=== PATIENT | female | born 1940 | race Caucasian/White ===

== ENCOUNTER 2018-12-02 07:30 | Emergency (ER) | payer MEDICARE, OTHER, SELFPAY ==
[2018-12-02 07:31] VITALS: BP 136/75; PULSE 90; RESP 18; TEMP 36.6; O2SAT 97; BMI 23.8
--- NOTE | 2018-12-02 07:55 | CT_ITS ---
STUDY: CT ABDOMEN AND PELVIS WITH CONTRAST REASON FOR EXAM: Female, 77 years old. Generalized abdominal pain with nausea and diarrhea. RADIATION DOSAGE (If Supplied By Facility): CTDIvol = ( 13.13 ) mGy, DLP = ( 602.34 ) mGycm TECHNIQUE: Transaxial images were obtained from the dome of the diaphragm to the symphysis pubis without oral contrast. 75mL IV Isovue 300 was administered. Sagittal and coronal images were reconstructed. Individualized dose optimization techniques were used for this CT. COMPARISON: None. FINDINGS: Minimal degree of increased markings at the lung bases suggestive of atelectasis. The visualized portions of the heart are within normal limits. There is decreased attenuation of the liver consistent with steatosis. Mild degree of central intrahepatic biliary ductal dilatation. The patient is status post cholecystectomy. The gallbladder is dilated measuring 8.7 mm. Normal spleen. Normal pancreas. Normal bilateral adrenal glands. Normal right kidney. Normal left kidney. There is a small hiatal hernia. Normal small intestine. There is diverticulosis, with thickening of the colon wall, and pericolonic inflammation changes consistent with acute diverticulitis. The patient is status post appendectomy There is diffuse atherosclerotic calcification of the abdominal aorta, without a demonstrated aneurysm. Normal inferior vena cava. Normal retroperitoneum. Normal urinary bladder. Normal abdominal wall. There are diffuse degenerative changes of the visualized lumbar spine. Grade 1 anterolisthesis of L3 on L4. CT/Abdomen/Pelvis W IV Cont ONLY IMPRESSION: Mild degree of sigmoid diverticulitis. Circumferential wall thickening and inflammatory changes seen in the distal portion of the descending colon. Follow-up is recommended. Electronically Signed: Crow Hale, at 9:53 EDT , Service support ,
--- NOTE | 2018-12-02 07:57 | ED.VISSUMM ---
- ER Visit Summary Date of Service: 12/02/18 Chief Complaint: Nausea, diarrhea, abdominal cramping History of Present Illness: The patient is a 77 F presents to the emergency department 24 hours of symptoms. The patient states that she began have some abdominal cramping last night. She states she felt very nauseated. Since then, she is had multiple bouts of loose watery diarrhea. She denies any fevers or chills. She denies any recent travel, antibiotic use, or history of C. difficile. States she is uncomfortable. She has had prior abdominal surgery including appendectomy and cholecystectomy. She states she did have a colonoscopy, but has never been diagnosed with diverticulosis or colitis. She has not had any vomiting. Physical Examination: Vital signs reviewed General: Well-nourished, well-developed Head: Normocephalic, atraumatic Eyes: Pupils equal and reactive, extraocular muscles intact Neck, supple, no lymphadenopathy Heart: Regular rate and rhythm Respiratory: No distress, clear bilaterally Abdomen: Soft, nontender, nondistended, no peritoneal signs Back: Nontender Extremities: Nontender, no edema, no cords Skin: Normal color no rash Neuro: Alert and oriented, no focal or lateralizing deficits Test Results: [] Emergency Department Course and Treatment: Patient's abdominal exam is unimpressive. She really has no focal rebound or guarding. However, given her advanced age and metabolic work-up was pursued. IV was established. Patient was given fluids and antiemetics. She was feeling improved. Labs are unremarkable. CT shows uncomplicated mild diverticulitis. I discussed options with the patient. I do feel that she is safe for outpatient therapy. She is agreeable with this plan. She will be started on Cipro and Flagyl and given her first dose here. I did certified alcohol counselor her on the appropriate reevaluation within the next 24 to 48 hours. I also counseled her that if her symptoms are worsening to return to the emergency department. She was also counseled that she has worsening fever or pain to return. She will be discharged home. Treatment Plan: [] Disposition: Discharge Impression: 1. Acute uncomplicated diverticulitis This note was generated with [facility] [employer] software. It may contain incorrect words, spelling, and punctuation that were not noted in review of the chart prior to signing ED Disposition - Plan for ED Patient: Disposition: Home or Assisted Living Instructions: Diverticulitis Prescriptions: Ciprofloxacin [Cipro] 500 mg PO BID #14 tab Prescription Printed metroNIDAZOLE [Flagyl] 500 mg PO Q8H #21 tab Prescription Printed Referrals: Deven Mendoza MD [Primary Care Provider] - 1-2 Days if not improving
[2018-12-02] MEDS: 0.9% Normal Saline 1,000 ML 1000 ML IV (08:04)
[2018-12-02] MEDS: Ondansetron 4 MG/2 ML Vial IV (08:04)
[2018-12-02 08:34] LABS: Absolute Lymphocyte Count 0.65 X10^3/ul (0.83-4.51); Basophil# 0.02 X10^3/uL; Basophil% 0.3 % (0-1); Eosinophil# 0.13 X10^3/uL; Eosinophils% 1.8 % (0-5); Hematocrit 48.9 % (37-47); Lymphocyte # 0.65 X10^3/ul (4.0); Lymphocyte % 8.9 % (19-41); Mean Corp Hgb Conc 32.7 g/gl (32-36); Mean Corpuscular Hgb 28.1 pg (27.0-32.0); Mean Corpuscular Volume 85.8 fL (81-99); Mean Platelet Vol. 10.5 fl (6.2-12.0); Monocyte% 6.9 % (0-10); Neutrophil # 5.98 X10^3/uL (2.7-7.7); Platelet Count 266 K/mm3 (150-450); RBC Distribution Width CV 14.3 % (11.6-14.6); RBC Distribution Width SD 44.6 fl (35.1-43.9); White Blood Count 7.3 K/mm3 (4.4-11.0)
[2018-12-02 08:38] LABS: POSITIVE COUNT NO; POSITIVE DIFFERENTIAL NO; POSITIVE MORPHOLOGY NO
[2018-12-02 08:57] LABS: ALB/GLOB Ratio 1.1 RATIO (0.9-2.4); AST(SGOT) 31 U/L (15-37); Alanine Aminotransfer ALT/SGPT 27 U/L (13-56); Albumin, Serum 3.9 g/dL (3.2-5.0); Alkaline Phosphatase 88 U/L (45-117); Anion Gap 6 (5-15); BUN 26 mg/dL (7-18); BUN/Creat Ratio 24.8 RATIO (10-20); Calcium,Total 9.6 mg/dL (8.5-10.1); Chloride 110 mmol/L (98-107); Creatinine, Serum 1.05 mg/dL (0.55-1.02); EST Glomerular Filtration Rate 54 mL/min (>60); Est Glom Filt Rate - Afr Amer 65 mL/min (>60); Estimated Creatinine Clearance 36.63 ml/min; Globulin 3.7 g/dL (2.2-4.2); Glucose 112 mg/dL (74-106); Potassium 3.8 mmol/L (3.5-5.1); Protein, Total 7.6 g/dL (6.4-8.2); Sodium Level 140 mmol/L (136-145)
[2018-12-02 09:18] LABS: Color, Urine Yellow (Yellow); Glucose, Dipstick Normal (Normal); Ketone-Dipstick Negative (Negative); Leukocyte Esterase-Dipstick Negative /ul (Negative); Nitrite-Dipstick Negative (Negative); Occult Blood-Urine 10 /ul (Negative); Protein-Dipstick Negative (Negative); Specific Gravity, Urine 1.015 (1.002-1.030); Urine Bilirubin Dipstick Negative (Negative); Urine Clarity Clear (Clear); Urine Urobilinogen Normal (Normal)
[2018-12-02 09:19] LABS: White Blood Cells 0 SEEN /hpf (0-5)
[2018-12-02 09:25] LABS: Bacteria RARE /hpf (None Seen); Mucous, Urine RARE /hpf (<or=2+); Red Blood Cells-Urine 0-5 SEEN /hpf (0-5); Squamous Epithelial Cells - UA 0-5 SEEN /hpf (5-10)
[2018-12-02] MEDS: Ciprofloxacin 500 MG Tablet PO (10:43)
[2018-12-02] MEDS: metroNIDAZOLE 500 MG Tablet PO (10:43)
[2018-12-02 10:48] VITALS: BP 129/77; PULSE 63; RESP 15; O2SAT 98
== END 2018-12-02 10:49 | disposition home or self-care (01) ==
PROVIDERS: Emergency Medicine; Emergency Provider Emergency Medicine; Family Provider Family Medicine; PCP Family Medicine
DX: K57.32 Diverticulitis of large intestine without perforation or abscess without bleeding (principal); Z90.49 Acquired absence of other specified parts of digestive tract
CPT/HCPCS: 74177; 80053; 81001; 85025; 87086; 87088; 96361; 96374; 99284; J7030; Q9967; A4216; J2405

== ENCOUNTER → 2019-04-24 07:29 | Outpatient (CLI) | payer MEDICARE, OTHER, SELFPAY ==
--- NOTE | 2019-04-24 16:49 | NEURO ---
NCS and/or EMG Patient Report HPI: Patient s a 78-year-old female who presented with numbness of right middle finger and thumb for a couple of months. Patient is a borderline diabetic. Patient denies any H/O neck injury. Patient having difficulty holding things from the right hand. Physical Exam: Thenar and hypothenar muscles atrophy noted. Decreased sensation to light touch noted in right middle hand fingers. Findings: 1. There is evidence of prolongation of distal latency of right median sensory nerve response. 2. There is prolongation of the distal latency of the right ulnar sensory nerve response. 3. There is prolongation of the distal latency of the right median motor nerve response. 4. There is evidence of increased insertional activity and decreased recruitment with fibrillation potential and P waves present in right APB muscle. Impression: 1. Findings are consistent with a severe median mononeuropathy of the right hand due to carpal tunnel syndrome. 2. 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 Recommendation: 1. Patient recommended to wear a right hand and elbow splint as much as possible. 2. Recommend to avoid repetitive hand movements and heavy lifting pushing pulling from the right hand. 3. Patient is recommended to have surgical release of carpal tunnel syndrome in the right hand QUAN.
== END ==
PROVIDERS: Family Provider Family Medicine; PCP Family Medicine; Referring Provider Family Medicine; Visit Provider Family Medicine
DX: R20.2 Paresthesia of skin (principal)
CPT/HCPCS: 95860; 95886; 95908

== ENCOUNTER 2019-12-13 10:31 | Inpatient (IN) | payer MEDICARE, OTHER, SELFPAY ==
[2019-12-13] VITALS (21 sets, daily range): BP systolic 122–156; BP diastolic 68–114; PULSE 71–93; RESP 12–28; TEMP 36.4–36.9; O2SAT 95–100; BMI 20.5; BMI 22.8; BMI 22.9
--- NOTE | 2019-12-13 10:35 | CT_ITS ---
STUDY: CT BRAIN WITHOUT CONTRAST REASON FOR EXAM: Female, 79 years old. CONFUSION FOUND IN DRIVEWAY, STROKE RADIATION DOSAGE (If Supplied By Facility): CTDIvol = ( 44.99 ) mGy, DLP = ( 745.49 ) mGycm TECHNIQUE: Transaxial CT imaging of the brain was performed without administration of intravenous contrast material. Individualized dose optimization techniques were used for this CT. COMPARISON: July 21, 2015 CT head FINDINGS: Normal soft tissue structures. Normal calvarium. There is mild cerebral atrophy with widening of the extra-axial spaces and ventricular dilatation. Normal white matter tracts of the cerebral hemispheres. There is subtle low attenuation within the left side external capsule slightly asymmetric to the right similar to the prior study. Normal brainstem. There is mild cerebellar atrophy. There is no intracranial hemorrhage. There are no findings of an acute ischemic infarction. Normal visualized paranasal sinuses. CT/Brain/Head without Contrast IMPRESSION: Atrophy. Chronic evolutional Change, findings suggest subtle prior ischemic change in the basal ganglia. No visualized evidence of acute hemorrhage infarct or edema. N.B. : The above information has been verbally conveyed by Gosia Chacon MD to Dieter Samuels MD, on 12/13/2019 10:59:53 (ET). Electronically Signed: Gosia Chacon MD at 10:52 EDT Tel , Service support ,
--- NOTE | 2019-12-13 10:35 | RAD_ITS ---
STUDY: X-RAY CHEST REASON FOR EXAM: Female, 79 years old. Pt found outside on ground by neighbor, pt confused TECHNIQUE: Single AP portable view of the chest. COMPARISON: July 21, 2015 chest x-ray FINDINGS: There is a small focus of stable left lower lobe opacity. There is no demonstrated pleural abnormality. There is borderline cardiomegaly. Normal mediastinum and dany. Normal visualized pulmonary arteries. There is atherosclerotic calcification of the aortic arch with tortuosity. There are diffuse degenerative changes of the visualized thoracic spine. Normal visualized ribs, clavicles, and shoulders. There is no demonstrated abnormality of the visualized soft tissue structures of the upper abdomen. RAD/Chest 1 View IMPRESSION: Stable appearing left lower lobe atelectasis and/or scarring. Electronically Signed: Gosia Chacon MD at 11:26 EDT Tel , Service support ,
--- NOTE | 2019-12-13 10:35 | EKG12_ITS ---
Test Reason : STROKE Blood Pressure : / mmHG Vent. Rate : 092 BPM Atrial Rate : 092 BPM P-R Int : 130 ms QRS Dur : 078 ms QT Int : 368 ms P-R-T Axes : 067 -40 055 degrees QTc Int : 455 ms Normal sinus rhythm Left axis deviation Nonspecific ST abnormality Abnormal ECG Confirmed by MANNY MARIE, ZAID ([id number]), editorial writer FELIPA PRUITT ([id number]) on 12/15/2019 1:07:58 PM Referred By: BROOK Confirmed By:ZAID BRYANT MD
--- NOTE | 2019-12-13 10:36 | CT_ITS ---
We are attempting to reach an attending provider to discuss findings. An addendum with communication details will be sent when the communication is complete. STUDY: CTA HEAD AND NECK WITH CONTRAST REASON FOR EXAM: Female, 79 years old. STROKE ADRIEL RADIATION DOSAGE (If Supplied By Facility): CTDIvol = ( 15.92 ) mGy, DLP = ( 533.09 ) mGycm TECHNIQUE: CT angiography was performed with a multi-detector CT scanner. Data acquisition was obtained from the skull base through the vertex following intravenous administration of 75ML ISOVUE 370. MIP images were reconstructed from the axial data set. Post-processing of the angiographic images was performed, with multiplanar reformation and 3D reconstruction. Individualized dose optimization techniques were used for this CT. COMPARISON: No relevant priors. FINDINGS: Normal bilateral petrous carotid arteries. Normal right cavernous carotid artery with a normal supraclinoid bifurcation. There is calcified plaque formation of the left cavernous carotid artery, without a cross-sectional luminal stenosis. Normal right A1 segments of the anterior cerebral artery. Normal left A1 segments of the anterior cerebral artery. Normal intact anterior communicating artery (ACOM). Normal bilateral A2 segments of the anterior cerebral arteries. Normal right M1 and M2 segments of the middle cerebral arteries, with a normal M1 bifurcation. Normal left M1 and M2 segments of the middle cerebral arteries, with a normal M1 bifurcation. There is a persistent origin of the right posterior cerebral artery with absence of the posterior communicating artery (PCOM). Normal left posterior communicating artery (PCOM). Normal bilateral vertebral arteries. Normal basilar artery with a normal basilar bifurcation. The visualized bilateral superior cerebellar (SCA) arteries are normal. Normal bilateral P1, P2 and visualized P3 segments of the posterior cerebral arteries. There is no demonstrated aneurysm of the [place]. There is no demonstrated abnormality of the visualized brain. AORTIC ARCH: There is partial calcification of the visualized aortic arch. Normal origins of the brachiocephalic, left common carotid, and left subclavian arteries. RIGHT CAROTID ARTERIES: There is atherosclerotic tortuous elongation of the right common carotid artery. There is moderate atherosclerotic plaque formation with moderate narrowing of the right carotid bulb. There is moderate atherosclerotic plaque formation of the origin of the right internal carotid artery with an estimated stenosis of 50-69% stenosis. There is atherosclerotic tortuous elongation of the cervical portion of the right internal carotid artery. Normal origin of the right external carotid artery (ECA). LEFT CAROTID ARTERIES: There is atherosclerotic tortuous elongation of the left common carotid artery. Normal left common carotid bulb. Normal origin of the left internal carotid (ICA) artery without a hemodynamically significant stenosis. There is atherosclerotic tortuous elongation of the cervical portion of the left internal carotid artery. Normal origin of the left external carotid artery (ECA). VERTEBRAL ARTERIES: Normal bilateral vertebral arteries. There is degenerative change within the cervical spine with multilevel facet arthropathy. No significant C5-C6 where there is a broad disc osteophyte moderate neural foraminal narrowing [id number] central stenosis. CT/CTA Head AND Neck W/ Contrast IMPRESSION: 50-69% stenosis of the right proximal internal carotid artery. No significant narrowing or stenosis of the left internal carotid artery. No visualized stenosis or aneurysmal dilatation of the [place] of [place]. Normal-appearing deering of [place]. Electronically Signed: Gosia Chacon MD at 11:14 EDT Tel , Service support ,
--- NOTE | 2019-12-13 10:37 | ED.VIS.GEN ---
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 She was found in her driveway unresponsive by her neighbor. When EMS arrived they state that she was very confused and kept repeating the same questions. She has been improving significantly. She is now answering questions appropriately. She is moving all 4 extremities equally. Blood glucose when EMS picked her up was 91. Patient denies having any history of strokes in the past. She is not on any anticoagulation. Just aspirin. Her only complaint at this time is nausea. She was given Zofran by EMS. Has any headache or vision changes. No issues with word finding. No loss of sensation in any extremity. No known history of seizure disorder. She denies any substance or alcohol use. Past Medical History - Allergies and Home Meds Allergies/Adverse Reactions: Allergies gabapentin [From Neurontin] Allergy (Verified 12/13/19 10:44) Other Penicillins Allergy (Verified 12/13/19 10:44) Swelling Hgbomxc-[id number]-Fzb Reductase Inhibitor Allergy (Verified 12/13/19 10:44) Other sulfamethoxazole [From Bactrim] Allergy (Verified 12/13/19 10:44) Pain in joints sulindac [From Clinoril] Allergy (Verified 12/13/19 10:44) Other tizanidine HCl [From Zanaflex] Allergy (Verified 12/13/19 10:44) Other trimethoprim [From Bactrim] Allergy (Verified 12/13/19 10:44) Pain in joints vancomycin Allergy (Verified 12/13/19 10:44) Itching duloxetine HCl [From Cymbalta] Adverse Reaction (Verified 12/13/19 10:44) Nausea erythromycin base Adverse Reaction (Verified 12/13/19 10:44) Other Primary Care Physician: Deven Mendoza MD [Primary Care Provider] - Prior records reviewed: Yes Past Medical History: - - History of DVT, not anticoagulated Surgical History: appendectomy, cholecystectomy Smoking Status: Never smoker - Family History Maternal Family History: Reports: Heart Disease - age 80 Paternal Family History: Reports: Heart Disease - age 42 Review of Systems All systems negative except as indicated General: Denies: Chills, Fever, Sweats Eyes: Denies: Visual changes - bilaterally, Diplopia ENT: Denies: Rhinorrhea, Sore throat Cardiovascular: Denies: Chest pain, Palpitations Respiratory: Denies: Dyspnea, Cough, Dyspnea on exertion Gastrointestinal: Reports: Nausea. Denies: Abdominal pain, Vomiting, Diarrhea Genitourinary: Denies: Dysuria, Hematuria, Frequency Musculoskeletal: Denies: Back pain, Extremity Pain Skin: Denies: Rash, Wounds Neurological: Denies: Headache, Weakness, Numbness Physical Exam Inital Vital Signs reviewed: Yes General: Well nourished, Well developed, No Acute Distress Head: Normocephalic, Atraumatic Eyes: Perrl, EOMI ENT: Moist mucous membranes, No rhinorrhea Neck: Supple, Nontender Cardiovascular: Regular rate, Regular rhythm, No murmurs Respiratory: No distress, CTA bilaterally, Chest nontender Abdomen: Soft, Nontender, Nondistended, Normal bowel sounds Back: Nontender, Normal Inspection Extremities: Nontender, No edema Skin: Normal color, No rash Neurological: Alert, Oriented x3, Cranial nerves II-XII grossly intact, Normal Strength, Normal Sensation, - - NIH score upon arrival is 0. 5 out of 5 muscle strength throughout. Sensation intact. Answers all questions appropriately. Follows commands well.. Negative for: Confused, Left side facial droop, Right side facial droop Psychological: Normal affect, Normal Mood Diagnostic/Tx/Re-eval - EKG Initial EKG Interpretation: - - Rate of 92 bpm and normal sinus rhythm. Left axis deviation. Normal intervals. No ST elevations or depressions appreciated. No T wave abnormalities. No prior EKG for comparison. - Medical Decision Making Patient presents to the hospital as a prehospital stroke alert. She was unresponsive initially per the neighbor but then became very confused. Upon arrival to the ED she is much better at this time. Her initial NIH score is 0. Will do CT scan of the head as well as CTA of the head/neck. Basic lab work being obtained. Patient's last known well is not completely known. She would still be candidate for endovascular intervention but no large vessel occlusion was appreciated on scan. She is not a TPA candidate given the outside of the window. Patient potentially had a TIA. She did not have any witnessed seizure-like activity. No history of seizure disorder. She not bite her tongue or become incontinent. Potentially could have had a postictal state causing this. Will bring to the hospital for further evaluation and management. Will give dose of aspirin here in the ED. She otherwise has been stable throughout ED stay. She is agreeable to this plan. ED Disposition - Plan for ED Patient: Disposition: Home or Assisted Living Diagnosis: Episode of confusion, Altered level of consciousness Referrals: Deven Mendoza MD [Primary Care Provider] -
--- NOTE | 2019-12-13 10:45 | CM.ED ---
SOCIAL WORK Reason for Consult: Stroke Alert Responded to Stroke Alert. Patient in CT. Patient's son arrived to department. Introduced role and reason for referral. Son reports patient patient was found by neighbor in her yard. Son states she was out weeding and she does not do well in the heat. Patient lives in the home and per son, is normally independent. Education and support provided to son. This worker to remain available for needs. Fran Davis, LANGUAGES AND LITERATURE INSTRUCTOR, [employer]
[2019-12-13 10:51] LABS: Absolute Neutrophil Count 4.5 X10^3/uL (2.0-7.7); Basophil# 0.06 X10^3/uL; Basophil% 0.7 % (0-1); Eosinophil# 0.21 X10^3/uL; Eosinophils% 2.5 % (0-5); Hematocrit 48.3 % (37-47); Hemoglobin 15.5 g/dL (12.0-15.0); Mean Corp Hgb Conc 32.1 g/dL (32-36); Mean Corpuscular Hgb 28.9 pg (27.0-32.0); Mean Corpuscular Volume 90.1 fL (81-99); Mean Platelet Vol. 10.6 fl (6.2-12.0); Monocyte# 0.85 X10^3/uL; NRBC Flagged by Analyzer 0 % (0-5); Neutrophil # 4.48 X10^3/uL (2.7-7.7); Neutrophil % 52.6 % (47-70); Platelet Count 235 K/mm3 (150-450); RBC Distribution Width CV 13.9 % (11.6-14.6); RBC Distribution Width SD 45.8 fl (35.1-43.9); Red Blood Count 5.36 M/mm3 (4.2-5.4); White Blood Count 8.5 K/mm3 (4.4-11.0)
[2019-12-13] MEDS: Ondansetron 4 MG/2 ML Vial IV (11:24)
[2019-12-13 11:39] LABS: Prothrombin Time (Protime)PT. 13.1 SECONDS (11.7-14.9)
[2019-12-13 11:45] LABS: Anion Gap 12 (5-15); BUN 19 mg/dL (7-18); BUN/Creat Ratio 20.1 RATIO (10-20); Calcium,Total 8.2 mg/dL (8.5-10.1); Chloride 110 mmol/L (98-107); Creatinine, Serum 0.94 mg/dL (0.55-1.02); EST Glomerular Filtration Rate 61 mL/min (>60); Est Glom Filt Rate - Afr Amer 74 mL/min (>60); Estimated Creatinine Clearance 38.38 ml/min; Glucose 134 mg/dL (74-106); Potassium 3.9 mmol/L (3.5-5.1); Sodium Level 142 mmol/L (136-145)
[2019-12-13] MEDS: Aspirin 325 MG Tablet PO (12:42)
[2019-12-13 12:59] LABS: Bacteria 0 SEEN /hpf (None Seen); Mucous, Urine 0 SEEN /hpf (<or=2+); Red Blood Cells-Urine 0 SEEN /hpf (0-5); Squamous Epithelial Cells - UA 0 SEEN /hpf (5-10); White Blood Cells 0 SEEN /hpf (0-5)
[2019-12-13 13:05] LABS: Color, Urine Yellow (Yellow); Glucose, Dipstick Normal (Normal); Ketone-Dipstick Negative (Negative); Leukocyte Esterase-Dipstick Negative /ul (Negative); Nitrite-Dipstick Negative (Negative); Occult Blood-Urine Negative /ul (Negative); Protein-Dipstick Negative (Negative); Urine Bilirubin Dipstick Negative (Negative); Urine Clarity Clear (Clear); Urine Urobilinogen Normal (Normal); Urine pH 6.5 (5.0 - 8.0)
--- NOTE | 2019-12-13 13:29 | PCM.HP.STD ---
History of Present Illness Date of Admission: 12/13/19 Chief Complaint: Syncope The patient is a 79 year old F who got up this am feeling well and went outside to do some weeding. She was found in her driveway unresponsive by her neighbor and the EMS was called. Upon arrival of the EMS and her son verifies this, she was confused some but was moving all extremities symmetrically. Her son states that they arrived shortly after the EMS and that she knew their names but appeared dazed. Her BGT was 91 at that time and all vs were stable. she states that she had an episode about 10 yrs ago that was similar to this and her w/u was negative then. She had no loss of bowel or bladder during this event. She is now back to baseline per her son and she reports that she is feeling well. She does admit that she doesn't do well in the heat. Her father had sig vascular disease. Her VS are stable and she is afebrile. Her CBC is WNL other then a mildly elevated hgb which appears to be her baseline. She has a NAGMA 2/2 elevated Cl level. Her BUN is 19 and sCr 0.95 which is about baseline for her. Her EKG shows NSR with no acute ischemic changes and her initial troponin is WNL. Her UA is unremarkable. Past Medical History Past Medical History (Chronic Problems): Chronic Problems Hyperlipidemia (Chronic) Allergies gabapentin [From Neurontin] Allergy (Verified 12/13/19 10:44) Other Penicillins Allergy (Verified 12/13/19 10:44) Swelling Yetowyq-Xoa-Pct Reductase Inhibitor Allergy (Verified 12/13/19 10:44) Other sulfamethoxazole [From Bactrim] Allergy (Verified 12/13/19 10:44) Pain in joints sulindac [From Clinoril] Allergy (Verified 12/13/19 10:44) Other tizanidine HCl [From Zanaflex] Allergy (Verified 12/13/19 10:44) Other trimethoprim [From Bactrim] Allergy (Verified 12/13/19 10:44) Pain in joints vancomycin Allergy (Verified 12/13/19 10:44) Itching duloxetine HCl [From Cymbalta] Adverse Reaction (Verified 12/13/19 10:44) Nausea erythromycin base Adverse Reaction (Verified 12/13/19 10:44) Other Home Medications: Ambulatory Orders Medication Instructions Recorded Aspirin [Aspirin, Baby] 162 mg PO DAILY@0800 07/20/16 Icosapent Ethyl [Vascepa] 1 cap PO DAILY 12/02/18 Surgical History: appendectomy, cholecystectomy Psychiatric History: No pertinent psych hx [employer]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 Smoking Status: Former smoker - *Family History Maternal History Items: Heart Disease - age 80 Paternal History Items: Heart Disease - age 42 Review of Systems Constitutional: Denies: Anorexia, Chills, Fever, Night Sweats, Malaise, Weakness, Weight Change, Fatigue Eyes: Denies: Blurred vision, Cataracts, Conjunctivae Inflammation, Double vision, Drainage, Eyelid Inflammation, Pain, Redness, Vision Change HEENT: Denies: Difficulty Hearing, Dysphasia, Ear Pain, Eye Pain, Head Aches, Nasal bleeding, Nasal Congestion, Post Nasal Drip, Sinus Congestion, Sinus Drainage, Sore Throat Cardiovascular: Reports: Syncope. Denies: Chest Pain, Claudication, Chest Pressure, Chest Tightness, Edema, Heaviness, Light Headedness, Orthopnea, Palpitations, Paroxysmal Noc. Dyspnea Respiratory: Denies: Cough, Hemoptysis, Pleuritic Pain, Shortness of Breath, Shortness of breath at rest, Shortness of breath upon exertion, Sputum production, Wheezing Gastrointestinal: Denies: Abdominal Pain, Constipation, Diarrhea, Dyspepsia, Hematemesis, Hematochezia, Nausea, Melena, Vomiting Genitourinary: Denies: Dysuria, Frequency, Hematuria, Hesitancy, Incontinence, Nocturia, Retention, Urgency Musculoskeletal: Denies: Back Pain, Joint Pain, Joint stiffness, Joint swelling, Joint Tenderness, Leg Pain, Muscle pain, Neck Pain Skin: Denies: Dryness, Jaundice, Lesions, Pruritis, Rash, Skin Changes, Wounds Neurological: Reports: Confusion - now resolved, Numbness - L hand 2/2 carpel tunnel syndrome. Denies: Balance problems, Blurred vision, Double vision, Change in Speech, Slurred speech, Difficulty swallowing, Focal weakness, Headaches, Incoordination, Tingling, Tremor, Seizures Psychiatric: Denies: Anxiety, Depression, Homicidal Ideations, Suicidal Ideations Endocrine: Denies: Change in Body Habitus, Heat/ Cold Intolerance, Polydipsia, Polyuria, Hx of Irradiation, Hx of Thyroiditis Hematologic/ Lymphatic: Denies: Adenopathy, Anemia, Easy Bruising, Easy Bleeding, Petechiae, Purpura VTE Information - Inpt Only VTE Present on Admission: No VTE Mechan Device Prophylaxis: None VTE Pharm Prophylaxis ordered?: No Patient Problems: Active and Suspected Problems Episode of confusion (Acute) Altered level of consciousness (Acute) - Physical Exam Vitals/I&O's: Vital Signs Temp Pulse Resp BP Pulse Ox 98.0 F 79 18 129/87 H 98 12/13/19 13:02 12/13/19 13:02 12/13/19 13:02 12/13/19 13:02 12/13/19 13:02 Oxygen Flow Rate (L/min) 2 Oxygen Delivery Method Room Air Weight: 50.8 kg Body Mass Index (BMI) 20.5 Finger Stick Blood Glucose 91 General: Alert, Oriented x3, Cooperative, No apparent distress, Well developed, Well nourished, - - WF who appears younger than stated age, appears well, son at bedside HEENT: Atraumatic, PERRLA, EOMI, Normocephalic, EAC Clear Oral: Moist Mucosa, No Gingival or Mucosal Lesions/ Ulcerations, - - fair dentition, mallampati 2 Neck: Supple, No JVD, Negative Carotid Bruits, Negative Hepatojugular Reflux, No Nodes, No Nuchal Rigidity, Trachea Midline, Thyroid Normal Size and Texture Lungs: Clear to auscultation, Normal air movement, No rhonchi, No wheeze, No rales Cardiovascular: Regular rate, Regular Rhythm, Normal S1, Normal S2, No murmurs, No Ectopic Activity, No rub noted, No Gallop Abdomen: Bowel Sounds Present, Soft, Non Tender, Non-Distended, No Hepato-splenomegaly, No hernias noted Extremities: No clubbing, No cyanosis, No edema, Capillary Refill Less than 3 Seconds, No Calf Tenderness, Peripheral Pulses Normal Skin: No rashes, No breakdown Musculoskeletal: No Tenderness to Palpation of Joints or Extremities, No Muscle Wasting, Arthritic Changes Lymphatic: No Cervical, Supraclavicular, or Inguinal Adenopathy Neurological: Cranial nerves II-XII grossly intact, Deep Tendon Reflexes 2+/4 and Symmetrical, Neuro grossly intact, Motor Exam 5/5 strength throughout, Muscle tone normal, Sensory exam intact to light touch and pain, Coordination normal Psych/Mental Status: Normal Affect, Appropriate, Alert and oriented to time, place, person, mood and affect Laboratory Results 12/13/19 10:37: WBC 8.5, RBC 5.36, Hgb 15.5 H, Hct 48.3 H, MCV 90.1, MCH 28.9, MCHC 32.1, RDW Std Deviation 45.8 H, RDW Coeff of Hortencia 13.9, Plt Count 235, MPV 10.6, Immature Gran % (Auto) 0.200, Neut % (Auto) 52.6, Lymph % (Auto) 34.0, [place] % (Auto) 10.0, Eos % (Auto) 2.5, Baso % (Auto) 0.7, Absolute Neuts (auto) 4.5, Absolute Lymphs (auto) 2.90, Nucleated RBC % 0 12/13/19 10:37: PT Cancelled, INR Cancelled, APTT Cancelled 12/13/19 10:37: Sodium Cancelled, Potassium Cancelled, Chloride Cancelled, Carbon Dioxide Cancelled, Anion Gap Cancelled, BUN Cancelled, Creatinine Cancelled, Estim Creat Clear Calc Cancelled, Est GFR (MDRD) Af Amer Cancelled, Est GFR (MDRD) Non-Af Cancelled, BUN/Creatinine Ratio Cancelled, Glucose Cancelled, Calcium Cancelled, Troponin I Cancelled 12/13/19 11:14: Sodium 142, Potassium 3.9, Chloride 110 H, Carbon Dioxide 20.0 L, Anion Gap 12, BUN 19 H, Creatinine 0.94, Estim Creat Clear Calc 38.38, Est GFR (MDRD) Af Amer 74, Est GFR (MDRD) Non-Af 61, BUN/Creatinine Ratio 20.1 H, Glucose 134 H, Calcium 8.2 L, Troponin I < 0.015 12/13/19 11:14: PT 13.1, INR 1.0, APTT 24.0 L 12/13/19 12:54: Urine Color Yellow, Urine Clarity Clear, Urine pH 6.5, Ur Specific [place] 1.010, Urine Protein Negative, Urine Glucose (UA) Normal, Urine Ketones Negative, Urine Occult Blood Negative, Urine Nitrite Negative, Urine Bilirubin Negative, Urine Urobilinogen Normal, Ur Leukocyte Esterase Negative, Urine RBC 0 SEEN, Urine WBC 0 SEEN, Ur Squamous Epith Cells 0 SEEN, Urine Bacteria 0 SEEN, Urine Mucus 0 SEEN Current Medications Iopamidol (Contrast Allergy Check) 0 ml IV X1 TEMO Last Admin: 12/13/19 12:59 Dose: Not Given Documented by: Labetalol HCl (Trandate) 20 mg IV X1 PRN PRN Reason: BLOOD PRESSURE Assessment/Plan All Active Problems Episode of confusion (Acute) Altered level of consciousness (Acute) Syncope (Acute) Syncope -highly doubt acute stroke -will assess MRI and Carotid US (contrast allergy)with marked h/o vascular disease in her family -check echo -cycle troponin -asa daily -no statin -check orthostics -IVF Erythrocytosis -trend -appears chronic Hyperchloremia with NAGMA -IVF and recheck in am 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
--- NOTE | 2019-12-13 14:05 | ECHOD_ITS ---
Reason For Study: TIA/CVA Procedure This was a 2D Doppler, Color Flow transthoracic echocardiogram. Exam performed portable in patient room. Left Ventricle Normal LV size. Left ventricular systolic function is normal. The estimated ejection fraction is 60 %. Stage 1 diastolic dysfunction. No regional wall motion abnormalities noted. Right Ventricle Normal RV size. Normal systolic function. Atria Normal left atrium. Normal right atrium. Mitral Valve Normal mitral valve. Mild (1+) eccentric mitral valve insufficiency. Tricuspid Valve Normal tricuspid valve. Mild tricuspid valve insufficiency. Pulmonary artery systolic pressure is 28 mmHg. Aortic Valve Normal aortic valve. Trisinus/trileaflet aortic valve. Pulmonic Valve Normal pulmonic valve. Great Vessels Normal aortic root. The pulmonary artery is normal size. Normal inferior vena cava. Pericardium/Pleural No pericardial effusion. MMode/2D Measurements & Calculations LVIDd: 3.7 cm IVSd: 0.78 cm Ao root diam: 2.9 cm LVIDs: 2.2 cm LVPWd: 0.72 cm FS: 41.0 % LAV(MOD-sp4): 23.6 ml LA A4 area: 11.2 cm2 LA dimension(2D): 3.0 cm RA A4 area: 12.0 cm2 Doppler Measurements & Calculations MV E max aly: 73.6 cm/sec Lat Peak E' Aly: 8.0 cm/sec Med Peak E' Aly: 5.6 cm/sec MV A max aly: 92.3 cm/sec E/E' lat: 9.2 E/E' med: 13.1 MV E/A: 0.80 Ao V2 max: 122.7 cm/sec LV V1 max: 96.8 cm/sec PA V2 max: 77.7 cm/sec Ao max P.0 mmHg LV V1 max P.8 mmHg TR max aly: 246.2 cm/sec TR max P.4 mmHg Interpretation Summary Normal LV size. Left ventricular systolic function is normal. The estimated ejection fraction is 60 %. Stage 1 diastolic dysfunction. Pulmonary artery systolic pressure is 28 mmHg. Ordering Physician: Ioana Babcock Referring Physician: Deven Mendoza Performed By: Sandi Garcia RDCS
[2019-12-13] MEDS: Lactated Ringers 1,000 ML 50 ML IV (14:37)
[2019-12-13 15:20] LABS: Amphetamine Urine VISTA NEGATIVE (<1000 ng/mL); Barbiturate Urine VISTA NEGATIVE (< 200 ng/mL); Benzodiazepine Urine VISTA NEGATIVE (< 200 ng/mL); Cocaine Urine VISTA NEGATIVE (< 300 ng/mL); Ecstacy Urine VISTA NEGATIVE (< 500 ng/mL); Methadone Urine VISTA NEGATIVE (< 300 ng/mL); PCP Urine VISTA NEGATIVE (< 25 ng/mL); THC Urine VISTA NEGATIVE (< 50 ng/mL); Vista UDS pH Range 6
[2019-12-14] VITALS (12 sets, daily range): BP systolic 116–155; BP diastolic 71–91; PULSE 65–88; RESP 17–18; TEMP 36.6–36.7; O2SAT 93–97; BMI 22.8
[2019-12-14 06:40] LABS: Absolute Lymphocyte Count 1.72 X10^3/uL (0.83-4.51); Absolute Neutrophil Count 3.5 X10^3/uL (2.0-7.7); Basophil# 0.04 X10^3/uL; Basophil% 0.7 % (0-1); Eosinophil# 0.16 X10^3/uL; Eosinophils% 2.7 % (0-5); Hematocrit 44.2 % (37-47); Hemoglobin 14.3 g/dL (12.0-15.0); Lymphocyte # 1.72 X10^3/ul (4.0); Lymphocyte % 28.9 % (19-41); Mean Corp Hgb Conc 32.4 g/dL (32-36); Mean Corpuscular Hgb 29.2 pg (27.0-32.0); Mean Corpuscular Volume 90.4 fL (81-99); Mean Platelet Vol. 10.4 fl (6.2-12.0); Monocyte# 0.55 X10^3/uL; Monocyte% 9.2 % (0-10); NRBC Flagged by Analyzer 0 % (0-5); Neutrophil # 3.47 X10^3/uL (2.7-7.7); Neutrophil % 58.2 % (47-70); Platelet Count 182 K/mm3 (150-450); RBC Distribution Width CV 14.4 % (11.6-14.6); RBC Distribution Width SD 46.5 fl (35.1-43.9); Red Blood Count 4.89 M/mm3 (4.2-5.4)
[2019-12-14 07:21] LABS: ALB/GLOB Ratio 0.9 RATIO (0.9-2.4); AST(SGOT) 30 U/L (15-37); Alanine Aminotransfer ALT/SGPT 25 U/L (13-56); Alkaline Phosphatase 63 U/L (45-117); Anion Gap 6 (5-15); BUN 14 mg/dL (7-18); BUN/Creat Ratio 18.4 RATIO (10-20); Calcium,Total 8.1 mg/dL (8.5-10.1); Chloride 110 mmol/L (98-107); Cholesterol 248 mg/dL (200); Creatinine, Serum 0.76 mg/dL (0.55-1.02); EST Glomerular Filtration Rate 78 mL/min (>60); Est Glom Filt Rate - Afr Amer 95 mL/min (>60); Estimated Creatinine Clearance 35.77 ml/min; Globulin 3.2 g/dL (2.2-4.2); Glucose 77 mg/dL (74-106); High Density Lipoprotein 37 mg/dL; Magnesium 2.5 mg/dL (1.6-2.6); Phosphorus 2.3 mg/dL (2.5-4.9); Protein, Total 6.2 g/dL (6.4-8.2); Sodium Level 139 mmol/L (136-145); Triglycerides 281 mg/dL; Very Low Density Lipoprotein 56 mg/dL (5-40)
[2019-12-14] MEDS: Aspirin 81 MG TAB.CHEW PO (07:31)
[2019-12-14] MEDS: Enoxaparin 40 MG/0.4 ML Syringe SC (07:32)
[2019-12-14] MEDS: Lactated Ringers 1,000 ML 50 ML IV (08:48)
[2019-12-14] MEDS: Na Biphos/Potassium Phosphate PACKET 1 PACKET PO ×2 (08:48→10:26)
--- NOTE | 2019-12-14 13:04 | PCM.PN.HOSP ---
<Dominick Rosario - Last Filed: 12/14/19 13:04> Patient Problems: Active and Suspected Problems Episode of confusion (Acute) Altered level of consciousness (Acute) Reason for Visit: syncope Subjective: The patient does not remember the events of her syncopal episode well. She remembers that she was outside gardening in the morning when the temp was in the 70s, and then was in the squad. Her neighbor had called EMS after finding her down. She denies tongue biting or loss of bowel/bladder. No hx seizure. No reported shaking/spasms. Pt had a syncopal episode in the grocery store 10 years ago, was told by cardiology that it was because she locked her knees straight while standing. Today she feels well with no complaints. No LH/dizziness. No cough/sob/fever/chills. Pt resting comfortably in bed NAD. Vitals/I&O's: Vital Signs Temp Pulse Resp BP Pulse Ox 97.8 F 80 18 116/78 94 12/14/19 10:26 12/14/19 10:26 12/14/19 10:26 12/14/19 10:26 12/14/19 10:26 Oxygen Flow Rate (L/min) 2 Oxygen Delivery Method Room Air Weight: 109 lb 8.014 oz Body Mass Index (BMI) 22.8 Finger Stick Blood Glucose 91 Orthostatic Vital Signs Start: 12/13/19 17:27 Freq: q24h Status: Active Protocol: Activity Type Activity Date Activity User E-Sign Co-Sign Detail Recorded Client Recorded Date Recorded By Document 12/13/19 18:09 [facility] [id number] 12/13/19 18:12 [facility] 12/13/19 18:09 Orthostatic Vitals Standing -Blood Pressure (90/60-120/80) 136/68 H -Extremity Use Right Arm -Pulse Rate (60-100) 73 Sitting -Blood Pressure (90/60-120/80) 141/90 H -Extremity Use Right Arm -Pulse Rate (60-100) 76 Lying -Blood Pressure (90/60-120/80) 138/71 H -Extremity Use Right Arm -Pulse Rate (60-100) 71 Intake and Output for Last 24 Hours 12/12/19 12/13/19 12/14/19 23:59 23:59 23:59 Intake Total 608.33 / 608.33 1240.83 / 1240.83 Balance 608.33 / 608.33 1240.83 / 1240.83 General: Alert, Oriented x3, Cooperative HEENT: Atraumatic, PERRLA, EOMI, Normocephalic Neck: Supple, No JVD, Negative Carotid Bruits Lungs: Clear to auscultation, Normal air movement Cardiovascular: Regular rate, No murmurs Abdomen: Bowel Sounds Present, Soft, Non Tender Extremities: No edema, Capillary Refill Less than 3 Seconds Skin: No rashes, No breakdown Musculoskeletal: No Tenderness to Palpation of Joints or Extremities Neurological: Cranial nerves II-XII grossly intact Psych/Mental Status: Normal Affect, Appropriate, Alert and oriented to time, place, person, mood and affect Laboratory Results 12/13/19 12:54: Urine Color Yellow, Urine Clarity Clear, Urine pH 6.5, Ur Specific [place] 1.010, Urine Protein Negative, Urine Glucose (UA) Normal, Urine Ketones Negative, Urine Occult Blood Negative, Urine Nitrite Negative, Urine Bilirubin Negative, Urine Urobilinogen Normal, Ur Leukocyte Esterase Negative, Urine RBC 0 SEEN, Urine WBC 0 SEEN, Ur Squamous Epith Cells 0 SEEN, Urine Bacteria 0 SEEN, Urine Mucus 0 SEEN 12/13/19 12:54: Urine Opiates Screen NEGATIVE, Urine Methadone Screen NEGATIVE, Ur Barbiturates Screen NEGATIVE, Ur Phencyclidine Scrn NEGATIVE, Ur Amphetamines Screen NEGATIVE, U Methamphetamin-MDMA NEGATIVE, U Benzodiazepines Scrn NEGATIVE, Urine Cocaine Screen NEGATIVE, U Cannabinoids Screen NEGATIVE, Ur Drug Screen Comment 12/14/19 05:55: WBC 6.0, RBC 4.89, Hgb 14.3, Hct 44.2, MCV 90.4, MCH 29.2, MCHC 32.4, RDW Std Deviation 46.5 H, RDW Coeff of Hortencia 14.4, Plt Count 182, MPV 10.4, Immature Gran % (Auto) 0.300, Neut % (Auto) 58.2, Lymph % (Auto) 28.9, [place] % (Auto) 9.2, Eos % (Auto) 2.7, Baso % (Auto) 0.7, Absolute Neuts (auto) 3.5, Absolute Lymphs (auto) 1.72, Nucleated RBC % 0 12/14/19 05:55: Sodium 139, Potassium 4.0, Chloride 110 H, Carbon Dioxide 23.0, Anion Gap 6, BUN 14, Creatinine 0.76, Estim Creat Clear Calc 35.77, Est GFR (MDRD) Af Amer 95, Est GFR (MDRD) Non-Af 78, BUN/Creatinine Ratio 18.4, Glucose 77, Calcium 8.1 L, Phosphorus 2.3 L, Magnesium 2.5, Total Bilirubin 0.40, AST 30, ALT 25, Alkaline Phosphatase 63, Total Protein 6.2 L, Albumin 3.0 L, Globulin 3.2, Albumin/Globulin Ratio 0.9, Triglycerides 281 H, Cholesterol 248 H, LDL Cholesterol 155 H, VLDL Cholesterol 56 H, HDL Cholesterol 37 L, TSH 0.90 Current Medications Acetaminophen (Tylenol) 650 mg PO Q6H PRN PRN PRN Reason: Pain Score 1-10/Temp > 100.7 F Al Hydroxide/Mg Hydroxide (Mylanta Ii) 30 ml PO Q6H PRN PRN PRN Reason: Gastric Burning Aspirin (Aspirin, Baby) 81 mg PO DAILY@0800 [facility] Last Admin: 12/14/19 07:31 Dose: 81 mg Documented by: Dextrose (D50w Syringe) 0 gm IV X1 PRN; Protocol PRN Reason: Hypoglycemia Enoxaparin Sodium (Lovenox) 40 mg SC DAILY [facility] Last Admin: 12/14/19 07:32 Dose: 40 mg Documented by: Glucagon () 1 mg IM .X1 PRN PRN Reason: Hypoglycemia Hydralazine HCl (Apresoline Iv) 5 mg IV Q30M PRN PRN Reason: to maintain BP goals Lactated Ringer's () 1,000 mls @ 50 mls/hr IV .Q20H [facility] Last Admin: 12/14/19 08:48 Dose: 50 mls/hr Documented by: Sodium Chloride () 250 mls @ 15 mls/hr IV .[id number] PRN PRN Reason: Saline Flush Labetalol HCl (Trandate) 20 mg IV X1 PRN PRN Reason: BLOOD PRESSURE Labetalol HCl (Trandate) 10 - 20 mg IV Q10M PRN PRN PRN Reason: to maintain BP goals Melatonin (Melatonin) 3 mg PO QHS PRN PRN PRN Reason: INSOMNIA Sodium Chloride () 10 - 40 ml IV UD PRN PRN Reason: SALINE FLUSH STROKE Vital Signs/Narrative: Vital Signs Temp Pulse Resp BP Pulse Ox 12/14/19 10:26 97.8 F 80 18 116/78 94 Medical Necessity - Tobacco Use Smoking Status: Former smoker Assessment/Plan All Active Problems Episode of confusion (Acute) Altered level of consciousness (Acute) Syncope (Acute) 1. Syncope - possibly vasovagal. orthos positive by diastolic sitting to standing. mild elevation in BUN. Tox neg. UA neg. TSH normal. Tele NSR. Trop neg. Some stenosis 50-69% stenosis R prox internal carotid artery on CTA. MRI pending. Echo in AM. No hx stroke. No symptoms concerning for seizure. 2. HLD - only on vescipa and she is not taking this because she is worried about side effects. Failed 6x statins. Lipid panel with poor control 3. CKDI 2-3 - stable DVT ppx: lovenox DC planning: mri pending, echo in AM This patient was seen by Dominick Rosario PA-C under the supervision of Dr. Babcock. <Ioana Babcock - Last Filed: 12/14/19 13:45> Subjective: I agree with the above and the following represents my independent history and physical Pt is frustrated that the ECHO has not been done and can't be done until tomorrow. States that she feels fine. No issues overnight. MRI pending for today. Vitals/I&O's: Vital Signs Temp Pulse Resp BP Pulse Ox 97.8 F 80 18 116/78 94 12/14/19 10:26 12/14/19 10:26 12/14/19 10:26 12/14/19 10:26 12/14/19 10:26 Oxygen Flow Rate (L/min) 2 Oxygen Delivery Method Room Air Weight: 49.669 kg Body Mass Index (BMI) 22.8 Finger Stick Blood Glucose 91 Orthostatic Vital Signs Start: 12/13/19 17:27 Freq: q24h Status: Active Protocol: Activity Type Activity Date Activity User E-Sign Co-Sign Detail Recorded Client Recorded Date Recorded By Document 12/13/19 18:09 [facility] [id number] 12/13/19 18:12 [facility] 12/13/19 18:09 Orthostatic Vitals Standing -Blood Pressure (90/60-120/80) 136/68 H -Extremity Use Right Arm -Pulse Rate (60-100) 73 Sitting -Blood Pressure (90/60-120/80) 141/90 H -Extremity Use Right Arm -Pulse Rate (60-100) 76 Lying -Blood Pressure (90/60-120/80) 138/71 H -Extremity Use Right Arm -Pulse Rate (60-100) 71 Intake and Output for Last 24 Hours 12/12/19 12/13/19 12/14/19 23:59 23:59 23:59 Intake Total 608.33 / 608.33 1240.83 / 1240.83 Balance 608.33 / 608.33 1240.83 / 1240.83 General: Alert, Oriented x3, Cooperative, No apparent distress, Well developed, Well nourished HEENT: Atraumatic, PERRLA, EOMI, Normocephalic Lungs: Clear to auscultation, Normal air movement, No rhonchi, No wheeze, No rales Cardiovascular: Regular rate, Regular Rhythm, Normal S1, Normal S2, No murmurs, No Ectopic Activity, No rub noted, No Gallop Abdomen: Bowel Sounds Present, Soft, Non Tender, Non-Distended, No hernias noted Extremities: No clubbing, No cyanosis, No edema, Capillary Refill Less than 3 Seconds, Edema Neurological: Cranial nerves II-XII grossly intact, Neuro grossly intact, Muscle tone normal, Coordination normal Psych/Mental Status: Normal Affect, Appropriate, - - frustrated as she had hoped to have the workup done and be able to go home, Alert and oriented to time, place, person, mood and affect Laboratory Results 12/13/19 12:54: Urine Opiates Screen NEGATIVE, Urine Methadone Screen NEGATIVE, Ur Barbiturates Screen NEGATIVE, Ur Phencyclidine Scrn NEGATIVE, Ur Amphetamines Screen NEGATIVE, U Methamphetamin-MDMA NEGATIVE, U Benzodiazepines Scrn NEGATIVE, Urine Cocaine Screen NEGATIVE, U Cannabinoids Screen NEGATIVE, Ur Drug Screen Comment 12/14/19 05:55: WBC 6.0, RBC 4.89, Hgb 14.3, Hct 44.2, MCV 90.4, MCH 29.2, MCHC 32.4, RDW Std Deviation 46.5 H, RDW Coeff of Hortencia 14.4, Plt Count 182, MPV 10.4, Immature Gran % (Auto) 0.300, Neut % (Auto) 58.2, Lymph % (Auto) 28.9, [place] % (Auto) 9.2, Eos % (Auto) 2.7, Baso % (Auto) 0.7, Absolute Neuts (auto) 3.5, Absolute Lymphs (auto) 1.72, Nucleated RBC % 0 12/14/19 05:55: Sodium 139, Potassium 4.0, Chloride 110 H, Carbon Dioxide 23.0, Anion Gap 6, BUN 14, Creatinine 0.76, Estim Creat Clear Calc 35.77, Est GFR (MDRD) Af Amer 95, Est GFR (MDRD) Non-Af 78, BUN/Creatinine Ratio 18.4, Glucose 77, Calcium 8.1 L, Phosphorus 2.3 L, Magnesium 2.5, Total Bilirubin 0.40, AST 30, ALT 25, Alkaline Phosphatase 63, Total Protein 6.2 L, Albumin 3.0 L, Globulin 3.2, Albumin/Globulin Ratio 0.9, Triglycerides 281 H, Cholesterol 248 H, LDL Cholesterol 155 H, VLDL Cholesterol 56 H, HDL Cholesterol 37 L, TSH 0.90 Current Medications Acetaminophen (Tylenol) 650 mg PO Q6H PRN PRN PRN Reason: Pain Score 1-10/Temp > 100.7 F Al Hydroxide/Mg Hydroxide (Mylanta Ii) 30 ml PO Q6H PRN PRN PRN Reason: Gastric Burning Aspirin (Aspirin, Baby) 81 mg PO DAILY@0800 [facility] Last Admin: 12/14/19 07:31 Dose: 81 mg Documented by: Dextrose (D50w Syringe) 0 gm IV X1 PRN; Protocol PRN Reason: Hypoglycemia Enoxaparin Sodium (Lovenox) 40 mg SC DAILY [facility] Last Admin: 12/14/19 07:32 Dose: 40 mg Documented by: Glucagon () 1 mg IM .X1 PRN PRN Reason: Hypoglycemia Hydralazine HCl (Apresoline Iv) 5 mg IV Q30M PRN PRN Reason: to maintain BP goals Lactated Ringer's () 1,000 mls @ 50 mls/hr IV .Q20H [facility] Last Admin: 12/14/19 08:48 Dose: 50 mls/hr Documented by: Sodium Chloride () 250 mls @ 15 mls/hr IV .[id number] PRN PRN Reason: Saline Flush Labetalol HCl (Trandate) 20 mg IV X1 PRN PRN Reason: BLOOD PRESSURE Labetalol HCl (Trandate) 10 - 20 mg IV Q10M PRN PRN PRN Reason: to maintain BP goals Melatonin (Melatonin) 3 mg PO QHS PRN PRN PRN Reason: INSOMNIA Sodium Chloride () 10 - 40 ml IV UD PRN PRN Reason: SALINE FLUSH STROKE Vital Signs/Narrative: Vital Signs Temp Pulse Resp BP Pulse Ox 12/14/19 10:26 97.8 F 80 18 116/78 94 Assessment/Plan Syncope -highly doubt acute stroke -will assess MRI -echo pending -troponin neg -asa daily -no statin -orthostatics are negative -IVF R ICA Stenosis 55-69% -will need followed as outpt -See CTA head and neck Hypophosphatemia -replace po today Erythrocytosis -trend -appears chronic Hyperchloremia with NAGMA -IVF and recheck in am 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
--- NOTE | 2019-12-14 14:05 | MRI_ITS ---
STUDY: MRI BRAIN WITHOUT CONTRAST REASON FOR EXAM: Female, 79 years old. tia/stroke; episode of confusion, syncope 12/13/19 TECHNIQUE: Standardized multiplanar fat and water weighted pulse sequences were obtained. COMPARISON: CT of the brain December 13, 2019 FINDINGS: Mild atrophy and periventricular white matter ischemic change without mass effect or restricted diffusion.. Normal bilateral basal ganglia. Normal thalami. There is no extra-axial fluid accumulation. Normal flow voids within the major intracranial circulation suggesting patency by spin echo criteria. Normal sella turcica, pituitary gland, infundibular stalk, optic chiasm and hypothalamus. Normal tectal plate and pineal gland. Normal midbrain, sanna and medulla. Normal cerebellum. Normal basal cisterns. Normal bilateral temporal bones. Normal bilateral internal auditory canals. Postsurgical changes of the orbits.. Mild mucosal thickening of the ethmoid air cells bilaterally.. Normal calvarium and skull base. Normal visualized soft tissue structures. Normal visualized upper cervical spine. MRI/Brain without Contrast IMPRESSION: Mild atrophy and periventricular white matter ischemic changes. No evidence for acute infarct. Electronically Signed: Prince Boswell MD at 16:10 EDT , Service support ,
[2019-12-15] MEDS: Acetaminophen 325 MG Tablet 650 MG PO (01:38)
[2019-12-15 03:01] VITALS: PULSE 61
[2019-12-15 04:14] VITALS: BP 107/70; BP 109/72; BP 126/71; PULSE 62; PULSE 68; PULSE 78; RESP 17; TEMP 36.9; O2SAT 92
[2019-12-15] MEDS: Lactated Ringers 1,000 ML 50 ML IV (05:55)
[2019-12-15 07:00] VITALS: PULSE 62
[2019-12-15 07:05] VITALS: O2SAT 92
[2019-12-15 09:45] VITALS: BP 124/64; PULSE 70; RESP 16; TEMP 36.6; O2SAT 98
[2019-12-15] MEDS: Aspirin 81 MG TAB.CHEW PO (09:48)
[2019-12-15] MEDS: Na Biphos/Potassium Phosphate PACKET 1 PACKET PO (09:51)
--- NOTE | 2019-12-15 10:01 | DCINST_ITS ---
- Discharge Diagnoses Current Active Problems: Current Active and Chronic Problems Episode of confusion (Acute) Altered level of consciousness (Acute) You will use the following diet at home:: Cardiac Your food should be the consistency of: Regular Your liquids should be the consistency of: Regular/Thin Discharge Activity: Return to Normal Activity Allergies/Adverse Reactions: Allergies gabapentin [From Neurontin] Allergy (Verified 12/13/19 10:44) Other Penicillins Allergy (Verified 12/13/19 10:44) Swelling Cwprlil-Kqk-Lco Reductase Inhibitor Allergy (Verified 12/13/19 10:44) Other sulfamethoxazole [From Bactrim] Allergy (Verified 12/13/19 10:44) Pain in joints sulindac [From Clinoril] Allergy (Verified 12/13/19 10:44) Other tizanidine HCl [From Zanaflex] Allergy (Verified 12/13/19 10:44) Other trimethoprim [From Bactrim] Allergy (Verified 12/13/19 10:44) Pain in joints vancomycin Allergy (Verified 12/13/19 10:44) Itching duloxetine HCl [From Cymbalta] Adverse Reaction (Verified 12/13/19 10:44) Nausea erythromycin base Adverse Reaction (Verified 12/13/19 10:44) Other Medications to take at Discharge Aspirin [Aspirin, Baby] 162 mg PO DAILY@0800 07/20/16 Icosapent Ethyl [Vascepa] 1 cap PO DAILY 12/02/18 Primary Care Physician: Deven Mendoza MD [Primary Care Provider] - Please follow up with your Primary Care Physician in: 1-2 weeks Test Results: Test results from this visit will be discussed in further detail at your follow- up appointment, if applicable. Please Follow Up With: Rafael Gustafson MD When: 3-4 weeks Proposed Discharge Date: 12/15/19
--- NOTE | 2019-12-15 10:22 | CASEMGMT ---
TUSHAR GREGORIO assessment: Face to Face with patient for initial transition planning/care coordination assessment. TUSHAR GREGORIO introduced self and role at [facility], pt voices understanding and consents to assessment at this time. Pt is sitting up in bed in no distress at this time. Pt is A/Ox4 at this time and answers all questions appropriately at this time. Care providers, pharmacy, and demographics verified at this time. Presentation: Pt found on ground outside by neighbor, confused, unknown last known well, c/o nausea Admitting dx: Mental status changes PCP: Kelly Specialists: Pt states no current specialists at this time. Preferred Pharmacy: [facility] Insurance: [facility] A/B, [employer] Prescription Benefit: [facility] Living Will/HPOA: Pt has LW/HPOA and is aware that they are on file at [facility] at this time. Pt's son, Andrés Duckworth, is HPOA. LNOK: Andrés Duckworth, son/HPOA Living Arrangements: Pt states she lives alone in 1 story home and states no concerns at home at this time. Pt states is independent with ADL's and walks on treadmill daily. Transportation: Pt states drives self and states no transportation concerns at this time. DME/HHC: Pt states has the following DME but does not use: cane, walker, grab bars, and shower chair. Pt states no need for any further DME at this time. Pt states no hx of HHC or SNF in the past. Pt states no concerns with going home at time of discharge. Pt states is retired. Pt states does not smoke cigarettes or drink ETOH. Pt states no further concerns/needs at this time. CM to follow for any further discharge planning/needs. Advised pt to ask fo rCM if any further questions/concerns/needs arise, voices understanding. Pt Goal: Home Plan: [place] TUSHAR GREGORIO
--- NOTE | 2019-12-15 11:44 | PHA.DC.MR ---
Pharmacy Service has performed discharge medication reconciliation for this patient. No new medications at time of discharge. Medications reviewed are previously reported home medications. The patient's discharge medication list was reviewed for discrepancies and discrepancies were resolved. Home Medications Aspirin [Aspirin, Baby] 162 mg PO DAILY@0800 07/20/16 Icosapent Ethyl [Vascepa] 1 cap PO DAILY 12/02/18
--- NOTE | 2019-12-15 14:00 | PCM.DC.SUM ---
<Dominick Rosario - Last Filed: 12/15/19 14:00> Discharge Date and Diagnosis - Problem List Patient Problems: Active and Suspected Problems Episode of confusion (Acute) Altered level of consciousness (Acute) Date of Admission: 12/13/19 Date of Discharge: 12/15/19 - Primary Discharge Diagnosis Acute Problems: Active Problems Syncope 2/2 dehydration and orthostatic hypotension 50-69% stenosis R prox ICA HLD CKD II-III - Secondary Discharge Diagnosis Chronic Problems: Chronic Problems Hyperlipidemia (Chronic) Hospital Course and Treatment Imaging Results: CT/Brain/Head without Contrast IMPRESSION: Atrophy. Chronic evolutional Change, findings suggest subtle prior ischemic change in the basal ganglia. No visualized evidence of acute hemorrhage infarct or edema. ADDENDUM by Dr. Gosia Chacon MD on 12/13/[address]/CTA Head AND Neck W/ Contrast IMPRESSION: 50-69% stenosis of the right proximal internal carotid artery. No significant narrowing or stenosis of the left internal carotid artery. No visualized stenosis or aneurysmal dilatation of the [place]. Normal-appearing [place]. N.B. : The above information has been verbally conveyed by Gosia Chacon MD to Dieter Samuels MD, on 12/13/2019 11:14:39 (ET). MRI/Brain without Contrast IMPRESSION: Mild atrophy and periventricular white matter ischemic changes. No evidence for acute infarct. Operations: None Procedures: 2-D Echocardiogram Summary of Care Provided: Hospital Course: The patient is a 79 year old F with pmhx of syncope approx ten years ago with no specific etiology, and hyperlipidemia, who presented to the ER with syncope. The patient was outside in the AM gardening and then blacked out without her memory recovering until she was in the squad. She collapsed and was found by a neighbor who called the squad. She was brought to the ER and CT jorge was negative, CTA showed 50-69% stenosis Right ICA. BUN was mildly elevated. Orthostatic vitals were positive. Trop and EKG were neg. She had no symptoms concerning for seizure. She had no hx of stroke or seizure. She was given IV fluids and admitted to the PCU on tele. No events on tele. She had an MRI that did not show stroke. Echo was obtained - pending at this time. She had no further symptoms after admission and was adament about going home. She was discharged home in stable condition. She should follow up with her PCP in 1-2 weeks, and follow up with cardiology in 3-4 weeks. She was seen after her first syncopal episode in the past by a early childhood education coordinator that has moved out of the area and had a 30 day monitor with no findings. She may require further outpatient testing to better identify the underlying cause. This patient was seen by Dominick Rosario PA-C under the supervision of Dr. Tovar. [] Patient Problems: Active and Suspected Problems Episode of confusion (Acute) Altered level of consciousness (Acute) - Physical Exam Vitals/I&O's: Vital Signs Temp Pulse Resp BP Pulse Ox 97.8 F 70 16 124/64 H 98 12/15/19 09:45 12/15/19 09:45 12/15/19 09:45 12/15/19 09:45 12/15/19 09:45 Oxygen Flow Rate (L/min) 2 Oxygen Delivery Method Room Air Weight: 109 lb 8.014 oz Body Mass Index (BMI) 22.8 Finger Stick Blood Glucose 91 Orthostatic Vital Signs Start: 12/13/19 17:27 Freq: q24h Status: Active Protocol: Activity Type Activity Date Activity User E-Sign Co-Sign Detail Recorded Client Recorded Date Recorded By Document 12/15/19 04:14 [facility] [id number] 12/15/19 04:16 [facility] 12/15/19 04:14 Orthostatic Vitals Standing -Blood Pressure (90/60-120/80) 107/70 -Extremity Use Right Arm -Pulse Rate (60-100) 78 Sitting -Blood Pressure (90/60-120/80) 109/72 -Extremity Use Right Arm -Pulse Rate (60-100) 68 Lying -Blood Pressure (90/60-120/80) 126/71 H -Extremity Use Right Arm -Pulse Rate (60-100) 62 Intake and Output for Last 24 Hours 12/13/19 12/14/19 12/15/19 23:59 23:59 23:59 Intake Total 608.33 / 608.33 1640.83 / 1640.83 1321.67 / 1321.67 Balance 608.33 / 608.33 1640.83 / 1640.83 1321.67 / 1321.67 General: Alert, Oriented x3, Cooperative HEENT: Atraumatic, PERRLA, EOMI, Normocephalic Neck: Supple, No JVD, Negative Carotid Bruits Lungs: Clear to auscultation, Normal air movement Cardiovascular: Regular rate, No murmurs Abdomen: Bowel Sounds Present, Soft, Non Tender Extremities: No edema, Capillary Refill Less than 3 Seconds Skin: No rashes, No breakdown Musculoskeletal: No Tenderness to Palpation of Joints or Extremities Neurological: Cranial nerves II-XII grossly intact Psych/Mental Status: Normal Affect, Appropriate, Alert and oriented to time, place, person, mood and affect Current Medications Acetaminophen (Tylenol) 650 mg PO Q6H PRN PRN PRN Reason: Pain Score 1-10/Temp > 100.7 F Last Admin: 12/15/19 01:38 Dose: 650 mg Documented by: Al Hydroxide/Mg Hydroxide (Mylanta Ii) 30 ml PO Q6H PRN PRN PRN Reason: Gastric Burning Aspirin (Aspirin, Baby) 81 mg PO DAILY@0800 [facility] Last Admin: 12/15/19 09:48 Dose: 81 mg Documented by: Dextrose (D50w Syringe) 0 gm IV X1 PRN; Protocol PRN Reason: Hypoglycemia Enoxaparin Sodium (Lovenox) 40 mg SC DAILY [facility] Last Admin: 12/15/19 09:49 Dose: Not Given Documented by: Glucagon () 1 mg IM .X1 PRN PRN Reason: Hypoglycemia Hydralazine HCl (Apresoline Iv) 5 mg IV Q30M PRN PRN Reason: to maintain BP goals Sodium Chloride () 250 mls @ 15 mls/hr IV .[id number] PRN PRN Reason: Saline Flush Labetalol HCl (Trandate) 20 mg IV X1 PRN PRN Reason: BLOOD PRESSURE Labetalol HCl (Trandate) 10 - 20 mg IV Q10M PRN PRN PRN Reason: to maintain BP goals Melatonin (Melatonin) 3 mg PO QHS PRN PRN PRN Reason: INSOMNIA Potassium Phos/Sodium Phos (Neutra-Phos Packet) 1 packet PO DAILY [facility] Stop: 12/16/19 14:01 Last Admin: 12/15/19 09:51 Dose: 1 packet Documented by: Sodium Chloride () 10 - 40 ml IV UD PRN PRN Reason: SALINE FLUSH Discharge Diet: Low fat/ Low Cholesterol, 2000 mg Sodium Diet Discharge Activity: Return to Normal Activity Home Medications: Medications to take at Discharge Aspirin [Aspirin, Baby] 162 mg PO DAILY@0800 07/20/16 Icosapent Ethyl [Vascepa] 1 cap PO DAILY 12/02/18 Primary Care Physician: Deven Mendoza MD [Primary Care Provider] - Please follow up with your Primary Care Physician in: 1-2 weeks Please Follow Up With: Rafael Gustafson MD When: 3-4 weeks Disposition: Home Minutes spent on discharge:: 35 Patient Condition:: Stable Medical Necessity - Tobacco Use Smoking Status: Former smoker Meaningful Use Info Meaningful Use Diagnoses (Choose all that apply): None applicable <Everardo Tovar - Last Filed: 12/15/19 14:21> Discharge Date and Diagnosis - Primary Discharge Diagnosis Acute Problems: Active Problems Episode of confusion (Acute) Altered level of consciousness (Acute) - Secondary Discharge Diagnosis Chronic Problems: Chronic Problems Hyperlipidemia (Chronic) Hospital Course and Treatment Summary of Care Provided: This patient was seen in conjunction with Dominick Rosario PA-C . I have independently interviewed and examined the patient and reviewed pertinent historical, laboratory, and other data. Please refer to Dominick Rosario PA-C note for details of this patient's presentation, findings, and recommendations. I have reviewed Dominick Rosario PA-C note and concur with documented findings. In brief, patient is a 79-year-old lady who presented with syncopal episode admitted to monitored bed for subsequent management Hospital course as documented above - Physical Exam Vitals/I&O's: Vital Signs Temp Pulse Resp BP Pulse Ox 97.8 F 70 16 124/64 H 98 12/15/19 09:45 12/15/19 09:45 12/15/19 09:45 12/15/19 09:45 12/15/19 09:45 Oxygen Flow Rate (L/min) 2 Oxygen Delivery Method Room Air Weight: 49.669 kg Body Mass Index (BMI) 22.8 Finger Stick Blood Glucose 91 Orthostatic Vital Signs Start: 12/13/19 17:27 Freq: q24h Status: Active Protocol: Activity Type Activity Date Activity User E-Sign Co-Sign Detail Recorded Client Recorded Date Recorded By Document 12/15/19 04:14 [facility] [id number] 12/15/19 04:16 [facility] 12/15/19 04:14 Orthostatic Vitals Standing -Blood Pressure (90/60-120/80) 107/70 -Extremity Use Right Arm -Pulse Rate (60-100) 78 Sitting -Blood Pressure (90/60-120/80) 109/72 -Extremity Use Right Arm -Pulse Rate (60-100) 68 Lying -Blood Pressure (90/60-120/80) 126/71 H -Extremity Use Right Arm -Pulse Rate (60-100) 62 Intake and Output for Last 24 Hours 12/13/19 12/14/19 12/15/19 23:59 23:59 23:59 Intake Total 608.33 / 608.33 1640.83 / 1640.83 1321.67 / 1321.67 Balance 608.33 / 608.33 1640.83 / 1640.83 1321.67 / 1321.67 Current Medications Acetaminophen (Tylenol) 650 mg PO Q6H PRN PRN PRN Reason: Pain Score 1-10/Temp > 100.7 F Last Admin: 12/15/19 01:38 Dose: 650 mg Documented by: Al Hydroxide/Mg Hydroxide (Mylanta Ii) 30 ml PO Q6H PRN PRN PRN Reason: Gastric Burning Aspirin (Aspirin, Baby) 81 mg PO DAILY@0800 [facility] Last Admin: 12/15/19 09:48 Dose: 81 mg Documented by: Dextrose (D50w Syringe) 0 gm IV X1 PRN; Protocol PRN Reason: Hypoglycemia Enoxaparin Sodium (Lovenox) 40 mg SC DAILY [facility] Last Admin: 12/15/19 09:49 Dose: Not Given Documented by: Glucagon () 1 mg IM .X1 PRN PRN Reason: Hypoglycemia Hydralazine HCl (Apresoline Iv) 5 mg IV Q30M PRN PRN Reason: to maintain BP goals Sodium Chloride () 250 mls @ 15 mls/hr IV .[id number] PRN PRN Reason: Saline Flush Labetalol HCl (Trandate) 20 mg IV X1 PRN PRN Reason: BLOOD PRESSURE Labetalol HCl (Trandate) 10 - 20 mg IV Q10M PRN PRN PRN Reason: to maintain BP goals Melatonin (Melatonin) 3 mg PO QHS PRN PRN PRN Reason: INSOMNIA Potassium Phos/Sodium Phos (Neutra-Phos Packet) 1 packet PO DAILY [facility] Stop: 12/16/19 14:01 Last Admin: 12/15/19 09:51 Dose: 1 packet Documented by: Sodium Chloride () 10 - 40 ml IV UD PRN PRN Reason: SALINE FLUSH Inpatient E&M: 71740 Disch Hosp
== END 2019-12-15 15:24 | disposition home or self-care (01) | DRG 641 ==
LOC: ED 12:56 → PCU 13:22
PROVIDERS: Admitting Provider Internal Medicine; Emergency Provider Emergency Medicine; PCP Family Medicine; Visit Provider Internal Medicine
DX: E86.0 Dehydration (principal); I95.1 Orthostatic hypotension; E78.5 Hyperlipidemia, unspecified; N18.3 Chronic kidney disease, stage 3 (moderate); I65.21 Occlusion and stenosis of right carotid artery; D75.1 Secondary polycythemia; E87.8 Other disorders of electrolyte and fluid balance, not elsewhere classified; E83.39 Other disorders of phosphorus metabolism; Z79.82 Long term (current) use of aspirin; Z87.891 Personal history of nicotine dependence; Z82.49 Family history of ischemic heart disease and other diseases of the circulatory system
CPT/HCPCS: 36415; 70450; 70496; 70498; 70551; 71045; 80048; 80053; 80061; 80307; 81001; 83735; 84100; 84443; 84484; 85025; 85610; 85730; 93005; 93306; 94762; 97162; 97165; 99251; 99285; J7120; Q9967; A4216; G0463; J2405

== ENCOUNTER → 2020-02-27 06:40 | Outpatient (CLI) | payer MEDICARE, OTHER, SELFPAY ==
[2019-12-31 11:43] VITALS: BMI 22.8
--- NOTE | 2020-02-27 08:14 | TELEMED_ITS ---
[facility] Tele[facility] has confirmed receipt of a request for visit. This document confirms receipt of the order initiating the consult. To find the results of the consultation, please view the patient's reports for the scanned Telemed Consult.
== END ==
PROVIDERS: PCP Family Medicine; Referring Provider Family Medicine; Visit Provider Family Medicine
DX: R55 Syncope and collapse (principal)
CPT/HCPCS: 95819

== ENCOUNTER 2020-08-13 08:47 | Outpatient (RCR) | payer MEDICARE, OTHER, SELFPAY ==
[2020-05-13 09:52] VITALS: BMI 23.1
[2020-08-13] MEDS: COVID-19 VACC, MRNA(PFIZER)/PF 30 MCG/0.3 ML SYRINGE IM (13:52)
[2020-09-03] MEDS: COVID-19 VACC, MRNA(PFIZER)/PF 30 MCG/0.3 ML SYRINGE IM (13:15)
== END 2020-11-09 23:59 ==
LOC: IMMUN 08:47
PROVIDERS: PCP Family Medicine; Visit Provider Family Medicine
DX: Z23 Encounter for immunization (principal)
CPT/HCPCS: 0001A; 0002A; 91300

== ENCOUNTER 2021-06-30 06:29 | Emergency (ER) | payer MEDICARE, OTHER, SELFPAY ==
[2021-06-30 06:29] VITALS: BP 163/100; PULSE 113; RESP 16; TEMP 36.4; O2SAT 96; BMI 24.1
--- NOTE | 2021-06-30 06:31 | CT_ITS ---
History: trauma. TECHNIQUE: Helically acquired images were obtained of the cervical spine. 2-D reformatted images were reviewed. A radiation dose optimization technique was used for the scan. # of images incl. paperwork: 406. IV contrast dosage and agent: None. COMPARISON: None. FINDINGS: VERTEBRAE: No evidence of fracture or other acute injury. Vertebral body heights maintained. Posterior elements intact. ALIGNMENT: No significant anterior or posterior subluxation. Preservation of the cervical lordosis. INTERVERTEBRAL DISCS: Diffuse degenerative changes of the intervertebral discs. SOFT TISSUES: No prevertebral soft tissue thickening. Carotid artery calcifications. The left occipital skull fracture is again noted. CT/Spine Cervical without Contras IMPRESSION: No evidence for acute fracture or dislocation in the cervical spine. Degenerative changes. Individualized dose optimization techniques were used for this CT. at 0734 Reported and signed by: Abner Mitchell MD Electronically Signed: Abner Mitchell MD at 7:33 EST ,
--- NOTE | 2021-06-30 06:31 | CT_ITS ---
We are attempting to reach an attending provider to discuss findings. An addendum with communication details will be sent when the communication is complete. EXAM: CT HEAD WITHOUT INTRAVENOUS CONTRAST : 1940 CLINICAL INDICATION: fall TECHNIQUE: Multiple axial images were obtained of the head without intravenous contrast. This CT exam was performed using one or more of the following dose reduction techniques: automated exposure control, adjustment of the mA and/or kV according to patient size, and/or use of iterative reconstruction technique. This report was created using [employer] report [employer] technology. COMPARISON: 12/14/19 FINDINGS: BRAIN AND EXTRA-AXIAL SPACES: Small foci of subdural and subarachnoid hemorrhage along the anterior margins of the frontal lobes and right temporal lobe, with a subdural bleeds measuring only 3 mm in thickness. Slight decreased density in the anterior/inferior right frontal lobe which may indicate an area of cerebral contusion measuring up to 1.6 cm. No mass effect or midline shift. Diffuse cerebral volume loss. No evidence of acute infarct. There is preservation of the méndez/white matter interface. Posterior fossa structures are unremarkable. Ventricles are appropriate for age. No hydrocephalus. Basal cisterns are patent. BONES/JOINTS: Nondepressed left parietal/occipital skull fracture extending to the foramen magnum. No discrete lytic or blastic abnormalities. Left parietal scalp swelling. SINUSES: Unremarkable as visualized. Clear. MASTOID AIR CELLS: Unremarkable. Clear. ORBITS: Visualized globes, extraocular muscles, optic nerves and retrobulbar fat appear unremarkable. CT/Brain/Head without Contrast IMPRESSION: 1. Small foci of subdural and subarachnoid hemorrhage along the anterior margins of the frontal lobes and right temporal lobe, with a subdural bleeds measuring only 3 mm in thickness. 2. Slight decreased density in the anterior/inferior right frontal lobe which may indicate an area of cerebral contusion measuring up to 1.6 cm. 3. Nondepressed left parietal/occipital skull fracture extending to the foramen magnum. Individualized dose optimization techniques were used for this CT. at 0733 Reported and signed by: Abner Mitchell MD Electronically Signed: Abner Mitchell MD at 7:32 EST ,
--- NOTE | 2021-06-30 06:32 | EKG12_ITS ---
Test Reason : FALL Blood Pressure : / mmHG Vent. Rate : 102 BPM Atrial Rate : 102 BPM P-R Int : 132 ms QRS Dur : 068 ms QT Int : 358 ms P-R-T Axes : 064 -36 030 degrees QTc Int : 466 ms Sinus tachycardia Left axis deviation Nonspecific ST abnormality Abnormal ECG Confirmed by MANNY MARIE, ZAID ([id number]), scientific publications editor FELIPA PRUITT ([id number]) on 07/04/2021 10:57:54 AM Referred By: YOVANY Confirmed By:ZAID BRYANT MD
--- NOTE | 2021-06-30 06:37 | EDS_ITS ---
HPI History of Present Illness Chief Complaint: Fall Informant: patient Onset/Context/Timing Onset: Yesterday Current Severity: Mild Maximum Severity: Moderate Narrative Narrative: Patient presents after a fall yesterday. Patient reported was out clearing her driveway when she fell striking the back of her head. She denies being knocked out at the time. She was able to get back in her home. She states because she is so dizzy she has not been able to get up and walk around. She crawled from the sofa to the bathroom to vomit as the dizziness is making her very nauseated. Other than hitting her head she denies any injury from the fall. She is not on anticoagulants. [facility] Medical History Altered level of consciousness Episode of confusion Hyperlipidemia Renal calculi Stenosis of right carotid artery Syncope Home Medications aspirin 81 mg chewable tablet 81 mg PO DAILY@0800 tab 12/31/19 [History Last Taken Unknown] icosapent ethyl 1 gram capsule 2 g PO BID cap 12/31/19 [History Last Taken Unknown] metoprolol succinate 50 mg tablet,extended release 24 hr 50 mg PO DAILY #90 tab 03/30/20 [Rx Last Taken Unknown] Allergy/AdvReac Type Severity Reaction Status Date / Time gabapentin [From Neurontin] Allergy Other Verified 06/30/21 06:32 niacin Allergy NEEDS Verified 06/30/21 07:03 FOLLOW-UP Penicillins Allergy Swelling Verified 06/30/21 06:32 Whbqlgg-PTG-ZsX Reductase Allergy Other Verified 06/30/21 06:32 Inhibitor [Rqjifak-Wgo-Hty Reductase Inhibitor] sulfamethoxazole Allergy Pain in Verified 06/30/21 06:32 [From Bactrim] joints sulindac [From Clinoril] Allergy Other Verified 06/30/21 06:32 tizanidine HCl Allergy Other Verified 06/30/21 06:32 [From Zanaflex] trimethoprim [From Bactrim] Allergy Pain in Verified 06/30/21 06:32 joints vancomycin Allergy Itching Verified 06/30/21 06:32 duloxetine HCl AdvReac Nausea Verified 06/30/21 06:32 [From Cymbalta] erythromycin base AdvReac Other Verified 06/30/21 06:32 Family History Father Heart disease, Onset Age: 42 Mother Heart disease Surgical History History of appendectomy History of cholecystectomy History of lithotripsy (2017) Social History Smoking Status: Former smoker ROS ROS ED Constitutional Constitutional ED: Denies chills or fever(s) Eyes Eyes: Denies blurry vision or change in vision ENT ENT ED: Denies ear pain or rhinorrhea Cardiovascular Cardiovascular: Denies chest pain or palpitations Respiratory/Chest Respiratory/Chest: Denies cough or dyspnea Gastrointestinal Gastrointestinal: Reports nausea and vomiting; Denies abdominal pain Musculoskeletal Musculoskeletal: Denies back pain, myalgias or neck pain Integumentary Denies Abrasions or rash Neurologic Neurologic: Reports headache(s) and weakness Allergic/Immunologic Allergic/Immunologic ED: Denies urticaria EXAM Physical Exam Const Vital Signs: 06/30/21 06:29 06/30/21 06:42 Temperature 97.5 F L Temperature Source Temporal Pulse Rate 113 H Respiratory Rate 16 Respiratory Effort Normal Blood Pressure 163/100 H Blood Pressure Mean 121 Pulse Ox 96 Oxygen Delivery Method Room Air Room Air Positive well nourished and well developed General Appearance ED: well developed HEENT Reports moist mucous membranes Eyes PERRL and EOMs intact bilaterally Neck supple Neck Narrative: No midline cervical tenderness. Chest Wall inspection of chest normal and palpation of chest normal Resp normal respiratory effort and clear to auscultation bilaterally Cardio regular rate and regular rhythm GI non-tender Palpation: soft Extremity Extremity Narrative: Mild erythema over the anterior knees. No abrasions or ec chymoses. Neuro oriented x3 Neuro Narrative: No focal neurologic deficits. Sensorium / Orientation: alert Psych mental status grossly normal Skin no rashes or lesions noted MDM MDM MDM Narrative Medical decision making narrative: Patient received Zofran with EMS. Lab work along with CT scan of the head and C-spine obtained. EKG ordered. Lab Data Labs: Laboratory Results - last 24 hr 06/30/21 06:50 WBC 12.5 H RBC 4.94 Hgb 14.1 Hct 42.4 MCV 85.8 MCH 28.5 MCHC 33.3 RDW Std Deviation 45.1 H RDW Coeff of Hortencia 14.4 Plt Count 232 MPV 9.7 Immature Gran % (Auto) 0.200 Neut % (Auto) 86.6 H Lymph % (Auto) 5.9 L Bent % (Auto) 7.2 Eos % (Auto) 0.0 Baso % (Auto) 0.1 Absolute Neuts (auto) 10.8 H Absolute Lymphs (auto) 0.74 L Nucleated RBC % 0 EKG Initial EKG: Attestation: I personally reviewed and interpreted this EKG as follows: Interpretation: Sinus Rhythm and Sinus Tachycardia (Sinus tach at 102 with no acute ischemia.) Treatment and Re-Evaluation Comments:: Lab work and imaging studies pending at this time. Patient be sent up to oncoming physician for final disposition. Family updated at bedside. Discharge Plan Triage Chief Complaint: Fall ED Provider: Ana Maria Martinez Dx/Rx/DC Orders Prescriptions: No Action aspirin 81 mg tablet,chewable 81 mg PO DAILY@0800 RF: 0 icosapent ethyl 1 gram capsule 2 g PO BID RF: 0 metoprolol succinate 50 mg tablet extended release 24 hr 50 mg PO DAILY Qty: 90 RF: 3 Primary Care Provider: Deven Mendoza
[2021-06-30 07:03] LABS: Absolute Lymphocyte Count 0.74 X10^3/uL (0.83-4.51); Absolute Neutrophil Count 10.8 X10^3/uL (2.0-7.7); Basophil# 0.01 X10^3/uL; Basophil% 0.1 % (0-1); Hematocrit 42.4 % (37-47); Hemoglobin 14.1 g/dL (12.0-15.0); Lymphocyte # 0.74 X10^3/ul (0.83-4.51); Lymphocyte % 5.9 % (19-41); Mean Corp Hgb Conc 33.3 g/dL (32-36); Mean Corpuscular Hgb 28.5 pg (27.0-32.0); Mean Corpuscular Volume 85.8 fL (81-99); Mean Platelet Vol. 9.7 fl (6.2-12.0); Monocyte% 7.2 % (0-10); NRBC Flagged by Analyzer 0 % (0-5); Neutrophil # 10.77 X10^3/uL (2.7-7.7); Neutrophil % 86.6 % (47-70); Platelet Count 232 K/mm3 (150-450); RBC Distribution Width CV 14.4 % (11.6-14.6); RBC Distribution Width SD 45.1 fl (35.1-43.9); Red Blood Count 4.94 M/mm3 (4.2-5.4); White Blood Count 12.5 K/mm3 (4.4-11.0)
[2021-06-30 07:09] LABS: International Normalized Ratio 1.1; Prothrombin Time (Protime)PT. 13.2 SECONDS (11.7-14.9)
[2021-06-30 07:10] LABS: Partial Thromboplast Time 25.6 Seconds (24.1-36.2)
[2021-06-30 07:15] LABS: Anion Gap 9 (5-15); BUN 24 mg/dL (7-18); BUN/Creat Ratio 23.8 RATIO (10-20); Chloride 108 mmol/L (98-107); Creatinine, Serum 1.01 mg/dL (0.55-1.02); EST Glomerular Filtration Rate 56 mL/min (>60); Est Glom Filt Rate - Afr Amer 68 mL/min (>60); Estimated Creatinine Clearance 36.75 ml/min; Glucose 172 mg/dL (74-106); Potassium 3.8 mmol/L (3.5-5.1); Sodium Level 140 mmol/L (136-145)
--- NOTE | 2021-06-30 07:58 | NURSING ---
CALLED [facility], ETA IS 45 MIN
[2021-06-30 08:17] VITALS: BP 113/66; PULSE 102; RESP 16; O2SAT 100
--- NOTE | 2021-06-30 08:23 | ED.RN ---
rn report given to cristal at [facility] ED. no questions or concerns.
== END 2021-06-30 08:39 | disposition short-term general hospital (02) ==
LOC: ED 06:52
PROVIDERS: Emergency Provider Emergency Medicine; PCP Family Medicine; Visit Provider Emergency Medicine
DX: S06.6X0A Traumatic subarachnoid hemorrhage without loss of consciousness, initial encounter (principal); S06.2X0A Diffuse traumatic brain injury without loss of consciousness, initial encounter; S02.0XXA Fracture of vault of skull, initial encounter for closed fracture; W19.XXXA Unspecified fall, initial encounter; Y92.9 Unspecified place or not applicable; Y93.9 Activity, unspecified; Z87.891 Personal history of nicotine dependence; E78.5 Hyperlipidemia, unspecified; Z87.442 Personal history of urinary calculi; Z79.82 Long term (current) use of aspirin; Z79.899 Other long term (current) drug therapy
CPT/HCPCS: 36415; 70450; 72125; 80048; 85025; 85610; 85730; 93005; 99285; A4216

== ENCOUNTER 2021-07-06 15:40 | Inpatient (IN) | payer MEDICARE, OTHER, SELFPAY ==
[2021-07-06 15:58] VITALS: BP 113/64; PULSE 85; RESP 18; TEMP 36.4; O2SAT 95; BMI 25.0
[2021-07-06 17:50] VITALS: O2SAT 95
[2021-07-06] MEDS: MELATONIN 3 MG TABLET PO (21:38)
[2021-07-06 22:47] VITALS: BP 121/71; PULSE 82; RESP 18; TEMP 36.6; O2SAT 93
--- NOTE | 2021-07-07 03:43 | NURSING ---
Reviewed and agree wioth DOUBLE [employer]ON OPERATOR documentation and assessment charting.
[2021-07-07 06:00] VITALS: BP 114/74; BP 130/62; BP 143/66; PULSE 102; PULSE 108; PULSE 98
[2021-07-07 08:46] VITALS: BP 117/65; PULSE 89; RESP 16; TEMP 36.6; O2SAT 94
[2021-07-07 09:18] LABS: Absolute Lymphocyte Count 1.16 X10^3/uL (0.83-4.51); Absolute Neutrophil Count 4.5 X10^3/uL (2.0-7.7); Basophil# 0.03 X10^3/uL; Basophil% 0.5 % (0-1); Eosinophil# 0.15 X10^3/uL; Eosinophils% 2.3 % (0-5); Hemoglobin 13.1 g/dL (12.0-15.0); Lymphocyte # 1.16 X10^3/ul (0.83-4.51); Mean Corp Hgb Conc 32.8 g/dL (32-36); Mean Corpuscular Volume 88.7 fL (81-99); Mean Platelet Vol. 10.5 fl (6.2-12.0); Monocyte# 0.54 X10^3/uL; Monocyte% 8.4 % (0-10); NRBC Flagged by Analyzer 0 % (0-5); Neutrophil # 4.54 X10^3/uL (2.7-7.7); Neutrophil % 70.2 % (47-70); Platelet Count 233 K/mm3 (150-450); RBC Distribution Width CV 14.1 % (11.6-14.6); RBC Distribution Width SD 45.6 fl (35.1-43.9); Red Blood Count 4.51 M/mm3 (4.2-5.4); White Blood Count 6.5 K/mm3 (4.4-11.0)
[2021-07-07 09:45] LABS: ALB/GLOB Ratio 0.6 RATIO (0.9-2.4); AST(SGOT) 40 U/L (15-37); Alanine Aminotransfer ALT/SGPT 69 U/L (13-56); Albumin, Serum 2.4 g/dL (3.2-5.0); Alkaline Phosphatase 112 U/L (45-117); Anion Gap 9 (5-15); BUN 17 mg/dL (7-18); BUN/Creat Ratio 18.8 RATIO (10-20); Calcium,Total 8.6 mg/dL (8.5-10.1); Chloride 108 mmol/L (98-107); EST Glomerular Filtration Rate 64 mL/min (>60); Est Glom Filt Rate - Afr Amer 77 mL/min (>60); Estimated Creatinine Clearance 42.66 ml/min; Globulin 3.8 g/dL (2.2-4.2); Glucose 140 mg/dL (74-106); Magnesium 2.6 mg/dL (1.6-2.6); Phosphorus 2.7 mg/dL (2.5-4.9); Potassium 3.4 mmol/L (3.5-5.1); Protein, Total 6.2 g/dL (6.4-8.2); Sodium Level 137 mmol/L (136-145)
[2021-07-07] MEDS: amLODIPine 5 MG Tablet PO (10:06)
--- NOTE | 2021-07-07 11:31 | HP.PCM_ITS ---
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 She presented to the [facility] emergency department on 06/30/2021 complaining of dizziness, headache and inability to ambulate. She reported that she fell the previous day and struck the back of her head. She denied loss of consciousness. She was able to ambulate from the garage back into her home but then became very dizzy and was unable to ambulate. She became dizzy and was unable to stand up and so she crawled to the bathroom and vomited. She was not on any anticoagulants at the time. She was taking one baby aspirin a day at the time of her fall. A noncontrasted CT brain showed small foci of subdural and subarachnoid hemorrhage along the anterior margins of the frontal lobes and the right temporal lobe. There was a subdural bleed measuring 3 mm in thickness. There was a slight decrease in density in the anterior/inferior right frontal lobe possibly consistent with a contusion. There was also a nondepressed left parietal/occipital skull fracture extending to the foramen magnum. The ER physician discussed the case with Dr. Schumacher at [facility] and t he patient was accepted for transfer. When she arrived at [facility] she was given DDAVP due to home aspirin use. She was started on Keppra twice daily for seizure prophylaxis. Neurosurgery was consulted. She was started on enoxaparin on 07/02/21 at 30 mg every 12H. Serial CT scans of the brain were stable and neurosurgery recommended nonoperative management of her injuries. She persistently c/o dizziness and GARCIA. She was diagnosed with a TBI. An incidental finding on imaging at was an indeterminate 8 mm nodular density in profile with the right first costochondral junction likely representing a calcification. Two-view chest was recommended in 4 to 6 weeks to follow this up. Significant lab in the emergency department included an elevated BUN at 24 with a creatinine of 1.01. The BUN/creatinine ratio was elevated at 23.8. Random blood sugar was 172. Vitamin D was low at 9.6 and she was started on a PO supplement. All lab from today was personally reviewed. Fasting blood sugar today is 140. Triglycerides today are increased at 318 and the HDL is low at 32. the LDL is 88. The HGBA1C is 5.7%. Potassium is low at 3.4 and the serum bicarb is mildly reduced at 20. The med list was personally reviewed. All documentation from the previous hospital was reviewed. She lives by herself and is independent with all ADL's and she drives. Jacqueline is complaining primarily of dizziness and constant headache. It does not improve with Tylenol and it did not improve with Fioricet that she was given at the previous hospital. [facility] Medical History (Updated 07/07/21 @ 16:[address] Erika Espinosa, DO) Altered level of consciousness Congenital abnormality of limb Episode of confusion History of DVT (deep vein thrombosis) History of polycythemia Hyperlipidemia Hypertriglyceridemia Low HDL (under 40) Renal calculi Stenosis of right carotid artery Urge incontinence Home Medications aspirin 81 mg chewable tablet 81 mg PO DAILY@0800 tab 12/31/19 [History Last Taken Unknown] icosapent ethyl 1 gram capsule 2 g PO BID cap 12/31/19 [History Last Taken Unknown] acetaminophen [Tylenol] 650 mg PO PRN PRN 07/06/21 [History Last Taken Unknown] amlodipine 5 mg PO DAILY 07/06/21 [History Last Taken Unknown] ergocalciferol (vitamin D2) 50,000 unit PO QWEEK 07/06/21 [History Last Taken 07/05/21] icosapent ethyl [Vascepa] 2 g PO DAILY 07/06/21 [History Last Taken Unknown] meclizine 25 mg PO TID 07/06/21 [History Last Taken Unknown] melatonin 3 mg PO QHS 07/06/21 [History Last Taken Unknown] metoprolol succinate 50 mg PO DAILY 07/06/21 [History Last Taken Unknown] oxycodone [OxyIR] 2.5 - 5 mg PO Q6H PRN PRN 07/06/21 [History Last Taken U nknown] senna-docusate sodium 2 tab PO BID 07/06/21 [History Last Taken Unknown] Allergy/AdvReac Type Severity Reaction Status Date / Time gabapentin [From Neurontin] Allergy Other Verified 06/30/21 06:32 niacin Allergy NEEDS Verified 06/30/21 07:03 FOLLOW-UP Penicillins Allergy Swelling Verified 06/30/21 06:32 Pbfrsor-AEG-LuB Reductase Allergy Other Verified 06/30/21 06:32 Inhibitor [Zzeixme-Kln-Ehc Reductase Inhibitor] sulfamethoxazole Allergy Pain in Verified 06/30/21 06:32 [From Bactrim] joints sulindac [From Clinoril] Allergy Other Verified 06/30/21 06:32 tizanidine HCl Allergy Other Verified 06/30/21 06:32 [From Zanaflex] trimethoprim [From Bactrim] Allergy Pain in Verified 06/30/21 06:32 joints vancomycin Allergy Itching Verified 06/30/21 06:32 duloxetine HCl AdvReac Nausea Verified 06/30/21 06:32 [From Cymbalta] erythromycin base AdvReac Other Verified 06/30/21 06:32 Family History (Updated 07/07/21 @ 11:[address] Erika Espinosa DO) Father Heart disease, Onset Age: 42 Mother Heart disease Diabetes Son Diabetes Hyperlipidemia Surgical History History of appendectomy History of cholecystectomy History of lithotripsy (2017) Social History (Updated 07/07/21 @ 15:[address] Erika Espinosa DO) household members: other details: She lives by herself. 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 She smoked Less than 1 PPD alcohol intake: never substance use type: does not use ROS Constitutional Constitutional: Reports weakness; Denies anorexia, change in weight, chills, fatigue, fever(s) or night sweats Eyes Eyes: Reports itchy eyes; Denies blurry vision, change in vision, eye pain or loss of vision ENT HEENT: Reports headache(s); Denies abnormal hearing, dysphagia, hearing loss, nasal congestion or sore throat Cardiovascular Cardiovascular: Reports dizziness; Denies chest pain, dyspnea on exertion, edema, lightheadedness, orthopnea, palpitations, paroxysmal nocturnal dyspnea or syncope Respiratory/Chest Respiratory/Chest: Denies cough, dyspnea, shortness of breath at rest, shortness of breath with exertion or wheezing Gastrointestinal Gastrointestinal: Denies abdominal pain, constipation, diarrhea, dyspepsia, hematemesis, hematochezia, nausea or vomiting Genitourinary Genitourinary: Reports urinary frequency, urinary urgency and other Details: occasional urge incontinence ; Denies dysuria, hematuria, nocturia, urinary hesitancy or urinary incontinence Musculoskeletal Musculoskeletal: Denies back pain, joint pain, joint swelling or neck pain Neurologic Neurologic: Reports dizziness and other Details: she has disequilibrium ; Denies abnormal hearing, abnormal speech, confusion, focal weakness, headache(s), paresthesias, seizure-like activity, seizures, sensory deficit, tremor(s) or vertigo Psychiatric Psychiatric: Denies anxiety, depression, homicidal ideation or suicidal ideation Endocrine Endocrinology: Denies change in body appearance, polydipsia or polyuria Hematologic/Lymphatic Hematologic/Lymphatic: Denies easy bleeding, easy bruising or lymphadenopathy Allergic/Immunologic Allergic/Immunologic: Denies rhinitis, eczemia or asthma Vital Signs Vital Signs Vital Signs: 07/06/21 15:58 07/06/21 17:50 07/06/21 21:42 Temperature 97.5 F L Temperature Source Oral Pulse Rate 85 Pulse Rate [Lying] Pulse Rate [Sitting] Pulse Rate [Standing] Pulse Strength Respiratory Rate 18 Respiratory Effort Normal Non-Labored Respiratory Depth Normal Respiratory Pattern Normal Blood Pressure 113/64 Blood Pressure [Lying] Blood Pressure [Sitting] Blood Pressure [Standing] Blood Pressure Mean 80 Blood Pressure Mean [Lying] Blood Pressure Mean [Sitting] Blood Pressure Mean [Standing] Blood Pressure Source Monitor Blood Pressure Position Semi-Fowlers Blood Pressure Location Left Arm Pulse Ox 95 95 Oxygen Delivery Method Room Air Room Air Room Air 07/06/21 22:47 07/07/21 06:00 07/07/21 08:46 Temperature 97.9 F 97.8 F Temperature Source Temporal Oral Pulse Rate 82 89 Pulse Rate [Lying] 102 H Pulse Rate [Sitting] 98 Pulse Rate [Standing] 108 H Pulse Strength Respiratory Rate 18 16 Respiratory Effort Respiratory Depth Respiratory Pattern Blood Pressure 121/71 H 117/65 Blood Pressure [Lying] 143/66 H Blood Pressure [Sitting] 130/62 H Blood Pressure [Standing] 114/74 Blood Pressure Mean 87 82 Blood Pressure Mean [Lying] 91 Blood Pressure Mean [Sitting] 84 Blood Pressure Mean [Standing] 87 Blood Pressure Source Monitor Monitor Blood Pressure Position Semi-Fowlers Semi-Fowlers Blood Pressure Location Right Forearm Right Arm Pulse Ox 93 94 Oxygen Delivery Method Room Air Room Air 07/07/21 10:00 Temperature Temperature Source Pulse Rate Pulse Rate [Lying] Pulse Rate [Sitting] Pulse Rate [Standing] Pulse Strength Normal (2+) Respiratory Rate Respiratory Effort Respiratory Depth Respiratory Pattern Blood Pressure Blood Pressure [Lying] Blood Pressure [Sitting] Blood Pressure [Standing] Blood Pressure Mean Blood Pressure Mean [Lying] Blood Pressure Mean [Sitting] Blood Pressure Mean [Standing] Blood Pressure Source Blood Pressure Position Blood Pressure Location Pulse Ox Oxygen Delivery Method Weight Weight: 119 lb 7.849 oz Body Mass Index (BMI) 25.0 Indicators for Scoring Admitted with or Primary Diagnosis of CVA/Stroke: No Hx of CVA/Stroke: No NIHSS NIHSS 1a. Level of Consciousness: Alert; keenly responsive 1b. LOC Questions: Answers BOTH questions correctly. 1c. LOC Commands: Performs both tasks correctly. 2. Best Gaze: Normal 3. Visual: No visual loss 4. Facial Palsy: Normal symmetrical movements 5a. Left Arm: UN=Amputation or joint fusion, explain: (has congenital absence of the left forearm) 5b. Right Arm: No drift; arm holds 90 (or 45) degrees for full 10 seconds 6a. Left Leg: No drift; leg holds 30-degree position for full 5 seconds 6b. Right Leg: No drift; leg holds 30-degree position for full 5 seconds 7. Limb Ataxia: Absent 8. Sensory: Normal; no sensory loss 9. Best Language: No aphasia; normal 10. Dysarthria: Normal 11. Extinction and Inattention: No abnormality Total: 0 Stroke Questions Stroke Team Activated: No Physical Exam Const alert and oriented x3 Constitutional Narrative: She appears to be having significant cephalgia. The GARCIA and the dizziness get better when she closes her eyes. General Appearance: cooperative, well kempt, well developed and ill appearing HEENT HEENT Narrative: Dry mucous membranes. The occiput is tender to palpation. Head and Scalp: normocephalic and contusion Contusion Size: occiput; Negative for Allen's sign or raccoon eyes Eyes PERRL, EOMs intact bilaterally, conjunctivae normal and no scleral icterus Eyes Narrative: The R upper lid is droopy General Eye: Negative for exophthalmos or proptosis Neck No nuchal rigidity, no lymphadenopathy, supple and no carotid bruits General: trachea midline Chest Chest Narrative: Large pendulous breasts Chest: symmetrical chest wall rise Resp normal respiratory effort, no use of accessory muscles and clear to auscultation bilaterally Effort and Inspection: able to speak in complete sentences Cardio regular rate, regular rhythm, S1 normal heart sound, S2 normal heart sound, no murmurs, no rub and no gallops Cardio Narrative: no ectopy Jugular Venous Distention: Negative for JVD GI normal to inspection, nondistended, normoactive bowel sounds, soft to palpation and non-tender Back/Spine normal to inspection General Back: Negative for CVA tenderness Extremity normal capillary refill, no calf tenderness and no pedal edema Skin no wounds and no jaundice General Skin Exam: no breakdown and dry skin Rashes: no rashes Neuro Neuro Narrative: no focal motor or sensory deficits, alert and oriented X 3, no visual loss, CN's II-XII GI, no tremors Coordination: [id number] test normal and [id number] test normal Psych mental status grossly normal, thought process normal, cooperative, affect normal, activity/motor behavior normal, denies hallucinations, denies homicidal ideation and denies suicidal ideation Results Lab / Micro Data Result Diagrams: 07/07/21 09:08 07/07/21 09:08 Labs: Laboratory Results - last 24 hr 07/07/21 09:08: WBC 6.5, RBC 4.51, Hgb 13.1, Hct 40.0, MCV 88.7, MCH 29.0, MCHC 32.8, RDW Std Deviation 45.6 H, RDW Coeff of Hortencia 14.1, Plt Count 233, MPV 10.5, Immature Gran % (Auto) 0.600, Neut % (Auto) 70.2 H, Lymph % (Auto) 18.0 L, Hunt % (Auto) 8.4, Eos % (Auto) 2.3, Baso % (Auto) 0.5, Absolute Neuts (auto) 4.5, Absolute Lymphs (auto) 1.16, Nucleated RBC % 0 07/07/21 09:08: Sodium 137, Potassium 3.4 L, Chloride 108 H, Carbon Dioxide 20.0 L, Anion Gap 9, BUN 17, Creatinine 0.90, Estim Creat Clear Calc 42.66, Est GFR (MDRD) Af Amer 77, Est GFR (MDRD) Non-Af 64, BUN/Creatinine Ratio 18.8, Glucose 140 H, Calcium 8.6, Phosphorus 2.7, Magnesium 2.6, Total Bilirubin 0.20, AST 40 H, ALT 69 H, Alkaline Phosphatase 112, Total Protein 6.2 L, Albumin 2.4 L, Globulin 3.8, Albumin/Globulin Ratio 0.6 L Assessment & Plan Assessment/Plan (1) Physical debility: (2) History of recent fall: (3) Cerebral contusion: QUALIFIERS: Encounter type: subsequent encounter Laterality: right Loss of consciousness presence/duration: without LOC Qualified Code(s): S06.310D - Contusion and laceration of right cerebrum without loss of consc iousness, subsequent encounter (4) Subdural hemorrhage: (5) Subarachnoid hemorrhage: (6) Skull fracture: QUALIFIERS: Encounter type: subsequent encounter Skull bone/location: occipital bone Fracture type: closed Laterality: left (7) TBI (traumatic brain injury): QUALIFIERS: Encounter type: subsequent encounter Loss of consciousness presence/duration: without LOC Qualified Code(s): S06.9X0D - Unspecified intracranial injury without loss of consciousness, subsequent encounter (8) Dizziness: (9) Cephalgia: QUALIFIERS: Headache type: post-traumatic Headache chronicity pattern: acute headache Intractability: intractable Qualified Code(s): G44.311 - Acute post-traumatic headache, intractable (10) Disequilibrium: (11) Orthostatic hypotension: (12) Metabolic acidosis: (13) Hypokalemia: (14) Hyperglycemia, unspecified: (15) Hypertriglyceridemia: (16) Low HDL (under 40): (17) Hyperlipidemia: (18) Stenosis of right carotid artery: (19) HTN (hypertension): (20) Urge incontinence: (21) Glucose intolerance (impaired glucose tolerance): PLAN: PLAN PT for gait stability OT for ADL's ST for evaluation Analgesics as needed Bowel protocol Fall precautions Assess for Anxiety/Depression GI prophylaxis no necessary - she has no hx of PUD and denies N/V/abd pain DVT prophylaxis with enoxaparin 30 mg subcu every 12 hours Follow up with Dr. Mendoza, Dr. Zheng and Dr. Thomas following DC from Rehab AM lab including CMP, CBC, Mag and Phos was personally reviewed. She has not been sleeping well due to headache pain. She had a PureWick catheter at the previous hospital and she would like one in rehab. I told her we could do this for 48 H to allow her to get sleep at night and then we would DC. She is here for rehabilitation and that means being able to get up to use the BSC or the BR. Check a UA Premarin Vaginal cream to help decrease urgency if the UA is negative for infection She has no seizures and the head injury was 06/29/21. Narcotics do not agree with her and she has not been taking them. She was given Fioricet at the previous hospital with no relief of the GARCIA. Will try lose dose Tramadol every 6 hours and Tylenol scheduled every 8 hours for pain relief. she has no vertigo and no nystagmus. No change in dizziness with rotation of the head. The dizziness is likely due to TBI but, she is orthostatic so will hydrate with IV NS with potassium tonight and recheck the orthostatics in the AM. Hold the Amlodipine......this was started at the previous hospital. Follow up appts: 1. Dr. Thomas [phone] - pt to call and schedule an appt for [address] Zheng in [address] Mendoza following DC from rehab 75 minutes was spent reviewing all records sent to us from the previous hospital, talking with the patient and examining her and completing the documentation. Charges/Coding Visit Charges Inpatient E&M: 24092 Init Hosp L3
[2021-07-07 11:53] VITALS: PULSE 88
[2021-07-07] MEDS: Metoprolol(XL)Succ 50 MG Tablet PO (11:53)
[2021-07-07 12:35] LABS: Hemoglobin A1c 5.7 % (3.8-5.6)
[2021-07-07 12:50] LABS: Cholesterol 184 mg/dL (200); High Density Lipoprotein 32 mg/dL; Triglycerides 318 mg/dL; Very Low Density Lipoprotein 64 mg/dL (5-40)
--- NOTE | 2021-07-07 14:14 | PCM.RU.PYE ---
Admission Information Primary Diagnosis:: Debility post fall with SAH's, skull fracture, TBI and SDH. Status Changes from Prescreening?: No changes Identified Actual Problem List:: Falls, Skin Intergrity, Pain, ALteration in Cmfrt, Mobility Impaired, Self Care Deficit, BP, Hypertension and Alteration-Leisure Activ. Potential Problem List:: DVT, Bleeding, Infection, UTI, Aspiration, Falls, Skin Integrity and Depression Risk of Complications DVT: LMWH, JUSTIN Hose and Sequential Compression Device Bleeding: Monitor Lab Values, Nursing to Teach Precautions for anti-coagulation therapy., Wound, if applicable, to be assessed every shift. and Stroke patients assessed for lethargy or change in status. Infection: Clinical Staff to Monitor for S/S of infection: and S/S of infection include fever, redness, warmth, etc. Urinary Tract Infection: Monitor for frequency, burning, discomfort, or incontinence. and Nursing will obtain urine sample for urinalysis and C&S when ordered. Aspiration: Clinical staff will monitor for coughing, drooling, congestion., Speech will evaluate swallowing and dsyphasia. and Nursing will monitor patient swallowing during meals. Falls: Patient will be evaluated for Fall Precautions and Patient will be placed on Fall Precautions as indicated per protocol. Skin Breakdown: Nursing will assess skin daily using assessment tool. and Nursing will place on Skin Breakdown Precautions as indicated. Pain: Clinical staff will assess patient's pain level per protocol., Medications will be given, if needed, and the pain level reassessed. and Other methods: Massage, distraction, decrease stimulus, etc. used PRN. Plan of Care Patient requires physician specializing in physical medicine and rehab oversight to provide close medical supervision of rehab issues including: Pain Management, Sleep Problems, Bowel and Bladder, Medical and co-morbidity Management, DVT prophylaxis, Rehabilitation Leadership and Coordination of treatment team Patient needs Physical Therapy: For a minimum of 1 hour and At least 5 out of 7 days Patient needs Physical Therapy to improve:: Mobility, Strengthening, Transfers, Stretching, ROM, Endurance, Stairs, Gait and Balance Patient needs Occupational Therapy: For a minimum of 1 hour and At least 5 out of 7 days Patient needs Occupational Therapy to improve ADL's incl.: Eating, Grooming, Bathing, Dressing, Toileting, Toilet transfers, Community Reintegration, Higher functioning activities, Household tasks, Adaptive Equipment, Splinting and Other activities as determined Patient requires speech therapy: For a minimum of 1 hour and At least 5 out of 7 days Patient requires speech therapy for: Swallowing, Cognition, Language Skills and Compensatory Strategies Patient requires 24/ Rehabilitation Nursing for: Pain Issues, Identifying and preventing risk factors, Monitoring and reporting current medical conditions, Assisting with ambulation, transfer, and all ADL's, Teaching patients about disease process and medications, Family teaching, Providing safe environment, Bowel and Bladder Issues, Skin integrity and Medication Management Patient needs Systems Programmer Analyst/ Case Management for: Discharge Planning, Arranging Home Equipment or Services and Family Interventions Patient needs Dietary and Nutrition Services for: Adequate Nutrition, Nutritional Supplements and Nutritional Education Goals Patient will remain: free from falls and or injury at time of discharge. Patient will perform bed mobility at: MOD I level of assist. Patient will complete transfers from bed to chair at: MOD I level of assist. Patient will ambulate: 100 feet, with LRD and - (150 feet with the least restrictive device at standby assist on various surfaces to allow patient to return home.) Patient will complete upper body dressing at: MOD I level of assist. Patient will complete lower body dressing at: MOD I level of assist. Patient will complete toileting at: MOD I level of assist. Patient will perform bathing at: MOD I level of assist. Patient will complete grooming at: MOD I level of assist. Patient will complete home management skills at: MOD I level of assist. Patient will achieve: 12 stairs (With 1 handrail at standby assist) and - (1 curb step) Patient will have pain level of: of 3 or less Patient's skin will: remain intact Patient will receive: adequate nutrition. Discharge Planning Pt Prognosis for Sig. Practical Improv. w/in Reasonable Time: Good Estimated Length of stay (days): 28 Anticipated D/C Destination: Home with Home Health Was Preadmission Assessment Accurate?: Yes
[2021-07-07 17:05] VITALS: O2SAT 96
[2021-07-07] MEDS: Potassium Chloride Oral Tablet 20 MEQ PO (17:27)
[2021-07-07] MEDS: traMADol 50 MG Tablet 25 MG PO ×2 (18:18→21:26)
[2021-07-07 19:50] VITALS: PULSE 74; RESP 18; O2SAT 93
[2021-07-07 21:19] VITALS: BP 117/65; PULSE 89; RESP 16; TEMP 36.6; O2SAT 94
[2021-07-07] MEDS: Acetaminophen 500 MG Tablet 1000 MG PO (21:25)
[2021-07-07] MEDS: Enoxaparin 30 MG/0.3 ML Syringe SC (21:26)
[2021-07-07] MEDS: MELATONIN 3 MG TABLET PO (21:26)
[2021-07-07] MEDS: prednisoLONE eye drops (1 mL) 1 DROP OPTH.BTL 1 DRP EACH EYE (21:27)
[2021-07-07] MEDS: 0.9% Saline Lock 10 ML Syringe IV (21:51)
--- NOTE | 2021-07-08 03:04 | NURSING ---
Reviewed and agreed with documentation and assessment charting.
[2021-07-08] MEDS: traMADol 50 MG Tablet 25 MG PO ×4 (04:16→20:51)
[2021-07-08] MEDS: prednisoLONE eye drops (1 mL) 1 DROP OPTH.BTL 1 DRP EACH EYE ×3 (05:46→20:52)
[2021-07-08] MEDS: Acetaminophen 500 MG Tablet 1000 MG PO ×3 (05:47→20:50)
[2021-07-08 06:00] VITALS: BP 143/86; BP 147/78; BP 161/86; PULSE 67; PULSE 68; PULSE 76
[2021-07-08 07:06] LABS: Anion Gap 6 (5-15); BUN 12 mg/dL (7-18); BUN/Creat Ratio 21.2 RATIO (10-20); Calcium,Total 8.6 mg/dL (8.5-10.1); Chloride 107 mmol/L (98-107); Creatinine, Serum 0.57 mg/dL (0.55-1.02); EST Glomerular Filtration Rate 109 mL/min (>60); Est Glom Filt Rate - Afr Amer 132 mL/min (>60); Estimated Creatinine Clearance 38.39 ml/min; Glucose 99 mg/dL (74-106); Sodium Level 138 mmol/L (136-145)
[2021-07-08 07:29] LABS: Bacteria 0 SEEN /hpf (None Seen); Mucous, Urine 0 SEEN /hpf (<or=2+); Red Blood Cells-Urine 0 SEEN /hpf (0-5); White Blood Cells 0 SEEN /hpf (0-5)
[2021-07-08 07:33] LABS: Color, Urine Yellow (Yellow); Glucose, Dipstick Normal (Normal); Ketone-Dipstick Negative (Negative); Specific Gravity, Urine 1.015 (1.002-1.030); Urine Bilirubin Dipstick Negative (Negative); Urine Clarity Sl Cldy (Clear)
[2021-07-08 07:34] LABS: Leukocyte Esterase-Dipstick Negative /ul (Negative); Nitrite-Dipstick Negative (Negative); Occult Blood-Urine 150 /ul (Negative); Protein-Dipstick Negative (Negative); Urine Urobilinogen Normal (Normal)
[2021-07-08 07:39] LABS: Squamous Epithelial Cells - UA 0-5 SEEN /hpf (5-10)
[2021-07-08 07:46] VITALS: BP 158/89; PULSE 69; RESP 16; TEMP 36.2; O2SAT 97
[2021-07-08 07:53] VITALS: O2SAT 97
--- NOTE | 2021-07-08 10:05 | CASEMGMT ---
Social Work Completed initial assessment with pt. Pt confirms full code status. Explained Medicare and Team meetings. The goal is for pt to return home alone. Son lives nearby but works maritime guard. Discussed [employer] - pt agreeable for resources but states $20 is still a lot when living paycheck to paycheck. Offered financial assistance - pt denied, states she can pay her bills. SW to continue to follow. Donna Garcia, HIRAL FARM EQUIPMENT MECHANIC
[2021-07-08] MEDS: Senna/Docusate Sodium 1 Tablet 2 TABLET PO (10:10)
[2021-07-08] MEDS: Enoxaparin 30 MG/0.3 ML Syringe SC ×2 (10:10→20:51)
[2021-07-08 12:03] VITALS: PULSE 86
[2021-07-08] MEDS: Metoprolol(XL)Succ 50 MG Tablet PO (12:03)
--- NOTE | 2021-07-08 12:23 | PN_ITS ---
Progress Note Afebrile VSS-blood pressure is mildly elevated today. She is tilt negative today following IV fluids. Maintaining appropriate oxygen saturation on RA Oral intake is good Discussed with nursing - no problems that need addressed Reviewed the PT/OT/ST notes Medication list reviewed. The GARCIA is a 4-5 today as opposed to the 03/13 yesterday. She is now on scheduled Tylenol and Tramadol. No adverse reactions with the Tramadol. She is still dizzy. No vertigo. She was sitting up in a chair in the therapy room today and was not c/o dizziness when I talked with her and she is able to keep her eyes open now. She slept well last night and this she thinks is because she had the purewick catheter. She denies drinking caffeinated beverages at home and states she only drinks water and lemonade. She tells me that she drinks constantly because she has chronic renal failure. She has urinary frequency and urgency. She sometimes only voids 75 cc. She tells me she gets up 4-5 times a night at home to urinate. I suspect she may have OAB. She feels as though she empties her bladder when she urinates. She is open to a trial of Mirabegron and will start this in the AM. No more Pure Wick after tonight. No nausea and no vomiting. Denies CP, SOB, palpitations. alert and oriented X 3, cooperative, eyes open and making good eye contact. Not tachypneic, no conversational dyspnea, L-CTA HRRR, no gallop abd - soft and NT no peripheral edema no rashes, no skin breakdown Impressions 1. S/P fall result in a skull fracture, SAH, SDH and TBI - I explained to her what a TBI and that there are different levels.....the mildest being a concussion. She is moderate. No confusion but dizziness and cephalgia. 2. Orthostatic hypotension - resolved with IV fluids and the dizziness is somewhat better today. 3. Cephalgia - better with scheduled Tylenol and Tramadol. will continue this through the weekend and then change the Tramadol to PRN. 4. suspected OAB. She really does not drink as much as she thinks.....1200- 1300 a day and when she voids sometimes it is only 75 cc's. Will try starting Mirabegron 25 mg daily to see if this + the Estrogen cream cuts down on the frequency and the urgency. 5. Continue therapy. Visit Charges Inpatient E&M: 65979 Subs Hosp L2
--- NOTE | 2021-07-08 15:45 | NURSING ---
Voided on bedpan but had PVR of 645cc. Patient agreed to get up on bsc and void and PVR after 300cc void was 290cc. Will monitor. Denies needs.
[2021-07-08 19:13] VITALS: BP 140/68; PULSE 80; RESP 17; TEMP 36.2; O2SAT 97
[2021-07-08 20:00] VITALS: PULSE 80; O2SAT 97
[2021-07-08] MEDS: MELATONIN 3 MG TABLET PO (20:52)
[2021-07-08] MEDS: Estrogens,Conj. 1 Tube 1 DOSE VAGINAL (20:52)
--- NOTE | 2021-07-09 00:34 | NURSING ---
1999 pt requesting to use the bed mccray to void and staff complied with pt request , pt voided 100. bladder scan completed and pt value was 756cc left in her bladder. pt encouraged to get up and void on the bsc 2019 pt up to the bsc and did void more jorge-care given and pt returned to bed. another bladder scan was completed and pt value was 565cc. pt informed that she would needed to be straight cathed. 2029 pt was straight cathed for 700cc of clear pale yellow urine. pt tolerated the procedure fair . purewick placed after jorge-care given. rn made aware of the above charting
--- NOTE | 2021-07-09 03:30 | NURSING ---
Reviewed and agree with CASE MAKER documentation and assessment charting.
[2021-07-09] MEDS: traMADol 50 MG Tablet 25 MG PO ×4 (04:13→21:34)
[2021-07-09 06:00] VITALS: BP 128/80; BP 133/73; BP 156/80; PULSE 63; PULSE 71; PULSE 80
[2021-07-09] MEDS: prednisoLONE eye drops (1 mL) 1 DROP OPTH.BTL 1 DRP EACH EYE ×3 (06:21→21:38)
[2021-07-09] MEDS: Acetaminophen 500 MG Tablet 1000 MG PO ×2 (06:21→14:53)
--- NOTE | 2021-07-09 06:51 | NURSING ---
0630 orthostatic vs completed and it was noted that pt purewick was not working and attend was light wet from urine. bladder scan completed at this time and value was found to be 944cc. pt asked to be placed on the bedpan to try and empty her bladder
--- NOTE | 2021-07-09 07:16 | NURSING ---
Voided into purewick and pvr done and PVR showing 944cc. Patient then voided into bedpan for 100cc and PVR showing 740cc. Per patient request gaytan cath placed and this nurse will update physician. Patient did not want another straight catheter placed and then a gaytan catheter placed in later. Patient stated at home, she gets up several times to void during the night small amounts. After gaytan placed, initial return 700cc clear yellow urine.
[2021-07-09 07:45] VITALS: O2SAT 99
[2021-07-09 08:00] VITALS: BP 136/76; PULSE 75; RESP 16; TEMP 36.5; O2SAT 97
[2021-07-09] MEDS: Enoxaparin 30 MG/0.3 ML Syringe SC ×2 (09:17→21:39)
[2021-07-09] MEDS: Senna/Docusate Sodium 1 Tablet 2 TABLET PO ×2 (09:18→21:36)
[2021-07-09] MEDS: Ondansetron ODT 4 MG Tablet PO (10:36)
--- NOTE | 2021-07-09 11:06 | NURSING ---
Joaquina garcia d\t urinary retention
[2021-07-09] MEDS: 0.9% Normal Saline 1,000 ML 75 ML IV (12:16)
[2021-07-09 12:23] VITALS: PULSE 88
[2021-07-09] MEDS: Metoprolol(XL)Succ 50 MG Tablet PO (12:23)
[2021-07-09 20:02] VITALS: BP 152/73; PULSE 86; RESP 18; TEMP 36.6; O2SAT 97
[2021-07-09] MEDS: Estrogens,Conj. 1 Tube 1 DOSE VAGINAL (21:38)
[2021-07-09] MEDS: MELATONIN 3 MG TABLET PO (21:39)
[2021-07-09 22:38] VITALS: RESP 16; O2SAT 94
--- NOTE | 2021-07-09 22:47 | PN_ITS ---
Progress Note Patient was on normal saline for dizziness. Nurse reports resolution of dizziness but now with some crackles but oxygenation okay. Patient blood pr essure is somewhat elevated. Will stop IV fluids for now.
--- NOTE | 2021-07-09 22:47 | NURSING ---
DR BARAJAS NOTIFIED THAT PT HAS LUNG CRACKLES THAT SHE DID NOT HAVE ON PRIOR SHIFTS. INFORMED THAT PT DENIES SHORTNESS OF BREATH AND THAT PULSE OX IS 94% ON RESP ARE 16/MIN AND UNLABORED. ORDER GIVEN TO DC NS INFUSION FOR NOW.
[2021-07-10] MEDS: traMADol 50 MG Tablet 25 MG PO ×4 (03:59→22:02)
--- NOTE | 2021-07-10 04:00 | NURSING ---
LUNG SOUNDS RECHECKED AND HAVE IMPROVED FROM EARLIER THIS SHIFT WITH LESSENING OF THE COARSE CRACKLES WHICH ARE NOW MOSTLY IN BASES POSTERIORLY. PT STATES SHE HAS BEEN SLEEPING WELL.
[2021-07-10] MEDS: prednisoLONE eye drops (1 mL) 1 DROP OPTH.BTL 1 DRP EACH EYE ×3 (06:22→22:04)
[2021-07-10 07:39] VITALS: O2SAT 93
[2021-07-10] MEDS: Senna/Docusate Sodium 1 Tablet 2 TABLET PO (08:28)
[2021-07-10] MEDS: Enoxaparin 30 MG/0.3 ML Syringe SC ×2 (08:28→22:05)
[2021-07-10 09:53] VITALS: BP 113/52; PULSE 67; RESP 16; TEMP 36.4; O2SAT 96
[2021-07-10 10:00] VITALS: BP 141/75; BP 148/80; BP 161/95; PULSE 68
--- NOTE | 2021-07-10 11:42 | PCM.PN.BLA ---
Progress Note Afebrile VSS-orthostatics yesterday were still positive and IV fluids were continued. Maintaining appropriate oxygen saturation on RA Oral intake is ranging from 6389-6537 daily. The intake and output for yesterday was 3000 and 10/2599 for a balance of +405. Overnight she was -640. Discussed with nursing -nursing reported to the night hospitalist that she had coarse crackles in her lungs and IV fluids were discontinued. A gaytan was inserted since Sunday for urine retention.......post void residuals were in the 's Mirabegron was discontinued. Reviewed the PT/OT/ST notes Medication list reviewed. [place] was nauseated yesterday and had an emesis. She does not like the Gaytan. she does not like that she is a difficult stick for lab and has to be poked more than once. Today she tells me that she feels better but, she still feels dizzy. We discussed once again that the dizziness is multifactorial and that dizziness/nausea and cephalgia are all sx of a concussion and they may not improve for weeks to months. The urine in the Gaytan bag is clear and dark yellow. [place] denies SOB, cough, chest pain. The GARCIA is better. Alert, oriented X3, appears in NAD. MM are dry Lungs - good air exchange. There are coarse crackles in the R base but, no fine crackles. HRRR, no gallop. no peripheral edema Impressions 1. orthostatic hypotension - will recheck orthostatics in the AM. The IV was stopped by the night hospitalist because of coarse crackles in the R base. Will leave the IV out although PE is more consistent with atelectasis and recheck orthostatics and BMP in the AM 2. Moderate TBI with dizziness, cephalgia 3. SAH/SDH/skull fracture/TBI due to a fall caused by slipping on a rug at home. Adequate pain control now. 4. urinary frequency and urgency which has been long standing. Trial of Mirabegron failed due to urine retention. Bladder appeared normal on a CT of the abd and pelvis in 2019. Will refer to Dr. Moraes as an OP. Visit Charges Inpatient E&M: 07719 Subs Hosp L2
[2021-07-10 12:46] VITALS: PULSE 67
[2021-07-10] MEDS: Metoprolol(XL)Succ 50 MG Tablet PO (12:46)
[2021-07-10] MEDS: Acetaminophen 500 MG Tablet 1000 MG PO (12:53)
[2021-07-10] MEDS: 0.9% Saline Lock 10 ML Syringe IV ×2 (16:50→22:30)
[2021-07-10 19:36] VITALS: BP 131/98; PULSE 65; RESP 18; TEMP 36.1; O2SAT 96
[2021-07-10 19:49] VITALS: BP 108/86; PULSE 69
[2021-07-10] MEDS: Estrogens,Conj. 1 Tube 1 DOSE VAGINAL (22:04)
[2021-07-10] MEDS: MELATONIN 3 MG TABLET PO (22:05)
[2021-07-11] MEDS: traMADol 50 MG Tablet 25 MG PO ×3 (03:49→16:08)
[2021-07-11] MEDS: Ondansetron ODT 4 MG Tablet PO (05:24)
[2021-07-11 06:11] LABS: Anion Gap 3 (5-15); BUN 13 mg/dL (7-18); BUN/Creat Ratio 18.4 RATIO (10-20); Calcium,Total 8.5 mg/dL (8.5-10.1); Chloride 107 mmol/L (98-107); Creatinine, Serum 0.71 mg/dL (0.55-1.02); EST Glomerular Filtration Rate 85 mL/min (>60); Est Glom Filt Rate - Afr Amer 102 mL/min (>60); Glucose 106 mg/dL (74-106); Potassium 3.4 mmol/L (3.5-5.1); Sodium Level 138 mmol/L (136-145)
[2021-07-11 06:45] VITALS: BP 106/70; BP 114/70; BP 119/60; PULSE 65; PULSE 73; PULSE 78
[2021-07-11] MEDS: Enoxaparin 30 MG/0.3 ML Syringe SC ×2 (08:01→22:02)
[2021-07-11] MEDS: Senna/Docusate Sodium 1 Tablet 2 TABLET PO ×2 (08:02→22:10)
[2021-07-11 10:00] VITALS: BP 116/63; PULSE 63; RESP 15; TEMP 35.8
[2021-07-11] MEDS: Potassium Chloride Oral Tablet 20 MEQ PO (11:25)
[2021-07-11 12:03] VITALS: PULSE 73
[2021-07-11] MEDS: Metoprolol(XL)Succ 50 MG Tablet PO (12:03)
[2021-07-11] MEDS: Acetaminophen 500 MG Tablet 1000 MG PO ×2 (13:53→22:03)
--- NOTE | 2021-07-11 14:07 | CASEMGMT ---
Social Work IDT met with patient and son for Team meeting. Discussed patient's progress in PT/OT/ST and nursing. Explained Medicare benefit. Will provide days once received. Provided [employer] resources to pt. The goal is for pt to return home. Will ReTeam next week. SW to continue to follow. HIRAL ArauzW
--- NOTE | 2021-07-11 16:03 | PN_ITS ---
Progress Note [place] was seen on TEAM rounds today. Her son was present in the room for rounds today. Afebrile VSS - She is tilt negative today Maintaining appropriate oxygen saturation on RA Oral intake is good Discussed with nursing - no problems that need addressed Reviewed the PT/OT/ST notes Medication list reviewed. All labs personally reviewed. The potassium is low at 3.5 today and the serum bicarb is now normal at 28. The BUN is down to 13 and her creatinine is 0.71 with an estimated creatinine clearance of 36 and a GFR of 85. She continues to c/o dizziness but, she did not complain until she was asked after she had been doing therapy. she is asking when the Garcia can be removed. GARCIA is much better than when she first arrived. She is using a hemiwalker now and feels more stable. Physical Exam Const alert, oriented x3 and no apparent distress Constitutional Narrative: She is cooperative but, sometimes has to be strongly encouraged to move HEENT HEENT Narrative: no nystagmus Eyes EOMs intact bilaterally, conjunctivae normal and no scleral icterus Neck supple Resp clear to auscultation bilaterally Resp Narrative: good air exchange BL. Has persistent crackles in the R base but no wheezing and no cough or SOB. Effort and Inspection: able to speak in complete sentences Cardio regular rate, regular rhythm and no gallops GI normal to inspection, nondistended, normoactive bowel sounds and soft to palpation Narrative: urine in the Garcia tubing is light yellow and clear Extremity no calf tenderness and no pedal edema Skin General Skin Exam: no breakdown Rashes: no rashes Assessment & Plan Assessment/Plan (1) Disequilibrium: (2) Physical debility: (3) Skull fracture: QUALIFIERS: Encounter type: subsequent encounter Skull bone/location: occipital bone Fracture type: closed Laterality: left (4) Cerebral contusion: QUALIFIERS: Encounter type: subsequent encounter Laterality: right Loss of consciousness presence/duration: without LOC Qualified Code(s): S06.310D - Contusion and laceration of right cerebrum without loss of consciou sness, subsequent encounter (5) Subarachnoid hemorrhage: (6) Subdural hemorrhage: (7) Urge incontinence: (8) Urine retention: (9) History of recent fall: (10) Hypokalemia: (11) Cognitive dysfunction: PLAN: 1. Supplement the potassium and recheck the K+ near the end of the week 2. DC the Garcia today and check PVR's to see if she is retaining. I suspect it was the Mirabegron that caused the urine retention and it has been discontinued. 3. continue therapy ST/PT/OT 4. DC the amlodipine. We have been holding the BP is adequately controlled. I suspect the BP was elevated at the previous hospital due to pain and stress. Visit Charges Inpatient E&M: 80563 Subs Hosp L2
[2021-07-11] MEDS: ICOSAPENT ETHYL 1 GM CAPSULE 2 GM PO (18:18)
[2021-07-11 22:00] VITALS: BP 130/64; PULSE 62; RESP 16; TEMP 36.9; O2SAT 92
[2021-07-11] MEDS: MELATONIN 3 MG TABLET PO (22:02)
[2021-07-11] MEDS: Estrogens,Conj. 1 Tube 1 DOSE VAGINAL (22:10)
--- NOTE | 2021-07-12 04:57 | NURSING ---
voided amt d/t str cath
[2021-07-12] MEDS: Ondansetron ODT 4 MG Tablet PO (06:51)
[2021-07-12] MEDS: Acetaminophen 500 MG Tablet 1000 MG PO ×2 (06:51→13:03)
[2021-07-12] MEDS: ICOSAPENT ETHYL 1 GM CAPSULE 2 GM PO ×2 (07:59→17:05)
[2021-07-12] MEDS: Enoxaparin 30 MG/0.3 ML Syringe SC ×2 (07:59→20:50)
[2021-07-12] MEDS: Senna/Docusate Sodium 1 Tablet 2 TABLET PO (08:00)
[2021-07-12] MEDS: Ergocalciferol 1.25 MG (50, 000 UNIT) Capsule PO (08:00)
[2021-07-12] MEDS: Potassium Chloride Oral Tablet 10 MEQ PO (08:00)
[2021-07-12 08:26] VITALS: BP 132/61; PULSE 61; RESP 16; TEMP 36.4; O2SAT 94
[2021-07-12 09:45] VITALS: BP 110/65; BP 116/65; BP 116/66; PULSE 63; PULSE 65; PULSE 68
[2021-07-12 12:59] VITALS: BP 112/65; PULSE 64
[2021-07-12] MEDS: Metoprolol(XL)Succ 50 MG Tablet PO (12:59)
--- NOTE | 2021-07-12 13:47 | NURSING ---
Patient pre-void amount 357mL via bladder scan Patient post-voided amount 320mL via bladder scan
--- NOTE | 2021-07-12 13:48 | NURSING ---
Spoke with doctor changed Acetaminophen tablets to PO oral suspension due to patient request and patient chewing tablets.
--- NOTE | 2021-07-12 16:41 | CON.PCM_ITS ---
Assessment & Plan Assessment/Plan (1) Urine retention: (2) TBI (traumatic brain injury): QUALIFIERS: Encounter type: subsequent encounter Loss of consciousness presence/duration: without LOC Qualified Code(s): S06.9X0D - Unspecified intracranial injury without loss of consciousness, subsequent encounter PLAN: clean intermittent catheterization 3 times daily until bladder function resumes, can have her attempt to void first, and then cath as post void residual and can record output volumes. aggressively manage constipation urine culture despite UA being negative continue vaginal estrogen cream thank you for consultation! HPI Consult Data Date of Consult: 07/12/21 HPI Narrative HPI Narrative: JACQUELINE CONSTANTINO, is a 80 F who had a fall at home with a traumatic brain injury and is admitted here for rehabilitation after being discharged from [facility]. At [facility] she was using a Purewic catheter. She had been complaining of urgency and frequency. She had one dose of Myrbetriq for this issue. The next day bladder scan revealed she was retaining 700cc of urine. The medication was discontinued and she is still having difficulty with PVR today 320cc. She is finally having bowel movements, and is working to increase mobility which is difficult with her dizziness. She reports no history of hematuria, urinary tract infections, incontinence, prolapse or any other issues urologically. [facility] Medical History Altered level of consciousness Congenital abnormality of limb Episode of confusion History of DVT (deep vein thrombosis) History of polycythemia Hyperlipidemia Hypertriglyceridemia Low HDL (under 40) Renal calculi Stenosis of right carotid artery Urge incontinence Home Medications aspirin 81 mg chewable tablet 81 mg PO DAILY@0800 tab 12/31/19 [History Last Taken Unknown] icosapent ethyl 1 gram capsule 2 g PO BID cap 12/31/19 [History Last Taken Unkn own] acetaminophen [Tylenol] 650 mg PO PRN PRN 07/06/21 [History Last Taken Unknown] amlodipine 5 mg PO DAILY 07/06/21 [History Last Taken Unknown] ergocalciferol (vitamin D2) 50,000 unit PO QWEEK 07/06/21 [History Last Taken 07/05/21] icosapent ethyl [Vascepa] 2 g PO DAILY 07/06/21 [History Last Taken Unknown] meclizine 25 mg PO TID 07/06/21 [History Last Taken Unknown] melatonin 3 mg PO QHS 07/06/21 [History Last Taken Unknown] metoprolol succinate 50 mg PO DAILY 07/06/21 [History Last Taken Unknown] oxycodone [OxyIR] 2.5 - 5 mg PO Q6H PRN PRN 07/06/21 [History Last Taken Unknown] senna-docusate sodium 2 tab PO BID 07/06/21 [History Last Taken Unknown] Allergy/AdvReac Type Severity Reaction Status Date / Time gabapentin [From Neurontin] Allergy Other Verified 06/30/21 06:32 niacin Allergy NEEDS Verified 06/30/21 07:03 FOLLOW-UP Penicillins Allergy Swelling Verified 06/30/21 06:32 Tugjiju-THC-XbH Reductase Allergy Other Verified 06/30/21 06:32 Inhibitor [Yczlfii-Udf-Ktm Reductase Inhibitor] sulfamethoxazole Allergy Pain in Verified 06/30/21 06:32 [From Bactrim] joints sulindac [From Clinoril] Allergy Other Verified 06/30/21 06:32 tizanidine HCl Allergy Other Verified 06/30/21 06:32 [From Zanaflex] trimethoprim [From Bactrim] Allergy Pain in Verified 06/30/21 06:32 joints vancomycin Allergy Itching Verified 06/30/21 06:32 duloxetine HCl AdvReac Nausea Verified 06/30/21 06:32 [From Cymbalta] erythromycin base AdvReac Other Verified 06/30/21 06:32 Family History Father Heart disease, Onset Age: 42 Mother Heart disease Diabetes Son Diabetes Hyperlipidemia Surgical History History of appendectomy History of cholecystectomy History of lithotripsy (2017) Social History household members: other details: She lives by herself. 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 She smoked Less than 1 PPD alcohol intake: never substance use type: does not use ROS Constitutional Constitutional: Reports headache(s); Denies chills or fever(s) Eyes Eyes: Reports systems reviewed and no addt'l complaints, except as documented ENT HEENT: Reports systems reviewed and no addt'l complaints, except as documented Cardiovascular Cardiovascular: Reports systems reviewed and no addt'l complaints, except as documented Respiratory/Chest Respiratory/Chest: Reports systems reviewed and no addt'l complaints, except as documented Gastrointestinal Gastrointestinal: Reports constipation and other Details: several bowel movements today, prior to this no stool for few days. she reports she is so tired of having bowel movements that she doesn't want to eat. Genitourinary Genitourinary: Reports difficulty urinating and urinary urgency; Denies dribbling, hematuria or urinary frequency Musculoskeletal Musculoskeletal: Reports difficulty walking Integumentary Integumentary: Reports systems reviewed and no addt'l complaints, except as documented Neurologic Neurologic: Reports dizziness and headache(s) Psychiatric Psychiatric: Reports systems reviewed and no addt'l complaints, except as documented Endocrine Endocrinology: Reports systems reviewed and no addt'l complaints, except as documented Hematologic/Lymphatic Hematologic/Lymphatic: Reports systems reviewed and no addt'l complaints, except as documented Allergic/Immunologic Allergic/Immunologic: Reports systems reviewed and no addt'l complaints, except as documented Physical Exam Const alert, oriented x3 and no apparent distress General Appearance: comfortable and well kempt Orientation / Consciousness: awake, oriented to person, oriented to place and oriented to time HEENT normocephalic, hearing grossly normal bilaterally, external ears normal and external nose normal Head and Scalp: normal to inspection Eyes General Eye: normal appearance of both eyes Neck supple General: trachea midline Lymph Lymphatic: no lymphedema noted Chest inspection of chest normal Chest: symmetrical chest wall rise Resp normal respiratory effort, normal air movement and no retractions Cardio regular rate and regular rhythm GI soft to palpation, non-tender and non-distended Narrative: no gaytan. last PVR 320cc Extremity Extremity Narrative: left arm congenital deformity Skin no rashes or lesions noted, no wounds, no jaundice, no petechiae and no mottling Neuro oriented x3, CN's II-XII intact bilaterally and moves all extremities Psych mental status grossly normal and thought process normal Lab / Micro Data Result Diagrams: 07/07/21 09:08 07/11/21 05:35
--- NOTE | 2021-07-12 18:05 | PCM.PN.BLA ---
Progress Note Afebrile VSS Maintaining appropriate oxygen saturation on RA Oral intake is good Discussed with nursing - no problems that need addressed Reviewed the PT/OT notes Medication list reviewed. [place] is complaining that she had 4 BM's today......I told her that is a good thing because constipation is a frequent cause of urine retention in women.She was constipated when she arrived on rehab and has been receiving stool softeners. She continues to retain urine following DC of the Garcia. the numbers over the past 2 days have ranged from 40 to 689. She was seen in consult by Dr. Moraes from urology today and we appreciate her recommendations. Will straight cath 3 times a day for the next few days and check a UA. 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 she will follow up with Dr. Moraes in the office post DC. Dr. Moraes does not feel that 1 dose of Mirabegron did not cause urine retention. It may be related to the brain trauma. she does not c/o dizziness any longer unless you ask her. She also is not initiating a c/o GARCIA any longer. She is progressing in therapy. No nystagmus and she has not had a Tramadol since last evening. alert, grumpy HRRR abd is soft and ND, no guarding with palpation no peripheral edema Impressions 1. Urine retention-we will follow Dr. Moraes suggestions as she outlined in her consult 2. Status post fall resulting in skull fractures, cerebral contusions, subarachnoid hemorrhage and subdural hematoma with moderate TBI 3. Hypokalemia-supplements were ordered and we will recheck a BMP Sunday or Sunday. Visit Charges Inpatient E&M: 41247 Subs Hosp L2
[2021-07-12] MEDS: MELATONIN 3 MG TABLET PO (20:50)
[2021-07-12] MEDS: Estrogens,Conj. 1 Tube 1 DOSE VAGINAL (20:50)
[2021-07-12] MEDS: Acetaminophen 650 MG/20 ML UDC 975 MG PO (20:51)
[2021-07-12] MEDS: Lidocaine Jelly 2% 20 ML Syringe (URO-JET) 1 APPLIC TOPICAL (20:51)
--- NOTE | 2021-07-12 21:12 | NURSING ---
pt voided 50cc. pt straight cath for 500cc.
[2021-07-12 21:20] VITALS: BP 115/60; PULSE 67; RESP 16; TEMP 36.6; O2SAT 98
[2021-07-13] MEDS: Acetaminophen 650 MG/20 ML UDC 975 MG PO ×3 (05:00→21:09)
--- NOTE | 2021-07-13 05:00 | NURSING ---
Addendum entered by Gosia Vasquez 07/13/21 07:26: pt voided 30cc and straight cath 600 Original Note: pt voided 50cc. Pt straight cath for 600cc
[2021-07-13] MEDS: Lidocaine Jelly 2% 20 ML Syringe (URO-JET) 1 APPLIC TOPICAL ×3 (05:04→21:51)
[2021-07-13] MEDS: ICOSAPENT ETHYL 1 GM CAPSULE 2 GM PO ×2 (07:50→16:31)
[2021-07-13 07:51] VITALS: BP 127/71; PULSE 71; RESP 17; TEMP 36.3; O2SAT 95
[2021-07-13] MEDS: Enoxaparin 30 MG/0.3 ML Syringe SC ×2 (07:51→21:11)
[2021-07-13] MEDS: Potassium Chloride Oral Tablet 10 MEQ PO (07:51)
[2021-07-13] MEDS: traMADol 50 MG Tablet 25 MG PO (09:00)
[2021-07-13] MEDS: Ondansetron ODT 4 MG Tablet PO (09:01)
[2021-07-13 12:54] VITALS: PULSE 65
[2021-07-13] MEDS: Metoprolol(XL)Succ 50 MG Tablet PO (12:54)
[2021-07-13 18:59] VITALS: BP 101/46; PULSE 68; RESP 16; TEMP 36.5; O2SAT 95
[2021-07-13] MEDS: Estrogens,Conj. 1 Tube 1 DOSE VAGINAL (21:11)
[2021-07-13] MEDS: MELATONIN 3 MG TABLET PO (21:11)
[2021-07-13] MEDS: Senna/Docusate Sodium 1 Tablet 2 TABLET PO (21:11)
[2021-07-14] MEDS: Acetaminophen 650 MG/20 ML UDC 975 MG PO ×3 (06:04→22:39)
[2021-07-14] MEDS: Ondansetron ODT 4 MG Tablet PO (06:06)
[2021-07-14] MEDS: Lidocaine Jelly 2% 20 ML Syringe (URO-JET) 1 APPLIC TOPICAL ×3 (06:06→22:54)
[2021-07-14 07:55] VITALS: BP 148/78; PULSE 64; RESP 12; TEMP 36.3; O2SAT 95
[2021-07-14] MEDS: Enoxaparin 30 MG/0.3 ML Syringe SC ×2 (09:09→22:41)
[2021-07-14] MEDS: Senna/Docusate Sodium 1 Tablet 2 TABLET PO ×2 (09:09→22:45)
[2021-07-14] MEDS: Potassium Chloride Oral Tablet 10 MEQ PO (09:09)
--- NOTE | 2021-07-14 09:57 | PCM.PN.BLA ---
Progress Note Afebrile VSS Maintaining appropriate oxygen saturation on RA Oral intake is good The straight cath amounts yesterday were 600, 375 and 309. This a.m. it was 429. She was able to void 150 cc and 250 cc prior to being straight cathed on 2 occasions. Discussed with nursing - no problems that need addressed Reviewed the PT/OT/ST notes Medication list reviewed. Preliminary results on a straight cath urine culture are greater than 100,000 gram-negative rods, possible Pseudomonas species and 50,000-80,000 gram-negative benton lactose hot stone setter's. Final is pending. [place] continues to complain of dizziness but the room does not spin. She only complains of headache if you ask her direct question. She denies chest pain, shortness of breath, nausea. She has not had any emesis in the past 24 hours. She denies dysuria. Physical Exam Const alert, oriented x3 and no apparent distress Eyes PERRL and EOMs intact bilaterally Eyes Narrative: No nystagmus. Resp normal respiratory effort and clear to auscultation bilaterally Effort and Inspection: able to speak in complete sentences Cardio regular rate, regular rhythm and no gallops GI GI Narrative: Soft, nontender, normal bowel sounds. Extremity no calf tenderness and no pedal edema Assessment & Plan Assessment/Plan (1) UTI (urinary tract infection): (2) Urine retention: PLAN: 1. Start Levaquin 250 mg daily and await the final on the urine culture. 2. Still having large residuals after voiding so will continue to straight cath every 8 hours. She will follow up with Dr. Moraes in the office post DC. 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 3. Continue estrogen cream 4. Ask her son if her emotions are at baseline or does he feel she is anxious or depressed. Visit Charges Inpatient E&M: 21179 Subs Hosp L2
[2021-07-14] MEDS: levoFLOXacin 250 MG Tablet PO (11:19)
[2021-07-14 12:24] VITALS: PULSE 78
[2021-07-14] MEDS: Metoprolol(XL)Succ 50 MG Tablet PO (12:24)
[2021-07-14] MEDS: ICOSAPENT ETHYL 1 GM CAPSULE 2 GM PO (17:17)
[2021-07-14 19:30] VITALS: BP 164/74; PULSE 65; RESP 16; TEMP 36.8; O2SAT 96
[2021-07-14] MEDS: MELATONIN 3 MG TABLET PO (22:41)
[2021-07-14] MEDS: Nystatin Powder 15gm Bottle 1 APPLIC TOPICAL (22:42)
[2021-07-14] MEDS: Estrogens,Conj. 1 Tube 1 DOSE VAGINAL (22:44)
[2021-07-14] MEDS: Menthol/Lanolin/Calamine/Znox 113 GM Tube 1 APPLIC TOPICAL (22:54)
[2021-07-15] MEDS: levoFLOXacin 250 MG Tablet PO (06:07)
[2021-07-15] MEDS: Acetaminophen 650 MG/20 ML UDC 975 MG PO ×3 (06:07→22:20)
[2021-07-15] MEDS: Ondansetron ODT 4 MG Tablet PO (06:17)
[2021-07-15] MEDS: Lidocaine Jelly 2% 20 ML Syringe (URO-JET) 1 APPLIC TOPICAL ×2 (06:20→22:56)
[2021-07-15] MEDS: ICOSAPENT ETHYL 1 GM CAPSULE 2 GM PO ×2 (08:24→18:22)
[2021-07-15] MEDS: Menthol/Lanolin/Calamine/Znox 113 GM Tube 1 APPLIC TOPICAL ×2 (08:25→22:22)
[2021-07-15] MEDS: Nystatin Powder 15gm Bottle 1 APPLIC TOPICAL ×2 (08:25→22:21)
[2021-07-15] MEDS: Potassium Chloride Oral Tablet 10 MEQ PO (08:26)
[2021-07-15] MEDS: Enoxaparin 30 MG/0.3 ML Syringe SC ×2 (08:27→22:19)
[2021-07-15 08:40] VITALS: BP 125/68; PULSE 64; RESP 18; TEMP 36.6; O2SAT 97
[2021-07-15 12:48] VITALS: PULSE 64
[2021-07-15] MEDS: Metoprolol(XL)Succ 50 MG Tablet PO (12:48)
--- NOTE | 2021-07-15 14:21 | PCM.PN.BLA ---
Progress Note Day #3 Levaquin Remains afebrile Vital signs are stable Post void residuals are still high and the most recent one was 397. I reviewed the final results of the urine culture and she is growing Pseudomonas aeruginosa which is sensitive to Levaquin and E. coli which is also sensitive to Levaquin. [place] continues to c/o dizziness and still has no nystagmus. She did not c/o a GARCIA today. Physical Exam Const alert, oriented x3 and no apparent distress HEENT normocephalic HEENT Narrative: no nystagmus. MARETLL, EOMI. No scleral icterus or conjunctival injection Resp clear to auscultation bilaterally Resp Narrative: CTA after several deep breaths - she has coarse crackles in both bases initially. She is using the IS but, she uses it laying in bed and should be sitting upright when doing it. Effort and Inspection: able to speak in complete sentences Cardio regular rate, regular rhythm and no gallops GI normal to inspection, nondistended, normoactive bowel sounds, soft to palpation and non-tender GI Narrative: c/o loose stool and she is now only taking 1 senna once daily Extremity no calf tenderness and no pedal edema Skin General Skin Exam: no breakdown Rashes: no rashes Neuro oriented x3, CN's II-XII intact bilaterally, moves all extremities, no focal motor deficits and no sensory deficits noted Psych Psych Narrative: grumpy as a general rule - baseline? Sleeping well most nights and she has a good appetite. Seems angry. Assessment & Plan Assessment/Plan (1) UTI (urinary tract infection): (2) Cognitive dysfunction: (3) Urine retention: (4) Cerebral contusion: QUALIFIERS: Encounter type: subsequent encounter Laterality: right Loss of consciousness presence/duration: without LOC Qualified Code(s): S06.310D - Contusion and laceration of right cerebrum without loss of consciousness, subsequent encounter (5) Subarachnoid hemorrhage: (6) Subdural hemorrhage: (7) TBI (traumatic brain injury): QUALIFIERS: Encounter type: subsequent encounter Loss of consciousness presence/duration: without LOC Qualified Code(s): S06.9X0D - Unspecified intracranial injury without loss of consciousness, subsequent encounter (8) History of recent fall: PLAN: Continue Levaquin for a total of 7 days. Continue therapy Ask her son when I see him next what her baseline temperament is? Does she need evaluated for anxiety/depression more extensively or has she always been like this. Does she have a change due to the TBI? Will involve the SW also. Visit Charges Inpatient E&M: 13470 Subs Hosp L2
[2021-07-15 22:00] VITALS: BP 142/68; PULSE 67; RESP 16; TEMP 36.6; O2SAT 95
[2021-07-15] MEDS: MELATONIN 3 MG TABLET PO (22:19)
[2021-07-15] MEDS: Estrogens,Conj. 1 Tube 1 DOSE VAGINAL (22:23)
[2021-07-15] MEDS: traMADol 50 MG Tablet 25 MG PO (22:24)
[2021-07-16] MEDS: levoFLOXacin 250 MG Tablet PO (05:58)
[2021-07-16] MEDS: Acetaminophen 650 MG/20 ML UDC 975 MG PO ×3 (05:59→22:44)
[2021-07-16] MEDS: Ondansetron ODT 4 MG Tablet PO (07:20)
[2021-07-16] MEDS: ICOSAPENT ETHYL 1 GM CAPSULE 2 GM PO ×2 (07:40→17:33)
[2021-07-16] MEDS: Potassium Chloride Oral Tablet 10 MEQ PO (07:40)
[2021-07-16] MEDS: Enoxaparin 30 MG/0.3 ML Syringe SC ×2 (07:41→22:43)
[2021-07-16] MEDS: Menthol/Lanolin/Calamine/Znox 113 GM Tube 1 APPLIC TOPICAL ×2 (07:41→22:49)
[2021-07-16] MEDS: Nystatin Powder 15gm Bottle 1 APPLIC TOPICAL ×2 (07:42→22:49)
[2021-07-16 08:00] VITALS: BP 153/77; PULSE 68; RESP 18; TEMP 36.6; O2SAT 95
[2021-07-16 12:09] VITALS: PULSE 84
[2021-07-16] MEDS: Metoprolol(XL)Succ 50 MG Tablet PO (12:09)
--- NOTE | 2021-07-16 15:01 | NURSING ---
Per Dr Espinosa Bladder scan after each urination. if scan greater than 250 ml straight cath. No lidocaine urojet if no straight cath
[2021-07-16 19:23] VITALS: BP 91/48; PULSE 70; RESP 18; TEMP 36.8; O2SAT 95
[2021-07-16] MEDS: Senna/Docusate Sodium 1 Tablet 2 TABLET PO (22:43)
[2021-07-16] MEDS: MELATONIN 3 MG TABLET PO (22:44)
[2021-07-17] MEDS: levoFLOXacin 250 MG Tablet PO (05:57)
[2021-07-17] MEDS: Acetaminophen 650 MG/20 ML UDC 975 MG PO ×3 (05:57→20:52)
[2021-07-17 08:00] VITALS: BP 135/67; PULSE 68; RESP 16; TEMP 35.9; O2SAT 96
[2021-07-17] MEDS: Potassium Chloride Oral Tablet 10 MEQ PO (08:26)
[2021-07-17] MEDS: ICOSAPENT ETHYL 1 GM CAPSULE 2 GM PO ×2 (08:26→17:16)
[2021-07-17] MEDS: Menthol/Lanolin/Calamine/Znox 113 GM Tube 1 APPLIC TOPICAL ×2 (08:30→20:51)
[2021-07-17] MEDS: Nystatin Powder 15gm Bottle 1 APPLIC TOPICAL ×2 (08:30→20:51)
[2021-07-17] MEDS: Enoxaparin 30 MG/0.3 ML Syringe SC ×2 (10:06→20:51)
--- NOTE | 2021-07-17 12:28 | PCM.PN.BLA ---
Progress Note Day #4 Levaquin Afebrile VSS Maintaining appropriate oxygen saturation on RA Oral intake is good She has not had to be straight cathed this weekend. The post void residuals have been less than 200. Discussed with nursing - no problems that need addressed Reviewed the PT/OT/ST notes Medication list reviewed. She denies dysuria. No shaking chills. No N/V/D/abd pain. She did not mention being dizzy or having a GARCIA and I did not ask. she is complaining that someone turned the temp up in her room and she was sweating all night.....yet did not call the nurse and ask that the temp be turned down. she also complained that the stool softeners gave her loose stool but prior to the stool softeners she had been constipated and had not had a BM in several days. she is being cooperative with therapy. Physical Exam Const alert, oriented x3 and no apparent distress HEENT HEENT Narrative: Mucous membranes are dry and she is not drinking as much as she thinks she has. Resp normal respiratory effort Resp Narrative: coarse crackles in the bases that clear after a few deep breaths She is always in bed when I enter the room. Effort and Inspection: able to speak in complete sentences Cardio regular rate, regular rhythm and no gallops GI normal to inspection, nondistended, normoactive bowel sounds, soft to palpation and non-tender Extremity no calf tenderness and no pedal edema Skin General Skin Exam: no breakdown Rashes: no rashes Psych Psych Narrative: She is grumpy and seldom has a nice thing to say but, has many complaints. Assessment & Plan Assessment/Plan (1) UTI (urinary tract infection): (2) Cognitive dysfunction: (3) Urine retention: (4) Skull fracture: QUALIFIERS: Encounter type: subsequent encounter Skull bone/location: occipital bone Fracture type: closed Laterality: left (5) Cerebral contusion: QUALIFIERS: Encounter type: subsequent encounter Laterality: right Loss of consciousness presence/duration: without LOC Qualified Code(s): S06.310D - Contusion and laceration of right cerebrum without loss of consciousness, subsequent encounter (6) Subarachnoid hemorrhage: (7) Subdural hemorrhage: (8) Dizziness: (9) TBI (traumatic brain injury): QUALIFIERS: Encounter type: subsequent encounter Loss of consciousness presence/duration: without LOC Qualified Code(s): S06.9X0D - Unspecified intracranial injury without loss of consciousness, subsequent encounter (10) Hypokalemia: PLAN: 1. Continue Levaquin for a total of 7 days and then discontinue 2. Continue therapy 3. Check a BMP in the a.m.-she has been on a potassium supplement. 4. Recheck orthostatics in the a.m. 5. She seems to be very difficult to please and seldom has a nice word to say.....I do not know if this is her baseline or if she is depressed or if this is due to the TBI......I hope that her son is present for TEAM rounds in the AM so that we can talk about this. Visit Charges Inpatient E&M: 94050 Subs Hosp L2
[2021-07-17 13:49] VITALS: PULSE 70
[2021-07-17] MEDS: Metoprolol(XL)Succ 50 MG Tablet PO (13:49)
[2021-07-17 19:48] VITALS: BP 109/70; PULSE 86; RESP 18; TEMP 36.9; O2SAT 96
[2021-07-17] MEDS: MELATONIN 3 MG TABLET PO (20:50)
--- NOTE | 2021-07-18 04:37 | NURSING ---
Reviewed and agree with QUARTER SUPERVISOR documentation and assessment charting.
[2021-07-18] MEDS: Acetaminophen 650 MG/20 ML UDC 975 MG PO ×3 (05:33→21:38)
[2021-07-18] MEDS: levoFLOXacin 250 MG Tablet PO (05:33)
[2021-07-18] MEDS: ICOSAPENT ETHYL 1 GM CAPSULE 2 GM PO ×2 (08:09→17:20)
[2021-07-18] MEDS: Ondansetron ODT 4 MG Tablet PO (08:10)
[2021-07-18] MEDS: Enoxaparin 30 MG/0.3 ML Syringe SC ×2 (08:10→21:38)
[2021-07-18] MEDS: Potassium Chloride Oral Tablet 10 MEQ PO (08:10)
[2021-07-18] MEDS: Nystatin Powder 15gm Bottle 1 APPLIC TOPICAL ×2 (08:11→21:40)
[2021-07-18] MEDS: Menthol/Lanolin/Calamine/Znox 113 GM Tube 1 APPLIC TOPICAL ×2 (08:11→21:40)
[2021-07-18 08:57] VITALS: BP 149/73; PULSE 67; RESP 17; TEMP 36.6; O2SAT 97
[2021-07-18 09:50] VITALS: BP 127/53; BP 134/75; BP 139/65; PULSE 69; PULSE 77
[2021-07-18 12:18] VITALS: PULSE 77
[2021-07-18] MEDS: Metoprolol(XL)Succ 50 MG Tablet PO (12:18)
--- NOTE | 2021-07-18 14:10 | CASEMGMT ---
Social Work IDT met with patient and son for Team meeting. Discussed patient's progress in PT/OT/ST and nursing. Explained Medicare DC date 07/22. Son inquired about appeal. Explained appeal rights and possible financial liability. Son denied appeal. Explained IDT recommending SNF for continued therapy as pt is not safe at home alone physically or cognitively. Provided SNF list with Medicare and data resources. Pt's first choice is TCU. Encouraged to select another option if TCU does not have bed availability. Referral made to TCU. SW to continue to follow. HIRAL Arauz RECRUITING ADMINISTRATOR
--- NOTE | 2021-07-18 18:42 | PN_ITS ---
Progress Note Virginia was seen on team rounds today. Her son was present in the room. All questions were asked and answered to their satisfaction. Afebrile VSS Maintaining appropriate oxygen saturation on RA Oral intake is good Discussed with nursing - no problems that need addressed Reviewed the PT/OT/ST notes Medication list reviewed. Virginia denies dysuria, abd pain, N/V/D/C, lightheadedness, CP SOB. she is still c/o dizziness. She is also complaining about the food......she does not like having the same choices of entrees every day and she is complaining she is sent too much food. I asked her if she was angry because sometimes she comes off as very abrupt and she has many complaints every day. she denies being angry and she also denied being anxious or depressed. Her son told the charge nurse that she has always been a little gruff ans she is always complaining and this is her baseline. The social insurance specialist tried to explain to her that she needed 2 options for an SNF at [place]. She insists she wants to go to TCU and she will not go to a detention. The SW explained that they may not have a bed and we needed another place in the event there is no bed in TCU. She is not happy about this. Physical Exam Const alert, oriented x3 and no apparent distress General Appearance: well kempt and well developed Eyes PERRL, EOMs intact bilaterally, conjunctivae normal and no scleral icterus Resp Resp Narrative: coarse crackles in the bases that mostly resolved after a dew deep breaths. No wheezing and no tachypnea. She is able to speak in complete sentences. Cardio regular rate, regular rhythm and no gallops GI normal to inspection, nondistended, normoactive bowel sounds and soft to palpation Extremity no calf tenderness and no pedal edema Skin General Skin Exam: no breakdown Rashes: no rashes Assessment & Plan Assessment/Plan (1) UTI (urinary tract infection): (2) Cognitive dysfunction: (3) Urine retention: (4) Physical debility: (5) Cerebral contusion: QUALIFIERS: Encounter type: subsequent encounter Laterality: right Loss of consciousness presence/duration: without LOC Qualified Code(s): S06.310D - Contusion and laceration of right cerebrum without loss of consciousness, subsequent encounter (6) Subarachnoid hemorrhage: (7) Subdural hemorrhage: (8) Dizziness: (9) TBI (traumatic brain injury): QUALIFIERS: Encounter type: subsequent encounter Loss of consciousness presence/duration: without LOC Qualified Code(s): S06.9X0D - Unspecified intracranial injury without loss of consciousness, subsequent encounter (10) History of recent fall: (11) Stenosis of right carotid artery: PLAN: 1. I explained to her that she needs to start getting out of bed to eat and do her IS because she can not completely expand the chest cavity while lying slouched down in the bed. She agreed to get up for meals. 2. continue the antibiotic for 7 days total. 3. she has not had to be straight cath'd at all over the weekend hopefully this will continue. The urine retention may have been due to constipation (resolved) and to the brain injury......neurogenic. 4. I explained once again that the dizziness is due to TBI and post concussive S. The most common sx with PCS are headache, dizziness, fatigue and sleep problems. She has no vertigo and no nystagmus and a literature search did not mention any specific tx for dizziness. Just try to avoid the things that cause dizziness. Meclizine will likely just impair the cognition and fatigue more and it won't resolve the dizziness. I thought that maybe she has had anxiety or depression as a result of the TBI but, she is at her baseline per her son. continue to monitor. She can not go home by herself at this point. She needs 24/7 supervision due to cognitive deficits. Hopefully will be able to get her to TCU upon DC from rehab for continued therapy. Apparently she had a bad experience when her was in a detention prior to his demise and she thinks all :nursing homes are the same. The SW explained that she will be going to a SNF and not a ECF and she will get therapy for as many hours a day as she needs. Visit Charges Inpatient E&M: 88278 Subs Hosp L2
[2021-07-18 21:30] VITALS: BP 155/74; PULSE 74; RESP 16; TEMP 36.5; O2SAT 94
[2021-07-18] MEDS: Senna/Docusate Sodium 1 Tablet 2 TABLET PO (21:39)
[2021-07-18] MEDS: MELATONIN 3 MG TABLET PO (21:40)
--- NOTE | 2021-07-19 03:23 | NURSING ---
Reviewed and agree with CHEMICAL TESTER assessment and note.
[2021-07-19 06:07] LABS: Anion Gap 6 (5-15); BUN 13 mg/dL (7-18); BUN/Creat Ratio 18.4 RATIO (10-20); Chloride 108 mmol/L (98-107); Creatinine, Serum 0.71 mg/dL (0.55-1.02); EST Glomerular Filtration Rate 85 mL/min (>60); Est Glom Filt Rate - Afr Amer 102 mL/min (>60); Estimated Creatinine Clearance 36.13 ml/min; Glucose 95 mg/dL (74-106); Potassium 3.9 mmol/L (3.5-5.1); Sodium Level 141 mmol/L (136-145)
[2021-07-19] MEDS: levoFLOXacin 250 MG Tablet PO (06:35)
[2021-07-19] MEDS: Acetaminophen 650 MG/20 ML UDC 975 MG PO ×3 (06:35→20:50)
[2021-07-19] MEDS: Potassium Chloride Oral Tablet 10 MEQ PO (09:17)
[2021-07-19] MEDS: Enoxaparin 30 MG/0.3 ML Syringe SC ×2 (09:17→20:51)
[2021-07-19] MEDS: ICOSAPENT ETHYL 1 GM CAPSULE 2 GM PO ×2 (09:17→17:01)
[2021-07-19] MEDS: Nystatin Powder 15gm Bottle 1 APPLIC TOPICAL ×2 (09:18→20:49)
[2021-07-19] MEDS: Ergocalciferol 1.25 MG (50, 000 UNIT) Capsule PO (09:18)
[2021-07-19] MEDS: Menthol/Lanolin/Calamine/Znox 113 GM Tube 1 APPLIC TOPICAL ×2 (09:18→20:50)
[2021-07-19] MEDS: Senna/Docusate Sodium 1 Tablet 2 TABLET PO ×2 (09:20→20:51)
[2021-07-19 10:00] VITALS: BP 116/63; PULSE 67; RESP 16; TEMP 36.4; O2SAT 94
--- NOTE | 2021-07-19 12:03 | CASEMGMT ---
Social Work TCU is able to accept pt. Updated son and pt. Plan: DC to TCU 07/22, skilled Donna Garcia, SEAM RUBBER BRAIN WAVE TECHNICIAN
[2021-07-19 12:48] VITALS: PULSE 81
[2021-07-19] MEDS: Metoprolol(XL)Succ 50 MG Tablet PO (12:48)
[2021-07-19 19:00] VITALS: BP 120/68; PULSE 69; RESP 16; TEMP 36.3; O2SAT 98
[2021-07-19 20:20] VITALS: PULSE 69; RESP 16; O2SAT 98
[2021-07-19] MEDS: MELATONIN 3 MG TABLET PO (20:51)
[2021-07-19] MEDS: Estrogens,Conj. 1 Tube 1 DOSE VAGINAL (20:52)
--- NOTE | 2021-07-20 03:15 | NURSING ---
REVIEWED AND AGREE WITH STRINGER UP SOLDERING MACHINE'S FUNCTIONAL ASSESSMENT AND HANDOFF CHARTING.
[2021-07-20] MEDS: Acetaminophen 650 MG/20 ML UDC 975 MG PO ×3 (05:15→22:11)
[2021-07-20] MEDS: levoFLOXacin 250 MG Tablet PO (05:15)
[2021-07-20] MEDS: ICOSAPENT ETHYL 1 GM CAPSULE 2 GM PO ×2 (07:39→17:21)
[2021-07-20] MEDS: Potassium Chloride Oral Tablet 10 MEQ PO (07:39)
[2021-07-20 07:49] VITALS: BP 143/66; PULSE 66; RESP 18; TEMP 36.2; O2SAT 97
[2021-07-20] MEDS: Enoxaparin 30 MG/0.3 ML Syringe SC ×2 (10:09→22:11)
[2021-07-20] MEDS: Nystatin Powder 15gm Bottle 1 APPLIC TOPICAL ×2 (10:15→22:12)
[2021-07-20] MEDS: Menthol/Lanolin/Calamine/Znox 113 GM Tube 1 APPLIC TOPICAL ×2 (10:15→22:12)
--- NOTE | 2021-07-20 11:47 | PCM.PROGNOTE ---
Subjective Subjective Day #6/7 Levaquin Afebrile VSS Maintaining appropriate oxygen saturation on RA Oral intake is poor, if the documentation is correct. I tend not to believe the documentation because lab yesterday showed a BUN of 13 and a CREAT of 0.71. Discussed with nursing - no problems that need addressed Reviewed the PT/OT/ST notes Medication list reviewed. Virginia was sitting up in a chair eating her lunch when I entered the room. She appeared in no distress. She was sitting in a chair maintaining her balance. She continues to complain of dizziness however, it is slowly getting better. She states her headache is much better. She denies dysuria, abdominal pain, nausea/vomiting/mouth pain/painful swallowing, vaginal discharge, vaginal itching, CCP, SOB, palpitations. She got up only 1 time last night after going to bed and that was at 5 AM to urinate. She denies cough, sore throat. Objective Data Objective Data Vital Signs: Vital Signs Temp Pulse Resp BP Pulse Ox 97.2 F L 66 18 143/66 H 97 07/20/21 07:49 07/20/21 07:49 07/20/21 07:49 07/20/21 07:49 07/20/21 07:49 Oxygen Flow Rate (L/min) 96 Oxygen Delivery Method Room Air Weight: 112 lb 6.972 oz Body Mass Index (BMI) 25.0 Intake & Output: Intake and Output for Last 24 Hours 07/18/21 07/19/21 07/20/21 23:59 23:59 23:59 Intake Total 835 / 835 735 / 735 100 / 100 Output Total 1250 / 1250 1175 / 1175 500 / 500 Balance -415 / -415 -440 / -440 -400 / -400 Lab / Micro Data Result Diagrams: 07/07/21 09:08 07/19/21 05:36 Micro: Microbiology 07/12/21 21:12 Urine Catheter - Catheter Urine Culture - Final Pseudomonas aeroginosa Escherichia coli Physical Exam Const alert, oriented x3 and no apparent distress General Appearance: cooperative, well kempt and well developed HEENT moist oral mucous membranes and oropharynx normal Resp clear to auscultation bilaterally Resp Narrative: she has good air exchange and today she had no crackles. Has been using the IS every hour that she is awake. Effort and Inspection: able to speak in complete sentences Cardio regular rate and regular rhythm GI normal to inspection, nondistended, normoactive bowel sounds, soft to palpation and non-tender Extremity no calf tenderness and no pedal edema Skin General Skin Exam: no breakdown Rashes: no rashes Assessment & Plan Assessment/Plan (1) UTI (urinary tract infection): (2) Cognitive dysfunction: (3) Disequilibrium: (4) Physical debility: (5) Skull fracture: QUALIFIERS: Encounter type: subsequent encounter Skull bone/location: occipital bone Fracture type: closed Laterality: left (6) Cerebral contusion: QUALIFIERS: Encounter type: subsequent encounter Laterality: right Loss of consciousness presence/duration: without LOC Qualified Code(s): S06.310D - Contusion and laceration of right cerebrum without loss of consciousness, subsequent encounter (7) Subarachnoid hemorrhage: (8) Subdural hemorrhage: (9) Dizziness: (10) TBI (traumatic brain injury): QUALIFIERS: Encounter type: subsequent encounter Loss of consciousness presence/duration: without LOC Qualified Code(s): S06.9X0D - Unspecified intracranial injury without loss of consciousness, subsequent encounter (11) Atelectasis: PLAN: 1. DC Levaquin after tomorrow's dose 2. No changes to the drug regimen 3. Continue IS and getting up in the chair for all meals. 4. Plan transfer to TCU on Sunday for additional therapy prior to returning home. I am hopeful that she will be able to return home and be by herself without supervision after additional therapy in TCU. Charges/Coding Visit Charges Inpatient E&M: 70662 Subs Hosp L2
[2021-07-20 12:10] VITALS: PULSE 66
[2021-07-20] MEDS: Metoprolol(XL)Succ 50 MG Tablet PO (12:10)
[2021-07-20 19:24] VITALS: BP 154/73; PULSE 71; RESP 16; TEMP 36.6; O2SAT 95
[2021-07-20] MEDS: MELATONIN 3 MG TABLET PO (22:11)
--- NOTE | 2021-07-21 02:58 | NURSING ---
REVIEWED AND AGREE WITH BRAKE LINING DRILLER'S FUNCTIONAL ASSESSMENT AND HANDOFF CHARTING.
[2021-07-21] MEDS: Acetaminophen 650 MG/20 ML UDC 975 MG PO (05:20)
[2021-07-21] MEDS: levoFLOXacin 250 MG Tablet PO (05:20)
[2021-07-21] MEDS: ICOSAPENT ETHYL 1 GM CAPSULE 2 GM PO ×2 (07:36→17:09)
[2021-07-21] MEDS: Potassium Chloride Oral Tablet 10 MEQ PO (07:36)
[2021-07-21 08:04] VITALS: BP 144/79; PULSE 68; RESP 18; TEMP 35.9; O2SAT 97
[2021-07-21] MEDS: Ondansetron ODT 4 MG Tablet PO (08:45)
[2021-07-21] MEDS: Senna/Docusate Sodium 1 Tablet 2 TABLET PO ×2 (10:29→21:03)
[2021-07-21] MEDS: Menthol/Lanolin/Calamine/Znox 113 GM Tube 1 APPLIC TOPICAL ×2 (10:41→21:14)
[2021-07-21] MEDS: Nystatin Powder 15gm Bottle 1 APPLIC TOPICAL ×2 (10:41→21:13)
[2021-07-21] MEDS: Enoxaparin 30 MG/0.3 ML Syringe SC ×2 (10:43→21:02)
[2021-07-21 12:30] VITALS: PULSE 64
[2021-07-21] MEDS: Metoprolol(XL)Succ 50 MG Tablet PO (12:30)
--- NOTE | 2021-07-21 16:35 | PCM.TXEXTCAR ---
Diet 07/06/21 16:29 Diet: Cardiac - Heart Healthy Is pt able to select menu?: Yes Diet Comments: smaller portions please Wound(s) Under right breast: Wound Type: Open sore (Suspect this is due to intertrigo and she is being treated with Nystatin powder. ) Problem/Diagnosis (1) UTI (urinary tract infection): Status: Resolved Comment: had a Pure Wick external catheter for several days prior to coming to [facility] rehab. She also retains urine. She has received 7 days of Levaquin and is asymptomatic now. (2) Cognitive dysfunction: Status: Acute (3) Disequilibrium: Status: Acute Comment: Due to TBI/concussion. No nystagmus and no vertigo. Gradually getting better. GARCIA has mostly resolved. (4) Physical debility: Status: Acute Comment: Due to a fall with ICH and TBI/moderate - severe. (5) Skull fracture: Status: Acute (6) Cerebral contusion: Status: Acute (7) Subarachnoid hemorrhage: Status: Acute (8) Subdural hemorrhage: Status: Acute (9) Dizziness: Status: Acute Comment: gradually resolving (10) TBI (traumatic brain injury): Status: Acute Comment: moderate to severe with Dizziness, cephalgia and cognitive deficits. Prior to the fall she was living alone and independent. Poor safety awareness now. (11) Atelectasis: Status: Resolved (12) Urine retention: Status: Resolved (13) HTN (hypertension): Status: Chronic Comment: controlled (14) Cephalgia: Status: Acute Comment: very mild now (15) Stenosis of right carotid artery: Status: Chronic Comment: 50-69% stenosis of the right proximal internal carotid artery. Would recommend follow up with vascular post DC. (16) History of recent fall: Status: Acute Allergies/Procedures Done in Hospital Allergies gabapentin [From Neurontin] Allergy (Verified 06/30/21 06:32) Other niacin Allergy (Verified 06/30/21 07:03) NEEDS FOLLOW-UP Penicillins Allergy (Verified 06/30/21 06:32) Swelling Ezinnld-KRJ-VfE Reductase Inhibitor [Ghdjlcf-Mdf-Kmi Reductase Inhibitor] Allergy (Verified 06/30/21 06:32) Other sulfamethoxazole [From Bactrim] Allergy (Verified 06/30/21 06:32) Pain in joints sulindac [From Clinoril] Allergy (Verified 06/30/21 06:32) Other tizanidine HCl [From Zanaflex] Allergy (Verified 06/30/21 06:32) Other trimethoprim [From Bactrim] Allergy (Verified 06/30/21 06:32) Pain in joints vancomycin Allergy (Verified 06/30/21 06:32) Itching duloxetine HCl [From Cymbalta] Adverse Reaction (Verified 06/30/21 06:32) Nausea erythromycin base Adverse Reaction (Verified 06/30/21 06:32) Other Type of Care/Length of Stay Estimated LOS: Convalescent Care Less Than 30 days Type of Care Needed: Skilled Rehab Potential: Good Prognosis: Good Additional Orders/Day of Discharge Day of Discharge: 07/22/21 Dietary and Speech Recommendations Dietitian Recommendations/Changes: Continue cardiac diet, small portions per pt request. Provided daily special menu for additional menu options as desired. Discharge Plan Admission Admit Date/Time: 07/06/21 15:40 Primary Reason for Your Visit: Debility due to fall resulting in ICH/TBI/skull fracture Attending Provider: Erika Espinosa Primary Care Provider: Deven Mendoza Consulting Providers: Colleen Moraes Discharge Orders/Prescriptions Prescriptions: New metoprolol succinate 50 mg Tablet Extended Release 24 Hr 50 mg PO DAILY@1200 Qty: 0 RF: 0 ergocalciferol (vitamin D2) [Vitamin D2] 1,250 mcg (50,000 unit) Capsule 1.25 mg PO QWEEK Qty: 0 RF: 0 icosapent ethyl [Vascepa] 1 gram Capsule 2 g PO 0800,1700 Qty: 0 RF: 0 bisacodyl 10 mg Suppository 10 mg GA .PRN X 1 PRN (Reason: Constipation) Qty: 0 RF: 0 Premarin 0.625 mg/gram Cream 1 dose vaginal TuTh@2200 Qty: 0 RF: 0 acetaminophen 650 mg/20.3 mL Solution 975 mg PO Q6H PRN PRNQty: 0 RF: 0 enoxaparin 40 mg/0.4 mL syringe 40 mg subcut DAILY Qty: 1 RF: 0 sennosides-docusate sodium [Stool Softener-Stimulant Laxat] 8.6-50 mg Tablet 1 tab PO BID Qty: 0 RF: 0 tramadol 50 mg Tablet 25 mg PO Q6H PRN PRN (Reason: Pain Score 4-10) Qty: 0 RF: 0 magnesium hydroxide 400 mg/5 mL Suspension 30 ml PO .PRN X 1 PRN (Reason: Constipation) Qty: 0 RF: 0 nystatin [Nyamyc] 100,000 unit/gram Powder 1 applic topical BID Qty: 0 RF: 0 ondansetron 4 mg Tablet,Disintegrating 4 mg PO Q8H PRN PRN (Reason: NAUSEA/VOMITING) Qty: 0 RF: 0 potassium chloride 10 mEq Tablet,Er Particles/Crystals 10 meq PO DAILYCM Qty: 0 RF: 0 acidophilus-pectin, citrus 25 million cell -100 mg Tablet 1 tab PO BID Qty: 0 RF: 0 menthol-zinc oxide [Calmoseptine] 0.44-20.6 % Ointment 1 applic topical BID Qty: 0 RF: 0 Continued aspirin 81 mg tablet,chewable 81 mg PO DAILY@0800 RF: 0 melatonin 3 mg Tablet 3 mg PO QHS RF: 0 amlodipine 5 mg Tablet 5 mg PO DAILY RF: 0 acetaminophen [Tylenol] 325 mg Capsule 650 mg PO PRN PRN (Reason: Pain) RF: 0 Discontinued icosapent ethyl 1 gram capsule 2 g PO BID RF: 0 ergocalciferol (vitamin D2) 50,000 unit Tablet 50,000 unit PO QWEEK RF: 0 meclizine 25 mg Tablet 25 mg PO TID RF: 0 oxycodone [OxyIR] 5 mg Capsule 2.5 - 5 mg PO Q6H PRN PRN (Reason: Pain) RF: 0 icosapent ethyl [Vascepa] 1 gram capsule 2 g PO DAILY RF: 0 metoprolol succinate 50 mg tablet extended release 24 hr 50 mg PO DAILY RF: 0 No Action senna-docusate sodium Tablet 2 tab PO BID RF: 0 Referrals / Follow Up: Colleen Moraes MD [STAFF PHYSICIAN] - Deven Mendoza MD [Primary Care Provider] - 08/11/21 1:40 pm Disposition Disposition (needs filled in before D/C Order can be placed): Long-Term Facility
--- NOTE | 2021-07-21 16:59 | PCM.DC.SUM ---
Providers Date of Admission: 07/06/21 Date of Discharge: 07/22/21 Primary Care Physician: Dr. Deven Mendoza MD Consultations 07/12/21 13:43 Consult: Urology Routine Consulting Provider: Colleen Moraes Reason for Consult: Retention EMERGENT Consult: No MD Notified: Yes Date Notified: 07/12/21 Time Notified: 13:44 Method of Notification: Verbal Reason For Visit: ICH due to fall Diagnosis Discharge Diagnosis (1) Physical debility: Status: Acute Code(s): R53.81 - Other malaise (2) History of recent fall: Status: Acute Code(s): Z91.81 - History of falling (3) TBI (traumatic brain injury): Status: Acute Code(s): S06.9X9A - Unspecified intracranial injury with loss of consciousness of unspecified duration, initial encounter Qualifiers: Encounter type: subsequent encounter Loss of consciousness presence/duration: without LOC Qualified Code(s): S06.9X0D - Unspecified intracranial injury without loss of consciousness, subsequent encounter (4) Skull fracture: Status: Acute Code(s): S02.91XA - Unspecified fracture of skull, initial encounter for closed fracture Qualifiers: Encounter type: subsequent encounter Fracture type: closed Laterality: left Skull bone/location: occipital bone (5) Cerebral contusion: Status: Acute Code(s): S06.339A - Contusion and laceration of cerebrum, unspecified, with loss of consciousness of unspecified duration, initial encounter Qualifiers: Encounter type: subsequent encounter Laterality: right Loss of consciousness presence/duration: without LOC Qualified Code(s): S06.310D - Contusion and laceration of right cerebrum without loss of consciousness, subsequent encounter (6) Subarachnoid hemorrhage: Status: Acute Code(s): I60.9 - Nontraumatic subarachnoid hemorrhage, unspecified (7) Subdural hemorrhage: Status: Acute Code(s): I62.00 - Nontraumatic subdural hemorrhage, unspecified (8) Cognitive dysfunction: Status: Acute Code(s): F09 - Unspecified mental disorder due to known physiological condition (9) Cephalgia: Status: Acute Code(s): R51.9 - Headache, unspecified Qualifiers: Headache chronicity pattern: acute headache Headache type: post-traumatic Intractability: intractable Qualified Code(s): G44.311 - Acute post-traumatic headache, intractable (10) Dizziness: Status: Acute Code(s): R42 - Dizziness and giddiness (11) UTI (urinary tract infection): Status: Resolved Code(s): N39.0 - Urinary tract infection, site not specified (12) Disequilibrium: Status: Acute Code(s): R42 - Dizziness and giddiness (13) Atelectasis: Status: Resolved Code(s): J98.11 - Atelectasis (14) Urine retention: Status: Resolved Code(s): R33.9 - Retention of urine, unspecified (15) HTN (hypertension): Status: Chronic Code(s): I10 - Essential (primary) hypertension (16) Stenosis of right carotid artery: Status: Chronic Code(s): I65.21 - Occlusion and stenosis of right carotid artery Plan: DC to TCU for additional therapy prior to hopefully returning home to live independently. Medications at Discharge Home Medications aspirin 81 mg chewable tablet 81 mg PO DAILY@0800 tab 12/31/19 acetaminophen [Tylenol] 650 mg PO PRN PRN 07/06/21 amlodipine 5 mg PO DAILY 07/06/21 melatonin 3 mg PO QHS 07/06/21 bisacodyl 10 mg MD .PRN X 1 PRN #0 ea 07/21/21 magnesium hydroxide 30 ml PO .PRN X 1 PRN #0 ml 07/21/21 ondansetron 4 mg PO Q8H PRN PRN #0 tab 07/21/21 tramadol 25 mg PO Q6H PRN PRN #0 tab 07/21/21 acetaminophen 975 mg PO Q6H PRN PRN 07/22/21 acidophilus-pectin, citrus 1 tab PO BID 07/22/21 amantadine HCl 100 mg PO BID 07/22/21 conjugated estrogens [Premarin] 1 dose VAGINAL TuTh@2200 07/22/21 enoxaparin 40 mg SUBCUT DAILY 07/22/21 ergocalciferol (vitamin D2) [Vitamin D2] 1.25 mg PO QWEEK 07/22/21 icosapent ethyl [Vascepa] 2 g PO 0800,1700 07/22/21 menthol-zinc oxide [Calmoseptine] 1 applic TOPICAL BID 07/22/21 metoprolol succinate 50 mg PO DAILY@1200 07/22/21 nystatin [Nyamyc] 1 applic TOPICAL BID 07/22/21 potassium chloride 10 meq PO DAILYCM 07/22/21 sennosides-docusate sodium [Stool Softener-Stimulant Laxat] 1 tab PO BID 07/22/21 Hospital Course Operations None Procedures None Summary of Care Provided Minutes Spent on Discharge: 40 Hospital Course: Virginia Duckworth is a 80 YO female with a PMH of HTN, hyperlipidemia, congenital absence of the left forearm, history of DVT, history of polycythemia (work up by hematology was negative), Hypertriglyceridemia, 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 She did not present to the ED at [facility] until the following day and she had Dizziness, cephalgia, N/V and inability to ambulate. A NC CTB in the ED showed SDH, SAH, skull fracture and cerebral contusions. She was transferred to [facility] to be evaluated by Neurosurgery. No surgical intervention was necessary. she was evaluated by therapy and recommendation was for acute rehab since she was previously living alone, driving and doing all her ADL's. An incidental finding on imaging at [facility] was an 8 mm nodule in the the lung and a follow up CXR ot CT was recommended by the radiologist in 4-8 weeks. Virginia was transferred to the inpatient acute rehab unit at [facility] on 07/06/21 for 3 hours of therapy daily to restore function/independence at or near her prior level of function/independence prior to the fall. When she arrived on rehab Virginia was dehydrated and c/o dizziness and cephalgia. She was weak and was hesitant to work with therapy. She had no vertigo and no nystagmus. She had nausea with standing for a prolonged period of time and had an occasional emesis. She had urinary frequency and post void residuals were high. A UA was obtained and she had only No pyuria and no hematuria and no bacteria were seen so antibiotics were not indicated. she was started on Estrogen vaginal cream. she was severely constipated and we felt it was likely this contributed to urine retention. Stool softeners and laxatives were given with an excellent response and still she retained urine. Consult with Dr. Moraes was ordered and she felt the urine retention was likely due to the stroke but, she wanted a urine culture done. She also ordered the patient to be straight cathed every 8 hours. Urine was obtained by straight cath and Pseudomonas aeruginosa and E. coli. She was treated with a 7-day course of Levaquin. Following treatment of UTI the post void residuals after she urinated were < 250 and she no longer required catheterization. Urinary frequency which she stated she had for months and nocturia were much improved and she was able to sleep at night and only have to get up once to urinate. Dizziness persisted but, she no longer c/o GARCIA after several days. Meclizine was not effective and it made her sleepy so it was discontinued. We had a discussion about TBI's and I related to her TBI is essentially a really bad concussion and dizziness, memory loss, nausea and cognitive dysfunction are all related to the fall and the ICH and cerebral contusion. Virginia lives by herself and she did not feel she could go home when she was still dizzy. She had significant cognitive/memory deficits and we felt it was not safe to DC her without 24/7 supervision at home. She was started on Amantadine for the TBI and persistent cognitive dysfunction. She was transferred to the Transitional Care Unit at [facility] on 07/22/21 for additional therapy prior to considering DC home. Physical Exam Const alert, oriented x3 and no apparent distress Constitutional Narrative: She is cooperative but, sometimes had to be strongly encouraged to move and do therapy. This improved prior to DC ans she was much more cooperative. General Appearance: cooperative, well kempt, well developed and ill appearing HEENT normocephalic, moist oral mucous membranes and oropharynx normal Eyes PERRL, EOMs intact bilaterally, conjunctivae normal and no scleral icterus Eyes Narrative: The R upper lid is droopy General Eye: Negative for exophthalmos or proptosis Neck No nuchal rigidity, no lymphadenopathy, supple and no carotid bruits Neck Narrative: No c/o pain with palpation over the occiput. General: trachea midline Chest Chest Narrative: Large pendulous breasts Chest: symmetrical chest wall rise Resp normal respiratory effort, no use of accessory muscles and clear to auscultation bilaterally Resp Narrative: she has good air exchange and today she had no crackles. Has been using the IS every hour that she is awake. Effort and Inspection: able to speak in complete sentences Cardio regular rate, regular rhythm, S1 normal heart sound, S2 normal heart sound, no murmurs, no rub and no gallops Cardio Narrative: no ectopy Jugular Venous Distention: Negative for JVD GI normal to inspection, nondistended, normoactive bowel sounds, soft to palpation and non-tender GI Narrative: c/o loose stool and she is now only taking 1 senna once daily Narrative: urine in the Garcia tubing is light yellow and clear Back/Spine normal to inspection General Back: Negative for CVA tenderness Extremity normal capillary refill, no calf tenderness and no pedal edema General Extremity: Negative for clubbing or cyanosis Skin no wounds and no jaundice General Skin Exam: no breakdown and dry skin Rashes: no rashes Neuro oriented x3, CN's II-XII intact bilaterally, moves all extremities, no focal motor deficits and no sensory deficits noted Neuro Narrative: no focal motor or sensory deficits, alert and oriented X 3, no visual loss, CN's II-XII GI, no tremors Coordination: [id number]-sj-sxuw test normal and joox-bz-dtud test normal Psych mental status grossly normal, thought process normal, cooperative, affect normal, activity/motor behavior normal, denies hallucinations, denies homicidal ideation and denies suicidal ideation Psych Narrative: She is gruff at baseline and does not hesitate to complain about things. She denies being angry. Her son supported that this is her baseline. Weight / BMI Weight Weight: 112 lb 6.972 oz Body Mass Index (BMI) 25.0 ABG / Lab / Microbiology Data Result Diagrams: 07/07/21 09:08 07/19/21 05:36 Microbiology: Microbiology 07/21/21 14:10 Nasal Secretion SARS-CoV-2 Antigen (Rapid) - Final 07/12/21 21:12 Urine Catheter - Catheter Urine Culture - Final Pseudomonas aeroginosa Escherichia coli Meaningful Use Info Meaningful Use Diagnoses (Choose all that apply): None applicable Discharge Plan Admission Admit Date/Time: 07/06/21 15:40 Primary Reason for Your Visit: Debility due to fall resulting in ICH/TBI/skull fracture Attending Provider: Eirka Espinosa Primary Care Provider: Deven Mendoza Consulting Providers: Colleen Moraes Discharge Orders/Prescriptions Prescriptions: New bisacodyl 10 mg Suppository 10 mg MD .PRN X 1 PRN (Reason: Constipation) Qty: 0 RF: 0 tramadol 50 mg Tablet 25 mg PO Q6H PRN PRN (Reason: Pain Score 4-10) Qty: 0 RF: 0 magnesium hydroxide 400 mg/5 mL Suspension 30 ml PO .PRN X 1 PRN (Reason: Constipation) Qty: 0 RF: 0 ondansetron 4 mg Tablet,Disintegrating 4 mg PO Q8H PRN PRN (Reason: NAUSEA/VOMITING) Qty: 0 RF: 0 Continued aspirin 81 mg tablet,chewable 81 mg PO DAILY@0800 RF: 0 melatonin 3 mg Tablet 3 mg PO QHS RF: 0 amlodipine 5 mg Tablet 5 mg PO DAILY RF: 0 acetaminophen [Tylenol] 325 mg Capsule 650 mg PO PRN PRN (Reason: Pain) RF: 0 Discontinued icosapent ethyl 1 gram capsule 2 g PO BID RF: 0 ergocalciferol (vitamin D2) 50,000 unit Tablet 50,000 unit PO QWEEK RF: 0 meclizine 25 mg Tablet 25 mg PO TID RF: 0 oxycodone [OxyIR] 5 mg Capsule 2.5 - 5 mg PO Q6H PRN PRN (Reason: Pain) RF: 0 icosapent ethyl [Vascepa] 1 gram capsule 2 g PO DAILY RF: 0 metoprolol succinate 50 mg tablet extended release 24 hr 50 mg PO DAILY RF: 0 No Action amantadine HCl 100 mg Tablet 100 mg PO BID RF: 0 metoprolol succinate 50 mg tablet extended release 24 hr 50 mg PO DAILY@1200 RF: 0 sennosides-docusate sodium [Stool Softener-Stimulant Laxat] 8.6-50 mg tablet 1 tab PO BID RF: 0 Premarin 0.625 mg/gram cream 1 dose vaginal TuTh@2200 RF: 0 ergocalciferol (vitamin D2) [Vitamin D2] 1,250 mcg (50,000 unit) capsule 1.25 mg PO QWEEK RF: 0 nystatin [Nyamyc] 100,000 unit/gram powder 1 applic topical BID RF: 0 enoxaparin 40 mg/0.4 mL syringe 40 mg subcut DAILY RF: 0 potassium chloride 10 mEq tablet,ER particles/crystals 10 meq PO DAILYCM RF: 0 acidophilus-pectin, citrus 25 million cell -100 mg tablet 1 tab PO BID RF: 0 acetaminophen 650 mg/20.3 mL solution 975 mg PO Q6H PRN PRN (Reason: Pain) RF: 0 menthol-zinc oxide [Calmoseptine] 0.44-20.6 % ointment 1 applic topical BID RF: 0 icosapent ethyl [Vascepa] 1 gram capsule 2 g PO 0800,1700 RF: 0 Referrals / Follow Up: Colleen Moraes MD [STAFF PHYSICIAN] - Deven Mendoza MD [Primary Care Provider] - 08/11/21 1:40 pm Disposition Disposition (needs filled in before D/C Order can be placed): [facility]way Facility Charges/Coding Visit Charges Inpatient E&M: 74626 Init Hosp L3
[2021-07-21 19:25] VITALS: BP 130/63; PULSE 89; RESP 18; TEMP 36.6; O2SAT 95
[2021-07-21] MEDS: MELATONIN 3 MG TABLET PO (21:03)
[2021-07-21] MEDS: Estrogens,Conj. 1 Tube 1 DOSE VAGINAL (21:03)
[2021-07-21 22:00] VITALS: PULSE 84; RESP 15; O2SAT 95
[2021-07-22] MEDS: Acetaminophen 650 MG/20 ML UDC 975 MG PO ×2 (06:21→14:23)
[2021-07-22 07:47] VITALS: BP 134/60; PULSE 55; RESP 16; TEMP 36.4; O2SAT 92
[2021-07-22] MEDS: Potassium Chloride Oral Tablet 10 MEQ PO (08:13)
[2021-07-22] MEDS: ICOSAPENT ETHYL 1 GM CAPSULE 2 GM PO (08:13)
[2021-07-22] MEDS: Enoxaparin 30 MG/0.3 ML Syringe SC (08:14)
[2021-07-22] MEDS: Senna/Docusate Sodium 1 Tablet 2 TABLET PO (08:14)
[2021-07-22] MEDS: Menthol/Lanolin/Calamine/Znox 113 GM Tube 1 APPLIC TOPICAL (08:15)
[2021-07-22] MEDS: Nystatin Powder 15gm Bottle 1 APPLIC TOPICAL (08:16)
[2021-07-22 11:14] VITALS: PULSE 60
[2021-07-22] MEDS: Amantadine 100 MG Capsule PO (11:14)
[2021-07-22] MEDS: Metoprolol(XL)Succ 50 MG Tablet PO (11:14)
--- NOTE | 2021-07-22 14:47 | NURSING ---
Discharge to TCU at this time. Patient alert.
== END 2021-07-22 14:51 | disposition skilled nursing facility (03) | DRG 949 ==
PROVIDERS: Admitting Provider Internal Medicine; PCP Family Medicine; Visit Provider Internal Medicine
DX: S06.6X0D Traumatic subarachnoid hemorrhage without loss of consciousness, subsequent encounter (principal); N39.0 Urinary tract infection, site not specified; J98.11 Atelectasis; B96.5 Pseudomonas (aeruginosa) (mallei) (pseudomallei) as the cause of diseases classified elsewhere; E78.5 Hyperlipidemia, unspecified; I10 Essential (primary) hypertension; W18.09XD Striking against other object with subsequent fall, subsequent encounter; E87.6 Hypokalemia; Q71.22 Congenital absence of both forearm and hand, left upper limb; B96.20 Unspecified Escherichia coli [E. coli] as the cause of diseases classified elsewhere; S02.119D Unspecified fracture of occiput, subsequent encounter for fracture with routine healing; S06.5X0D Traumatic subdural hemorrhage without loss of consciousness, subsequent encounter; F32.A Depression, unspecified; N39.41 Urge incontinence; R91.1 Solitary pulmonary nodule; S06.310D Contusion and laceration of right cerebrum without loss of consciousness, subsequent encounter; Z79.82 Long term (current) use of aspirin; Z87.891 Personal history of nicotine dependence; Z79.899 Other long term (current) drug therapy; Z86.718 Personal history of other venous thrombosis and embolism
CPT/HCPCS: 36415; 80048; 80053; 80061; 81001; 83036; 83735; 84100; 85025; 87077; 87086; 87088; 87184; 87186; 87426; 92507; 92523; 96125; 97110; 97116; 97129; 97130; 97162; 97166; 97530; 97535; 97802; 97803; 99251; J7030; A4216; G0463

== ENCOUNTER 2021-07-22 14:51 | Inpatient (IN) | payer MEDICARE, OTHER, SELFPAY ==
[2021-07-22 14:57] VITALS: BP 133/63; PULSE 71; RESP 18; TEMP 35.9; O2SAT 99; BMI 22.6
[2021-07-22 16:00] VITALS: BP 120/61; PULSE 77; RESP 10; TEMP 36.6
--- NOTE | 2021-07-22 16:16 | HP.PCM_ITS ---
HPI - General General Date of Admission: 07/22/21 HPI Narrative 06/30/2021 JACQUELINE CONSTANTINO, is a 80 Female who presents to [facility] Emergency Department with dizziness, headache, unable to walk. Fell prior day, hit back of head. CT brain showed small subdural, subarachnoid hemorrhage, frontal lobe, right temporal lobe subdural 3mm thick. Transfer to [facility]. Keppra twice daily for seizure prophylaxis. DDAVP given. Lovenox 30mg sc q12h. Neurosurgery recommended no surgery. 07/06/2021 Admit to . PT/OT/. Kbck x 48 hours. Premarin vaginal cream for urinary urgency. Tramadol for headache. 07/08/2021 Dizziness improved with IV fluids. Myrbetriq 25mg daily for overactive bladder. 07/10/2021 Failed Myrbetriq due to urinary retention. 07/11/2021 Replace potassium. Discontinue gaytan catheter. Stop amlodipine, not necessary. 07/12/2021 Dr. Moraes consulted for urinary retention. 07/14/2021 Levaquin x 7 days for urinary tract infection. 07/17/2021 Post Void residual improved. 07/18/2021 Dizziness is secondary to traumatic brain injury. 07/20/2021 TCU on discharge. 07/22/2021 Admit to TCU with debility, here for rehabilitation, strengthening, prior to discharge home alone. [facility] Medical History Altered level of consciousness Congenital abnormality of limb Episode of confusion History of DVT (deep vein thrombosis) History of polycythemia Hyperlipidemia Hypertriglyceridemia Low HDL (under 40) Renal calculi Stenosis of right carotid artery Urge incontinence Home Medications aspirin 81 mg chewable tablet 81 mg PO DAILY@0800 tab 12/31/19 [History Last Taken Unknown] acetaminophen [Tylenol] 650 mg PO PRN PRN 07/06/21 [History Last Taken Unknown] amlodipine 5 mg PO DAILY 07/06/21 [History Last Taken Unknown] melatonin 3 mg PO QHS 07/06/21 [History Last Taken Unknown] bisacodyl 10 mg AK .PRN X 1 PRN #0 ea 07/21/21 [Rx Last Taken Unknown] magnesium hydroxide 30 ml PO .PRN X 1 PRN #0 ml 07/21/21 [Rx Last Taken Unknown] ondansetron 4 mg PO Q8H PRN PRN #0 tab 07/21/21 [Rx Last Taken Unknown] tramadol 25 mg PO Q6H PRN PRN #0 tab 07/21/21 [Rx Last Taken Unknown] acetaminophen 975 mg PO Q6H PRN PRN 07/22/21 [History Last Taken 07/22/21] acidophilus-pectin, citrus 1 tab PO BID 07/22/21 [History Last Taken 07/22/21] amantadine HCl 100 mg PO BID 07/22/21 [History Last Taken Unknown] conjugated estrogens [Premarin] 1 dose VAGINAL TuTh@2200 07/22/21 [History Last Taken 07/21/21] enoxaparin 40 mg SUBCUT DAILY 07/22/21 [History Last Taken Unknown] ergocalciferol (vitamin D2) [Vitamin D2] 1.25 mg PO QWEEK 07/22/21 [History Last Taken 07/19/21] icosapent ethyl [Vascepa] 2 g PO 0800,1700 07/22/21 [History Last Taken Unknown] menthol-zinc oxide [Calmoseptine] 1 applic TOPICAL BID 07/22/21 [History Last Taken Unknown] metoprolol succinate 50 mg PO DAILY@1200 07/22/21 [History Last Taken 07/22/21] nystatin [Nyamyc] 1 applic TOPICAL BID 07/22/21 [History Last Taken Unknown] potassium chloride 10 meq PO DAILYCM 07/22/21 [History Last Taken 07/22/21] sennosides-docusate sodium [Stool Softener-Stimulant Laxat] 1 tab PO BID 07/22/21 [History Last Taken Unknown] Allergy/AdvReac Type Severity Reaction Status Date / Time gabapentin [From Neurontin] Allergy Other Verified 06/30/21 06:32 niacin Allergy NEEDS Verified 06/30/21 07:03 FOLLOW-UP Penicillins Allergy Swelling Verified 06/30/21 06:32 Jlbsnjx-LUY-WfU Reductase Allergy Other Verified 06/30/21 06:32 Inhibitor [Opqgzpq-Haw-Szc Reductase Inhibitor] sulfamethoxazole Allergy Pain in Verified 06/30/21 06:32 [From Bactrim] joints sulindac [From Clinoril] Allergy Other Verified 06/30/21 06:32 tizanidine HCl Allergy Other Verified 06/30/21 06:32 [From Zanaflex] trimethoprim [From Bactrim] Allergy Pain in Verified 06/30/21 06:32 joints vancomycin Allergy Itching Verified 06/30/21 06:32 duloxetine HCl AdvReac Nausea Verified 06/30/21 06:32 [From Cymbalta] erythromycin base AdvReac Other Verified 06/30/21 06:32 Family History Father Heart disease, Onset Age: 42 Mother Heart disease Diabetes Son Diabetes Hyperlipidemia Surgical History History of appendectomy History of cholecystectomy History of lithotripsy (2017) Social History household members: other details: She lives by herself. 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 She smoked Less than 1 PPD alcohol intake: never substance use type: does not use ROS Constitutional Constitutional: Denies chills, fever(s) or weight gain ENT HEENT: Denies headache(s), nasal congestion or nasal discharge Cardiovascular Cardiovascular: Denies chest pain or palpitations Respiratory/Chest Respiratory/Chest: Denies cough, excessive phlegm production or shortness of breath with exertion Gastrointestinal Gastrointestinal: Denies abdominal pain, nausea or vomiting Genitourinary Genitourinary: Denies dysuria Musculoskeletal Musculoskeletal: Denies joint pain or joint swelling Integumentary Integumentary: Denies rash or wounds Neurologic Neurologic: Denies focal weakness, numbness or tingling Psychiatric Psychiatric: Denies anxiety, auditory hallucinations, depression, homicidal ideation or suicidal ideation Vital Signs Vital Signs Vital Signs: 07/22/21 14:57 Temperature 96.7 F L Temperature Source Temporal Pulse Rate 71 Pulse Rhythm Irregular Pulse Strength Normal (2+) Respiratory Rate 18 Respiratory Effort Normal Respiratory Depth Normal Respiratory Pattern Normal Blood Pressure 133/63 H Blood Pressure Mean 86 Blood Pressure Source Monitor Blood Pressure Position Sitting Blood Pressure Location Right Arm Pulse Ox 99 Oxygen Delivery Method Room Air Weight Weight: 49.186 kg Body Mass Index (BMI) 22.6 Physical Exam Const alert and oriented x3 General Appearance: cooperative HEENT normocephalic Eyes PERRL and EOMs intact bilaterally Neck supple, no JVD and no carotid bruits Resp normal respiratory effort, normal air movement and clear to auscultation bilaterally Cardio regular rate and regular rhythm GI normal to inspection, nondistended, normoactive bowel sounds, non-tender and non-distended Extremity normal capillary refill Extremity Narrative: Left upper extremity malformed, atrophic. General Extremity: Negative for edema Skin no rashes or lesions noted General Skin Exam: no breakdown Psych affect normal Appearance: appropriate Assessment & Plan Assessment/Plan (1) Debility: (2) Traumatic brain injury: (3) Subdural hematoma: (4) Subarachnoid hemorrhage: (5) Skull fracture: QUALIFIERS: Encounter type: subsequent encounter Fracture type: closed Laterality: left Skull bone/location: occipital bone (6) HTN (hypertension): (7) Hyperlipidemia: (8) Stenosis of right carotid artery: (9) Congenital abnormality of limb: (10) History of DVT (deep vein thrombosis): (11) Polycythemia: PLAN: 80 year old female with below past medical hospitalized for traumatic brain injury, subarachnoid hemorrhage, subdural hematoma, skull fracture, admitted to [facility], complicated by dizziness, urinary retention, urinary tract infection, admitted to TCU with debility, here for rehabilitation, strengthening, prior to discharge home alone. * Debility - PT/OT. * Pain - Tylenol 1000mg q6h prn pain (1-3), Tramadol 25mg q6h prn pain (4-10). * Bowel - Senna/colace 1 tablet bid, MOM 30ml po x 1 prn, Dulcolax 10mg pr x 1 prn. * Adult immunization - Administer prevnar 20, fluzone, covid19 vaccine as appropriate. * DVT prophylaxis - Lovenox 40mg sc daiy. * Traumatic brain injury - Amantadine 100mg bid. * Hypertension - Metoprolol succinate 50mg daily, Amlodipine 5mg daily. * CV prophylaxis - Aspirin 81mg daily. * Nutrition - Ensure Compact 118ml po tidcm. * Vitamin D deficiency - D2 50,000 units 2x/week. * Atrophic vaginitis - Estrogen 1 dose 2x/week. * Hyperlipidemia - Vascepa 2gm bid. * GI prophylaxis - Lactobacillus 1 tablet bid thru 07/29/2021 ( Recent Levaquin course for uti). * Insomnia - Melaton 3mg qhs. * Skin irritation - Calmoseptine topical bid. * Tinea Corporis - Nystatin powder topical bid. * Nausea - Zofran 4mg q8h prn. * Hypokalemia - kcl 10meq daily.
[2021-07-22] MEDS: Senna/Docusate Sodium 1 Tablet PO (17:16)
[2021-07-22] MEDS: Amantadine 100 MG Capsule PO (17:16)
[2021-07-22] MEDS: ICOSAPENT ETHYL 1 GM CAPSULE 2 GM PO (17:17)
[2021-07-22] MEDS: MELATONIN 3 MG TABLET PO (20:52)
[2021-07-22] MEDS: Menthol/Lanolin/Calamine/Znox 113 GM Tube 1 APPLIC TOPICAL (20:54)
[2021-07-22] MEDS: Nystatin Powder 15gm Bottle 1 APPLIC TOPICAL (20:55)
[2021-07-23] MEDS: amLODIPine 5 MG Tablet PO (06:05)
[2021-07-23] MEDS: Enoxaparin 40 MG/0.4 ML Syringe SC (06:05)
[2021-07-23] MEDS: Amantadine 100 MG Capsule PO ×2 (06:05→17:32)
[2021-07-23] MEDS: Senna/Docusate Sodium 1 Tablet PO ×2 (06:06→17:32)
[2021-07-23] MEDS: Menthol/Lanolin/Calamine/Znox 113 GM Tube 1 APPLIC TOPICAL ×2 (06:07→20:51)
[2021-07-23] MEDS: Nystatin Powder 15gm Bottle 1 APPLIC TOPICAL ×2 (06:08→20:52)
[2021-07-23 07:19] LABS: Absolute Lymphocyte Count 1.44 X10^3/uL (0.83-4.51); Absolute Neutrophil Count 2.2 X10^3/uL (2.0-7.7); Basophil# 0.05 X10^3/uL; Basophil% 1.1 % (0-1); Eosinophil# 0.23 X10^3/uL; Hematocrit 38.9 % (37-47); Hemoglobin 13.2 g/dL (12.0-15.0); Lymphocyte # 1.44 X10^3/ul (0.83-4.51); Lymphocyte % 31.2 % (19-41); Mean Corp Hgb Conc 33.9 g/dL (32-36); Mean Corpuscular Hgb 28.9 pg (27.0-32.0); Mean Corpuscular Volume 85.3 fL (81-99); Mean Platelet Vol. 9.7 fl (6.2-12.0); Monocyte# 0.69 X10^3/uL; NRBC Flagged by Analyzer 0 % (0-5); Neutrophil # 2.18 X10^3/uL (2.7-7.7); Neutrophil % 47.3 % (47-70); Platelet Count 319 K/mm3 (150-450); RBC Distribution Width SD 46.9 fl (35.1-43.9); Red Blood Count 4.56 M/mm3 (4.2-5.4); White Blood Count 4.6 K/mm3 (4.4-11.0)
[2021-07-23 07:51] LABS: Anion Gap 3 (5-15); BUN 13 mg/dL (7-18); BUN/Creat Ratio 19.1 RATIO (10-20); Calcium,Total 9.1 mg/dL (8.5-10.1); Chloride 109 mmol/L (98-107); Creatinine, Serum 0.68 mg/dL (0.55-1.02); EST Glomerular Filtration Rate 89 mL/min (>60); Est Glom Filt Rate - Afr Amer 107 mL/min (>60); Estimated Creatinine Clearance 34.84 ml/min; Glucose 86 mg/dL (74-106); Potassium 3.9 mmol/L (3.5-5.1); Sodium Level 139 mmol/L (136-145)
[2021-07-23] MEDS: Ondansetron ODT 4 MG Tablet PO (09:20)
[2021-07-23] MEDS: Potassium Chloride Oral Tablet 10 MEQ PO (09:20)
[2021-07-23] MEDS: ICOSAPENT ETHYL 1 GM CAPSULE 2 GM PO ×2 (09:21→17:32)
[2021-07-23] MEDS: Aspirin 81 MG TAB.CHEW PO (09:21)
[2021-07-23 12:01] VITALS: BP 108/65; PULSE 96
[2021-07-23] MEDS: Metoprolol(XL)Succ 50 MG Tablet PO (12:01)
--- NOTE | 2021-07-23 12:06 | NURSING ---
Patient educated on importance on sitting up when consuming meals. Patient was offered to be transferred and refused for meal time. Insisted on eating in bed. When nurse left room patient made comment Next time I will be nasty about whether I get up or not.
[2021-07-23] MEDS: Tuberculin,Purif.prot.deriv. 50 TU/ML Vial 0.1 ML ID (13:01)
[2021-07-23 16:16] VITALS: BP 116/62; PULSE 79; RESP 16; TEMP 36.8; O2SAT 92
[2021-07-23] MEDS: MELATONIN 3 MG TABLET PO (20:52)
[2021-07-23 22:59] VITALS: PULSE 70; RESP 16; O2SAT 98
[2021-07-24] MEDS: Enoxaparin 40 MG/0.4 ML Syringe SC (05:39)
[2021-07-24] MEDS: Senna/Docusate Sodium 1 Tablet PO ×2 (05:39→17:17)
[2021-07-24] MEDS: Amantadine 100 MG Capsule PO ×2 (05:40→17:17)
[2021-07-24] MEDS: Nystatin Powder 15gm Bottle 1 APPLIC TOPICAL ×2 (05:40→21:55)
[2021-07-24] MEDS: Menthol/Lanolin/Calamine/Znox 113 GM Tube 1 APPLIC TOPICAL ×2 (05:40→21:55)
[2021-07-24] MEDS: amLODIPine 5 MG Tablet PO (05:40)
[2021-07-24] MEDS: Potassium Chloride Oral Tablet 10 MEQ PO (07:29)
[2021-07-24] MEDS: ICOSAPENT ETHYL 1 GM CAPSULE 2 GM PO ×2 (07:29→17:17)
[2021-07-24] MEDS: Aspirin 81 MG TAB.CHEW PO (07:30)
[2021-07-24 10:00] VITALS: PULSE 87; RESP 18; O2SAT 97
[2021-07-24 11:39] VITALS: PULSE 59
[2021-07-24] MEDS: Metoprolol(XL)Succ 50 MG Tablet PO (11:39)
[2021-07-24 13:05] VITALS: BP 104/66; PULSE 84; RESP 18; TEMP 36.1; O2SAT 97
--- NOTE | 2021-07-24 17:21 | NURSING ---
pt approved for son Andrés Duckworth to take home pt's personal Vascepa medication.
[2021-07-24] MEDS: MELATONIN 3 MG TABLET PO (21:55)
[2021-07-25 05:27] VITALS: BP 115/60; PULSE 67
[2021-07-25] MEDS: Enoxaparin 40 MG/0.4 ML Syringe SC (05:28)
[2021-07-25] MEDS: Nystatin Powder 15gm Bottle 1 APPLIC TOPICAL ×2 (05:31→20:49)
[2021-07-25] MEDS: Menthol/Lanolin/Calamine/Znox 113 GM Tube 1 APPLIC TOPICAL ×2 (05:31→20:49)
[2021-07-25] MEDS: amLODIPine 5 MG Tablet PO (05:32)
[2021-07-25] MEDS: Amantadine 100 MG Capsule PO ×2 (05:32→18:05)
[2021-07-25] MEDS: Senna/Docusate Sodium 1 Tablet PO ×2 (05:32→18:05)
[2021-07-25] MEDS: Potassium Chloride Oral Tablet 10 MEQ PO (08:37)
[2021-07-25] MEDS: ICOSAPENT ETHYL 1 GM CAPSULE 2 GM PO ×2 (08:38→18:05)
[2021-07-25] MEDS: Aspirin 81 MG TAB.CHEW PO (08:43)
[2021-07-25] MEDS: Ondansetron ODT 4 MG Tablet PO (09:15)
[2021-07-25 13:24] VITALS: BP 104/50; PULSE 82
[2021-07-25 13:34] VITALS: BP 98/72; PULSE 86; RESP 16; TEMP 36.2; O2SAT 97
[2021-07-25] MEDS: MELATONIN 3 MG TABLET PO (20:48)
[2021-07-25 21:28] VITALS: PULSE 97; RESP 18; O2SAT 97
[2021-07-26] MEDS: Enoxaparin 40 MG/0.4 ML Syringe SC (05:14)
[2021-07-26] MEDS: amLODIPine 5 MG Tablet PO (05:14)
[2021-07-26] MEDS: Amantadine 100 MG Capsule PO ×2 (05:14→17:36)
[2021-07-26] MEDS: Senna/Docusate Sodium 1 Tablet PO (05:14)
[2021-07-26] MEDS: Ondansetron ODT 4 MG Tablet PO (05:14)
[2021-07-26] MEDS: Aspirin 81 MG TAB.CHEW PO (08:51)
[2021-07-26] MEDS: ICOSAPENT ETHYL 1 GM CAPSULE 2 GM PO ×2 (08:51→17:36)
[2021-07-26] MEDS: Potassium Chloride Oral Tablet 10 MEQ PO (08:51)
[2021-07-26] MEDS: Ergocalciferol 1.25 MG (50, 000 UNIT) Capsule PO (08:51)
[2021-07-26 11:03] VITALS: BP 106/68; PULSE 91
[2021-07-26 12:16] VITALS: PULSE 91
[2021-07-26] MEDS: Metoprolol(XL)Succ 50 MG Tablet PO (12:16)
[2021-07-26 15:09] VITALS: BP 107/61; PULSE 94; RESP 14; TEMP 36.6; O2SAT 92
[2021-07-26] MEDS: MELATONIN 3 MG TABLET PO (21:01)
[2021-07-26] MEDS: Estrogens,Conj. 1 Tube 1 DOSE VAGINAL (21:02)
[2021-07-26] MEDS: Menthol/Lanolin/Calamine/Znox 113 GM Tube 1 APPLIC TOPICAL (21:08)
[2021-07-26] MEDS: Nystatin Powder 15gm Bottle 1 APPLIC TOPICAL (21:09)
[2021-07-27] MEDS: Amantadine 100 MG Capsule PO ×2 (05:52→17:22)
[2021-07-27] MEDS: amLODIPine 5 MG Tablet PO (05:52)
[2021-07-27] MEDS: Senna/Docusate Sodium 1 Tablet PO (05:52)
[2021-07-27] MEDS: Enoxaparin 40 MG/0.4 ML Syringe SC (05:52)
[2021-07-27] MEDS: Menthol/Lanolin/Calamine/Znox 113 GM Tube 1 APPLIC TOPICAL ×2 (05:58→21:31)
[2021-07-27] MEDS: Nystatin Powder 15gm Bottle 1 APPLIC TOPICAL ×2 (05:59→21:32)
[2021-07-27 06:00] VITALS: BP 125/72; PULSE 72; RESP 16
[2021-07-27] MEDS: Aspirin 81 MG TAB.CHEW PO (08:49)
[2021-07-27] MEDS: ICOSAPENT ETHYL 1 GM CAPSULE 2 GM PO ×2 (08:49→17:22)
[2021-07-27] MEDS: Potassium Chloride Oral Tablet 10 MEQ PO (08:49)
--- NOTE | 2021-07-27 11:05 | NURSING ---
Dr Mendoza's office called and spoke with his nurse. Dr Mendoza had recommended that resident see [employer] for lipids. Nurse recommends keeping Cardiology appointment at this time. Explained to resident and she is ok with keeping current cardiology appointment at this time.
[2021-07-27 12:21] VITALS: BP 113/67; PULSE 79; RESP 16; TEMP 36.2; O2SAT 99
[2021-07-27 12:25] VITALS: PULSE 79
[2021-07-27] MEDS: Metoprolol(XL)Succ 50 MG Tablet PO (12:25)
--- NOTE | 2021-07-27 13:31 | CASEMGMT ---
Social Work IDT met with patient and son for care plan meeting. Discussed patient's progress in PT/OT/ST and nursing. Pt making progress, but still deficits with memory. Expressed concerns about safety in the home with her memory. IDT recommending continued therapy but advised son to coordinate some supervision for pt when she returns home. SW provided nonskilled [facility] list to begin contacting. Son expressed understanding. SW to continue to follow. Donna Garcia ,SCRUBBER MACHINE TENDER REED FIXER
[2021-07-27] MEDS: MELATONIN 3 MG TABLET PO (21:32)
[2021-07-28] MEDS: Enoxaparin 40 MG/0.4 ML Syringe SC (05:45)
[2021-07-28] MEDS: Amantadine 100 MG Capsule PO ×2 (05:46→17:23)
[2021-07-28] MEDS: Nystatin Powder 15gm Bottle 1 APPLIC TOPICAL ×2 (05:46→22:53)
[2021-07-28] MEDS: amLODIPine 5 MG Tablet PO (05:46)
[2021-07-28] MEDS: Senna/Docusate Sodium 1 Tablet PO ×2 (05:46→14:27)
[2021-07-28] MEDS: Menthol/Lanolin/Calamine/Znox 113 GM Tube 1 APPLIC TOPICAL ×2 (05:52→22:52)
[2021-07-28] MEDS: Aspirin 81 MG TAB.CHEW PO (08:23)
[2021-07-28] MEDS: ICOSAPENT ETHYL 1 GM CAPSULE 2 GM PO ×2 (08:23→17:23)
[2021-07-28] MEDS: Potassium Chloride Oral Tablet 10 MEQ PO (08:23)
--- NOTE | 2021-07-28 11:04 | NURSING ---
Out of hospital at this time with appointment to christina.
--- NOTE | 2021-07-28 11:46 | PHA.CONS1_ITS ---
Progress Note - Pharmacy Subjective: [] Objective: Allergies gabapentin [From Neurontin] Allergy (Verified 06/30/21 06:32) Other niacin Allergy (Verified 06/30/21 07:03) NEEDS FOLLOW-UP Penicillins Allergy (Verified 06/30/21 06:32) Swelling Gqgwfqf-[id number]-WmB Reductase Inhibitor [Qzpwgse-Ihf-Jgx Reductase Inhibitor] Allergy (Verified 06/30/21 06:32) Other sulfamethoxazole [From Bactrim] Allergy (Verified 06/30/21 06:32) Pain in joints sulindac [From Clinoril] Allergy (Verified 06/30/21 06:32) Other tizanidine HCl [From Zanaflex] Allergy (Verified 06/30/21 06:32) Other trimethoprim [From Bactrim] Allergy (Verified 06/30/21 06:32) Pain in joints vancomycin Allergy (Verified 06/30/21 06:32) Itching duloxetine HCl [From Cymbalta] Adverse Reaction (Verified 06/30/21 06:32) Nausea erythromycin base Adverse Reaction (Verified 06/30/21 06:32) Other Current Medications Generic Name Dose Route Start Last Admin Trade Name Freq PRN Reason Stop Dose Admin Acetaminophen 1,000 mg 07/22/21 16:27 Acetaminophen 500 Mg Tablet PO Q6H PRN PRN Pain Score 1-3 Amantadine HCl 100 mg 07/22/21 18:00 07/28/21 05:46 Amantadine 100 Mg Capsule PO 100 mg BID TEMO Administration Amlodipine Besylate 5 mg 07/23/21 06:00 07/28/21 05:46 Amlodipine 5 Mg Tablet PO 5 mg DAILY TEMO Administration Aspirin 81 mg 07/23/21 08:00 07/28/21 08:23 Aspirin 81 Mg Tab.Chew PO 81 mg DAILY@0800 TEMO Administration Bisacodyl 10 mg 07/22/21 15:15 Bisacodyl 10 Mg Suppository RC .PRN X 1 PRN Constipation Calamine/Phenol 1 applic 07/22/21 22:00 07/28/21 05:52 Menthol/Lanolin/Calamine/Znox 113 Gm Tube TOPICAL 1 applic 0600,2200 TEMO Administration Protocol Enoxaparin Sodium 40 mg 07/23/21 06:00 07/28/21 05:45 Enoxaparin 40 Mg/0.4 Ml Syringe SC 40 mg DAILY TEMO Administration Ergocalciferol 1.25 mg 07/26/21 08:00 07/26/21 08:51 Ergocalciferol 1.25 Mg (50, 000 Unit) Capsule PO 1.25 mg QWEEK [facility] Administration Estrogens Conjugated 1 dose 07/26/21 22:00 07/26/21 21:02 Estrogens,Conj. 1 Tube VAGINAL 1 dose TuTh@2200 [facility] Administration Lactobacillus Acidophilus 1 tablet 07/22/21 18:00 07/28/21 05:46 Lactobacillus Acidophilus PO 07/29/21 06:01 1 tablet BID [facility] Administration Magnesium Hydroxide 30 ml 07/22/21 15:15 Magnesium Hydroxide 30 Ml Udc PO .PRN X 1 PRN Constipation Melatonin 3 mg 07/22/21 22:00 07/27/21 21:32 Melatonin 3 Mg Tablet PO 3 mg QHS [facility] Administration Metoprolol Succinate 50 mg 07/23/21 12:00 07/27/21 12:25 Metoprolol(Xl)Succ 50 Mg Tablet PO 50 mg DAILY@1200 [facility] Administration Nutritional Formula (Lactose Free) 118 ml 07/22/21 17:45 07/28/21 08:24 Ensure Compact 118 Ml Liquid PO Not Given TIDCM [facility] Nystatin 1 applic 07/22/21 22:00 07/28/21 05:46 Nystatin Powder 15gm Bottle TOPICAL 1 applic 599,0 [facility] Administration Protocol Ondansetron HCl 4 mg 07/22/21 15:15 07/26/21 05:14 Ondansetron Odt 4 Mg Tablet PO 4 mg Q8H PRN PRN Administration NAUSEA/VOMITING Potassium Chloride 10 meq 07/23/21 08:00 07/28/21 08:23 Potassium Chloride Oral Tablet 10 Meq PO 10 meq DAILYCM [facility] Administration Senna/Docusate Sodium 1 tablet 07/22/21 18:00 07/28/21 05:46 Senna/Docusate Sodium 1 Tablet PO 1 tablet BID [facility] Administration Tramadol HCl 25 mg 07/22/21 15:15 Tramadol 50 Mg Tablet PO Q6H PRN PRN Pain Score 4-10 Tuberculin PPD 0.1 ml 07/30/21 10:00 Tuberculin,Purif.Prot.Deriv. 50 Tu/Ml Vial ID 07/30/21 10:01 X1 ONE Problem List (Last Reviewed 07/22/21 @ 16:[address] David Steiner MD) Polycythemia (Acute) History of DVT (deep vein thrombosis) (Acute) Congenital abnormality of limb (Acute) Subarachnoid hemorrhage (Acute) Subdural hematoma (Acute) Traumatic brain injury (Acute) Debility (Acute) Skull fracture (Acute) HTN (hypertension) (Chronic) Hyperlipidemia (Chronic) Stenosis of right carotid artery (Chronic) Vital Signs Temp Pulse Resp BP Pulse Ox 97.1 F L 79 16 113/67 99 07/27/21 12:21 07/27/21 12:25 07/27/21 12:21 07/27/21 12:21 07/27/21 12:21 Oxygen Delivery Method Room Air Weight: 49.186 kg Body Mass Index (BMI) 22.6 Sodium 139 mmol/L (136-145) 07/23/21 06:55 Potassium 3.9 mmol/L (3.5-5.1) 07/23/21 06:55 Chloride 109 mmol/L (98-107) H 07/23/21 06:55 Carbon Dioxide 27.0 mmol/L (21.0-32.0) 07/23/21 06:55 Anion Gap 3 (5-15) L 07/23/21 06:55 BUN 13 mg/dL (7-18) 07/23/21 06:55 Creatinine 0.68 mg/dL (0.55-1.02) 07/23/21 06:55 Est GFR (MDRD) Af Amer 107 mL/min (>60) 07/23/21 06:55 Est GFR (MDRD) Non-Af 89 mL/min (>60) 07/23/21 06:55 BUN/Creatinine Ratio 19.1 RATIO (10-20) 07/23/21 06:55 Glucose 86 mg/dL (74-106) 07/23/21 06:55 Assessment/Plan: 1. Pain: Tylenol 1000mg PO Q6h PRN Pain 1-3, Tramadol 25mg PO Q6h PRN pain 4-10. Please continue to monitor renal function, S/S increased/decreased Pain, S/S oversedation, PRN medication usage. 2. HTN/ CV Prophylaxis: Norvasc 5mg PO Daily, Aspirin 81mg PO daily, Toprol XL 50mg PO Daily. Please continue to monitor BP (last 113/67), pulse (last 79), S/S bleeding/bruising. 3. TBI: Amantadine 100mg PO BID. Due to est CrCl = 35mL/min, please consider renally dosing medication to 100mg PO Daily (recommended dose for CrCl <50mL/min), thank you. 4. Atrophic Vaginitis; Estrogen Cream 1 application twice weekly (/). Please continue to monitor for improvement in condition. 5. HLD: Vascepa 2g PO BID. Please continue to monitor lipid panel as clinically indicated, S/S bleeding. 6. Hypokalemia: KCl 10mEq PO Daily. Please continue to monitor potassium levels (last = 3.9 on 07/23). 7. GI Prophylaxis: Acidophilus 1 tab PO BID thru 07/29/21. Please continue to monitor for improvement/worsening in GI symptoms. 8. Nausea: Zofran 4mg PO Q8h PRN. Please continue to monitor for headache, medication effectiveness, PRN medication usage. 9. Vitamin D deficiency: Ergocalciferol 1.25mg PO once weekly. Please consider checking a vitamin D level, as one is not on file in [facility], thank you. 10. DVT Prophylaxis: Lovenox 40mg SC Daily. Please continue to monitor renal function, S/S bleeding/bruising. 11. Insomnia: Melatonin 3mg PO QHS. Please continue to monitor for medication effectiveness, oversedation. If medication ineffective, may try to administer at least 2 hours prior to desired bedtime for maximal effect. Psychotropic Medications: None Unnecessary Medications: None Bowel Regimen: Senna/Docusate 1 tab PO BID, MOM 30mL PO x1 PRN, Dulcolax 10mg OH x1 PRN. Please continue to monitor for increased/decreased constipation and/or diarrhea. Date of Note:: 07/28/21
[2021-07-28 14:08] VITALS: BP 117/63; PULSE 98; RESP 16; TEMP 35.9; O2SAT 97
[2021-07-28 14:26] VITALS: PULSE 98
[2021-07-28] MEDS: Metoprolol(XL)Succ 50 MG Tablet PO (14:26)
--- NOTE | 2021-07-28 15:08 | NURSING ---
pt returned from Dr. hdz. Per Neurosurgery, CT scan is clear, follow up as needed. Will notify Dr. Steiner.
--- NOTE | 2021-07-28 16:13 | NURSING ---
Notified daughter Marine, that pt has moved to room 7.
--- NOTE | 2021-07-28 16:57 | NURSING ---
Resident and son, Andrés, notified of 2 residents testing positive for COVID.
[2021-07-28] MEDS: MELATONIN 3 MG TABLET PO (20:44)
[2021-07-28] MEDS: Estrogens,Conj. 1 Tube 1 DOSE VAGINAL (20:45)
[2021-07-28 22:35] VITALS: PULSE 80; RESP 16
[2021-07-29] MEDS: amLODIPine 5 MG Tablet PO (05:48)
[2021-07-29] MEDS: Enoxaparin 40 MG/0.4 ML Syringe SC (05:48)
[2021-07-29] MEDS: Senna/Docusate Sodium 1 Tablet PO (05:48)
[2021-07-29] MEDS: Amantadine 100 MG Capsule PO (05:48)
[2021-07-29] MEDS: ICOSAPENT ETHYL 1 GM CAPSULE 2 GM PO (07:53)
[2021-07-29] MEDS: Potassium Chloride Oral Tablet 10 MEQ PO (07:53)
[2021-07-29] MEDS: Aspirin 81 MG TAB.CHEW PO (07:53)
[2021-07-29] MEDS: Polyethylene Glycol 3350 17 GM PACKET PO (09:16)
[2021-07-29 11:52] VITALS: BP 117/61; PULSE 92
[2021-07-29] MEDS: Metoprolol(XL)Succ 50 MG Tablet PO (11:52)
[2021-07-29] MEDS: Bisacodyl 10 MG Suppository RC (11:54)
[2021-07-29 14:31] VITALS: BP 113/66; PULSE 78; RESP 16; TEMP 36.8; O2SAT 97
[2021-07-29] MEDS: Magnesium Citrate 300 ML PO (14:39)
[2021-07-29] MEDS: Ondansetron ODT 4 MG Tablet PO (17:18)
[2021-07-29] MEDS: Nystatin Powder 15gm Bottle 1 APPLIC TOPICAL (20:06)
[2021-07-29] MEDS: Menthol/Lanolin/Calamine/Znox 113 GM Tube 1 APPLIC TOPICAL (20:06)
[2021-07-29] MEDS: MELATONIN 3 MG TABLET PO (21:48)
[2021-07-30] MEDS: Enoxaparin 40 MG/0.4 ML Syringe SC (05:29)
[2021-07-30] MEDS: Amantadine 100 MG Capsule PO ×2 (05:29→17:14)
[2021-07-30] MEDS: amLODIPine 5 MG Tablet PO (05:29)
[2021-07-30 07:11] LABS: Absolute Lymphocyte Count 1.55 X10^3/uL (0.83-4.51); Absolute Neutrophil Count 2.6 X10^3/uL (2.0-7.7); Basophil# 0.03 X10^3/uL; Basophil% 0.6 % (0-1); Eosinophil# 0.16 X10^3/uL; Eosinophils% 3.2 % (0-5); Hematocrit 40.8 % (37-47); Hemoglobin 13.1 g/dL (12.0-15.0); Lymphocyte # 1.55 X10^3/ul (0.83-4.51); Lymphocyte % 30.8 % (19-41); Mean Corp Hgb Conc 32.1 g/dL (32-36); Mean Corpuscular Hgb 28.3 pg (27.0-32.0); Mean Corpuscular Volume 88.1 fL (81-99); Mean Platelet Vol. 10.4 fl (6.2-12.0); Monocyte# 0.68 X10^3/uL; Monocyte% 13.5 % (0-10); NRBC Flagged by Analyzer 0 % (0-5); Neutrophil % 51.7 % (47-70); Platelet Count 246 K/mm3 (150-450); RBC Distribution Width CV 15.1 % (11.6-14.6); RBC Distribution Width SD 48.4 fl (35.1-43.9); Red Blood Count 4.63 M/mm3 (4.2-5.4)
[2021-07-30 07:33] LABS: Anion Gap 3 (5-15); BUN 25 mg/dL (7-18); BUN/Creat Ratio 29.8 RATIO (10-20); Calcium,Total 9.1 mg/dL (8.5-10.1); Chloride 109 mmol/L (98-107); Creatinine, Serum 0.84 mg/dL (0.55-1.02); EST Glomerular Filtration Rate 69 mL/min (>60); Est Glom Filt Rate - Afr Amer 84 mL/min (>60); Estimated Creatinine Clearance 41.48 ml/min; Glucose 82 mg/dL (74-106); Potassium 5.1 mmol/L (3.5-5.1); Sodium Level 139 mmol/L (136-145)
[2021-07-30] MEDS: Potassium Chloride Oral Tablet 10 MEQ PO (08:16)
[2021-07-30] MEDS: ICOSAPENT ETHYL 1 GM CAPSULE 2 GM PO ×2 (08:16→17:14)
[2021-07-30] MEDS: Aspirin 81 MG TAB.CHEW PO (08:16)
[2021-07-30 10:00] VITALS: PULSE 73; RESP 16; O2SAT 93
[2021-07-30 11:24] VITALS: BP 98/57; PULSE 74
[2021-07-30] MEDS: Tuberculin,Purif.prot.deriv. 50 TU/ML Vial 0.1 ML ID (11:24)
[2021-07-30 11:28] VITALS: RESP 16; TEMP 36.5; O2SAT 93
[2021-07-30] MEDS: Menthol/Lanolin/Calamine/Znox 113 GM Tube 1 APPLIC TOPICAL (21:20)
[2021-07-30] MEDS: Nystatin Powder 15gm Bottle 1 APPLIC TOPICAL (21:21)
[2021-07-30] MEDS: MELATONIN 3 MG TABLET PO (22:40)
[2021-07-31] MEDS: Menthol/Lanolin/Calamine/Znox 113 GM Tube 1 APPLIC TOPICAL ×2 (05:55→22:37)
[2021-07-31] MEDS: Nystatin Powder 15gm Bottle 1 APPLIC TOPICAL ×2 (05:56→22:39)
[2021-07-31] MEDS: Enoxaparin 40 MG/0.4 ML Syringe SC (05:57)
[2021-07-31] MEDS: Amantadine 100 MG Capsule PO ×2 (05:57→18:24)
[2021-07-31] MEDS: Senna/Docusate Sodium 1 Tablet PO ×2 (05:57→18:24)
[2021-07-31] MEDS: amLODIPine 5 MG Tablet PO (05:57)
[2021-07-31 06:01] VITALS: BP 107/64; PULSE 80
[2021-07-31] MEDS: Aspirin 81 MG TAB.CHEW PO (08:48)
[2021-07-31] MEDS: ICOSAPENT ETHYL 1 GM CAPSULE 2 GM PO ×2 (08:48→18:24)
[2021-07-31] MEDS: Potassium Chloride Oral Tablet 10 MEQ PO (08:48)
[2021-07-31 12:01] VITALS: BP 127/71; PULSE 94
[2021-07-31] MEDS: Metoprolol(XL)Succ 50 MG Tablet PO (12:01)
[2021-07-31 12:02] VITALS: BP 127/71; PULSE 94; RESP 16; TEMP 36.2; O2SAT 99
[2021-07-31 22:00] VITALS: PULSE 72; O2SAT 96
[2021-07-31] MEDS: MELATONIN 3 MG TABLET PO (22:37)
[2021-08-01] MEDS: Senna/Docusate Sodium 1 Tablet PO ×2 (04:44→17:45)
[2021-08-01] MEDS: Amantadine 100 MG Capsule PO ×2 (04:44→17:45)
[2021-08-01] MEDS: Enoxaparin 40 MG/0.4 ML Syringe SC (04:44)
[2021-08-01] MEDS: amLODIPine 5 MG Tablet PO (04:44)
[2021-08-01] MEDS: Menthol/Lanolin/Calamine/Znox 113 GM Tube 1 APPLIC TOPICAL ×2 (04:49→21:44)
[2021-08-01] MEDS: Nystatin Powder 15gm Bottle 1 APPLIC TOPICAL ×2 (04:49→21:45)
[2021-08-01] MEDS: ICOSAPENT ETHYL 1 GM CAPSULE 2 GM PO ×2 (08:41→17:45)
[2021-08-01] MEDS: Aspirin 81 MG TAB.CHEW PO (08:41)
[2021-08-01] MEDS: Potassium Chloride Oral Tablet 10 MEQ PO (08:41)
[2021-08-01 11:49] VITALS: BP 114/70; PULSE 76
[2021-08-01] MEDS: Metoprolol(XL)Succ 50 MG Tablet PO (11:49)
[2021-08-01 14:46] VITALS: BP 106/78; PULSE 101; RESP 18; TEMP 36.3; O2SAT 98
[2021-08-01] MEDS: MELATONIN 3 MG TABLET PO (21:44)
[2021-08-02 05:35] VITALS: BP 133/73; PULSE 66
[2021-08-02] MEDS: Senna/Docusate Sodium 1 Tablet PO ×2 (05:37→17:06)
[2021-08-02] MEDS: Enoxaparin 40 MG/0.4 ML Syringe SC (05:37)
[2021-08-02] MEDS: amLODIPine 5 MG Tablet PO (05:37)
[2021-08-02] MEDS: Menthol/Lanolin/Calamine/Znox 113 GM Tube 1 APPLIC TOPICAL ×2 (05:43→22:50)
[2021-08-02] MEDS: Nystatin Powder 15gm Bottle 1 APPLIC TOPICAL ×2 (05:44→22:51)
[2021-08-02] MEDS: Ergocalciferol 1.25 MG (50, 000 UNIT) Capsule PO (08:20)
[2021-08-02] MEDS: ICOSAPENT ETHYL 1 GM CAPSULE 2 GM PO ×2 (08:20→17:06)
[2021-08-02] MEDS: Aspirin 81 MG TAB.CHEW PO (08:20)
[2021-08-02] MEDS: Potassium Chloride Oral Tablet 10 MEQ PO (08:20)
--- NOTE | 2021-08-02 09:00 | CASEMGMT ---
Addendum entered by Donna Garcia 08/05/21 12:56: [facility] unable to staff [facility] and requested new order. Updated son. Faxed new order. Addendum entered by Donna Garcia 08/04/21 15:42: [facility] can accept. Addendum entered by Donna Garcia 08/04/21 13:47: [facility] cannot accept due to location. Contacted [facility] and they cannot accept due to no nursing staff currently. Contacted [facility] - they are reviewing. Addendum entered by Donna Garcia 08/04/21 08:59: Son contacted this worker. He spoke with CARDIAC NURSE and EASTERN PHILOSOPHY PROFESSOR yesterday about pt's progress and DC needs. Son asked about placement to SNF after being home. Explained if pt does not warrant a hospitalization, she can admit to a SNF from the community within 30 days. Otherwise, the PCP would make the referral for a direct admit. With that answer and after discussing with son at length, he has decided for DC home and will have family members stay with pt 25/12. SW to order skilled HHC. Had son refer to previous skilled HHC list. Son agreeable to [facility]. SW referred for PT/OT/ST/SN/GARCIA/SW. No DME needs. Son to transport after work. Plan: DC home with family support 08/10, [facility] PT/OT/ST/SN/GARCIA/SW. Addendum entered by Donna Garcia 08/02/21 16:06: Son returned call. Spoke with son with recommendations. Offered respite at AL, or permanent AL or SNF. If pt going home, to have supervision at least until son feels she is safe alone for longer time periods, but cautioned at this time, IDT is not seeing that be a possibility. Son taken aback with information, wasn't expecting needing 25/12 care. Validated feelings and may be overwhelming to comprehend. Reiterated multiple people can be with patient, does not need to be the same agency or healthcare management 25/12. Son expressed understanding. Encouraged for son to get answer by end of the week and to call this worker with questions and further assistance. Original Note: Social Work IDT set DC date for pt 08/10. Left message with son to discuss DC plans as IDT is recommending 24/7 supervision. SW to continue to follow. Donna Garcia, PURCHASE ANALYST EMAIL SPECIALIST
[2021-08-02 12:55] VITALS: PULSE 69
[2021-08-02] MEDS: Metoprolol(XL)Succ 50 MG Tablet PO (12:55)
[2021-08-02 12:58] VITALS: BP 112/69; PULSE 78; RESP 18; TEMP 36; O2SAT 92
[2021-08-02 22:45] VITALS: PULSE 86; RESP 16; O2SAT 97
[2021-08-02] MEDS: MELATONIN 3 MG TABLET PO (22:50)
[2021-08-02] MEDS: Estrogens,Conj. 1 Tube 1 DOSE VAGINAL (22:51)
[2021-08-03] MEDS: Enoxaparin 40 MG/0.4 ML Syringe SC (05:44)
[2021-08-03] MEDS: amLODIPine 5 MG Tablet PO (05:46)
[2021-08-03] MEDS: Nystatin Powder 15gm Bottle 1 APPLIC TOPICAL ×2 (05:46→21:22)
[2021-08-03] MEDS: Menthol/Lanolin/Calamine/Znox 113 GM Tube 1 APPLIC TOPICAL ×2 (05:46→21:22)
[2021-08-03] MEDS: Potassium Chloride Oral Tablet 10 MEQ PO (08:00)
[2021-08-03] MEDS: ICOSAPENT ETHYL 1 GM CAPSULE 2 GM PO ×2 (08:00→17:40)
[2021-08-03] MEDS: Aspirin 81 MG TAB.CHEW PO (08:00)
[2021-08-03 11:45] VITALS: BP 117/72; PULSE 67
[2021-08-03] MEDS: Metoprolol(XL)Succ 50 MG Tablet PO (11:45)
[2021-08-03 13:51] VITALS: BP 95/58; PULSE 70; RESP 15; TEMP 35.9; O2SAT 91
--- NOTE | 2021-08-03 19:51 | DS.PCM_ITS ---
Providers Date of Admission: 07/22/21 Primary Care Physician: Dr. Deven Mendoza MD Reason For Visit: SUBARACANOID HEMORRAGE Diagnosis Discharge Diagnosis (1) Debility: Status: Acute Code(s): R53.81 - Other malaise (2) Traumatic brain injury: Status: Acute Code(s): S06.9X9A - Unspecified intracranial injury with loss of consciousness of unspecified duration, initial encounter (3) Subdural hematoma: Status: Acute Code(s): S06.5X9A - Traumatic subdural hemorrhage with loss of consciousness of u nspecified duration, initial encounter (4) Subarachnoid hemorrhage: Status: Acute Code(s): I60.9 - Nontraumatic subarachnoid hemorrhage, unspecified (5) Skull fracture: Status: Acute Code(s): S02.91XA - Unspecified fracture of skull, initial encounter for closed fracture Qualifiers: Encounter type: subsequent encounter Skull bone/location: occipital bone Fracture type: closed Laterality: left (6) HTN (hypertension): Code(s): I10 - Essential (primary) hypertension (7) Hyperlipidemia: Code(s): E78.5 - Hyperlipidemia, unspecified (8) Stenosis of right carotid artery: Status: Chronic Code(s): I65.21 - Occlusion and stenosis of right carotid artery (9) Congenital abnormality of limb: Status: Acute Code(s): Q74.9 - Unspecified congenital malformation of limb(s) (10) History of DVT (deep vein thrombosis): Status: Acute Code(s): Z86.718 - Personal history of other venous thrombosis and embolism (11) Polycythemia: Status: Acute Code(s): D75.1 - Secondary polycythemia Medications at Discharge Home Medications aspirin 81 mg chewable tablet 81 mg PO DAILY@0800 tab 12/31/19 icosapent ethyl [Vascepa] 2 g PO 0800,1700 07/22/21 menthol-zinc oxide [Calmoseptine] 1 applic TOPICAL BID 07/22/21 metoprolol succinate 50 mg PO DAILY@1200 07/22/21 amlodipine 5 mg PO DAILY 30 Days #30 tab 08/03/21 melatonin 3 mg PO QHS 30 Days #30 tab 08/03/21 potassium chloride 10 meq PO DAILYCM 30 Days #30 tab 03/02/22 Hospital Course Operations None Procedures None Summary of Care Provided Minutes Spent on Discharge: 35 Hospital Course: 80 year old female with below past medical hospitalized for traumatic brain injury, subarachnoid hemorrhage, subdural hematoma, skull fracture, admitted to [facility], complicated by dizziness, urinary retention, urinary tract infection, admitted to TCU with debility, here for rehabilitation, streng thening, prior to discharge home alone. Discharge home with 25/12 supervision 08/10/2021, non skilled home health care. Physical Exam Const alert and oriented x3 General Appearance: cooperative HEENT normocephalic Eyes PERRL and EOMs intact bilaterally Neck supple, no JVD and no carotid bruits Resp normal respiratory effort, normal air movement and clear to auscultation bilaterally Cardio regular rate and regular rhythm GI normal to inspection, nondistended, normoactive bowel sounds, non-tender and non-distended Extremity normal capillary refill Extremity Narrative: Left arm deformity. General Extremity: Negative for edema Skin no rashes or lesions noted General Skin Exam: no breakdown Psych affect normal Appearance: appropriate Weight / BMI Weight Weight: 49.079 kg Body Mass Index (BMI) 22.6 ABG / Lab / Microbiology Data Result Diagrams: 07/30/21 06:40 07/30/21 06:40 Microbiology: Microbiology 07/29/21 06:00 Nasal Secretion SARS-CoV-2 Antigen (Rapid) - Final 07/22/21 16:10 Nasal Secretion SARS-CoV-2 Antigen (Rapid) - Final D/C Instructions Discharge Diet: No restrictions Discharge Activity: Return to Normal Activity, May Shower and Use Walker Weight Bearing Status: Weight bearing as tolerated Call your doctor if you observe: Fever of 101 or Higher, Inability to urinate, Inability to have a bowel movement, Shortness of breath, Dizziness, Fainting spells, Swelling in the ankles, Chest pain and Uncontrolled pain Additional Instructions: Discharge home with 25/12 supervision 08/10/2021, non skilled home health care. Please Follow Up With: DR GRISEL JOHNSON When: As scheduled. Meaningful Use Info Meaningful Use Diagnoses (Choose all that apply): None applicable Discharge Plan Admission Admit Date/Time: 07/22/21 14:51 Primary Reason for Your Visit: Debility. Attending Provider: David Steiner Chi Primary Care Provider: Deven Mendoza Instructions Additional Instructions / Restrictions: Discharge home with 24/7 supervision 08/10/2021, non skilled home health care. Discharge Orders/Prescriptions Prescriptions: Continued aspirin 81 mg tablet,chewable 81 mg PO DAILY@0800 RF: 0 metoprolol succinate 50 mg tablet extended release 24 hr 50 mg PO DAILY@1200 RF: 0 menthol-zinc oxide [Calmoseptine] 0.44-20.6 % ointment 1 applic topical BID RF: 0 icosapent ethyl [Vascepa] 1 gram capsule 2 g PO 0800,1700 RF: 0 melatonin 3 mg Tablet 3 mg PO QHS 30 Days Qty: 30 RF: 0 amlodipine 5 mg Tablet 5 mg PO DAILY 30 Days Qty: 30 RF: 0 potassium chloride 10 mEq tablet,ER particles/crystals 10 meq PO DAILYCM 30 Days Qty: 30 RF: 0 Discontinued acetaminophen [Tylenol] 325 mg Capsule 650 mg PO PRN PRN (Reason: Pain) RF: 0 bisacodyl 10 mg Suppository 10 mg ND .PRN X 1 PRN (Reason: Constipation) Qty: 0 RF: 0 tramadol 50 mg Tablet 25 mg PO Q6H PRN PRN (Reason: Pain Score 4-10) Qty: 0 RF: 0 magnesium hydroxide 400 mg/5 mL Suspension 30 ml PO .PRN X 1 PRN (Reason: Constipation) Qty: 0 RF: 0 ondansetron 4 mg Tablet,Disintegrating 4 mg PO Q8H PRN PRN (Reason: NAUSEA/VOMITING) Qty: 0 RF: 0 amantadine HCl 100 mg Tablet 100 mg PO BID RF: 0 sennosides-docusate sodium [Stool Softener-Stimulant Laxat] 8.6-50 mg tablet 1 tab PO BID RF: 0 Premarin 0.625 mg/gram cream 1 dose vaginal TuTh@2200 RF: 0 ergocalciferol (vitamin D2) [Vitamin D2] 1,250 mcg (50,000 unit) capsule 1.25 mg PO QWEEK RF: 0 nystatin [Nyamyc] 100,000 unit/gram powder 1 applic topical BID RF: 0 enoxaparin 40 mg/0.4 mL syringe 40 mg subcut DAILY RF: 0 acidophilus-pectin, citrus 25 million cell -100 mg tablet 1 tab PO BID RF: 0 acetaminophen 650 mg/20.3 mL solution 975 mg PO Q6H PRN PRN (Reason: Pain) RF: 0 Referrals / Follow Up: Colleen Moraes MD [STAFF PHYSICIAN] - Deven Mendoza MD [Primary Care Provider] - Disposition Disposition (needs filled in before D/C Order can be placed): Home Health Service
[2021-08-03] MEDS: MELATONIN 3 MG TABLET PO (22:43)
[2021-08-04 05:45] VITALS: BP 124/72; PULSE 68
[2021-08-04] MEDS: Nystatin Powder 15gm Bottle 1 APPLIC TOPICAL ×2 (05:47→20:18)
[2021-08-04] MEDS: Senna/Docusate Sodium 1 Tablet PO ×2 (05:48→18:09)
[2021-08-04] MEDS: amLODIPine 5 MG Tablet PO (05:48)
[2021-08-04] MEDS: Enoxaparin 40 MG/0.4 ML Syringe SC (05:48)
[2021-08-04] MEDS: Menthol/Lanolin/Calamine/Znox 113 GM Tube 1 APPLIC TOPICAL ×2 (05:48→20:18)
[2021-08-04] MEDS: Potassium Chloride Oral Tablet 10 MEQ PO (08:41)
[2021-08-04] MEDS: Aspirin 81 MG TAB.CHEW PO (08:41)
[2021-08-04] MEDS: ICOSAPENT ETHYL 1 GM CAPSULE 2 GM PO ×2 (08:41→18:09)
[2021-08-04 08:47] VITALS: PULSE 87; RESP 16; O2SAT 94
--- NOTE | 2021-08-04 12:47 | MDS.RN ---
Information for the mds was obtained from review of the clinical record, interview of resident, staff, and direct observation of resident's care.
[2021-08-04 13:29] VITALS: BP 94/62; PULSE 72; RESP 15; TEMP 36.3; O2SAT 93
[2021-08-04 13:41] VITALS: BP 104/60; PULSE 70
[2021-08-04] MEDS: Metoprolol(XL)Succ 50 MG Tablet PO (13:41)
--- NOTE | 2021-08-04 16:42 | NURSING ---
Resident and son, Andrés, notified of a resident on the unit testing positive for COVID.
[2021-08-04] MEDS: Estrogens,Conj. 1 Tube 1 DOSE VAGINAL (20:21)
[2021-08-04] MEDS: MELATONIN 3 MG TABLET PO (22:38)
[2021-08-05] MEDS: Enoxaparin 40 MG/0.4 ML Syringe SC (06:07)
[2021-08-05] MEDS: amLODIPine 5 MG Tablet PO (06:08)
[2021-08-05] MEDS: Senna/Docusate Sodium 1 Tablet PO ×2 (06:08→17:39)
[2021-08-05] MEDS: Nystatin Powder 15gm Bottle 1 APPLIC TOPICAL ×2 (06:17→21:43)
[2021-08-05] MEDS: Menthol/Lanolin/Calamine/Znox 113 GM Tube 1 APPLIC TOPICAL ×2 (06:18→21:43)
[2021-08-05] MEDS: Aspirin 81 MG TAB.CHEW PO (09:30)
[2021-08-05] MEDS: ICOSAPENT ETHYL 1 GM CAPSULE 2 GM PO ×2 (09:30→17:39)
[2021-08-05] MEDS: Potassium Chloride Oral Tablet 10 MEQ PO (09:30)
--- NOTE | 2021-08-05 10:28 | NURSING ---
Notified son Andrés, of patient being moved to room 10.
[2021-08-05 11:44] VITALS: BP 132/54; PULSE 69
[2021-08-05] MEDS: Metoprolol(XL)Succ 50 MG Tablet PO (11:44)
[2021-08-05 11:49] VITALS: BP 132/54; PULSE 69
[2021-08-05 13:31] VITALS: BP 99/64; PULSE 78; RESP 16; TEMP 36.4; O2SAT 92
[2021-08-05 22:01] VITALS: PULSE 70; RESP 16; O2SAT 93
[2021-08-05] MEDS: MELATONIN 3 MG TABLET PO (22:52)
[2021-08-06 06:41] LABS: Absolute Neutrophil Count 2.8 X10^3/uL (2.0-7.7); Basophil# 0.05 X10^3/uL; Basophil% 0.8 % (0-1); Eosinophil# 0.27 X10^3/uL; Eosinophils% 4.5 % (0-5); Hemoglobin 16.1 g/dL (12.0-15.0); Lymphocyte % 31.8 % (19-41); Mean Corp Hgb Conc 32.2 g/dL (32-36); Mean Corpuscular Hgb 28.8 pg (27.0-32.0); Mean Corpuscular Volume 89.3 fL (81-99); Mean Platelet Vol. 10.3 fl (6.2-12.0); Monocyte# 0.89 X10^3/uL; Monocyte% 14.9 % (0-10); NRBC Flagged by Analyzer 0 % (0-5); Neutrophil # 2.82 X10^3/uL (2.7-7.7); Neutrophil % 47.2 % (47-70); Platelet Count 252 K/mm3 (150-450); RBC Distribution Width CV 14.7 % (11.6-14.6); RBC Distribution Width SD 48.2 fl (35.1-43.9)
[2021-08-06] MEDS: Enoxaparin 40 MG/0.4 ML Syringe SC (06:43)
[2021-08-06] MEDS: Senna/Docusate Sodium 1 Tablet PO (06:43)
[2021-08-06] MEDS: amLODIPine 5 MG Tablet PO (06:44)
[2021-08-06] MEDS: Nystatin Powder 15gm Bottle 1 APPLIC TOPICAL ×2 (06:46→22:39)
[2021-08-06 06:51] VITALS: BP 114/64; PULSE 62
[2021-08-06 07:23] LABS: Anion Gap 3 (5-15); BUN 31 mg/dL (7-18); BUN/Creat Ratio 36.9 RATIO (10-20); Calcium,Total 9.2 mg/dL (8.5-10.1); Chloride 114 mmol/L (98-107); Creatinine, Serum 0.84 mg/dL (0.55-1.02); EST Glomerular Filtration Rate 69 mL/min (>60); Est Glom Filt Rate - Afr Amer 84 mL/min (>60); Estimated Creatinine Clearance 41.39 ml/min; Glucose 91 mg/dL (74-106); Potassium 4.3 mmol/L (3.5-5.1); Sodium Level 141 mmol/L (136-145)
[2021-08-06] MEDS: Potassium Chloride Oral Tablet 10 MEQ PO (08:35)
[2021-08-06] MEDS: ICOSAPENT ETHYL 1 GM CAPSULE 2 GM PO ×2 (08:35→17:50)
[2021-08-06] MEDS: Aspirin 81 MG TAB.CHEW PO (08:35)
[2021-08-06 09:10] VITALS: PULSE 65; O2SAT 95
[2021-08-06 13:16] VITALS: BP 120/62; PULSE 78
[2021-08-06] MEDS: Metoprolol(XL)Succ 50 MG Tablet PO (13:16)
[2021-08-06 15:21] VITALS: BP 128/78; PULSE 67; RESP 16; TEMP 36.4; O2SAT 95
--- NOTE | 2021-08-06 16:36 | NURSING ---
Per Pt and son cancelled appt with Dr. Ureña for 08/08/21.
[2021-08-06] MEDS: MELATONIN 3 MG TABLET PO (22:40)
[2021-08-06] MEDS: Menthol/Lanolin/Calamine/Znox 113 GM Tube 1 APPLIC TOPICAL (22:40)
[2021-08-07] MEDS: Enoxaparin 40 MG/0.4 ML Syringe SC (05:47)
[2021-08-07] MEDS: amLODIPine 5 MG Tablet PO (05:48)
[2021-08-07] MEDS: Nystatin Powder 15gm Bottle 1 APPLIC TOPICAL ×2 (05:48→20:50)
[2021-08-07] MEDS: Senna/Docusate Sodium 1 Tablet PO (05:48)
[2021-08-07 05:53] VITALS: BP 116/67; PULSE 58
[2021-08-07] MEDS: Potassium Chloride Oral Tablet 10 MEQ PO (08:11)
[2021-08-07] MEDS: ICOSAPENT ETHYL 1 GM CAPSULE 2 GM PO ×2 (08:11→18:15)
[2021-08-07] MEDS: Aspirin 81 MG TAB.CHEW PO (08:11)
[2021-08-07 12:35] VITALS: BP 105/70; PULSE 68
[2021-08-07] MEDS: Metoprolol(XL)Succ 50 MG Tablet PO (12:35)
[2021-08-07 14:52] VITALS: BP 111/66; PULSE 66; RESP 12; TEMP 36.3; O2SAT 97
[2021-08-07] MEDS: MELATONIN 3 MG TABLET PO (22:48)
[2021-08-08 05:54] VITALS: BP 133/71; PULSE 64
[2021-08-08] MEDS: Enoxaparin 40 MG/0.4 ML Syringe SC (05:56)
[2021-08-08] MEDS: Nystatin Powder 15gm Bottle 1 APPLIC TOPICAL ×2 (05:57→20:19)
[2021-08-08] MEDS: amLODIPine 5 MG Tablet PO (05:57)
[2021-08-08] MEDS: Aspirin 81 MG TAB.CHEW PO (08:16)
[2021-08-08] MEDS: Potassium Chloride Oral Tablet 10 MEQ PO (08:16)
[2021-08-08] MEDS: ICOSAPENT ETHYL 1 GM CAPSULE 2 GM PO ×2 (08:16→18:14)
[2021-08-08 10:14] VITALS: PULSE 68; RESP 16
[2021-08-08 11:51] VITALS: BP 103/59; PULSE 78
[2021-08-08] MEDS: Metoprolol(XL)Succ 50 MG Tablet PO (11:51)
[2021-08-08 11:57] VITALS: RESP 18; TEMP 36.6; O2SAT 94
[2021-08-08] MEDS: Senna/Docusate Sodium 1 Tablet PO (18:14)
[2021-08-08] MEDS: Menthol/Lanolin/Calamine/Znox 113 GM Tube 1 APPLIC TOPICAL (20:20)
[2021-08-08] MEDS: MELATONIN 3 MG TABLET PO (22:38)
[2021-08-09] MEDS: Enoxaparin 40 MG/0.4 ML Syringe SC (05:02)
[2021-08-09] MEDS: Senna/Docusate Sodium 1 Tablet PO ×2 (05:03→17:48)
[2021-08-09] MEDS: amLODIPine 5 MG Tablet PO (05:03)
[2021-08-09] MEDS: Nystatin Powder 15gm Bottle 1 APPLIC TOPICAL ×2 (05:07→21:27)
[2021-08-09] MEDS: Menthol/Lanolin/Calamine/Znox 113 GM Tube 1 APPLIC TOPICAL ×2 (05:07→21:26)
[2021-08-09] MEDS: Aspirin 81 MG TAB.CHEW PO (08:49)
[2021-08-09] MEDS: Ergocalciferol 1.25 MG (50, 000 UNIT) Capsule PO (08:49)
[2021-08-09] MEDS: Potassium Chloride Oral Tablet 10 MEQ PO (08:49)
[2021-08-09] MEDS: ICOSAPENT ETHYL 1 GM CAPSULE 2 GM PO ×2 (08:50→17:48)
[2021-08-09 11:28] VITALS: BP 113/61; PULSE 84
[2021-08-09] MEDS: Metoprolol(XL)Succ 50 MG Tablet PO (11:28)
[2021-08-09 11:29] VITALS: BP 113/61; PULSE 84
[2021-08-09 14:38] VITALS: BP 104/67; PULSE 81; RESP 16; TEMP 36.2; O2SAT 98
[2021-08-09 21:20] VITALS: BP 129/80; PULSE 64; RESP 16; TEMP 35.7; O2SAT 97
[2021-08-09] MEDS: Estrogens,Conj. 1 Tube 1 DOSE VAGINAL (21:27)
[2021-08-09] MEDS: MELATONIN 3 MG TABLET PO (22:40)
[2021-08-10 06:44] VITALS: BP 117/60; PULSE 69; RESP 16; TEMP 36; O2SAT 93
[2021-08-10] MEDS: Enoxaparin 40 MG/0.4 ML Syringe SC (07:12)
[2021-08-10] MEDS: Nystatin Powder 15gm Bottle 1 APPLIC TOPICAL (07:12)
[2021-08-10] MEDS: Menthol/Lanolin/Calamine/Znox 113 GM Tube 1 APPLIC TOPICAL (07:13)
[2021-08-10] MEDS: amLODIPine 5 MG Tablet PO (07:14)
[2021-08-10] MEDS: Potassium Chloride Oral Tablet 10 MEQ PO (08:45)
[2021-08-10] MEDS: Aspirin 81 MG TAB.CHEW PO (08:46)
[2021-08-10] MEDS: ICOSAPENT ETHYL 1 GM CAPSULE 2 GM PO (08:46)
[2021-08-10 12:29] VITALS: BP 99/54; PULSE 74
[2021-08-10 14:46] VITALS: BP 124/73; PULSE 63; RESP 16; TEMP 36.5; O2SAT 99
== END 2021-08-10 16:45 | disposition home health service (06) | DRG 950 ==
PROVIDERS: Admitting Provider Family Medicine Geriatric Medicine; PCP Family Medicine; Visit Provider Family Medicine Geriatric Medicine
DX: S06.6X0D Traumatic subarachnoid hemorrhage without loss of consciousness, subsequent encounter (principal); B35.4 Tinea corporis; E78.5 Hyperlipidemia, unspecified; E55.9 Vitamin D deficiency, unspecified; D75.1 Secondary polycythemia; Q73.0 Congenital absence of unspecified limb(s); I10 Essential (primary) hypertension; W19.XXXD Unspecified fall, subsequent encounter; S02.119D Unspecified fracture of occiput, subsequent encounter for fracture with routine healing; S06.5X0D Traumatic subdural hemorrhage without loss of consciousness, subsequent encounter; N32.81 Overactive bladder; Z87.891 Personal history of nicotine dependence; Z79.82 Long term (current) use of aspirin; Z79.899 Other long term (current) drug therapy; Z86.718 Personal history of other venous thrombosis and embolism
CPT/HCPCS: 36415; 80048; 85025; 87426; 92507; 92523; 97110; 97116; 97162; 97166; 97530; 97535; 97802

== ENCOUNTER 2023-06-17 17:30 | Emergency (ER) | payer MEDICARE, OTHER, SELFPAY ==
[2023-06-17] VITALS (12 sets, daily range): BP systolic 149–168; BP diastolic 72–84; PULSE 80–95; RESP 13–23; TEMP 36–36.8; O2SAT 95–100; BMI 23.3
--- NOTE | 2023-06-17 17:48 | EKG12_ITS ---
Test Reason : FALL Blood Pressure : / mmHG Vent. Rate : 087 BPM Atrial Rate : 087 BPM P-R Int : 136 ms QRS Dur : 072 ms QT Int : 366 ms P-R-T Axes : 074 -38 056 degrees QTc Int : 440 ms Normal sinus rhythm Left axis deviation Nonspecific ST abnormality Abnormal ECG Confirmed by MANNY MARIE, ZAID ([id number]), acquisition editor FELIPA PRUITT ([id number]) on 06/18/2023 9:37:35 AM Referred By: BB Confirmed By:ZAID BRYANT MD
--- NOTE | 2023-06-17 17:48 | CT_ITS ---
STUDY: CT CERVICAL SPINE WITHOUT CONTRAST REASON FOR EXAM: Female, 82 years old. cervicalgia RADIATION DOSAGE (If Supplied By Facility): CTDIvol = ( 12.55 ) mGy, DLP = ( 253.03 ) mGycm TECHNIQUE: High resolution transaxial imaging was performed without contrast material. Sagittal and coronal images were reconstructed. Individualized dose optimization techniques were used for this CT. COMPARISON: 06/30/2021. FINDINGS: Normal craniovertebral junction. Stable well-corticated lucency through the left posterior skull base consistent with sequela of old fracture. There are degenerative changes of the anterior atlantoaxial articulation. Normal odontoid process. There is reversal of the normal cervical lordosis. Narrowing of disc height with spondylosis, more severe at C5-C6 and C6-C7. Otherwise unremarkable vertebral bodies and posterior osseous elements. C2-3: Normal endplates. Normal disc height . Normal central canal. Mild bilateral apophyseal hypertrophy. No intervertebral neuroforamina. C3-4: Normal endplates. Mild narrowing of disc height . Normal central canal. Mild bilateral apophyseal hypertrophy. Mild encroachment of the bilateral intervertebral neuroforamina. C4-5: Normal endplates. Mild narrowing of disc height . Normal central canal. Mild bilateral apophyseal hypertrophy. Mild encroachment of the bilateral intervertebral neuroforamina. C5-6: Normal endplates. Severe narrowing of disc height . Disc osteophyte complex. Normal central canal. Mild bilateral apophyseal hypertrophy. Moderate encroachment of the bilateral intervertebral neuroforamina. C6-7: Normal endplates. Severe narrowing of disc height . Disc osteophyte complex. Normal central canal. Mild bilateral apophyseal hypertrophy. Moderate encroachment of the bilateral intervertebral neuroforamina. C7-T1: Normal endplates. Mild narrowing of disc height . Normal central canal. Mild bilateral apophyseal hypertrophy. Mild encroachment of the bilateral intervertebral neuroforamina. Normal visualized soft tissue structures. CT/Spine Cervical without Contras IMPRESSION: Degenerative disease, more severe from C5 to C7 with no acute fracture or subluxation. Electronically Signed: Grace Jones MD at 19:21 EST ,
--- NOTE | 2023-06-17 17:48 | CT_ITS ---
STUDY: CT BRAIN WITHOUT CONTRAST REASON FOR EXAM: Female, 82 years old. head injury RADIATION DOSAGE (If Supplied By Facility): CTDIvol = ( 44.99 ) mGy, DLP = ( 796.11 ) mGycm TECHNIQUE: Transaxial CT imaging of the brain was performed without administration of intravenous contrast material. Individualized dose optimization techniques were used for this CT. COMPARISON: 06/30/2021. FINDINGS: Mild soft tissue swelling along the left posterior parietal region with small amount of air suggestive of laceration. Mild swelling along the right anterolateral supraorbital region concerning for mild hematoma. Normal calvarium. Foci of posterior cerebellar cortical subarachnoid hemorrhage with small amount of subdural hemorrhage along the posterior falx and left tentorium. Small focus of subdural hemorrhage involving the base of the right anterior frontal lobe. There is mild encephalomalacia at the base of the right frontal lobe, likely sequela of previous trauma. There are areas of decreased attenuation within the white matter tracts of the supratentorial brain, consistent with microvascular disease changes. Normal basal ganglia and thalami. Normal brainstem. Normal cerebellum. Normal visualized paranasal sinuses. CT/Brain/Head without Contrast IMPRESSION: Posterior cerebellar cortical subarachnoid hemorrhage with left subdural hematoma along the left tentorium and posterior falx. Follow-up recommended to evaluate stability. Underlying chronic changes as described. No skull fracture. Scalp swelling/hematoma with minimal left posterior laceration. Electronically Signed: Grace Jones MD at 19:17 EST ,
--- NOTE | 2023-06-17 17:51 | EX.ED.DYSGE1 ---
HPI <CATRACHITO Ford - Last Filed: 06/17/23 19:32> History of Present Illness Chief Complaint: Fall Narrative Narrative: 82-year-old female with PMH of HTN, HLD, traumatic SAH, carotid artery stenosis, paroxysmal SVT, nonsustained VT presents after head injury. She states this morning she felt nauseated and took Tums. She does not recall the events but she was standing in her kitchen and then woke up on the floor. She went to lay down on the couch and her life alert system called her around 1:20 PM since she must have hit the button. She told them she did not need assessed but then later noticed that there was blood on the back of her head from falling and called her son to bring her in for evaluation. She complains of a headache. No vision changes or nausea or vomiting. No chest pain or shortness of breath. She is on aspirin 81 mg, no blood thinners. She reports no changes in her health this week, has had normal p.o. intake, normal bladder and bowel movements. PFSH <CATRACHITO Ford - Last Filed: 06/17/23 19:32> [facility] Medical History Altered level of consciousness Congenital abnormality of limb Episode of confusion History of DVT (deep vein thrombosis) History of polycythemia Hyperlipidemia Hypertriglyceridemia Low HDL (under 40) Renal calculi Stenosis of right carotid artery Urge incontinence Home Medications aspirin 81 mg chewable tablet 81 mg PO DAILY@0800 heart health 12/31/19 [History Last Taken Unknown] icosapent ethyl 1 gram capsule (Vascepa) 2 g PO 0800,1700 Check with primary doctor 07/22/21 [History Last Taken Unknown] menthol 0.44 %-zinc oxide 20.6 % topical ointment (Calmoseptine) 1 applic topical BID redness 07/22/21 [History Last Taken Unknown] metoprolol succinate 50 mg tablet,extended release 24 hr 50 mg PO DAILY@1200 bp/hr 07/22/21 [History Last Taken 07/22/21] Allergy/AdvReac Type Severity Reaction Status Date / Time gabapentin [From Neurontin] Allergy Other Verified 06/17/23 18:08 niacin Allergy NEEDS Verified 06/17/23 18:08 FOLLOW-UP Penicillins Allergy Swelling Verified 06/17/23 18:08 [id number]-UsN Reductase Allergy Other Verified 06/17/23 18:08 Inhibitor [Fljbfvo-Frc-Kuv Reductase Inhibitor] sulfamethoxazole Allergy Pain in Verified 06/17/23 18:08 [From Bactrim] joints sulindac [From Clinoril] Allergy Other Verified 06/17/23 18:08 tizanidine HCl Allergy Other Verified 06/17/23 18:08 [From Zanaflex] trimethoprim [From Bactrim] Allergy Pain in Verified 06/17/23 18:08 joints vancomycin Allergy Itching Verified 06/17/23 18:08 duloxetine HCl AdvReac Nausea Verified 06/17/23 18:08 [From Cymbalta] erythromycin base AdvReac Other Verified 06/17/23 18:08 Family History Father Heart disease, Onset Age: 42 Mother Heart disease Diabetes Son Diabetes Hyperlipidemia Surgical History History of appendectomy History of cholecystectomy History of lithotripsy (2017) Social History household members: other details: She lives by herself. 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 She smoked Less than 1 PPD alcohol intake: never substance use type: does not use ROS <CATRACHITO Ford - Last Filed: 06/17/23 19:32> ROS ED ROS Narrative Constitutional: Negative for fever, chills, malaise. Eyes: Negative for visual change. CVS: Negative for palpitations, chest pain. Respiratory: Negative for shortness of breath, cough. GI: Negative for abdominal pain, vomiting, diarrhea, constipation, melena, hematochezia. : Negative for dysuria, hematuria or frequency. Neuro: Positive for headache. EXAM <CATRACHITO Ford - Last Filed: 06/17/23 19:32> Physical Exam Narrative Exam Narrative: CONST: Patient sitting in no acute distress. EYES: Normal inspection. PERRL, EOMI. ENT: , no raccoon eyes or johnson sign, no hemotympanum, no nasal septal hematoma, no CSF otorrhea or rhinorrhea. NECK: Normal inspection. No midline spinal tenderness, no step off or crepitus. RESP: No respiratory distress, CTAB. Chest wall nontender. CVS: Regular rate and rhythm, no murmur, no gallop. ABD: Soft and nontender, no guarding or rebound, nondistended. Back: Normal inspection, no midline tenderness. SKIN: Color normal with no rash. 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 NEURO: Oriented x4. PSYCH: Normal affect. Const Vital Signs: 06/17/23 17:31 06/17/23 18:10 06/17/23 18:01 Temperature 96.8 F L Temperature Source Temporal Pulse Rate 80 Respiratory Rate 17 Respiratory Effort Normal Non-Labored Respiratory Depth Normal Respiratory Pattern Normal Blood Pressure 149/72 H 157/83 H Blood Pressure Mean 97 105 Pulse Ox 95 Oxygen Delivery Method Room Air 06/17/23 18:07 06/17/23 18:10 06/17/23 18:20 Temperature Temperature Source Pulse Rate 89 91 93 Respiratory Rate 13 23 H 22 H Respiratory Effort Respiratory Depth Respiratory Pattern Blood Pressure Blood Pressure Mean Pulse Ox 95 Oxygen Delivery Method 06/17/23 18:42 06/17/23 18:50 06/17/23 19:05 Temperature Temperature Source Pulse Rate 94 92 90 Respiratory Rate 17 22 H 22 H Respiratory Effort Respiratory Depth Respiratory Pattern Blood Pressure Blood Pressure Mean Pulse Ox 99 100 Oxygen Delivery Method 06/17/23 19:10 06/17/23 19:20 06/17/23 19:23 Temperature 98.2 F Temperature Source Temporal Pulse Rate 93 92 95 Respiratory Rate 18 16 18 Respiratory Effort Respiratory Depth Respiratory Pattern Blood Pressure 168/84 H Blood Pressure Mean 111 Pulse Ox 100 Oxygen Delivery Method Room Air 06/17/23 19:30 Temperature Temperature Source Pulse Rate 95 Respiratory Rate 17 Respiratory Effort Respiratory Depth Respiratory Pattern Blood Pressure Blood Pressure Mean Pulse Ox 98 Oxygen Delivery Method <Dr. Raj Rees MD - Last Filed: 06/17/23 19:52> Physical Exam Const Vital Signs: 06/17/23 17:31 06/17/23 18:10 06/17/23 18:01 Temperature 96.8 F L Temperature Source Temporal Pulse Rate 80 Respiratory Rate 17 Respiratory Effort Normal Non-Labored Respiratory Depth Normal Respiratory Pattern Normal Blood Pressure 149/72 H 157/83 H Blood Pressure Mean 97 105 Pulse Ox 95 Oxygen Delivery Method Room Air 06/17/23 18:07 06/17/23 18:10 06/17/23 18:20 Temperature Temperature Source Pulse Rate 89 91 93 Respiratory Rate 13 23 H 22 H Respiratory Effort Respiratory Depth Respiratory Pattern Blood Pressure Blood Pressure Mean Pulse Ox 95 Oxygen Delivery Method 06/17/23 18:42 06/17/23 18:50 06/17/23 19:05 Temperature Temperature Source Pulse Rate 94 92 90 Respiratory Rate 17 22 H 22 H Respiratory Effort Respiratory Depth Respiratory Pattern Blood Pressure Blood Pressure Mean Pulse Ox 99 100 Oxygen Delivery Method 06/17/23 19:10 06/17/23 19:20 06/17/23 19:23 Temperature 98.2 F Temperature Source Temporal Pulse Rate 93 92 95 Respiratory Rate 18 16 18 Respiratory Effort Respiratory Depth Respiratory Pattern Blood Pressure 168/84 H Blood Pressure Mean 111 Pulse Ox 100 Oxygen Delivery Method Room Air 06/17/23 19:30 Temperature Temperature Source Pulse Rate 95 Respiratory Rate 17 Respiratory Effort Respiratory Depth Respiratory Pattern Blood Pressure Blood Pressure Mean Pulse Ox 98 Oxygen Delivery Method [facility] <CATRACHITO Ford - Last Filed: 06/17/23 19:32> [facility] Narrative Medical decision making narrative: History gathered from: Patient and son Patient woke up on the kitchen floor with signs of head injury. No preceding symptoms, likely syncopal event. Arrives awake and alert, stable vital signs, GCS 15. Has hematoma and lacerations to the right parietal temporal region in the left occipital region. No other injuries noted. Neurologically intact. CT brain on my interpretation shows a traumatic posterior intracranial hemorrhage with no midline shift. CT read as posterior cell lower subarachnoid hemorrhage with left subdural hematoma along the left tentorium and posterior falx. Cervical spine shows no acute fracture or abnormalities patient would like to be transferred to [facility] for trauma evaluation. I discussed the case with [facility] ED physician, Dr. Sandra, who accepted the patient. After cleansing patient's wounds she has a large bruise developing in the right frontotemporal area but no laceration. There is a 2 cm left occipital laceration that was closed with 3 clement. Tetanus updated here. White count is 13.0, hemoglobin 14.9. Normal electrolytes, creatinine 1.17. Glucose 199 with normal CO2 and anion gap. Initially D-dimer was ordered due to syncope and it is elevated but I elected to defer CTA scan in light of her intracranial hemorrhage. UA shows no acute process. 35 minutes of critical care time was used by evaluation patient, discussion with multiple consultants, treatment and planning, reevaluation of patient. Lab Data Attestation: I reviewed the patient's lab results. Labs: Laboratory Results - last 24 hr 06/17/23 06/17/23 18:00 19:06 WBC 13.0 H RBC 5.13 Hgb 14.9 Hct 44.6 MCV 86.9 MCH 29.0 MCHC 33.4 RDW Std Deviation 44.0 H RDW Coeff of Hortencia 13.6 Plt Count 265 MPV 9.9 Immature Gran % (Auto) 0.300 Neut % (Auto) 91.4 H Lymph % (Auto) 4.7 L [place] % (Auto) 3.3 Eos % (Auto) 0.0 Baso % (Auto) 0.3 Absolute Neuts (auto) 11.9 H Absolute Lymphs (auto) 0.61 L Nucleated RBC % 0 D-Dimer Quant (PE/DVT) 4.65 H* Sodium 145 Potassium 3.5 Chloride 109 H Carbon Dioxide 23.0 Anion Gap 13 BUN 20 H Creatinine 1.17 H Estim Creat Clear Calc 26.63 Est GFR (MDRD) Af Amer 57 L Est GFR (MDRD) Non-Af 47 L BUN/Creatinine Ratio 17.1 Glucose 199 H Calcium 10.2 H Troponin I High Sens 19 Urine Color Yellow Urine Clarity Clear Urine pH 5.0 Ur Specific [place] 1.025 Urine Protein 15 H Urine Glucose (UA) 100 H Urine Ketones 15 H Urine Occult Blood 25 H Urine Nitrite Negative Urine Bilirubin Negative Urine Urobilinogen Normal Ur Leukocyte Esterase Negative Urine RBC 0 SEEN Urine WBC 0 SEEN Ur Squamous Epith Cells 0-5 SEEN Amorphous Sediment 2+ Urine Bacteria 0 SEEN Urine Mucus 0 SEEN Radiography Diagnostic Testing: Clinical Impression(s) from Imaging Studies Brain CT 06/17/23 17:48 IMPRESSION: Posterior cerebellar cortical subarachnoid hemorrhage with left subdural hematoma along the left tentorium and posterior falx. Follow-up recommended to evaluate stability. Underlying chronic changes as described. No skull fracture. Scalp swelling/hematoma with minimal left posterior laceration. Electronically Signed: Grace Jones MD at 19:17 EST Reading Location ID and State: [id number] / [employer] , Service support , Cervical Spine CT 06/17/23 17:48 IMPRESSION: Degenerative disease, more severe from C5 to C7 with no acute fracture or subluxation. Electronically Signed: Grace Jones MD at 19:21 EST Reading Location ID and State: [id number] / [employer] , Service support , Chest X-Ray 06/17/23 18:10 IMPRESSION: No acute cardiopulmonary disease. Electronically Signed: Grace Jones MD at 18:41 EST Reading Location ID and State: [id number] / [employer] , Service support , ED attending interpretation of 1-view chest x-ray shows normal heart size, no displaced rib fractures or pneumothorax. EKG Initial EKG: Attestation: I personally reviewed and interpreted this EKG as follows: Interpretation: Sinus Rhythm and No Acute Injury Pattern Comments: Normal sinus rhythm at 87 bpm, left axis deviation No STEMI criteria <Dr. Raj Rees MD - Last Filed: 06/17/23 19:52> MDM History & Record Review Additional record(s) reviewed:: Prior outpatient record (Prior paroxysmal SVT and ventricular tachycardia) Lab Data Labs: Laboratory Results - last 24 hr 06/17/23 06/17/23 18:00 19:06 WBC 13.0 H RBC 5.13 Hgb 14.9 Hct 44.6 MCV 86.9 MCH 29.0 MCHC 33.4 RDW Std Deviation 44.0 H RDW Coeff of Hortencia 13.6 Plt Count 265 MPV 9.9 Immature Gran % (Auto) 0.300 Neut % (Auto) 91.4 H Lymph % (Auto) 4.7 L [place] % (Auto) 3.3 Eos % (Auto) 0.0 Baso % (Auto) 0.3 Absolute Neuts (auto) 11.9 H Absolute Lymphs (auto) 0.61 L Nucleated RBC % 0 D-Dimer Quant (PE/DVT) 4.65 H* Sodium 145 Potassium 3.5 Chloride 109 H Carbon Dioxide 23.0 Anion Gap 13 BUN 20 H Creatinine 1.17 H Estim Creat Clear Calc 26.63 Est GFR (MDRD) Af Amer 57 L Est GFR (MDRD) Non-Af 47 L BUN/Creatinine Ratio 17.1 Glucose 199 H Calcium 10.2 H Troponin I High Sens 19 Urine Color Yellow Urine Clarity Clear Urine pH 5.0 Ur Specific [place] 1.025 Urine Protein 15 H Urine Glucose (UA) 100 H Urine Ketones 15 H Urine Occult Blood 25 H Urine Nitrite Negative Urine Bilirubin Negative Urine Urobilinogen Normal Ur Leukocyte Esterase Negative Urine RBC 0 SEEN Urine WBC 0 SEEN Ur Squamous Epith Cells 0-5 SEEN Amorphous Sediment 2+ Urine Bacteria 0 SEEN Urine Mucus 0 SEEN Radiography Diagnostic Testing: Clinical Impression(s) from Imaging Studies Brain CT 06/17/23 17:48 IMPRESSION: Posterior cerebellar cortical subarachnoid hemorrhage with left subdural hematoma along the left tentorium and posterior falx. Follow-up recommended to evaluate stability. Underlying chronic changes as described. No skull fracture. Scalp swelling/hematoma with minimal left posterior laceration. Electronically Signed: Grace Jones MD at 19:17 EST Reading Location ID and State: [id number] [employer] , Service support , Cervical Spine CT 06/17/23 17:48 IMPRESSION: Degenerative disease, more severe from C5 to C7 with no acute fracture or subluxation. Electronically Signed: Grace Jones MD at 19:21 EST Reading Location ID and State: [id number] / [employer] , Service support , Chest X-Ray 06/17/23 18:10 IMPRESSION: No acute cardiopulmonary disease. Electronically Signed: Grace Jones MD at 18:41 EST Reading Location ID and State: [id number] / [employer] , Service support , Management Discussion w/another healthcare provider: Associate Professor Of Library Science Treatment and Re-Evaluation Comments:: I have personally performed a face to face assessment of the patient and have reviewed the EVA Note. I performed a substantive portion of the visit including all aspects of the following. My pichardo findings include: History is apparent syncope without warning. Patient basically states she woke up on the floor not remembering the fall, seeing blood in quickly discovering that she had head injury. She denies any recent illness but subsequently after waking up she had some nausea and an episode of nonbloody diarrhea. She denies any pain or injury to her extremities or abdominal symptoms now. She denies any chest discomfort, shortness of breath, palpitations, she has mild frontal headache. 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 Exam is GCS 15. Exam is benign except for multiple apparent areas of head injury with contusion/hematoma to the right frontotemporal scalp, the hematoma is small and it is not boggy and there is no crepitance or depression, as well as a laceration to the left occiput. Otherwise exam is benign. Medical Decison Making CT head and neck in addition to labs, EKG, D-dimer to evaluate for causes of syncope and keep her on monitor, likely admit if no acute traumatic intracranial injury. CT scan on my interpretation indeed shows acute posterior fossa hemorrhage. There does not appear to be any significant mass effect at this time. Still awaiting radiologist's interpretation but we have discussed with patient and family and already have accepting physician at [facility] and awaiting transport. Patient remains with a GCS of 15, and therefore do not think needs to be intubated at this time. She is on no antiplatelets or anticoagulants that need reversal. Her D-dimer is elevated, we did this and considering pulmonary embolus as cause for her syncope, however we are deferring CT angiography of the chest right now due to need for emergent transfer, as even if she does have a pulmonary embolus we will not be anticoagulating her anytime soon. It is noted from old records that she did have prior diagnosis of paroxysmal SVT and paroxysmal ventricular tachycardia. Other additions or changes: [None] Procedures <Dr. Raj Rees MD - Last Filed: 06/17/23 19:52> Lacerations posterior scalp: Length: 2 cm Depth: Sub Q Shape: Linear Prep: Sterile Conditions and Chlorhexadine Number of Sutures/Clement: 3 (skin clement) <Dr. Raj Rees MD - Last Filed: 06/17/23 19:52> Critical Care Time Critical Care Time: Yes Critical care time (excluding procedures): 30-74 minutes (34 min, not including procedures), Including time spent:, Discussing w/Patient &/or Family/District Branch Manager, Discussing w/Consultants, Arranging Admission or Transfer and Performing Direct Patient Care at Bedside Discharge Plan Triage Chief Complaint: Fall ED Midlevel Provider: Angela Helton ED Provider: Raj Rees Dx/Rx/DC Orders Clinical Impression: Traumatic intracranial hemorrhage, Syncope, Laceration of scalp Prescriptions: No Action aspirin 81 mg tablet,chewable 81 mg PO DAILY@0800 metoprolol succinate 50 mg tablet extended release 24 hr 50 mg PO DAILY@1200 menthol-zinc oxide [Calmoseptine] 0.44-20.6 % ointment 1 applic topical BID Protocol: *Topical Application Instructions APPLICATION INSTRUCTIONS: apply to jorge rectal area icosapent ethyl [Vascepa] 1 gram capsule 2 g PO 0800,1700 Primary Care Provider: Deven Mendoza Referrals: Deven Mendoza MD [Primary Care Provider] - Disposition Disposition: Acute Care Hospital Discharge Location: [facility]
--- NOTE | 2023-06-17 18:10 | RAD_ITS ---
STUDY: X-RAY CHEST REASON FOR EXAM: Female, 82 years old. syncope TECHNIQUE: Single AP portable view of the chest. COMPARISON: 12/13/2019. FINDINGS: The lungs are clear and expanded. There is no demonstrated pleural abnormality. Normal size heart. Normal mediastinum and dany. Normal visualized pulmonary arteries. There is atherosclerotic calcification of the aortic arch with tortuosity. There are diffuse degenerative changes of the visualized thoracic spine. Normal visualized ribs, clavicles, and shoulders. There is no demonstrated abnormality of the visualized soft tissue structures of the upper abdomen. RAD/Chest 1 View (Portable) IMPRESSION: No acute cardiopulmonary disease. Electronically Signed: Grace Jones MD at 18:41 EST ,
[2023-06-17 18:13] LABS: Absolute Lymphocyte Count 0.61 X10^3/uL (0.83-4.51); Absolute Neutrophil Count 11.9 X10^3/uL (2.0-7.7); Basophil# 0.04 X10^3/uL; Basophil% 0.3 % (0-1); Hematocrit 44.6 % (37-47); Hemoglobin 14.9 g/dL (12.0-15.0); Lymphocyte # 0.61 X10^3/ul (0.83-4.51); Lymphocyte % 4.7 % (19-41); Mean Corp Hgb Conc 33.4 g/dL (32-36); Mean Corpuscular Volume 86.9 fL (81-99); Mean Platelet Vol. 9.9 fl (6.2-12.0); Monocyte# 0.43 X10^3/uL; Monocyte% 3.3 % (0-10); NRBC Flagged by Analyzer 0 % (0-5); Neutrophil # 11.85 X10^3/uL (2.7-7.7); Neutrophil % 91.4 % (47-70); Platelet Count 265 K/mm3 (150-450); RBC Distribution Width CV 13.6 % (11.6-14.6); Red Blood Count 5.13 M/mm3 (4.2-5.4)
--- OUTSIDE RECORDS SUMMARY | 2023-06-17 18:27 | XMS RPT_ITS | CCD ---
Author Name Unknown Address [address] [facility] [address] [place] [address] Organization [facility] Care Team Providers Care Finance Mgr Name Role Phone Kelly MARIE, Tommy Cleveland Primary Care Provider Ann FINLEY, Kingsley Cartagena Unavailable Unavailkeysha Mendoza MD, Tommy Cleveland Primary Care Provider Kingsley FINLEY, Ann Cartagena Unavailable Unavailkeysha Mendoza MD, Tommy Cleveland Primary Care Provider Kingsley FINLEY, Ann Cartagena Unavailable Unavailkeysha Wynn RN, Ann Cartagena Unavailable UnavailTOMMY Mcdaniels Primary Care Unavailable TOMMY MENDOZA Referring Unavailable TOMMY MENDOZA Attending Unavailable TOMMY MENDOZA Primary Care Unavailable TOMMY MENDOZA Attending Unavailable TOMMY MENDOZA Primary Care Unavailable TOMMY MENDOZA Primary Care Unavailable TOMMY MENDOZA Attending Unavailable TOMMY MENDOZA Primary Care Unavailable TOMMY MENDOZA Referring Unavailable Allergies Allergy Classification Reported Allergen(s) Allergy Type Date of Onset Reaction(s) Facility (17 sources) benzonatate; Translations: [BENZONATATE] Drug Allergy 8 Other: See Comments [facility] Work Phone: (17 sources) DULoxetine; Translations: [DULOXETINE] Drug Allergy 2 GI Upset [facility] (17 sources) Erythromycin; Translations: [ERYTHROMYCIN] Drug Allergy 2 Other: See Comments [facility] (17 sources) ezetimibe; Translations: [EZETIMIBE] Drug Allergy 9 Myalgia [facility] Work Phone: (17 sources) Fenofibrate; Translations: [FENOFIBRATE MICRONIZED] Drug Allergy 9 Myalgia [facility] Work Phone: (17 sources) gabapentin; Translations: [GABAPENTIN] Drug Allergy 2 GI Upset [facility] (17 sources) Gemfibrozil; Translations: [GEMFIBROZIL] Drug Allergy 9 Other: See Comments [facility] Work Phone: (3 sources) HMG-CoA reductase inhibitor; Translations: [IPROTXA-UHS-UJ A REDUCTASE INHIBITORS] Drug Intolerance 9 Myalgia [facility] Work Phone: (17 sources) influenza A virus A/[place]/2008 (H1N1) antigen / influenza A virus A/ 246823 (H3N2) antigen / influenza B virus B/[place]/60/2 008 antigen / influenza B virus B/[facility]/2 013 antigen; Translations: [INFLUENZA VIRUS VACCINE QS (36 MOS AND UP)] [facility] Naproxen; Translations: [NAPROXEN] Drug Allergy 3 Swelling [facility] (17 sources) Niacin; Translations: [NIACIN] Drug Allergy 1 Itching [facility] (17 sources) Penicillin; Translations: [PENICILLIN] Drug Allergy 2 Other: See [facility] (17 sources) Penicillin G; Translations: [PENICILLIN G] Drug Allergy 2 Other: See Comments [facility] (17 sources) Sulfamethoxazol e; Translations: [SULFAMETHOXAZO LE] Drug Allergy 2 GI Upset [facility] (17 sources) Sulindac; Translations: [SULINDAC] Drug Allergy 2 GI Upset [facility] (17 sources) tiZANidine; Translations: [TIZANIDINE HCL] Drug Allergy 2 Unknown [facility] (17 sources) Vancomycin; Translations: [VANCOMYCIN] Drug Allergy 2 Itching [facility] (3 sources) Influenza Virus Vaccines; Translations: [INFLUENZA VIRUS VACCINES] Drug Allergy 5 [facility] Work Phone: (14 sources) HMG-CoA reductase inhibitor Drug Intolerance 9 Myalgia [facility] Work Phone: (14 sources) Influenza Virus Vaccines Drug Allergy 5 Hives [facility] Work Phone: Medications Current Medications Medication Drug Class(es) Dates Sig (Normalized) Sig (Original) icosapent ethyl 1000 mg oral capsule (18 sources) Start: 06-23-2022 End: 06-23-2023 icosapent ethyl (VASCEPA) 1 gram capsule Indications: Mixed hyperlipidemia Take 2 capsules by mouth twice daily with meals. 360 capsule 3 06/23/2022 06/23/2023 Active Completed/Discontinued Medications Medication Drug Class(es) Dates Sig (Normalized) Sig (Original) acetaminophen 500 mg oral tablet (16 sources) take 2 tablets by mouth every eight hours as needed acetaminophen (TYLENOL) 500 mg tablet Take 1,000 mg by mouth every 8 hours as needed. 0 Active Problems Active Problems Problem Classification Problem Date Documented Da te Episodic/Chronic Acute cerebrovascular disease (16 sources) Hemorrhage into subarachnoid space of neuraxis; Translations: [Nontraumatic subarachnoid hemorrhage, unspecified] Onset: 06-30-2021 07-06-2021 Chronic Allergic reactions (1 source) Inflammatory dermatosis; Translations: [Dermatitis, unspecified] Episodic Chronic kidney disease (20 sources) Chronic kidney disease stage 3; Translations: [CKD (chronic kidney disease) stage 3, GFR 30-59 ml/min] Onset: 07-16-2018 07-06-2021 Chronic Disorders of lipid metabolism (20 sources) Mixed hyperlipidemia; Translations: [Mixed hyperlipidemia] Onset: 07-06-2021 07-06-2021 Chronic Essential hypertension (20 sources) Hypertensive disorder; Translations: [Essential (primary) hypertension] Onset: 05-15-2014 05-09-2021 Chronic Immunizations and screening for infectious disease (1 source) Patient encounter status; Translations: [Encounter for immunization] Episodic Nutritional deficiencies (17 sources) Vitamin D deficiency; Translations: [Vitamin D deficiency, unspecified] Onset: 07-04-2021 07-06-2021 Chronic Occlusion or stenosis of precerebral arteries (18 sources) Right carotid artery stenosis; Translations: [Occlusion and stenosis of right carotid artery] Onset: 12-23-2019 04-08-2021 Chronic Other congenital anomalies (16 sources) Congenital anomaly of limb; 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)] 07-06-2021 Chronic Other hematologic conditions (2 sources) Erythrocytosis; Translations: [Secondary polycythemia] Episodic Other skin disorders (16 sources) Lichen sclerosus et atrophicus; Translations: [Circumscribed scleroderma] Onset: 03-18-2018 03-18-2018 Chronic Past or Other Problems Problem Classification Problem Date Documented Date Episodic/Chronic Diabetes mellitus without complication (20 sources) Prediabetes; Translations: [Prediabetes] Onset: 11-14-2018 11-14-2018 Episodic E Codes: Fall (16 sources) Fall; Translations: [Unspecified fall, initial encounter] Onset: 06-30-2021 07-06-2021 Episodic Intracranial injury (20 sources) Traumatic brain injury; Translations: [Unspecified intracranial injury with loss of consciousness of unspecified duration, initial encounter] Onset: 06-30-2021 07-06-2021 Episodic Other circulatory disease (7 sources) History of subdural hematoma; Translations: [Personal history of other diseases of the circulatory system] Onset: 11-08-2022 Episodic Other hematologic conditions (1 source) Secondary polycythemia; Translations: [Polycythemia] Onset: 11-02-2022 Episodic Other injuries and conditions due to external causes (16 sources) Traumatic injury; Translations: [Injury, unspecified, initial encounter] Onset: 06-30-2021 07-06-2021 Episodic Other non-traumatic joint disorders (16 sources) Hip pain; Translations: [Pain in unspecified hip] Onset: 03-01-2021 03-01-2021 Episodic Skull and face fractures (16 sources) Closed fracture of occipital bone; Translations: [Unspecified fracture of occiput, subsequent encounter for fracture with routine healing] Onset: 06-30-2021 07-06-2021 Episodic Results Test Name Value Interpretation Reference Range Facil ity Vital Signs Date Time Vital Sign Value Performing Clinician Annelise brink 02-16-2023 10:12-0400 Diastolic blood pressure 88 mm[Hg] Tommy Mendoza MD Work Phone: [facility] 02-16-2023 10:12-0400 Systolic blood pressure 138 mm[Hg] Tommy Mendoza MD Work Phone: [facility] 02-16-2023 09:51-0400 Body height 149.9 cm Tommy Mendoza MD Work Phone: [facility] 02-16-2023 09:51-0400 Body weight 47.08 kg Tommy Mendoza MD Work Phone: [facility] 02-16-2023 09:51-0400 Heart rate 60 /min Tommy Mendoza MD Work Phone: [facility] 11-08-2022 10:07-0400 Diastolic blood pressure 86 mm[Hg] Tommy Mendoza MD Work Phone: [facility] 11-08-2022 10:07-0400 Systolic blood pressure 138 mm[Hg] Tommy Mendoza MD Work Phone: [facility] 11-08-2022 09:35-0400 Body height 149.9 cm Tommy Mendoza MD Work Phone: [facility] 11-08-2022 09:35-0400 Body weight 49.9 kg Tommy Mendoza MD Work Phone: [facility] 11-08-2022 09:35-0400 Heart rate 76 /min Tommy Mendoza MD Work Phone: [facility] 11-08-2022 09:35-0400 SaO2% (BldA) [Mass fraction] 90 % Tommy Mendoza MD Work Phone: [facility] 06-15-2022 08:51-0500 Body height 149.9 cm Tommy Mendoza MD Work Phone: [facility] 06-15-2022 08:51-0500 Body weight 51.35 kg Tommy Mendoza MD Work Phone: [facility] 06-15-2022 08:51-0500 Diastolic blood pressure 88 mm[Hg] Tommy Mendoza MD Work Phone: [facility] 06-15-2022 08:51-0500 Heart rate 84 /min Tommy Mendoza MD Work Phone: [facility] 06-15-2022 08:51-0500 SaO2% (BldA) [Mass fraction] 99 % Tommy Mendoza MD Work Phone: [facility] 06-15-2022 08:51-0500 Systolic blood pressure 126 mm[Hg] Tommy Mendoza MD Work Phone: [facility] 12-09-2021 13:23-0400 Body temperature 97 [degF] Tommy Mendoza MD Work Phone: [facility] 12-09-2021 13:23-0400 Body weight 49.44 kg Tommy Mendoza MD Work Phone: [facility] 12-09-2021 13:23-0400 Diastolic blood pressure 80 mm[Hg] Tommy Mendoza MD Work Phone: [facility] 12-09-2021 13:23-0400 Heart rate 72 /min Tommy Mendoza MD Work Phone: [facility] 12-09-2021 13:23-0400 Respiratory rate 20 /min Tommy Mendoza MD Work Phone: [facility] 12-09-2021 13:23-0400 Systolic blood pressure 130 mm[Hg] Tommy Mendoza MD Work Phone: [facility] Encounters Encounter Date Encounter Type Care Provider Facility Start: 04-09-2023 ambulatory Ann Wynn RN Am bulatory Care Management Procedures Date Procedure Procedure Detail Performing Clinician Start: 06-15-2022 [employer] COVI D-19 BIVALENT BOOSTER VACCINE, AGE 12+ YR Tommy Mendoza MD Work Phone: Start: 12-09-2021 Adult depression screening assessment Tommy Mendoza MD Work Phone: Start: 11-02-2020 Adult depression screening assessment Kingsley Juarez RN Plan of Treatment Date Care Activity Detail Author Start: 04-30-2030 Urine microalbumin profile [facility] Start: 11-02-2025 DIABETES SCREEN DIABETES SCREEN [facility] Start: 11-02-2025 Diabetes Screening Diabetes Screenin g [facility] Start: 06-06-2025 DIABETES SCREEN DIABETES SCREEN [facility] Start: 12-06-2024 DIABETES SCREEN DIABETES SCREEN [facility] Start: 08-24-2024 DIABETES SCREEN DIABETES SCREEN [facility] Start: 02-17-2024 Covid-19 Vaccine (6 - Pfizer series) Covid-19 Vaccine (6 - Pfizer series) [facility] Immunizations Immunization Date Immunization Notes Care Provider Payam chavez 03-06-2023 COVID-19 vaccine, ag e 12+ yr, season (PFIZER-BIONTECH) Ann Wynn RN [facility] 06-15-2022 COVID-19 booster vaccine, age 12+ yr, bivalent (PFIZER-BIONTECH) Tommy Mendoza MD Work Phone: [facility] 03-02-2022 COVID-19 original vaccine, age 12+ yr, monovalent (PFIZER-BIONTECH - RBUNO TOP) Tommy Mendoza MD Work Phone: [facility] 01-30-2022 COVID-19 original vaccine, age 12+ yr, monovalent (PFIZER-BIONTECH - BRUNO TOP) Tommy Mendoza MD Work Phone: [facility] 03-23-2021 COVID-19 vaccine, ag e 12+ yr (PFIZER-BIONTECH - PURPLE TOP) Kingsley Juarez RN [facility] 11-04-2020 zoster vaccine recombinant Kingsley Juarez RN [facility] 09-03-2020 COVID-19 vaccine, ag e 12+ yr (PFIZER-BIONTECH - PURPLE TOP) Kingsley Juarez RN [facility] 08-13-2020 COVID-19 vaccine, ag e 12+ yr (PFIZER-BIONTECH - PURPLE TOP) Kingsley Juarez RN [facility] 04-30-2020 tetanus toxoid, redu alistair diphtheria toxoid, and acellular pertussis vaccine, adsorbed Kingsley Juarez RN [facility] 03-25-2015 influenza, seasonal, injectable, preservative free Kingsley Juarez RN [facility] Work Phone: 03-01-2015 influenza, high dose seasonal, preservative-free Kingsley Juarez RN [facility] 11-13-2014 pneumococcal conjuga te vaccine, 13 valent Kingsley Juarez RN [facility] 03-30-2014 influenza, seasonal, injectable Kingsley Juarez RN [facility] 03-08-2013 influenza virus vacc ine, unspecified formulation Kingsley Juarez RN [facility] Work Phone: 11-15-2008 TD(adult) unspecifie d formulation Kingsley Juarez RN [facility] Work Phone: 11-14-2007 pneumococcal polysaccharide vaccine, 23 valent Kingsley Juarez RN [facility] Work Phone: Payers Date Payer Category Payer Medicare [id number] 2018 Private Health Insurance CIG[employer] C IGNA MEDICARE SUPPLEMENT [id number] 2018-Present [phone] [address] [place] [address] Indemnity [id number] 2018 Private Health Insurance CIG[employer] C IGNA MEDICARE SUPPLEMENT [id number] 2018-Present [phone] [address] [place] [address] Indemnity [id number] 2005 Medicare MEDICARE MEDICAR E A AND B [id number] 2005-Present [phone] [place] [address] Medicare [id number] 2005 Medicare MEDICARE MEDICAR E A AND B [id number] 2005-Present [phone] [place] [address] Medicare [id number] 2005 Medicare [id number] Social History Date Type Detail Facility Start: 07-26-2015 End: 06-15-2022 Tobacco smoking status NHIS Ex-smoker [facility] Start: 09-08-2021 End: 02-16-2023 Alcohol intake Current non-drinker of alcohol (finding) [facility] Start: 11-02-2020 End: 05-07-2021 History SDOH Alcohol Binge 1 [facility] Start: 11-02-2020 History SDOH Social Connections Phone 5 [facility] Start: 11-02-2020 End: 05-07-2021 History SDOH Social Connections Get Together 2 [facility] Start: 11-02-2020 History SDOH Social Connections Living 4 [facility] Start: 11-02-2020 Education 14 [facility] Start: 1940 Sex Assigned At Female [facility] Work Phone: Start: 08-29-2021 End: 12-09-2021 Exposure to SARS-CoV-2 (event) Not sure [facility] History of tobacco use Current smoker [facility] History of tobacco use Cigarette Smoker C [facility] Start: 07-26-2015 End: 11-08-2022 Cigarettes smoked current (pack per day) - Reported 0.3 [facility] Start: 07-26-2015 End: 06-15-2022 Tobacco use and exposure Smokeless tobacco non-user [facility] Start: 11-02-2020 End: 11-08-2022 Social connection and isolation panel [facility] Active Member of [facility] bs or Organizations Not on file [facility] Work Phone: Are you now , , , , never or living with a partner? [facility] How often do you hav e 6 or more drinks on 1 occasion? Never [facility] Do you feel stress - tense, restless, nervous, or anxious, or unable to sleep at night because your mind is troubled all the time - these days [OSQ] Not at all [facility] (I/We) worried wheth er (my/our) food would run out before (I/we) got money to buy more. Never true [facility] In the past 12 month s, was there a time when you were not able to pay the mortgage or rent on time? No [facility] Start: 12-20-2018 Gender identity Identifies as female gender (finding) [facility] Start: 08-08-2018 Sexual orientation Heterosexual (finding) [facility] Work Phone: Goals Date Patient Goal Desired Activity /State Personal health goal Clinical Notes 06-30-2021 to 05-16-2023 Ann Wynn RN - 04/11/2023 9:47 AM Ann Heath RN - 04/10/2023 9:21 AM Ann Heath RN - 04/09/2023 10:40 AM Ann Heath RN - 03/07/2023 2:37 PM EDT Note Date & Type Note Facility 05-16-2023 Note HNO ID: [id number] Author: Ann Wynn RN Service: ? Author Type: Registered Nurse Type: Progress Notes Filed: 05/16/2023 5:48 PM Note Text: CDM Telephonic Outreach Provider Action/FYI CDM: CKD Pt denies symptom changes, concerns or needs. Contacted for: Routine Telephonic Outreach Contact made with patient: Yes Patient identified by name and date of . Discussed care with patient Are you experiencing any new or worsening symptoms you need to talk about today? No Disease Specific Do you check your blood pressure at home? Yes, Enter readings: 116/69 Do you have new or worsening shortness of breath with activity? No Do you feel like you are dehydrated for any reason, including not being able to eat or drink normally, or having less urine/much darker urine than normal for you? No Do you check your daily weight at home? Yes, Have you noticed a sudden gain in weight greater than three pounds in a day or three pounds in a week? No Based on retail sales representative, the following disposition is advised: No symptoms or symptoms present, not severe. Routed to: No Action Needed SHAE Education Provided this Outreach: No Ann Wynn RN May 16, 2023 5:45 PM [facility] 05-15-2023 Note Patient Outreach (AM BC) DOUGIEVIRGINIA Cazares ([id number]) 1940 F [facility] Date Time Provider Department 05/15/23 ANN WYNN During your visit today, we recorded the following information about you: Ann Wynn RN 05/16/2023 5:48 PM Signed CDM Telephonic Outreach Provider Action/FYI CDM: CKD Called Pt to verify symptoms and needs, line was busy, unable to leave a message. Contacted for: Routine Telephonic Outreach Contact made with patient: No, unable to leave message. Will reattempt call Ann Wynn RN May 15, 2023 11:31 AM Ann Wynn RN 05/16/2023 5:48 PM Signed CDM Telephonic Outreach Provider Action/FYI CDM: CKD Pt denies symptom changes, concerns or needs. Contacted for: Routine Telephonic Outreach Contact made with patient: Yes Patient identified by name and date of . Discussed care with patient Are you experiencing any new or worsening symptoms you need to talk about today? No Disease Specific Do you check your blood pressure at home? Yes, Enter readings: 116/69 Do you have new or worsening shortness of breath with activity? No Do you feel like you are dehydrated for any reason, including not being able to eat or drink normally, or having less urine/much darker urine than normal for you? No Do you check your daily weight at home? Yes, Have you noticed a sudden gain in weight greater than three pounds in a day or three pounds in a week? No Based on retail sales representative, the following disposition is advised: No symptoms or symptoms present, not severe. Routed to: No Action Needed SHAE Education Provided this Outreach: No Ann Wynn RN May 16, 2023 5:45 PM Allergies As of Date: 05/15/2023 Noted Allergy Reaction BACTRIM (SULFAMETHOXAZOLE) 05/03/2012 8 - GI Upset Comments: Patient states: Chest pain occurs CLINORIL (SULINDAC) 05/03/2012 8 - GI Upset CYMBALTA (DULOXETINE) 06/30/2021 8 - GI Upset Comments: Patient states: nausea ERYTHROMYCIN 05/03/2012 14 - Other: See Comments Comments: Hearing loss INFLUENZA VIRUS VACCINE QS 2015-1*05/14/2015 4 - Hives INFLUENZA VIRUS VACCINES 05/14/2015 4 - Hives LOPID (GEMFIBROZIL) 10/04/2018 14 - Other: See Comments Comments: Myalgias NAPROXEN 06/06/2012 7 - Swelling NEURONTIN (GABAPENTIN) 05/03/2012 8 - GI Upset NIASPAN (NIACIN) 12/20/2020 9 - Itching Comments: Patient states: extreme itching PENICILLIN 06/30/2021 14 - Other: See Comments Comments: Patient states: face swelling PENICILLIN G 05/03/2012 14 - Other: See Comments Comments: Numbness ZCHAUMO-HBS-OPT REDUCTASE INHIBIT*09/06/2018 17 - Myalgia Comments: Crestor, lipitor, zocor, pravastin, baycol TESSALON (BENZONATATE) 07/16/2017 14 - Other: See Comments Comments: dizziness TRICOR (FENOFIBRATE MICRONIZED) 09/06/2018 17 - Myalgia VANCOMYCIN 05/03/2012 9 - Itching Comments: Patient states: severe itching ZANAFLEX (TIZANIDINE HCL) 05/03/2012 16 - Unknown ZETIA (EZETIMIBE) 04/06/2019 17 - Myalgia Date Reviewed: 02/16/2023 Reviewed by: Shraddha Cuellar - Fully Assessed Reason for Visit: Community Monitoring Outreach [Other] Prescriptions as of 05/16/2023 - icosapent ethyl (VASCEPA) 1 gram capsule Take 2 capsules by mouth twice daily with meals. - metoprolol succinate ER (TOPROL XL) 50 mg 24 hr tablet Take 1 tablet by mouth once daily. - clotrimazole-betamethasone (LOTRISONE) cream Apply 1 application to affected area twice daily. - aspirin, enteric coated (ASPIRIN, ENTERIC COATED) 81 mg EC tablet Take 81 mg by mouth once daily. - acetaminophen (TYLENOL) 500 mg tablet Take 1,000 mg by mouth every 8 hours as needed. 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] 03/18/2018 CKD (chronic kidney disease) stage 3, GFR 30-59*07/16/2018 Left inguinal pain [R10.32] 07/31/2018 04/02/2019 Left leg pain [M79.605] 07/31/2018 04/02/2019 Prediabetes [R73.03] 11/14/2018 Stenosis of right carotid artery [I65.21] 12/23/2019 Acute left-sided low back pain with left-sided *03/01/2021 04/08/2021 Hip pain [M25.559] 03/01/2021 Fall [W19.XXXA] 06/30/2021 Trauma [T14.90XA] 06/30/2021 TBI (traumatic brain injury) ([facility]) [S06.9XAA] 06/30/2021 11/08/2022 Nausea AND vomiting [R11.2] 06/30/2021 07/06/2021 SDH (subdural hematoma) ([facility]) [S06.5XAA] 06/30/2021 11/08/2022 Closed fracture of occipital bone with routine *06/30/2021 SAH (subarachnoid hemorrhage) ([facility]) [I60.9] 06/30/2021 11/08/2022 Vitamin D deficiency [E55.9] 07/04/2021 Lung nodule [R91.1] 07/18/2021 09/08/2021 History of traumatic brain injury [Z87.820] 11/08/2022 History of subdural hematoma [Z86.79] 11/08/2022 Encounter Status:Closed b (more content not included)... [facility] 05-15-2023 Note HNO ID: [id number] Author: Ann Wynn RN Service: ? Author Type: Registered Nurse Type: Progress Notes Filed: 05/16/2023 5:48 PM Note Text: CDM Telephonic Outreach Provider Action/FYI CDM: CKD Called Pt to verify symptoms and needs, line was busy, unable to leave a message. Contacted for: Routine Telephonic Outreach Contact made with patient: No, unable to leave message. Will reattempt call Ann Wynn RN May 15, 2023 11:31 AM [facility] 04-11-2023 Note HNO ID: [id number] Author: Ann Wynn RN Service: ? Author Type: Registered Nurse Type: Progress Notes Filed: 04/11/2023 10:09 AM Note Text: CDM Telephonic Outreach Provider Action/FYI CDM: CKD Pt denies symptom changes, concerns or needs. Contacted for: Routine Telephonic Outreach Contact made with patient: Yes Patient identified by name and date of . Discussed care with patient Are you experiencing any new or worsening symptoms you need to talk about today? No Disease Specific Do you check your blood pressure at home? Yes, Enter readings: Not available Do you have new or worsening shortness of breath with activity? No Do you feel like you are dehydrated for any reason, including not being able to eat or drink normally, or having less urine/much darker urine than normal for you? No Do you check your daily weight at home? Yes, Have you noticed a sudden gain in weight greater than three pounds in a day or three pounds in a week? No Based on retail sales representative, the following disposition is advised: No symptoms or symptoms present, not severe. Routed to: No Action Needed SHAE Education Provided this Outreach: No Ann Wynn RN April 11, 2023 10:03 AM [facility] 04-11-2023 History of Presen t illness Narrative CDM Telephonic Outreach Provider Action/FYI CDM: CKD Pt denies symptom changes, concerns or needs. Contacted for: Routine Telephonic Outreach Contact made with patient: Yes Patient identified by name and date of . Discussed care with patient Are you experiencing any new or worsening symptoms you need to talk about today? No Disease Specific Do you check your blood pressure at home? Yes, Enter readings: Not available Do you have new or worsening shortness of breath with activity? No Do you feel like you are dehydrated for any reason, including not being able to eat or drink normally, or having less urine/much darker urine than normal for you? No Do you check your daily weight at home? Yes, Have you noticed a sudden gain in weight greater than three pounds in a day or three pounds in a week? No Based on retail sales representative, the following disposition is advised: No symptoms or symptoms present, not severe. Routed to: No Action Needed SHAE Education Provided this Outreach: No Ann Wynn RN April 11, 2023 10:03 AM CDM Telephonic Outreach Provider Action/FYI CDM: CKD Called Pt, unable to leave?a message to verify symptom status and needs, line was busy.. Contacted for: Routine Telephonic Outreach Contact made with patient: No, unable to leave message. Will reattempt call Ann Wynn RN April 10, 2023 10:44 AM CDM Telephonic Outreach Provider Action/FYI CDM: CKD Left a message to verify symptom status, instructed to call PCP with any changes in condition?or needs. Contacted for: Routine Telephonic Outreach Contact made with patient: No, left message. Ann Wynn RN April 09, 2023 10:40 AM documented in this encounter [facility] 04-10-2023 Note HNO ID: [id number] Author: Ann Wynn RN Service: ? Author Type: Registered Nurse Type: Progress Notes Filed: 04/11/2023 10:09 AM Note Text: CDM Telephonic Outreach Provider Action/FYI CDM: CKD Called Pt, unable to leave?a message to verify symptom status and needs, line was busy.. Contacted for: Routine Telephonic Outreach Contact made with patient: No, unable to leave message. Will reattempt call Ann Wynn RN April 10, 2023 10:44 AM [facility] 04-09-2023 Note Patient Outreach (AM [facility]) VIRGINIA DUCKWORTH ([id number]) 1940 F [facility] Date Time Provider Department 04/09/23 ANN WYNN During your visit today, we recorded the following information about you: Ann Wynn RN 04/11/2023 10:09 AM Signed CDM Telephonic Outreach Provider Action/FYI CDM: CKD Left a message to verify symptom status, instructed to call PCP with any changes in condition?or needs. Contacted for: Routine Telephonic Outreach Contact made with patient: No, left message. Ann Wynn RN April 09, 2023 10:40 AM Ann Wynn RN 04/11/2023 10:09 AM Signed CDM Telephonic Outreach Provider Action/FYI CDM: CKD Called Pt, unable to leave?a message to verify symptom status and needs, line was busy.. Contacted for: Routine Telephonic Outreach Contact made with patient: No, unable to leave message. Will reattempt call Ann Wynn RN April 10, 2023 10:44 AM Ann Wynn RN 04/11/2023 10:09 AM Signed CDM Telephonic Outreach Provider Action/FYI CDM: CKD Pt denies symptom changes, concerns or needs. Contacted for: Routine Telephonic Outreach Contact made with patient: Yes Patient identified by name and date of . Discussed care with patient Are you experiencing any new or worsening symptoms you need to talk about today? No Disease Specific Do you check your blood pressure at home? Yes, Enter readings: Not available Do you have new or worsening shortness of breath with activity? No Do you feel like you are dehydrated for any reason, including not being able to eat or drink normally, or having less urine/much darker urine than normal for you? No Do you check your daily weight at home? Yes, Have you noticed a sudden gain in weight greater than three pounds in a day or three pounds in a week? No Based on retail sales representative, the following disposition is advised: No symptoms or symptoms present, not severe. Routed to: No Action Needed SHAE Education Provided this Outreach: No Ann Wynn RN April 11, 2023 10:03 AM Allergies As of Date: 04/09/2023 Noted Allergy Reaction BACTRIM (SULFAMETHOXAZOLE) 05/03/2012 8 - GI Upset Comments: Patient states: Chest pain occurs CLINORIL (SULINDAC) 05/03/2012 8 - GI Upset CYMBALTA (DULOXETINE) 06/30/2021 8 - GI Upset Comments: Patient states: nausea ERYTHROMYCIN 05/03/2012 14 - Other: See Comments Comments: Hearing loss INFLUENZA VIRUS VACCINE QS 2015-1*05/14/2015 4 - Hives INFLUENZA VIRUS VACCINES 05/14/2015 4 - Hives LOPID (GEMFIBROZIL) 10/04/2018 14 - Other: See Comments Comments: Myalgias NAPROXEN 06/06/2012 7 - Swelling NEURONTIN (GABAPENTIN) 05/03/2012 8 - GI Upset NIASPAN (NIACIN) 12/20/2020 9 - Itching Comments: Patient states: extreme itching PENICILLIN 06/30/2021 14 - Other: See Comments Comments: Patient states: face swelling PENICILLIN G 05/03/2012 14 - Other: See Comments Comments: Numbness PHMPIUN-FCR-INO REDUCTASE INHIBIT*09/06/2018 17 - Myalgia Comments: Crestor, lipitor, zocor, pravastin, baycol TESSALON (BENZONATATE) 07/16/2017 14 - Other: See Comments Comments: dizziness TRICOR (FENOFIBRATE MICRONIZED) 09/06/2018 17 - Myalgia VANCOMYCIN 05/03/2012 9 - Itching Comments: Patient states: severe itching ZANAFLEX (TIZANIDINE HCL) 05/03/2012 16 - Unknown ZETIA (EZETIMIBE) 04/06/2019 17 - Myalgia Date Reviewed: 02/16/2023 Reviewed by: Shraddha Cuellar - Fully Assessed Reason for Visit: Community Monitoring Outreach [Other] Prescriptions as of 04/11/2023 - icosapent ethyl (VASCEPA) 1 gram capsule Take 2 capsules by mouth twice daily with meals. - metoprolol succinate ER (TOPROL XL) 50 mg 24 hr tablet Take 1 tablet by mouth once daily. - clotrimazole-betamethasone (LOTRISONE) cream Apply 1 application to affected area twice daily. - aspirin, enteric coated (ASPIRIN, ENTERIC COATED) 81 mg EC tablet Take 81 mg by mouth once daily. - acetaminophen (TYLENOL) 500 mg tablet Take 1,000 mg by mouth every 8 hours as needed. 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] 03/18/2018 CKD (chronic kidney disease) stage 3, GFR 30-59*07/16/2018 Left inguinal pain [R10.32] 07/31/2018 04/02/2019 Left leg pain [M79.605] 07/31/2018 04/02/2019 Prediabetes [R73.03] 11/14/2018 Stenosis of right carotid artery [I65.21] 12/23/2019 Acute left-sided low back pain with left-sided *03/01/2021 04/08/2021 Hip pain [M25.559] 03/01/2021 Fall [W19.XXXA] 06/30/2021 Trauma [T14.90XA] 06/30/2021 TBI (traumatic brain injury) (HCC) [S06.9XAA] 06/30/2021 11/08/2022 Nausea AND vomiting [R11.2] 06/30/2021 07/06/2021 SDH (subdural hematoma) (HCC) [S06.5XAA] 06/30/2021 11/08/2022 Clos (more content not included)... [facility] 04-09-2023 Note HNO ID: [id number] Author: Ann Wynn, RN Service: ? Author Type: Registered Nurse Type: Progress Notes Filed: 04/11/2023 10:09 AM Note Text: CDM Telephonic Outreach Provider Action/FYI CDM: CKD Left a message to verify symptom status, instructed to call PCP with any changes in condition?or needs. Contacted for: Routine Telephonic Outreach Contact made with patient: No, left message. Ann Wynn RN April 09, 2023 10:40 AM [facility] 03-07-2023 Note HNO ID: [id number] Author: Ann Wynn RN Service: ? Author Type: Registered Nurse Type: Progress Notes Filed: 03/07/2023 2:44 PM Note Text: CDM Telephonic Outreach Provider Action/FYI CDM: CKD Spk with Pt who reports had a Covid Immunization 03/06/23 Pt noted feels wiped out today, is resting and drinking a lot of fluids. Denies needs or concerns Contacted for: Routine Telephonic Outreach Contact made with patient: Yes Patient identified by name and date of . Discussed care with patient Are you experiencing any new or worsening symptoms you need to talk about today? Yes Based on retail sales representative, the following disposition is advised: No symptoms or symptoms present, not severe. Routed to: No Action Needed SHAE Education Provided this Outreach: No Ann Wynn RN March 07, 2023 2:37 PM [facility] 03-07-2023 History of Presen t illness Narrative CDM Telephonic Outreach Provider Action/FYI CDM: CKD Spk with Pt who reports had a Covid Immunization 03/06/23 Pt noted feels wiped out today, is resting and drinking a lot of fluids. Denies needs or concerns Contacted for: Routine Telephonic Outreach Contact made with patient: Yes Patient identified by name and date of . Discussed care with patient Are you experiencing any new or worsening symptoms you need to talk about today? Yes Based on retail sales representative, the following disposition is advised: No symptoms or symptoms present, not severe. Routed to: No Action Needed SHAE Education Provided this Outreach: No Ann Wynn RN March 07, 2023 2:37 PM documented in this encounter [facility] 03-07-2023 Note Patient Outreach (AM [facility]) DOUGIEVIRGINIA Cazares ([id number]) 1940 F [facility] Date Time Provider Department 03/07/23 ANN WYNNG During your visit today, we recorded the following information about you: Ann Wynn, RN 03/07/2023 2:44 PM Signed CDM Telephonic Outreach Provider Action/FYI CDM: CKD Spk with Pt who reports had a Covid Immunization 03/06/23 Pt noted feels wiped out today, is resting and drinking a lot of fluids. Denies needs or concerns Contacted for: Routine Telephonic Outreach Contact made with patient: Yes Patient identified by name and date of . Discussed care with patient Are you experiencing any new or worsening symptoms you need to talk about today? Yes Based on retail sales representative, the following disposition is advised: No symptoms or symptoms present, not severe. Routed to: No Action Needed SHAE Education Provided this Outreach: No Ann Wynn, TUSHAR March 07, 2023 2:37 PM Allergies As of Date: 03/07/2023 Noted Allergy Reaction BACTRIM (SULFAMETHOXAZOLE) 05/03/2012 8 - GI Upset Comments: Patient states: Chest pain occurs CLINORIL (SULINDAC) 05/03/2012 8 - GI Upset CYMBALTA (DULOXETINE) 06/30/2021 8 - GI Upset Comments: Patient states: nausea ERYTHROMYCIN 05/03/2012 14 - Other: See Comments Comments: Hearing loss INFLUENZA VIRUS VACCINE QS 2015-*05/14/2015 4 - Hives INFLUENZA VIRUS VACCINES 05/14/2015 4 - Hives LOPID (GEMFIBROZIL) 10/04/2018 14 - Other: See Comments Comments: Myalgias NAPROXEN 06/06/2012 7 - Swelling NEURONTIN (GABAPENTIN) 05/03/2012 8 - GI Upset NIASPAN (NIACIN) 12/20/2020 9 - Itching Comments: Patient states: extreme itching PENICILLIN 06/30/2021 14 - Other: See Comments Comments: Patient states: face swelling PENICILLIN G 05/03/2012 14 - Other: See Comments Comments: Numbness [id number] REDUCTASE INHIBIT*09/06/2018 17 - Myalgia Comments: Crestor, lipitor, zocor, pravastin, baycol TESSALON (BENZONATATE) 07/16/2017 14 - Other: See Comments Comments: dizziness TRICOR (FENOFIBRATE MICRONIZED) 09/06/2018 17 - Myalgia VANCOMYCIN 05/03/2012 9 - Itching Comments: Patient states: severe itching ZANAFLEX (TIZANIDINE HCL) 05/03/2012 16 - Unknown ZETIA (EZETIMIBE) 04/06/2019 17 - Myalgia Date Reviewed: 02/16/2023 Reviewed by: Shraddha Cuellar - Fully Assessed Reason for Visit: Community Monitoring Outreach [Other] Prescriptions as of 03/07/2023 - icosapent ethyl (VASCEPA) 1 gram capsule Take 2 capsules by mouth twice daily with meals. - metoprolol succinate ER (TOPROL XL) 50 mg 24 hr tablet Take 1 tablet by mouth once daily. - clotrimazole-betamethasone (LOTRISONE) cream Apply 1 application to affected area twice daily. - aspirin, enteric coated (ASPIRIN, ENTERIC COATED) 81 mg EC tablet Take 81 mg by mouth once daily. - acetaminophen (TYLENOL) 500 mg tablet Take 1,000 mg by mouth every 8 hours as needed. 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] 03/18/2018 CKD (chronic kidney disease) stage 3, GFR 30-59*07/16/2018 Left inguinal pain [R10.32] 07/31/2018 04/02/2019 Left leg pain [M79.605] 07/31/2018 04/02/2019 Prediabetes [R73.03] 11/14/2018 Stenosis of right carotid artery [I65.21] 12/23/2019 Acute left-sided low back pain with left-sided *03/01/2021 04/08/2021 Hip pain [M25.559] 03/01/2021 Fall [W19.XXXA] 06/30/2021 Trauma [T14.90XA] 06/30/2021 TBI (traumatic brain injury) ([facility]) [S06.9XAA] 06/30/2021 11/08/2022 Nausea AND vomiting [R11.2] 06/30/2021 07/06/2021 SDH (subdural hematoma) ([facility]) [S06.5XAA] 06/30/2021 11/08/2022 Closed fracture of occipital bone with routine *06/30/2021 SAH (subarachnoid hemorrhage) ([facility]) [I60.9] 06/30/2021 11/08/2022 Vitamin D deficiency [E55.9] 07/04/2021 Lung nodule [R91.1] 07/18/2021 09/08/2021 History of traumatic brain injury [Z87.820] 11/08/2022 History of subdural hematoma [Z86.79] 11/08/2022 Encounter Status:Closed by ANN WNYN on 03/07/23 [facility] 02-16-2023 Note HNO ID: [id number] Author: Tommy Mendoza MD Service: ? Author Type: Physician Type: Progress Notes Filed: 02/16/2023 10:14 AM Note Text: Patient presents with: 6 Month Exam HPI: Patient presents today for office visit for follow up. Using a cane. No falls. HLD: Tolerating Vascepa. Doing PT exercises . Has seen endo for lipids. Intolerant of other lipid meds. HTN: Monitors BP at home. Home cuff is validate. Stable No chest pain No shortness of breath No palpitations No edema No syncope No headaches No dizziness No new numbness or tingling or weakness. MEDICATIONS: Current Outpatient Medications Medication Sig icosapent ethyl (VASCEPA) 1 gram capsule Take 2 capsules by mouth twice daily with meals. metoprolol succinate ER (TOPROL XL) 50 mg 24 hr tablet Take 1 tablet by mouth once daily. clotrimazole-betamethasone (LOTRISONE) cream Apply 1 application to affected area twice daily. aspirin, enteric coated (ASPIRIN, ENTERIC COATED) 81 mg EC tablet Take 81 mg by mouth once daily. acetaminophen (TYLENOL) 500 mg tablet Take 1,000 mg by mouth every 8 hours as needed. No current facility-administered medications for this visit. ALLERGIES: ALLERGIES Allergen Reactions Bactrim [Sulfametho* GI Upset Patient states: Chest pain occurs Clinoril [Sulindac] GI Upset Cymbalta [Duloxetin* GI Upset Patient states: nausea Erythromycin Other: See Comments Hearing loss Influenza Virus Vac* Hives Influenza Virus Vac* Hives Lopid [Gemfibrozil] Other: See Comments Myalgias Naproxen Swelling Neurontin [Gabapent* GI Upset Niaspan [Niacin] Itching Patient states: extreme itching Penicillin Other: See Comments Patient states: face swelling Penicillin G Other: See Comments Numbness Rpiiclv-Rjr-Cmm Red* Myalgia Crestor, lipitor, zocor, pravastin, baycol Tessalon [Benzonata* Other: See Comments dizziness Tricor [Fenofibrate* Myalgia Vancomycin Itching Patient states: severe itching Zanaflex [Tizanidin* Unknown Zetia [Ezetimibe] Myalgia PAST MEDICAL HISTORY Diagnosis Date Congenital limb anomaly left DVT (deep venous thrombosis) (HCC) 2001 -followed steroid injection Hx of appendectomy 1980 [facility] Hyperlipidemia Polycythemia seen by hematology. work up negative. Vasovagal syncope 02/06/2017 PAST SURGICAL HISTORY Procedure Laterality Date ABDOMINAL SURGERY HX APPENDECTOMY 06/04/1980 [facility] APPENDECTOMY COLONOSCOPY SCRN NOT HIGH RISK 06/09/2020 PAST SURGICAL HISTORY OF 06/04/1980 [facility] FAMILY HISTORY Problem Relation Age of Onset Diabetes Mother AAA Heart Father other (aaa) Sister Stroke Paternal Grandmother Diabetes Paternal Grandfather other (MVA) Son Diabetes Son Hyperlipidemia Son Social History Tobacco Use Smoking status: Former Packs/day: 0.30 Years: 15.00 Additional pack years: 0.00 Total pack years: 4.50 Types: Cigarettes Smokeless tobacco: Never Substance Use Topics Alcohol use: No Drug use: No Reviewed current medications, allergies, past medical history, surgical history, family history and social history today. REVIEW OF SYSTEMS No gi or gu issues. All other reviewed and negative other than HPI. HEALTH MAINTENANCE: Reviewed health maintenance issues today and recommended the following in detail. Covid-19 Vaccine(6 - Pfizer series) due on 10/13/2022 VITALS: BP 138/88 Pulse 60 Ht 149.9 cm (4' 11 ) Wt 47.1 kg (103 lb 12.8 oz) BMI 20.97 kg/m? Last 4 Encounter Wt Readings: Date: Wt: 11/08/2022 49.9 kg (110 lb) 06/15/2022 51.3 kg (113 lb 3.2 oz) 12/09/2021 49.4 kg (109 lb) 09/08/2021 49 kg (108 lb) PHYSICAL EXAMINATION: General appearance: Well appearing, alert, in no acute distress, well-hydrated, well nourished. Skin: Skin color, texture, turgor normal, no suspicious rashes or lesions Head: Normocephalic, no masses, lesions, tenderness or abnormalities Lungs: Lungs clear to auscultation. No wheezing, rhonchi, rales Heart: RRR without murmur, gallop, or rubs. No ectopy Abdomen: Normal abdominal exam, Abdomen soft, non-tender. Bowel sounds normal. No masses, organomegaly Extremities: No deformities, edema, skin discoloration, clubbing or cyanosis. Good capillary refill. ASSESSMENT/PLAN: 1. Mixed hyperlipidemia - ICD9: 272.2, ICD10: E78.2 (primary diagnosis) - as good as can be - stable. 2. Hypertension, unspecified type - ICD9: 401.9, ICD10: I10 - Home blood pressure readings controlled - Recommend home blood pressure monitoring, to bring results to next visit - Encouraged sodium restriction, DASH or Mediterranean diet - Recommend regular aerobic exercise - does have white coat syndrome. Continue to follow at home and continue meds. - CBC + DIFF - COMP METABOLIC PANEL - LIPID PANEL BASIC 3. Stage 3 chronic kidney disease, unspecified whether stage 3a or 3b CKD (HCC) - ICD9: 585.3, ICD10: N18.30 - get (more content not included)... [facility] 02-16-2023 History of Presen t illness Narrative Patient presents with: 6 Month Exam HPI: Patient presents today for office visit for follow up. Using a cane. No falls. HLD: Tolerating Vascepa. Doing PT exercises . Has seen endo for lipids. Intolerant of other lipid meds. HTN: Monitors BP at home. Home cuff is validate. Stable No chest pain No shortness of breath No palpitations No edema No syncope No headaches No dizziness No new numbness or tingling or weakness. MEDICATIONS: Current Outpatient Medications Medication Sig icosapent ethyl (VASCEPA) 1 gram capsule Take 2 capsules by mouth twice daily with meals. metoprolol succinate ER (TOPROL XL) 50 mg 24 hr tablet Take 1 tablet by mouth once daily. clotrimazole-betamethasone (LOTRISONE) cream Apply 1 application to affected area twice daily. aspirin, enteric coated (ASPIRIN, ENTERIC COATED) 81 mg EC tablet Take 81 mg by mouth once daily. acetaminophen (TYLENOL) 500 mg tablet Take 1,000 mg by mouth every 8 hours as needed. No current facility-administered medications for this visit. ALLERGIES: ALLERGIES Allergen Reactions Bactrim [Sulfametho* GI Upset Patient states: Chest pain occurs Clinoril [Sulindac] GI Upset Cymbalta [Duloxetin* GI Upset Patient states: nausea Erythromycin Other: See Comments Hearing loss Influenza Virus Vac* Hives Influenza Virus Vac* Hives Lopid [Gemfibrozil] Other: See Comments Myalgias Naproxen Swelling Neurontin [Gabapent* GI Upset Niaspan [Niacin] Itching Patient states: extreme itching Penicillin Other: See Comments Patient states: face swelling Penicillin G Other: See Comments Numbness Mtrffbi-Ubq-Yyq Red* Myalgia Crestor, lipitor, zocor, pravastin, baycol Tessalon [Benzonata* Other: See Comments dizziness Tricor [Fenofibrate* Myalgia Vancomycin Itching Patient states: severe itching Zanaflex [Tizanidin* Unknown Zetia [Ezetimibe] Myalgia PAST MEDICAL HISTORY Diagnosis Date Congenital limb anomaly left DVT (deep venous thrombosis) (HCC) 2001 -followed steroid injection Hx of appendectomy 1980 [facility] Hyperlipidemia Polycythemia seen by hematology. work up negative. Vasovagal syncope 02/06/2017 PAST SURGICAL HISTORY Procedure Laterality Date ABDOMINAL SURGERY HX APPENDECTOMY 06/04/1980 [facility] APPENDECTOMY COLONOSCOPY SCRN NOT HIGH RISK 06/09/2020 PAST SURGICAL HISTORY OF 06/04/1980 [facility] FAMILY HISTORY Problem Relation Age of Onset Diabetes Mother AAA Heart Father other (aaa) Sister Stroke Paternal Grandmother Diabetes Paternal Grandfather other (MVA) Son Diabetes Son Hyperlipidemia Son Social History Tobacco Use Smoking status: Former Packs/day: 0.30 Years: 15.00 Additional pack years: 0.00 Total pack years: 4.50 Types: Cigarettes Smokeless tobacco: Never Substance Use Topics Alcohol use: No Drug use: No Reviewed current medications, allergies, past medical history, surgical history, family history and social history today. REVIEW OF SYSTEMS No gi or gu issues. All other reviewed and negative other than HPI. HEALTH MAINTENANCE: Reviewed health maintenance issues today and recommended the following in detail. Covid-19 Vaccine(6 - Pfizer series) due on 10/13/2022 VITALS: BP 138/88 Pulse 60 Ht 149.9 cm (4' 11 ) Wt 47.1 kg (103 lb 12.8 oz) BMI 20.97 kg/m Last 4 Encounter Wt Readings: Date: Wt: 11/08/2022 49.9 kg (110 lb) 06/15/2022 51.3 kg (113 lb 3.2 oz) 12/09/2021 49.4 kg (109 lb) 09/08/2021 49 kg (108 lb) PHYSICAL EXAMINATION: General appearance: Well appearing, alert, in no acute distress, well-hydrated, well nourished. Skin: Skin color, texture, turgor normal, no suspicious rashes or lesions Head: Normocephalic, no masses, lesions, tenderness or abnormalities Lungs: Lungs clear to auscultation. No wheezing, rhonchi, rales Heart: RRR without murmur, gallop, or rubs. No ectopy Abdomen: Normal abdominal exam, Abdomen soft, non-tender. Bowel sounds normal. No masses, organomegaly Extremities: No deformities, edema, skin discoloration, clubbing or cyanosis. Good capillary refill. ASSESSMENT/PLAN: 1. Mixed hyperlipidemia - ICD9: 272.2, ICD10: E78.2 (primary diagnosis) - as good as can be - stable. 2. Hypertension, unspecified type - ICD9: 401.9, ICD10: I10 - Home blood pressure readings controlled - Recommend home blood pressure monitoring, to bring results to next visit - Encouraged sodium restriction, DASH or Mediterranean diet - Recommend regular aerobic exercise - does have white coat syndrome. Continue to follow at home and continue meds. - CBC + DIFF - COMP METABOLIC PANEL - LIPID PANEL BASIC 3. Stage 3 chronic kidney disease, unspecified whether stage 3a or 3b CKD (HCC) - ICD9: 585.3, ICD10: N18.30 - get labs in three months. - COMP METABOLIC PANEL Tommy Mendoza MD documented in this encounter [facility] 02-13-2023 Note HNO ID: [id number] Author: Ann Wynn RN Service: ? Author Type: Registered Nurse Type: Progress Notes Filed: 02/13/2023 11:06 AM Note Text: CDM Telephonic Outreach Provider Action/FYI CDM: CKD Pt denies new or worsening symptoms or needs,? BP 104/63, wt 118 lbs Instructed to call PCP with any changes in?symptoms or concerns. Pt verbalized understanding.? Pt noted appreciation for call. Contacted for: Routine Telephonic Outreach Contact made with patient: Yes Patient identified by name and date of . Discussed care with patient Are you experiencing any new or worsening symptoms you need to talk about today? No Disease Specific Do you check your blood pressure at home? Yes, Enter readings: BP 104/63 Do you have new or worsening shortness of breath with activity? No Do you feel like you are dehydrated for any reason, including not being able to eat or drink normally, or having less urine/much darker urine than normal for you? No Do you check your daily weight at home? Yes, Have you noticed a sudden gain in weight greater than three pounds in a day or three pounds in a week? No Based on retail sales representative, the following disposition is advised: No symptoms or symptoms present, not severe. Routed to: No Action Needed SHAE Education Provided this Outreach: No Ann Wynn RN February 13, 2023 10:43 AM [facility] 02-13-2023 History of Presen t illness Narrative CDM Telephonic Outreach Provider Action/FYI CDM: CKD Pt denies new or worsening symptoms or needs,? BP 104/63, wt 118 lbs Instructed to call PCP with any changes in?symptoms or concerns. Pt verbalized understanding.? Pt noted appreciation for call. Contacted for: Routine Telephonic Outreach Contact made with patient: Yes Patient identified by name and date of . Discussed care with patient Are you experiencing any new or worsening symptoms you need to talk about today? No Disease Specific Do you check your blood pressure at home? Yes, Enter readings: BP 104/63 Do you have new or worsening shortness of breath with activity? No Do you feel like you are dehydrated for any reason, including not being able to eat or drink normally, or having less urine/much darker urine than normal for you? No Do you check your daily weight at home? Yes, Have you noticed a sudden gain in weight greater than three pounds in a day or three pounds in a week? No Based on retail sales representative, the following disposition is advised: No symptoms or symptoms present, not severe. Routed to: No Action Needed SHAE Education Provided this Outreach: No Ann Wynn RN February 13, 2023 10:43 AM CDM Telephonic Outreach Provider Action/FYI CDM: CKD Called Pt, mindy was busy, unable to leave a message to verify symptom status Contacted for: Routine Telephonic Outreach Contact made with patient: No, unable to leave message. Will reattempt call Ann Wynn RN February 09, 2023 2:20 PM documented in this encounter [facility] 02-09-2023 Note HNO ID: [id number] Author: Ann Wynn RN Service: ? Author Type: Registered Nurse Type: Progress Notes Filed: 02/13/2023 11:06 AM Note Text: CDM Telephonic Outreach Provider Action/FYI CDM: CKD Called Pt, line was busy, unable to leave a message to verify symptom status Contacted for: Routine Telephonic Outreach Contact made with patient: No, unable to leave message. Will reattempt call Ann Wynn RN February 09, 2023 2:20 PM [facility] 02-09-2023 Note Patient Outreach (AM [facility]) VIRGINIA DUCKWORTH ([id number]) 1940 F [facility] Date Time Provider Department 02/09/23 ANN WYNN [facility] During your visit today, we recorded the following information about you: Ann Wynn RN 02/13/2023 11:06 AM Signed CDM Telephonic Outreach Provider Action/I CDM: CKD Called Pt, line was busy, unable to leave a message to verify symptom status Contacted for: Routine Telephonic Outreach Contact made with patient: No, unable to leave message. Will reattempt call Ann Wynn RN February 09, 2023 2:20 PM Ann Wynn RN 02/13/2023 11:06 AM Signed CDM Telephonic Outreach Provider Action/ CDM: CKD Pt denies new or worsening symptoms or needs,? BP 104/63, wt 118 lbs Instructed to call PCP with any changes in?symptoms or concerns. Pt verbalized understanding.? Pt noted appreciation for call. Contacted for: Routine Telephonic Outreach Contact made with patient: Yes Patient identified by name and date of . Discussed care with patient Are you experiencing any new or worsening symptoms you need to talk about today? No Disease Specific Do you check your blood pressure at home? Yes, Enter readings: BP 104/63 Do you have new or worsening shortness of breath with activity? No Do you feel like you are dehydrated for any reason, including not being able to eat or drink normally, or having less urine/much darker urine than normal for you? No Do you check your daily weight at home? Yes, Have you noticed a sudden gain in weight greater than three pounds in a day or three pounds in a week? No Based on retail sales representative, the following disposition is advised: No symptoms or symptoms present, not severe. Routed to: No Action Needed SHAE Education Provided this Outreach: No Ann Wynn RN February 13, 2023 10:43 AM Allergies As of Date: 02/09/2023 Noted Allergy Reaction BACTRIM (SULFAMETHOXAZOLE) 05/03/2012 8 - GI Upset Comments: Patient states: Chest pain occurs CLINORIL (SULINDAC) 05/03/2012 8 - GI Upset CYMBALTA (DULOXETINE) 06/30/2021 8 - GI Upset Comments: Patient states: nausea ERYTHROMYCIN 05/03/2012 14 - Other: See Comments Comments: Hearing loss INFLUENZA VIRUS VACCINE QS 2015-1*05/14/2015 4 - Hives INFLUENZA VIRUS VACCINES 05/14/2015 4 - Hives LOPID (GEMFIBROZIL) 10/04/2018 14 - Other: See Comments Comments: Myalgias NAPROXEN 06/06/2012 7 - Swelling NEURONTIN (GABAPENTIN) 05/03/2012 8 - GI Upset NIASPAN (NIACIN) 12/20/2020 9 - Itching Comments: Patient states: extreme itching PENICILLIN 06/30/2021 14 - Other: See Comments Comments: Patient states: face swelling PENICILLIN G 05/03/2012 14 - Other: See Comments Comments: Numbness [id number] REDUCTASE INHIBIT*09/06/2018 17 - Myalgia Comments: Crestor, lipitor, zocor, pravastin, baycol TESSALON (BENZONATATE) 07/16/2017 14 - Other: See Comments Comments: dizziness TRICOR (FENOFIBRATE MICRONIZED) 09/06/2018 17 - Myalgia VANCOMYCIN 05/03/2012 9 - Itching Comments: Patient states: severe itching ZANAFLEX (TIZANIDINE HCL) 05/03/2012 16 - Unknown ZETIA (EZETIMIBE) 04/06/2019 17 - Myalgia Date Reviewed: 11/08/2022 Reviewed by: Shraddha Cuellar - Fully Assessed Reason for Visit: Community Monitoring Outreach [Other] Prescriptions as of 02/13/2023 - icosapent ethyl (VASCEPA) 1 gram capsule Take 2 capsules by mouth twice daily with meals. - metoprolol succinate ER (TOPROL XL) 50 mg 24 hr tablet Take 1 tablet by mouth once daily. - clotrimazole-betamethasone (LOTRISONE) cream Apply 1 application to affected area twice daily. - aspirin, enteric coated (ASPIRIN, ENTERIC COATED) 81 mg EC tablet Take 81 mg by mouth once daily. - acetaminophen (TYLENOL) 500 mg tablet Take 1,000 mg by mouth every 8 hours as needed. 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] 03/18/2018 CKD (chronic kidney disease) stage 3, GFR 30-59*07/16/2018 Left inguinal pain [R10.32] 07/31/2018 04/02/2019 Left leg pain [M79.605] 07/31/2018 04/02/2019 Prediabetes [R73.03] 11/14/2018 Stenosis of right carotid artery [I65.21] 12/23/2019 Acute left-sided low back pain with left-sided *03/01/2021 04/08/2021 Hip pain [M25.559] 03/01/2021 Fall [W19.XXXA] 06/30/2021 Trauma [T14.90XA] 06/30/2021 TBI (traumatic brain injury) ([facility]) [S06.9XAA] 06/30/2021 11/08/2022 Nausea AND vomiting [R11.2] 06/30/2021 07/06/2021 SDH (subdural hematoma) ([facility]) [S06.5XAA] 06/30/2021 11/08/2022 Closed fracture of occipital bone with routine *06/30/2021 SAH (subarachnoid hemorrhage) ([facility]) [I60.9] 06/30/2021 11/08/2022 Vitamin D deficiency [E55.9] 07/04/2021 Lung nodule [R91.1] 07/18/2021 09/08/2021 History of t (more content not included)... [facility] 01-12-2023 Note HNO ID: [id number] Author: Ann Wynn RN Service: ? Author Type: Registered Nurse Type: Progress Notes Filed: 01/12/2023 5:52 PM Note Text: CDM Telephonic Outreach Provider Action/FYI CDM: CKD Spk with Pt she denies new or worsening symptoms Pt prefers monthly calls, would like to discontinue Home monitoring questionnaire, she noted does not go onto My Chart ADL, Falls, Goals completed Contacted for: Engagement Contact made with patient: Yes Patient identified by name and date of . Discussed care with patient Outcomes: Patient switched from [facility] to telephone outreach Are you experiencing any new or worsening symptoms you need to talk about today? No Based on retail sales representative, the following disposition is advised: No symptoms or symptoms present, not severe. Routed to: No Action Needed SHAE Education Provided this Outreach: No Ann Wynn RN January 12, 2023 5:40 PM [facility] 01-12-2023 History of Presen t illness Narrative CDM Telephonic Outreach Provider Action/FYI CDM: CKD Spk with Pt she denies new or worsening symptoms Pt prefers monthly calls, would like to discontinue Home monitoring questionnaire, she noted does not go onto My Chart ADL, Falls, Goals completed Contacted for: Engagement Contact made with patient: Yes Patient identified by name and date of . Discussed care with patient Outcomes: Patient switched from [facility] to telephone outreach Are you experiencing any new or worsening symptoms you need to talk about today? No Based on retail sales representative, the following disposition is advised: No symptoms or symptoms present, not severe. Routed to: No Action Needed SHAE Education Provided this Outreach: No Ann Wynn RN January 12, 2023 5:40 PM CDM Telephonic Outreach Provider Action/FYI CDM: CKD Called Pt, unable to leave a message to verify symptom status, or needs, and to provide My Chart Home Monitoring questionnaire location and updates. Contacted for: Engagement Contact made with patient: No, unable to leave message. Will reattempt call Ann Wynn RN January 11, 2023 3:30 PM documented in this encounter [facility] 01-11-2023 Note HNO ID: [id number] Author: Ann Wynn RN Service: ? Author Type: Registered Nurse Type: Progress Notes Filed: 01/12/2023 5:52 PM Note Text: CDM Telephonic Outreach Provider Action/FYI CDM: CKD Called Pt, unable to leave a message to verify symptom status, or needs, and to provide My Chart Home Monitoring questionnaire location and updates. Contacted for: Engagement Contact made with patient: No, unable to leave message. Will reattempt call Ann Wynn RN January 11, 2023 3:30 PM [facility] 01-11-2023 Note Patient Outreach (AM [facility]) VIRGINIA DUCKWORTH ([id number]) 1940 [facility] Date Time Provider Department 01/11/23 ANN WYNN [facility] During your visit today, we recorded the following information about you: Ann Wynn RN 01/12/2023 5:52 PM Signed CDM Telephonic Outreach Provider Action/FYI CDM: CKD Called Pt, unable to leave a message to verify symptom status, or needs, and to provide My Chart Home Monitoring questionnaire location and updates. Contacted for: Engagement Contact made with patient: No, unable to leave message. Will reattempt call Ann Wynn RN January 11, 2023 3:30 PM Ann Wynn RN 01/12/2023 5:52 PM Signed CDM Telephonic Outreach Provider Action/FYI CDM: CKD Spk with Pt she denies new or worsening symptoms Pt prefers monthly calls, would like to discontinue Home monitoring questionnaire, she noted does not go onto My Chart ADL, Falls, Goals completed Contacted for: Engagement Contact made with patient: Yes Patient identified by name and date of . Discussed care with patient Outcomes: Patient switched from [facility] to telephone outreach Are you experiencing any new or worsening symptoms you need to talk about today? No Based on retail sales representative, the following disposition is advised: No symptoms or symptoms present, not severe. Routed to: No Action Needed SHAE Education Provided this Outreach: Candace Wynn RN January 12, 2023 5:40 PM Allergies As of Date: 01/11/2023 Noted Allergy Reaction BACTRIM (SULFAMETHOXAZOLE) 05/03/2012 8 - GI Upset Comments: Patient states: Chest pain occurs CLINORIL (SULINDAC) 05/03/2012 8 - GI Upset CYMBALTA (DULOXETINE) 06/30/2021 8 - GI Upset Comments: Patient states: nausea ERYTHROMYCIN 05/03/2012 14 - Other: See Comments Comments: Hearing loss INFLUENZA VIRUS VACCINE QS 2015-1*05/14/2015 4 - Hives INFLUENZA VIRUS VACCINES 05/14/2015 4 - Hives LOPID (GEMFIBROZIL) 10/04/2018 14 - Other: See Comments Comments: Myalgias NAPROXEN 06/06/2012 7 - Swelling NEURONTIN (GABAPENTIN) 05/03/2012 8 - GI Upset NIASPAN (NIACIN) 12/20/2020 9 - Itching Comments: Patient states: extreme itching PENICILLIN 06/30/2021 14 - Other: See Comments Comments: Patient states: face swelling PENICILLIN G 05/03/2012 14 - Other: See Comments Comments: Numbness [id number] REDUCTASE INHIBIT*09/06/2018 17 - Myalgia Comments: Crestor, lipitor, zocor, pravastin, baycol TESSALON (BENZONATATE) 07/16/2017 14 - Other: See Comments Comments: dizziness TRICOR (FENOFIBRATE MICRONIZED) 09/06/2018 17 - Myalgia VANCOMYCIN 05/03/2012 9 - Itching Comments: Patient states: severe itching ZANAFLEX (TIZANIDINE HCL) 05/03/2012 16 - Unknown ZETIA (EZETIMIBE) 04/06/2019 17 - Myalgia Date Reviewed: 11/08/2022 Reviewed by: Shraddha Cuellar - Fully Assessed Reason for Visit: Community Monitoring Outreach [Other] Prescriptions as of 01/16/2023 - icosapent ethyl (VASCEPA) 1 gram capsule Take 2 capsules by mouth twice daily with meals. - metoprolol succinate ER (TOPROL XL) 50 mg 24 hr tablet Take 1 tablet by mouth once daily. - clotrimazole-betamethasone (LOTRISONE) cream Apply 1 application to affected area twice daily. - aspirin, enteric coated (ASPIRIN, ENTERIC COATED) 81 mg EC tablet Take 81 mg by mouth once daily. - acetaminophen (TYLENOL) 500 mg tablet Take 1,000 mg by mouth every 8 hours as needed. 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] 03/18/2018 CKD (chronic kidney disease) stage 3, GFR 30-59*07/16/2018 Left inguinal pain [R10.32] 07/31/2018 04/02/2019 Left leg pain [M79.605] 07/31/2018 04/02/2019 Prediabetes [R73.03] 11/14/2018 Stenosis of right carotid artery [I65.21] 12/23/2019 Acute left-sided low back pain with left-sided *03/01/2021 04/08/2021 Hip pain [M25.559] 03/01/2021 Fall [W19.XXXA] 06/30/2021 Trauma [T14.90XA] 06/30/2021 TBI (traumatic brain injury) ([facility]) [S06.9XAA] 06/30/2021 11/08/2022 Nausea AND vomiting [R11.2] 06/30/2021 07/06/2021 SDH (subdural hematoma) ([facility]) [S06.5XAA] 06/30/2021 11/08/2022 Closed fracture of occipital bone with routine *06/30/2021 SAH (subarachnoid hemorrhage) ([facility]) [I60.9] 06/30/2021 11/08/2022 Vitamin D deficiency [E55.9] 07/04/2021 Lung nodule [R91.1] 07/18/2021 09/08/2021 History of traumatic brain injury [Z87.820] 11/08/2022 History of subdural hematoma [Z86.79] 11/08/2022 Encounter Status:Closed by ANN WNYN on 01/12/23 [facility] 11-08-2022 Note HNO ID: [id number] Author: Tommy Mendoza MD Service: ? Author Type: Physician Type: Progress Notes Filed: 11/08/2022 10:12 AM Note Text: Patient presents with: 6 Month Exam HPI: Patient presents today for office visit for follow up. HTN: Monitors BP at home Stable No chest pain No shortness of breath No palpitations No edema No syncope No headaches No dizziness HLD: Tolerating Vascepa. Exercises daily. Watching her meds. Has seen endo in the past for same due to severe numbers and intolerances. Has dramatically improved her numbers. Using a cane. No falls. Renal function is stable. Cbc is slightly up. But has been that way in the past. Improves with hydration. Component Latest Ref Rng AND Units 11/02/2022 WBC 3.70 - 11.00 k/uL 5.11 RBC 3.90 - 5.20 m/uL 5.32 (H) Hemoglobin 11.5 - 15.5 g/dL 15.6 (H) Hematocrit 36.0 - 46.0 % 46.8 (H) MCV 80.0 - 100.0 fL 88.0 MCH 26.0 - 34.0 pg 29.3 MCHC 30.5 - 36.0 g/dL 33.3 RDW-CV 11.5 - 15.0 % 14.2 Platelet Count 150 - 400 k/uL 224 MPV 9.0 - 12.7 fL 10.7 Neut% % 46.4 Abs Neut (ANC) 1.45 - 7.50 k/uL 2.37 Lymph% % 38.9 Abs Lymph 1.00 - 4.00 k/uL 1.99 Kay% % 8.4 Abs Kay <0.87 k/uL 0.43 Eosin% % 5.3 Abs Eosin <0.46 k/uL 0.27 Baso% % 0.8 Abs Baso <0.11 k/uL 0.04 Immature Gran % % 0.2 IMMATURE GRANS (ABS) <0.10 k/uL <0.03 NRBC /100 WBC 0.0 Absolute nRBC <0.01 k/uL <0.01 DTYPE Auto Protein, Total 6.3 - 8.0 g/dL 7.1 Albumin 3.9 - 4.9 g/dL 4.5 Calcium 8.5 - 10.2 mg/dL 9.5 Bilirubin, Total 0.2 - 1.3 mg/dL 0.4 Alkaline Phosphatase 34 - 123 U/L 66 AST 13 - 35 U/L 18 ALT 7 - 38 U/L 11 Glucose 74 - 99 mg/dL 107 (H) BUN 7 - 21 mg/dL 19 Creatinine 0.58 - 0.96 mg/dL 1.00 (H) Sodium 136 - 144 mmol/L 141 Potassium 3.7 - 5.1 mmol/L 3.8 Chloride 97 - 105 mmol/L 107 (H) CO2 22 - 30 mmol/L 25 Anion Gap 9 - 18 mmol/L 9 eGFR >=60 mL/min/1.73mA? 57 (L) Cholesterol, Total <200 mg/dL 271 (H) Triglyceride <150 mg/dL 370 (H) HDL Cholesterol >39 mg/dL 35 (L) Non HDL Cholesterol <130 mg/dL 236 (H) Fasting Time hrs 10 VLDL Cholesterol <30 mg/dL 74 (H) TC:HDL Ratio <5.10 7.74 (H) LDL Cholesterol <100 mg/dL 162 (H) LDL:HDL Ratio <2.54 4.63 (H) Hemoglobin A1C 4.3 - 5.6 % 5.6 Estimated Average Glucose mg/dL 114 MEDICATIONS: Current Outpatient Medications Medication Sig icosapent ethyl (VASCEPA) 1 gram capsule Take 2 capsules by mouth twice daily with meals. metoprolol succinate ER (TOPROL XL) 50 mg 24 hr tablet Take 1 tablet by mouth once daily. clotrimazole-betamethasone (LOTRISONE) cream Apply 1 application to affected area twice daily. aspirin, enteric coated (ASPIRIN, ENTERIC COATED) 81 mg EC tablet Take 81 mg by mouth once daily. acetaminophen (TYLENOL) 500 mg tablet Take 1,000 mg by mouth every 8 hours as needed. No current facility-administered medications for this visit. ALLERGIES: ALLERGIES Allergen Reactions Bactrim [Sulfametho* GI Upset Patient states: Chest pain occurs Clinoril [Sulindac] GI Upset Cymbalta [Duloxetin* GI Upset Patient states: nausea Erythromycin Other: See Comments Hearing loss Influenza Virus Vac* Hives Influenza Virus Vac* Hives Lopid [Gemfibrozil] Other: See Comments Myalgias Naproxen Swelling Neurontin [Gabapent* GI Upset Niaspan [Niacin] Itching Patient states: extreme itching Penicillin Other: See Comments Patient states: face swelling Penicillin G Other: See Comments Numbness Chvywfr-Dlt-Xjc Red* Myalgia Crestor, lipitor, zocor, pravastin, baycol Tessalon [Benzonata* Other: See Comments dizziness Tricor [Fenofibrate* Myalgia Vancomycin Itching Patient states: severe itching Zanaflex [Tizanidin* Unknown Zetia [Ezetimibe] Myalgia PAST MEDICAL HISTORY Diagnosis Date Congenital limb anomaly left DVT (deep venous thrombosis) (HCC) 2001 -followed steroid injection Hx of appendectomy 1980 [facility] Hyperlipidemia Polycythemia seen by hematology. work up negative. Vasovagal syncope 02/06/2017 PAST SURGICAL HISTORY Procedure Laterality Date ABDOMINAL SURGERY HX APPENDECTOMY 06/04/1980 [facility] APPENDECTOMY COLONOSCOPY SCRN NOT HIGH RISK 06/09/2020 PAST SURGICAL HISTORY OF 06/04/1980 [facility] FAMILY HISTORY Problem Relation Age of Onset Diabetes Mother AAA Heart Father other (aaa) Sister Stroke Paternal Grandmother Diabetes Paternal Grandfather other (MVA) Son Diabetes Son Hyperlipidemia Son Social History Tobacco Use Smoking status: Former Packs/day: 0.30 Years: 15.00 Pack years: 4.50 Types: Cigarettes Smokeless tobacco: Never Substance Use Topics Alcohol use: No Drug use: No Reviewed current medications, allergies, past medical history, surgical history, family history and social history today. REVIEW OF SYSTEMS All other reviewed and negative other than HPI. HEALTH MAINTENANCE: Reviewed health maintenance issues today and recommende (more content not included)... [facility] 11-08-2022 History of Presen t illness Narrative Patient presents with: 6 Month Exam HPI: Patient presents today for office visit for follow up. HTN: Monitors BP at home Stable No chest pain No shortness of breath No palpitations No edema No syncope No headaches No dizziness HLD: Tolerating Vascepa. Exercises daily. Watching her meds. Has seen endo in the past for same due to severe numbers and intolerances. Has dramatically improved her numbers. Using a cane. No falls. Renal function is stable. Cbc is slightly up. But has been that way in the past. Improves with hydration. Component Latest Ref Rng & Units 11/02/2022 WBC 3.70 - 11.00 k/uL 5.11 RBC 3.90 - 5.20 m/uL 5.32 (H) Hemoglobin 11.5 - 15.5 g/dL 15.6 (H) Hematocrit 36.0 - 46.0 % 46.8 (H) MCV 80.0 - 100.0 fL 88.0 MCH 26.0 - 34.0 pg 29.3 MCHC 30.5 - 36.0 g/dL 33.3 RDW-CV 11.5 - 15.0 % 14.2 Platelet Count 150 - 400 k/uL 224 MPV 9.0 - 12.7 fL 10.7 Neut% % 46.4 Abs Neut (ANC) 1.45 - 7.50 k/uL 2.37 Lymph% % 38.9 Abs Lymph 1.00 - 4.00 k/uL 1.99 Kay% % 8.4 Abs Kay <0.87 k/uL 0.43 Eosin% % 5.3 Abs Eosin <0.46 k/uL 0.27 Baso% % 0.8 Abs Baso <0.11 k/uL 0.04 Immature Gran % % 0.2 IMMATURE GRANS (ABS) <0.10 k/uL <0.03 NRBC /100 WBC 0.0 Absolute nRBC <0.01 k/uL <0.01 DTYPE Auto Protein, Total 6.3 - 8.0 g/dL 7.1 Albumin 3.9 - 4.9 g/dL 4.5 Calcium 8.5 - 10.2 mg/dL 9.5 Bilirubin, Total 0.2 - 1.3 mg/dL 0.4 Alkaline Phosphatase 34 - 123 U/L 66 AST 13 - 35 U/L 18 ALT 7 - 38 U/L 11 Glucose 74 - 99 mg/dL 107 (H) BUN 7 - 21 mg/dL 19 Creatinine 0.58 - 0.96 mg/dL 1.00 (H) Sodium 136 - 144 mmol/L 141 Potassium 3.7 - 5.1 mmol/L 3.8 Chloride 97 - 105 mmol/L 107 (H) CO2 22 - 30 mmol/L 25 Anion Gap 9 - 18 mmol/L 9 eGFR >=60 mL/min/1.73m 57 (L) Cholesterol, Total <200 mg/dL 271 (H) Triglyceride <150 mg/dL 370 (H) HDL Cholesterol >39 mg/dL 35 (L) Non HDL Cholesterol <130 mg/dL 236 (H) Fasting Time hrs 10 VLDL Cholesterol <30 mg/dL 74 (H) TC:HDL Ratio <5.10 7.74 (H) LDL Cholesterol <100 mg/dL 162 (H) LDL:HDL Ratio <2.54 4.63 (H) Hemoglobin A1C 4.3 - 5.6 % 5.6 Estimated Average Glucose mg/dL 114 MEDICATIONS: Current Outpatient Medications Medication Sig icosapent ethyl (VASCEPA) 1 gram capsule Take 2 capsules by mouth twice daily with meals. metoprolol succinate ER (TOPROL XL) 50 mg 24 hr tablet Take 1 tablet by mouth once daily. clotrimazole-betamethasone (LOTRISONE) cream Apply 1 application to affected area twice daily. aspirin, enteric coated (ASPIRIN, ENTERIC COATED) 81 mg EC tablet Take 81 mg by mouth once daily. acetaminophen (TYLENOL) 500 mg tablet Take 1,000 mg by mouth every 8 hours as needed. No current facility-administered medications for this visit. ALLERGIES: ALLERGIES Allergen Reactions Bactrim [Sulfametho* GI Upset Patient states: Chest pain occurs Clinoril [Sulindac] GI Upset Cymbalta [Duloxetin* GI Upset Patient states: nausea Erythromycin Other: See Comments Hearing loss Influenza Virus Vac* Hives Influenza Virus Vac* Hives Lopid [Gemfibrozil] Other: See Comments Myalgias Naproxen Swelling Neurontin [Gabapent* GI Upset Niaspan [Niacin] Itching Patient states: extreme itching Penicillin Other: See Comments Patient states: face swelling Penicillin G Other: See Comments Numbness Gqgoqac-Atz-Tro Red* Myalgia Crestor, lipitor, zocor, pravastin, baycol Tessalon [Benzonata* Other: See Comments dizziness Tricor [Fenofibrate* Myalgia Vancomycin Itching Patient states: severe itching Zanaflex [Tizanidin* Unknown Zetia [Ezetimibe] Myalgia PAST MEDICAL HISTORY Diagnosis Date Congenital limb anomaly left DVT (deep venous thrombosis) (HCC) 2001 -followed steroid injection Hx of appendectomy 1980 [facility] Hyperlipidemia Polycythemia seen by hematology. work up negative. Vasovagal syncope 02/06/2017 PAST SURGICAL HISTORY Procedure Laterality Date ABDOMINAL SURGERY HX APPENDECTOMY 06/04/1980 [facility] APPENDECTOMY COLONOSCOPY SCRN NOT HIGH RISK 06/09/2020 PAST SURGICAL HISTORY OF 06/04/1980 [facility] FAMILY HISTORY Problem Relation Age of Onset Diabetes Mother AAA Heart Father other (aaa) Sister Stroke Paternal Grandmother Diabetes Paternal Grandfather other (MVA) Son Diabetes Son Hyperlipidemia Son Social History Tobacco Use Smoking status: Former Packs/day: 0.30 Years: 15.00 Pack years: 4.50 Types: Cigarettes Smokeless tobacco: Never Substance Use Topics Alcohol use: No Drug use: No Reviewed current medications, allergies, past medical history, surgical history, family history and social history today. REVIEW OF SYSTEMS All other reviewed and negative other than HPI. HEALTH MAINTENANCE: Reviewed health maintenance issues today and recommended the following in detail. There are no preventive care reminders to display for this patient. VITALS: BP 138/86 Pulse 76 Ht 149.9 cm (4' 11 ) Wt 49.9 kg (110 lb) SpO2 90% BMI 22.22 kg/m Last 4 Encounter Wt Readings: Date: Wt: 06/15/2022 51.3 kg (113 lb 3.2 oz) 12/09/2021 49.4 kg (109 lb) 09/08/2021 49 kg (108 lb) 08/11/2021 48 kg (105 lb 12.8 oz) PHYSICAL EXAMINATION: General appearance: Well appearing, alert, in no acute distress, well-hydrated, well nourished. Skin: Skin color, texture, turgor normal, no suspicious rashes or lesions Head: Normocephalic, no masses, lesions, tenderness or abnormalities Lungs: Lungs clear to auscultation. No wheezing, rhonchi, rales Heart: RRR without murmur, gallop, or rubs. No ectopy Abdomen: Normal abdominal exam, Abdomen soft, non-tender. Bowel sounds normal. No masses, organomegaly Extremities: No deformities, edema, skin discoloration, clubbing or cyanosis. Good capillary refill. ASSESSMENT/PLAN: 1. Mixed hyperlipidemia - ICD9: 272.2, ICD10: E78.2 (primary diagnosis) - continue to work on diet. Intolerant to most meds. Has seen endo for same. - LIPID PANEL BASIC 2. History of traumatic brain injury - ICD9: V15.52, ICD10: Z87.820 - doing well 3. History of subdural hematoma - ICD9: V12.59, ICD10: Z86.79 - doing well. 4. Hypertension, unspecified type - ICD9: 401.9, ICD10: I10 - Controlled - on no meds. Continue to monitor at home. 5. Stage 3 chronic kidney disease, unspecified whether stage 3a or 3b CKD (HCC) - ICD9: 585.3, ICD10: N18.30 - BASIC METABOLIC PNL 6. Prediabetes - ICD9: 790.29, ICD10: R73.03 - HGB A1C 7. Vitamin D deficiency - ICD9: 268.9, ICD10: E55.9 - VITAMIN D 25 HYDROXY Tommy Mendoza MD documented in this encounter [facility] 06-23-2022 Miscellaneous Notes Pt reports she takes two capsules BID. Verify with patient how much taking. One ot two caps bid. Maggie from [employer] calling to clarify directions on Vascepa rx. Rx has 2 sets of directions on it, which does provider want? Reference number is [id number] only good for 24 hours. Please advise documented in this encounter [facility] 06-15-2022 Note HNO ID: [id number] Author: Tommy Mendoza MD Service: ? Author Type: Physician Type: Progress Notes Filed: 06/15/2022 11:03 AM Note Text: Patient presents with: 6 Month Exam HPI: Patient presents today for office visit for follow up. No concerns today. Overall feeling well. HTN: Monitors BP at home Stable No chest pain No shortness of breath No palpitations No edema No syncope No headaches No dizziness HLD: Tolerating Vascepa. Exercises daily. Watching her meds. Has seen endo in the past for same due to severe numbers and intolerances. Has dramatically improved her numbers. Using a cane. No falls. Component Latest Ref Rng AND Units 12/06/2021 Cholesterol, Total <200 mg/dL 334 (H) Triglyceride <150 mg/dL 373 (H) HDL Cholesterol >39 mg/dL 34 (L) Non HDL Cholesterol <130 mg/dL 300 (H) Fasting Time hrs 14 VLDL Cholesterol <30 mg/dL 75 (H) TC:HDL Ratio <5.10 9.82 (H) LDL Cholesterol <100 mg/dL 225 (H) LDL:HDL Ratio <2.54 6.62 (H) Component Latest Ref Rng AND Units 06/06/2022 Glucose 74 - 99 mg/dL 114 (H) BUN 7 - 21 mg/dL 23 (H) Creatinine 0.58 - 0.96 mg/dL 1.07 (H) Sodium 136 - 144 mmol/L 140 Potassium 3.7 - 5.1 mmol/L 4.1 Chloride 97 - 105 mmol/L 105 CO2 22 - 30 mmol/L 24 Anion Gap 9 - 18 mmol/L 11 Calcium 8.5 - 10.2 mg/dL 9.7 eGFR >=60 mL/min/1.73mA? 52 (L) Cholesterol, Total <200 mg/dL 265 (H) Triglyceride <150 mg/dL 186 (H) HDL Cholesterol >39 mg/dL 40 Non HDL Cholesterol <130 mg/dL 225 (H) Fasting Time hrs 13 VLDL Cholesterol <30 mg/dL 37 (H) TC:HDL Ratio <5.10 6.63 (H) LDL Cholesterol <100 mg/dL 188 (H) LDL:HDL Ratio <2.54 4.70 (H) Hemoglobin A1C 4.3 - 5.6 % 5.6 Estimated Average Glucose mg/dL 114 MEDICATIONS: Current Outpatient Medications Medication Sig clotrimazole-betamethasone (LOTRISONE) cream Apply 1 application to affected area twice daily. aspirin, enteric coated (ASPIRIN, ENTERIC COATED) 81 mg EC tablet Take 81 mg by mouth once daily. acetaminophen (TYLENOL) 500 mg tablet Take 1,000 mg by mouth every 8 hours as needed. icosapent ethyl (VASCEPA) 1 gram capsule Take 2 capsules twice daily by mouth metoprolol succinate ER (TOPROL XL) 50 mg 24 hr tablet Take 1 tablet by mouth once daily. No current facility-administered medications for this visit. ALLERGIES: ALLERGIES Allergen Reactions Bactrim [Sulfametho* GI Upset Patient states: Chest pain occurs Clinoril [Sulindac] GI Upset Cymbalta [Duloxetin* GI Upset Patient states: nausea Erythromycin Other: See Comments Hearing loss Influenza Virus Vac* Hives Influenza Virus Vac* Hives Lopid [Gemfibrozil] Other: See Comments Myalgias Naproxen Swelling Neurontin [Gabapent* GI Upset Niaspan [Niacin] Itching Patient states: extreme itching Penicillin Other: See Comments Patient states: face swelling Penicillin G Other: See Comments Numbness Rmdydxz-Zfg-Czi Red* Myalgia Crestor, lipitor, zocor, pravastin, baycol Tessalon [Benzonata* Other: See Comments dizziness Tricor [Fenofibrate* Myalgia Vancomycin Itching Patient states: severe itching Zanaflex [Tizanidin* Unknown Zetia [Ezetimibe] Myalgia PAST MEDICAL HISTORY Diagnosis Date Congenital limb anomaly left DVT (deep venous thrombosis) (HCC) 2001 -followed steroid injection Hx of appendectomy 1980 [facility] Hyperlipidemia Polycythemia seen by hematology. work up negative. Vasovagal syncope 02/06/2017 PAST SURGICAL HISTORY Procedure Laterality Date ABDOMINAL SURGERY HX APPENDECTOMY 06/04/1980 [facility] APPENDECTOMY COLONOSCOPY SCRN NOT HIGH RISK 06/09/2020 PAST SURGICAL HISTORY OF 06/04/1980 [facility] FAMILY HISTORY Problem Relation Age of Onset Diabetes Mother AAA Heart Father other (aaa) Sister Stroke Paternal Grandmother Diabetes Paternal Grandfather other (MVA) Son Diabetes Son Hyperlipidemia Son Social History Tobacco Use Smoking status: Former Packs/day: 0.30 Years: 15.00 Pack years: 4.50 Types: Cigarettes Smokeless tobacco: Never Substance Use Topics Alcohol use: No Drug use: No Reviewed current medications, allergies, past medical history, surgical history, family history and social history today. REVIEW OF SYSTEMS Had carotids checked in summer All other reviewed and negative other than HPI. HEALTH MAINTENANCE: Reviewed health maintenance issues today and recommended the following in detail. COVID-19 VACCINE(5 - Booster for Pfizer series) due on 04/27/2022 ADVANCE DIRECTIVE DISCUSSION-has a dpoa and living will. Her son is her surrogate. DEPRESSION ASSESSMENT Never done VITALS: BP 126/88 Pulse 84 Ht 149.9 cm (4' 11 ) Wt 51.3 kg (113 lb 3.2 oz) SpO2 99% BMI 22.86 kg/m? Last 4 Encounter Wt Readings: Date: Wt: 06/15/2022 51.3 kg (113 lb 3.2 oz) 12/09/2021 49.4 kg (109 lb) 09/08/2021 49 kg (108 lb) 08/11/2021 48 kg (105 lb 12.8 oz) PHYSICAL EXAMINATION: General appeara (more content not included)... [facility] 06-15-2022 History of Presen t illness Narrative Patient presents with: 6 Month Exam HPI: Patient presents today for office visit for follow up. No concerns today. Overall feeling well. HTN: Monitors BP at home Stable No chest pain No shortness of breath No palpitations No edema No syncope No headaches No dizziness HLD: Tolerating Vascepa. Exercises daily. Watching her meds. Has seen endo in the past for same due to severe numbers and intolerances. Has dramatically improved her numbers. Using a cane. No falls. Component Latest Ref Rng & Units 12/06/2021 Cholesterol, Total <200 mg/dL 334 (H) Triglyceride <150 mg/dL 373 (H) HDL Cholesterol >39 mg/dL 34 (L) Non HDL Cholesterol <130 mg/dL 300 (H) Fasting Time hrs 14 VLDL Cholesterol <30 mg/dL 75 (H) TC:HDL Ratio <5.10 9.82 (H) LDL Cholesterol <100 mg/dL 225 (H) LDL:HDL Ratio <2.54 6.62 (H) Component Latest Ref Rng & Units 06/06/2022 Glucose 74 - 99 mg/dL 114 (H) BUN 7 - 21 mg/dL 23 (H) Creatinine 0.58 - 0.96 mg/dL 1.07 (H) Sodium 136 - 144 mmol/L 140 Potassium 3.7 - 5.1 mmol/L 4.1 Chloride 97 - 105 mmol/L 105 CO2 22 - 30 mmol/L 24 Anion Gap 9 - 18 mmol/L 11 Calcium 8.5 - 10.2 mg/dL 9.7 eGFR >=60 mL/min/1.73m 52 (L) Cholesterol, Total <200 mg/dL 265 (H) Triglyceride <150 mg/dL 186 (H) HDL Cholesterol >39 mg/dL 40 Non HDL Cholesterol <130 mg/dL 225 (H) Fasting Time hrs 13 VLDL Cholesterol <30 mg/dL 37 (H) TC:HDL Ratio <5.10 6.63 (H) LDL Cholesterol <100 mg/dL 188 (H) LDL:HDL Ratio <2.54 4.70 (H) Hemoglobin A1C 4.3 - 5.6 % 5.6 Estimated Average Glucose mg/dL 114 MEDICATIONS: Current Outpatient Medications Medication Sig clotrimazole-betamethasone (LOTRISONE) cream Apply 1 application to affected area twice daily. aspirin, enteric coated (ASPIRIN, ENTERIC COATED) 81 mg EC tablet Take 81 mg by mouth once daily. acetaminophen (TYLENOL) 500 mg tablet Take 1,000 mg by mouth every 8 hours as needed. icosapent ethyl (VASCEPA) 1 gram capsule Take 2 capsules twice daily by mouth metoprolol succinate ER (TOPROL XL) 50 mg 24 hr tablet Take 1 tablet by mouth once daily. No current facility-administered medications for this visit. ALLERGIES: ALLERGIES Allergen Reactions Bactrim [Sulfametho* GI Upset Patient states: Chest pain occurs Clinoril [Sulindac] GI Upset Cymbalta [Duloxetin* GI Upset Patient states: nausea Erythromycin Other: See Comments Hearing loss Influenza Virus Vac* Hives Influenza Virus Vac* Hives Lopid [Gemfibrozil] Other: See Comments Myalgias Naproxen Swelling Neurontin [Gabapent* GI Upset Niaspan [Niacin] Itching Patient states: extreme itching Penicillin Other: See Comments Patient states: face swelling Penicillin G Other: See Comments Numbness Ucppeqk-Uih-Yiy Red* Myalgia Crestor, lipitor, zocor, pravastin, baycol Tessalon [Benzonata* Other: See Comments dizziness Tricor [Fenofibrate* Myalgia Vancomycin Itching Patient states: severe itching Zanaflex [Tizanidin* Unknown Zetia [Ezetimibe] Myalgia PAST MEDICAL HISTORY Diagnosis Date Congenital limb anomaly left DVT (deep venous thrombosis) (HCC) 2001 -followed steroid injection Hx of appendectomy 1980 [facility] Hyperlipidemia Polycythemia seen by hematology. work up negative. Vasovagal syncope 02/06/2017 PAST SURGICAL HISTORY Procedure Laterality Date ABDOMINAL SURGERY HX APPENDECTOMY 06/04/1980 [facility] APPENDECTOMY COLONOSCOPY SCRN NOT HIGH RISK 06/09/2020 PAST SURGICAL HISTORY OF 06/04/1980 [facility] FAMILY HISTORY Problem Relation Age of Onset Diabetes Mother AAA Heart Father other (aaa) Sister Stroke Paternal Grandmother Diabetes Paternal Grandfather other (MVA) Son Diabetes Son Hyperlipidemia Son Social History Tobacco Use Smoking status: Former Packs/day: 0.30 Years: 15.00 Pack years: 4.50 Types: Cigarettes Smokeless tobacco: Never Substance Use Topics Alcohol use: No Drug use: No Reviewed current medications, allergies, past medical history, surgical history, family history and social history today. REVIEW OF SYSTEMS Had carotids checked in summer All other reviewed and negative other than HPI. HEALTH MAINTENANCE: Reviewed health maintenance issues today and recommended the following in detail. COVID-19 VACCINE(5 - Booster for Pfizer series) due on 04/27/2022 ADVANCE DIRECTIVE DISCUSSION-has a dpoa and living will. Her son is her surrogate. DEPRESSION ASSESSMENT Never done VITALS: BP 126/88 Pulse 84 Ht 149.9 cm (4' 11 ) Wt 51.3 kg (113 lb 3.2 oz) SpO2 99% BMI 22.86 kg/m Last 4 Encounter Wt Readings: Date: Wt: 06/15/2022 51.3 kg (113 lb 3.2 oz) 12/09/2021 49.4 kg (109 lb) 09/08/2021 49 kg (108 lb) 08/11/2021 48 kg (105 lb 12.8 oz) PHYSICAL EXAMINATION: General appearance: Well appearing, alert, in no acute distress, well-hydrated, well nourished. Skin: Skin color, texture, turgor normal, no suspicious rashes or lesions Head: Normocephalic, no masses, lesions, tenderness or abnormalities Neck: Supple, no adenopathy; thyroid symmetric, normal size, no bruits Lungs: Lungs clear to auscultation. No wheezing, rhonchi, rales Heart: RRR without murmur, gallop, or rubs. No ectopy Abdomen: Normal abdominal exam, Abdomen soft, non-tender. Bowel sounds normal. No masses, organomegaly Extremities: No deformities, edema, skin discoloration, clubbing or cyanosis. Good capillary refill. Musculoskeletal: No joint swelling, deformity, or tenderness Using a cane ASSESSMENT/PLAN: 1. Hypertension, unspecified type - ICD9: 401.9, ICD10: I10 (primary diagnosis) - good control - Continue current medication(s) - Recommended regular aerobic exercise. - Recommend home blood pressure monitoring, to bring results in on next visit - Goal of BP <130/80 - COMP METABOLIC PANEL - LIPID PANEL BASIC 2. Mixed hyperlipidemia - ICD9: 272.2, ICD10: E78.2 - not perfect but is much better. Has failed most other meds and even seen endo - ICOSAPENT ETHYL 1 GRAM CAPSULE - CBC + DIFF - COMP METABOLIC PANEL - LIPID PANEL BASIC 3. Encounter for immunization - ICD9: V03.89, ICD10: Z23 - [employer] COVID-19 BIVALENT BOOSTER VACCINE, AGE 12+ YR 4. Stage 3 chronic kidney disease, unspecified whether stage 3a or 3b CKD ([facility]) - ICD9: 585.3, ICD10: N18.30 - will monitor 5. Polycythemia - ICD9: 238.4, ICD10: D75.1 - will follow - CBC + DIFF 6. Bilateral carotid artery stenosis - ICD9: 433.10, 433.30, ICD10: I65.23 - recheck in summer 7. Prediabetes - ICD9: 790.29, ICD10: R73.03 - HGB A1C 8. Traumatic brain injury, with loss of consciousness of 30 minutes or less, initial encounter ([facility]) - ICD9: 854.02, ICD10: S06.9X1A - stable. Tommy Mendoza RTO in October and prn. documented in this encounter [facility] 05-25-2022 Miscellaneous Notes ? We would have to verify but I am assuming she had bivalent if it was given in February? That would mean she is done for now. documented in this encounter [facility] 05-22-2022 Note HNO ID: [id number] Author: Meredith Cervantes RN Service: ? Author Type: Registered Nurse Type: Progress Notes Filed: 05/22/2022 3:38 PM Note Text: PRIMARY CARE COORDINATION QUICK NOTE Provider Action/FYI: Maximo this is Meredith Cervantes RN your nurse Unemployment Claims Adjudicator. I am calling to provide you with a phone number to connect you with [facility] services. This number is available 7 days a week from 8am-8pm and provides you with one call access to nursing, appointments, and other valuable resources. I can also send this information to your [employer]. Please take the time to write this number down . - DENIES NEEDS OR CONCERNS Patient identified by name and date . [facility] 05-22-2022 Note Patient Outreach ([facility] VIRGINIA DUCKWORTH ([id number]) 1940 F [facility] Date Time Provider Department 05/22/22 MEREDITH CERVANTES During your visit today, we recorded the following information about you: Meredith Cervantes RN 05/22/2022 3:38 PM Signed PRIMARY CARE COORDINATION QUICK NOTE Provider Action/FYI: Maximo this is Meredith Cervantes RN your nurse Unemployment Claims Adjudicator. I am calling to provide you with a phone number to connect you with [facility] services. This number is available 7 days a week from 8am-8pm and provides you with one call access to nursing, appointments, and other valuable resources. I can also send this information to your [employer]. Please take the time to write this number down . - DENIES NEEDS OR CONCERNS Patient identified by name and date . Allergies As of Date: 05/22/2022 Noted Allergy Reaction BACTRIM (SULFAMETHOXAZOLE) 05/03/2012 8 - GI Upset Comments: Patient states: Chest pain occurs CLINORIL (SULINDAC) 05/03/2012 8 - GI Upset CYMBALTA (DULOXETINE) 06/30/2021 8 - GI Upset Comments: Patient states: nausea ERYTHROMYCIN 05/03/2012 14 - Other: See Comments Comments: Hearing loss INFLUENZA VIRUS VACCINE QS 2015-1*05/14/2015 4 - Hives INFLUENZA VIRUS VACCINES 05/14/2015 4 - Hives LOPID (GEMFIBROZIL) 10/04/2018 14 - Other: See Comments Comments: Myalgias NAPROXEN 06/06/2012 7 - Swelling NEURONTIN (GABAPENTIN) 05/03/2012 8 - GI Upset NIASPAN (NIACIN) 12/20/2020 9 - Itching Comments: Patient states: extreme itching PENICILLIN 06/30/2021 14 - Other: See Comments Comments: Patient states: face swelling PENICILLIN G 05/03/2012 14 - Other: See Comments Comments: Numbness YPCWNAZ-QGM-PXC REDUCTASE INHIBIT*09/06/2018 17 - Myalgia Comments: Crestor, lipitor, zocor, pravastin, baycol TESSALON (BENZONATATE) 07/16/2017 14 - Other: See Comments Comments: dizziness TRICOR (FENOFIBRATE MICRONIZED) 09/06/2018 17 - Myalgia VANCOMYCIN 05/03/2012 9 - Itching Comments: Patient states: severe itching ZANAFLEX (TIZANIDINE HCL) 05/03/2012 16 - Unknown ZETIA (EZETIMIBE) 04/06/2019 17 - Myalgia Date Reviewed: 12/09/2021 Reviewed by: Nydia Chairez LPN - Fully Assessed Reason for Visit: CDM [Other] Cmt: HEALTHY AT HOME Prescriptions as of 05/22/2022 - clotrimazole-betamethasone (LOTRISONE) cream Apply 1 application to affected area twice daily. - aspirin, enteric coated (ASPIRIN, ENTERIC COATED) 81 mg EC tablet Take 81 mg by mouth once daily. - acetaminophen (TYLENOL EXTRA STRENGTH) 500 mg tablet Take 1,000 mg by mouth every 8 hours as needed. - icosapent ethyl (VASCEPA) 1 gram capsule Take 2 capsules twice daily by mouth - metoprolol succinate ER (TOPROL XL) 50 mg 24 hr tablet Take 1 tablet by mouth once daily. 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] 03/18/2018 CKD (chronic kidney disease) stage 3, GFR 30-59*07/16/2018 Left inguinal pain [R10.32] 07/31/2018 04/02/2019 Left leg pain [M79.605] 07/31/2018 04/02/2019 Prediabetes [R73.03] 11/14/2018 Stenosis of right carotid artery [I65.21] 12/23/2019 Acute left-sided low back pain with left-sided *03/01/2021 04/08/2021 Hip pain [M25.559] 03/01/2021 Fall [W19.XXXA] 06/30/2021 Trauma [T14.90XA] 06/30/2021 TBI (traumatic brain injury) ([facility]) [S06.9XAA] 06/30/2021 Nausea AND vomiting [R11.2] 06/30/2021 07/06/2021 SDH (subdural hematoma) ([facility]) [S06.5XAA] 06/30/2021 Closed fracture of occipital bone with routine *06/30/2021 SAH (subarachnoid hemorrhage) ([facility]) [I60.9] 06/30/2021 Vitamin D deficiency [E55.9] 07/04/2021 Lung nodule [R91.1] 07/18/2021 09/08/2021 Encounter Status:Closed by MEREDITH CERVANTES on 05/22/22 [facility] 04-20-2022 History of Presen t illness Narrative PRIMARY CARE COORDINATION QUICK NOTE Provider Action/FYI Called Pt left a message, provided Healthy at Home program access info and phone number. Patient identified by name and date . Ann Wynn RN April 20, 2022 12:08 PM documented in this encounter [facility] 12-09-2021 History of Presen t illness Narrative Gait normal. Reflexes normal and symmetric. Sensation grossly intact.No chief complaint on file. HPI: Patient presents today for office visit for follow up. HYPERLIPIDEMIA: Patient is taking medications: Yes. Patient is watching diet: Yes. Patient denies myalgias: Yes. Patient denies gi upset: Yes See previous notes. Does not want to see cardiology. Has exhausted all other meds NEURO: Neuro signed off. AOx4 No headaches. No dizziness. No lightheadedness. No recent changes in vision and hearing. No dysphasia No dysphagia No dysarthia Facial symmetry present. Ocular movement stable. Eyes: Equal, round reactive to light and accomodation. 3mm bilat. No recent weakness. Good ambulation - uses cane. Patient present good strength against resistance, bilat. legs and arms NEPHRO: Patient voices no difficulty. Voiding well. No hematuria. Staying hydrated. HTN: Patient is compliant with meds Yes Monitors bp at home: Yes. Couple of times per week Denies side effects: Yes. Chest pain: No. Dyspnea: No. Edema: No. Palpitations: No. Syncope: No. Headache: No. Dizziness: No. CAROTIDS: Due for follow up ultrasound. PSYCH: Patient overall states she is in good spirits. Sleeping well. Patient exercising 3 times per day Corey a spot on her right side. Does not recall injury. Has been there a few weeks. Was painful. No bleeding. Was red and now is purple Has tried ceravee, zinc oxide. Is not sore. Not changing size or shape. Component Latest Ref Rng & Units 12/06/2021 WBC 3.70 - 11.00 k/uL 5.49 RBC 3.90 - 5.20 m/uL 5.60 (H) Hemoglobin 11.5 - 15.5 g/dL 15.7 (H) Hematocrit 36.0 - 46.0 % 49.8 (H) MCV 80.0 - 100.0 fL 88.9 MCH 26.0 - 34.0 pg 28.0 MCHC 30.5 - 36.0 g/dL 31.5 RDW-CV 11.5 - 15.0 % 14.8 Platelet Count 150 - 400 k/uL 257 MPV 9.0 - 12.7 fL 10.5 Neut% % 48.2 Abs Neut (ANC) 1.45 - 7.50 k/uL 2.65 Lymph% % 37.9 Abs Lymph 1.00 - 4.00 k/uL 2.08 Kay% % 9.1 Abs Kay <0.87 k/uL 0.50 Eosin% % 3.5 Abs Eosin <0.46 k/uL 0.19 Baso% % 1.1 Abs Baso <0.11 k/uL 0.06 Immature Gran % % 0.2 IMMATURE GRANS (ABS) <0.10 k/uL <0.03 NRBC /100 WBC 0.0 Absolute nRBC <0.01 k/uL <0.01 DTYPE Auto Protein, Total 6.3 - 8.0 g/dL 7.0 Albumin 3.9 - 4.9 g/dL 4.3 Calcium 8.5 - 10.2 mg/dL 9.6 Bilirubin, Total 0.2 - 1.3 mg/dL 0.4 Alkaline Phosphatase 34 - 123 U/L 72 AST 13 - 35 U/L 28 ALT 7 - 38 U/L 15 Glucose 74 - 99 mg/dL 90 BUN 7 - 21 mg/dL 22 (H) Creatinine 0.58 - 0.96 mg/dL 0.88 Sodium 136 - 144 mmol/L 142 Potassium 3.7 - 5.1 mmol/L 4.1 Chloride 97 - 105 mmol/L 106 (H) CO2 22 - 30 mmol/L 23 Anion Gap 9 - 18 mmol/L 13 eGFR >=60 mL/min/1.73m 67 Cholesterol, Total <200 mg/dL 334 (H) Triglyceride <150 mg/dL 373 (H) HDL Cholesterol >39 mg/dL 34 (L) Non HDL Cholesterol <130 mg/dL 300 (H) Fasting Time hrs 14 VLDL Cholesterol <30 mg/dL 75 (H) TC:HDL Ratio <5.10 9.82 (H) LDL Cholesterol <100 mg/dL 225 (H) LDL:HDL Ratio <2.54 6.62 (H) Hemoglobin A1C 4.3 - 5.6 % 5.8 (H) Estimated Average Glucose mg/dL 120 MEDICATIONS: Current Outpatient Medications Medication Sig clotrimazole-betamethasone (LOTRISONE) cream Apply 1 application to affected area twice daily. aspirin, enteric coated (ASPIRIN, ENTERIC COATED) 81 mg EC tablet Take 81 mg by mouth once daily. acetaminophen (TYLENOL EXTRA STRENGTH) 500 mg tablet Take 1,000 mg by mouth every 8 hours as needed. icosapent ethyl (VASCEPA) 1 gram capsule Take 2 capsules twice daily by mouth metoprolol succinate ER (TOPROL XL) 50 mg 24 hr tablet Take 1 tablet by mouth once daily. No current facility-administered medications for this visit. ALLERGIES: ALLERGIES Allergen Reactions Bactrim [Sulfametho* GI Upset Patient states: Chest pain occurs Clinoril [Sulindac] GI Upset Cymbalta [Duloxetin* GI Upset Patient states: nausea Erythromycin Other: See Comments Hearing loss Influenza Virus Vac* Hives Influenza Virus Vac* Hives Lopid [Gemfibrozil] Other: See Comments Myalgias Naproxen Swelling Neurontin [Gabapent* GI Upset Niaspan [Niacin] Itching Patient states: extreme itching Penicillin Other: See Comments Patient states: face swelling Penicillin G Other: See Comments Numbness Sqknaoe-Zqj-Uei Red* Myalgia Crestor, lipitor, zocor, pravastin, baycol Tessalon [Benzonata* Other: See Comments dizziness Tricor [Fenofibrate* Myalgia Vancomycin Itching Patient states: severe itching Zanaflex [Tizanidin* Unknown Zetia [Ezetimibe] Myalgia PAST MEDICAL HISTORY Diagnosis Date Congenital limb anomaly left DVT (deep venous thrombosis) (HCC) 2001 -followed steroid injection Hx of appendectomy 1980 [facility] Hyperlipidemia Polycythemia seen by hematology. work up negative. Vasovagal syncope 02/06/2017 PAST SURGICAL HISTORY Procedure Laterality Date ABDOMINAL SURGERY HX APPENDECTOMY 06/04/1980 [facility] APPENDECTOMY COLONOSCOPY SCRN NOT HIGH RISK 06/09/2020 PAST SURGICAL HISTORY OF 06/04/1980 [facility] FAMILY HISTORY Problem Relation Age of Onset Diabetes Mother AAA Heart Father other (aaa) Sister Stroke Paternal Grandmother Diabetes Paternal Grandfather other (MVA) Son Diabetes Son Hyperlipidemia Son Social History Tobacco Use Smoking status: Former Smoker Packs/day: 0.30 Years: 15.00 Pack years: 4.50 Smokeless tobacco: Never Used Substance Use Topics Alcohol use: No Drug use: No Reviewed current medications, allergies, past medical history, surgical history, family history and social history today. REVIEW OF SYSTEMS All other reviewed and negative other than HPI. VITALS: BP 130/80 Pulse 72 Temp 36.1 C (97 F) (Left Tympanic) Resp 20 Wt 49.4 kg (109 lb) BMI 22.02 kg/m Last 4 Encounter Wt Readings: Date: Wt: 09/08/2021 49 kg (108 lb) 08/11/2021 48 kg (105 lb 12.8 oz) 07/28/2021 49 kg (108 lb) 06/30/2021 54.2 kg (119 lb 7.8 oz) PHYSICAL EXAMINATION: General appearance: Well appearing, alert, in no acute distress, well-hydrated, well nourished. Skin: has a oval shaped blood blister appearing lesion. I do not think it is a skin lesion at this point. Will have her monitor and call with update in two weeks. May have been a sheer injury at her waist. Head: Normocephalic, no masses, lesions, tenderness or abnormalities Eyes: Anicteric sclera. Pupils are equally round and reactive to light. Extraocular movements are intact. Oropharynx: Lips, mucosa, and tongue normal, teeth and gums normal, oropharynx normal Neck: Supple, no adenopathy; thyroid symmetric, normal size, no bruits Back: Normal exam Lungs: Lungs clear to auscultation. No wheezing, rhonchi, rales Heart: RRR without murmur, gallop, or rubs. No ectopy Abdomen: Normal abdominal exam, Abdomen soft, non-tender. Bowel sounds normal. No masses, organomegaly Extremities: No deformities, edema, skin discoloration, clubbing or cyanosis. Good capillary refill. Musculoskeletal: No joint swelling, deformity, or tenderness Peripheral pulses: Normal Neuro: Gait normal. Reflexes normal and symmetric. Sensation grossly intact. ASSESSMENT/PLAN: 1. Bilateral carotid artery stenosis - ICD9: 433.10, 433.30, ICD10: I65.23 (primary diagnosis) - US CAROTID ARTERIES [facility] 2. Polycythemia - ICD9: 238.4, ICD10: D75.1 - push fluids - CBC + DIFF - CARBOXYHEMOGLOBIN JAYLAN 3. SDH (subdural hematoma) (HCC) - ICD9: 432.1, ICD10: S06.5X9A - appears recovered. 4. Mixed hyperlipidemia - ICD9: 272.2, ICD10: E78.2 - suboptimal control - will let me know if desires further specialty care. Exhausted meds. - LIPID PANEL BASIC 5. Hypertension, unspecified type - ICD9: 401.9, ICD10: I10 - good control - Continue current medication(s) - Goal of BP <130/80 - BASIC METABOLIC PNL 6. Stage 3 chronic kidney disease, unspecified whether stage 3a or 3b CKD (HCC) - ICD9: 585.3, ICD10: N18.30 7. Prediabetes - ICD9: 790.29, ICD10: R73.03 - HGB A1C Tommy Mendoza MD Get labs in one to two weeks. Labs in six months and follow up after documented in this encounter [facility] 11-03-2021 Miscellaneous Notes Completed and faxed back on 10-25-21. Vivi Tubbs LPN Form placed on provider desk Andria with [facility] called and states she is re-faxing a physical therapy reassessment she needs signed and faxed back to [phone]. She did not get it back when she first faxed it 10-12-21. Received fax and delivered it to Nurse in Dr. Mendoza's office. Please put to her attention when faxing it back Vivi Tubbs LPN documented in this encounter [facility] 10-05-2021 History of Presen t illness Narrative inSight CDM Engagement Provider Action/FYI: Spk with Pt, she reports no new or worsening CKD or other symptoms, she is receiving Physical Therapy 2x week,using a cane. Denies needs or concerns. Insight Monitoring questionnaire location provided, and My chart phone number. Contact Made with Patient: Yes Patient identified by name and . Discussed care with patient Maximo nguyen name is Ann Wynn RN your Unemployment Claims Adjudicator from Tommy Mendoza MD office at the [facility]. I am reaching out today because I noticed it has been a few weeks since I have seen any responses from you on your questionnaire. I wanted to check on you and make sure you are doing well, and to remind you that your Tommy Mendoza MD recommended this program for you so that you can stay better connected to your health. I will be monitoring your responses on the questionnaire to make sure we are not seeing any changes in your health that your Primary Care Physician needs to know about, or looking for improvements and keeping Tommy Menodza MD informed about it all. You and I will check in together anytime a problem arises, and determine a solution. I am here to help you stay healthy, and stay connected to your doctor's office. How can I help you in this program? The patient informs that she forgot. Please take some time today to answer the questionnaire. I am looking forward to receiving your answers. If I do not receive your answers in the next 2 business days I will check back in. ---END CALL Ann Wynn RN October 05, 2021 3:10 PM documented in this encounter [facility] 07-28-2021 Note HNO ID: [id number] Author: Barrrea Zheng MD Service: ? Author Type: Physician Type: Progress Notes Filed: 07/28/2021 11:44 AM Note Text: NEUROSURGERY FOLLOW UP OFFICE NOTE Dr. Barrera Zheng MD, FACS Date of visit: July 28, 2021 Patient Name: Ms.Linda Debora Duckworth Date of : 1940 Current Age: [age] year old Sex: female MRN/E# [id number] Last Office Visit: Hospital follow-up Chief Complaint: Patient presents with: Established Patient SUBJECTIVE: The patient presents as a hospital follow-up with imaging (CT B) for evaluation. She was seen in consult on 06/30/2021 after presenting to the emergency department for complaints of dizziness nausea and an inability to ambulate. She reported that the day prior she slipped on a rug falling backwards striking her head on concrete. Imaging was completed and demonstrated traumatic intracranial bleeds 9 right frontal, right temporal, right parietal, left frontal and left cerebellar) and a left occipital linear skull fracture. Neurologically she was intact without focal deficits and no surgical intervention was indicated. Serial imaging was obtained and remained stable. Recommendation was to follow-up in [address] brain prompting her visit today. Since discharge she states she is overall doing well. She denies headache, visual changes, speech deficits, seizure activity, motor or sensory deficits. She is currently in rehab and participating in therapy. She presents for image review, evaluation and plan of care. Symptoms: None PREVIOUS CONSERVATIVE TREATMENTS: Physical therapy Occupational therapy Speech therapy PREVIOUS SURGERY: None PAIN EVALUATION No data found in the last 1 encounters. PAST MEDICAL HISTORY Diagnosis Date - Congenital limb anomaly left - DVT (deep venous thrombosis) (HCC) 2001 -followed steroid injection - Hx of appendectomy 1980 [facility] - Hyperlipidemia - Polycythemia seen by hematology. work up negative. - Vasovagal syncope 02/06/2017 PAST SURGICAL HISTORY Procedure Laterality Date - ABDOMINAL SURGERY HX - APPENDECTOMY 06/04/1980 [facility] - APPENDECTOMY - COLONOSCOPY SCRN NOT HIGH RISK 06/09/2020 - PAST SURGICAL HISTORY OF 06/04/1980 [facility] FAMILY HISTORY Problem Relation Age of Onset - Diabetes Mother AAA - Heart Father - other (aaa) Sister - Stroke Paternal Grandmother - Diabetes Paternal Grandfather - other (MVA) Son - Diabetes Son - Hyperlipidemia Son ALLERGIES Allergen Reactions - Bactrim [Sulfametho* GI Upset Patient states: Chest pain occurs - Clinoril [Sulindac] GI Upset - Cymbalta [Duloxetin* GI Upset Patient states: nausea - Erythromycin Other: See Comments Hearing loss - Influenza Virus Vac* Hives - Influenza Virus Vac* Hives - Lopid [Gemfibrozil] Other: See Comments Myalgias - Naproxen Swelling - Neurontin [Gabapent* GI Upset - Niaspan [Niacin] Itching Patient states: extreme itching - Penicillin Other: See Comments Patient states: face swelling - Penicillin G Other: See Comments Numbness - Nxpsumu-Tst-Bvz Red* Myalgia Crestor, lipitor, zocor, pravastin, baycol - Tessalon [Benzonata* Other: See Comments dizziness - Tricor [Fenofibrate* Myalgia - Vancomycin Itching Patient states: severe itching - Zanaflex [Tizanidin* Unknown - Zetia [Ezetimibe] Myalgia Current Outpatient Medications Medication Sig Dispense Refill - Lactobacillus acidophilus (ACIDOPHILUS ORAL) Take 1 capsule by mouth twice daily. - aspirin, enteric coated (ASPIRIN, ENTERIC COATED) 81 mg EC tablet Take 81 mg by mouth once daily. - Menthol-Zinc Oxide (CALMOSEPTINE) 0.44-20.6 % Apply to affected area. - lactose-reduced food (ENSURE COMPACT ORAL) Take by mouth. - potassium chloride (K-TAB) 10 mEq tablet Take 10 mEq by mouth twice daily. - enoxaparin (LOVENOX) 40 mg/0.4 mL Inject subcutaneously once daily. - nystatin (MYCOSTATIN) powder Apply 1 application to affected area twice daily. - conjugated estrogens (PREMARIN) vaginal cream Use vaginally one time a week. - amantadine HCl (SYMMETREL) 100 mg tablet Take 100 mg by mouth twice daily. - bisacodyl (DULCOLAX) 10 mg supp 10 mg by RECTAL route once daily as needed for constipation. - magnesium hydroxide (MILK OF MAGNESIA) 400 mg/5 mL suspension Take 30 mL by mouth once daily as needed. - acetaminophen (TYLENOL EXTRA STRENGTH) 500 mg tablet Take 1,000 mg by mouth every 8 hours as needed. - traMADol (ULTRAM) 50 mg tablet Take 50 mg by mouth every 6 hours as needed for pain. - ondansetron (ZOFRAN) 4 mg tablet Take 4 mg by mouth every 8 hours as needed for nausea/vomiting. - amLODIPine (NORVASC) 5 mg tablet Take 1 tablet by mouth once daily. - ergocalciferol 50,000 unit capsule (VITAMIN D2, DRISDOL) Take 1 capsule by mouth one time a week. - melatonin 3 mg tablet Take 1 tablet by mouth daily at bedtime. - senna-docusate (SENNA-S) 8 (more content not included)... [facility] documented as of this encounter (statuses as of 10/05/2021) [facility] History of Past illness Narrative* Problem Noted Date Resolved Date Lung nodule 07/18/2021 09/08/2021 Overview: On xray, needs follow up in August 2021 Nausea & vomiting 06/30/2021 07/06/2021 Acute left-sided low back pain with left-sided s ciatica 03/01/2021 04/08/2021 Left inguinal pain 07/31/2018 04/02/2019 Left leg pain 07/31/2018 04/02/2019 Vasovagal syncope 02/06/2017 04/02/2019 documented as of this encounter (statuses as of 11/03/2021) [facility] History of Past illness Narrative* Problem Noted Date Resolved Date Lung nodule 07/18/2021 09/08/2021 Overview: On xray, needs follow up in August 2021 Nausea & vomiting 06/30/2021 07/06/2021 Acute left-sided low back pain with left-sided s ciatica 03/01/2021 04/08/2021 Left inguinal pain 07/31/2018 04/02/2019 Left leg pain 07/31/2018 04/02/2019 Vasovagal syncope 02/06/2017 04/02/2019 documented as of this encounter (statuses as of 12/08/2021) [address]14-2022 History of Past illness Narrative* Problem Noted Date Resolved Date Lung nodule 07/18/2021 09/08/2021 Overview: On xray, needs follow up in August 2021 Nausea & vomiting 06/30/2021 07/06/2021 Acute left-sided low back pain with left-sided s ciatica 03/01/2021 04/08/2021 Left inguinal pain 07/31/2018 04/02/2019 Left leg pain 07/31/2018 04/02/2019 Vasovagal syncope 02/06/2017 04/02/2019 documented as of this encounter (statuses as of 12/09/2021) [address]22 History of Past illness Narrative* Problem Noted Date Resolved Date Lung nodule 07/18/2021 09/08/2021 Overview: On xray, needs follow up in August 2021 Nausea & vomiting 06/30/2021 07/06/2021 Acute left-sided low back pain with left-sided s ciatica 03/01/2021 04/08/2021 Left inguinal pain 07/31/2018 04/02/2019 Left leg pain 07/31/2018 04/02/2019 Vasovagal syncope 02/06/2017 04/02/2019 documented as of this encounter (statuses as of 04/20/2022) [facility] History of Past illness Narrative* Problem Noted Date Resolved Date Lung nodule 07/18/2021 09/08/2021 Overview: On xray, needs follow up in August 2021 Nausea & vomiting 06/30/2021 07/06/2021 Acute left-sided low back pain with left-sided s ciatica 03/01/2021 04/08/2021 Left inguinal pain 07/31/2018 04/02/2019 Left leg pain 07/31/2018 04/02/2019 Vasovagal syncope 02/06/2017 04/02/2019 documented as of this encounter (statuses as of 05/26/2022) [facility] History of Past illness Narrative* Problem Noted Date Resolved Date Lung nodule 07/18/2021 09/08/2021 Overview: On xray, needs follow up in August 2021 Nausea & vomiting 06/30/2021 07/06/2021 Acute left-sided low back pain with left-sided s ciatica 03/01/2021 04/08/2021 Left inguinal pain 07/31/2018 04/02/2019 Left leg pain 07/31/2018 04/02/2019 Vasovagal syncope 02/06/2017 04/02/2019 documented as of this encounter (statuses as of 06/04/2022) [facility] History of Past illness Narrative* Problem Noted Date Resolved Date Lung nodule 07/18/2021 09/08/2021 Overview: On xray, needs follow up in August 2021 Nausea & vomiting 06/30/2021 07/06/2021 Acute left-sided low back pain with left-sided s ciatica 03/01/2021 04/08/2021 Left inguinal pain 07/31/2018 04/02/2019 Left leg pain 07/31/2018 04/02/2019 Vasovagal syncope 02/06/2017 04/02/2019 documented as of this encounter (statuses as of 06/15/2022) [facility] History of Past illness Narrative* Problem Noted Date Resolved Date Lung nodule 07/18/2021 09/08/2021 Overview: On xray, needs follow up in August 2021 Nausea & vomiting 06/30/2021 07/06/2021 Acute left-sided low back pain with left-sided s ciatica 03/01/2021 04/08/2021 Left inguinal pain 07/31/2018 04/02/2019 Left leg pain 07/31/2018 04/02/2019 Vasovagal syncope 02/06/2017 04/02/2019 documented as of this encounter (statuses as of 06/22/2022) [address]22 History of Past illness Narrative* Problem Noted Date Resolved Date Lung nodule 07/18/2021 09/08/2021 Overview: On xray, needs follow up in August 2021 Nausea & vomiting 06/30/2021 07/06/2021 Acute left-sided low back pain with left-sided s ciatica 03/01/2021 04/08/2021 Left inguinal pain 07/31/2018 04/02/2019 Left leg pain 07/31/2018 04/02/2019 Vasovagal syncope 02/06/2017 04/02/2019 documented as of this encounter (statuses as of 06/23/2022) [facility] History of Past illness Narrative* Problem Noted Date Resolved Date Lung nodule 07/18/2021 09/08/2021 Overview: On xray, needs follow up in August 2021 TBI (traumatic brain injury) 06/30/202112/2022 Nausea & vomiting 06/30/2021 07/06/2021 SDH (subdural hematoma) 06/30/2021 11/09/19 SAH (subarachnoid hemorrhage) 06/30/2021 Acute left-sided low back pain with left-sided s ciatica 03/01/2021 04/08/2021 Left inguinal pain 07/31/2018 04/02/2019 Left leg pain 07/31/2018 04/02/2019 Vasovagal syncope 02/06/2017 04/02/2019 documented as of this encounter (statuses as of 11/08/2022) [facility] History of Past illness Narrative* Problem Noted Date Diagnosed Date Resolved Date Lung nodule 07/18/2021 09/08/2021 Overview: On xray, needs follow up in August 2021 TBI (traumatic brain injury) 06/30/2021 11/08/2022 Nausea & vomiting 06/30/2021 07/06/2021 SDH (subdural hematoma) 06/30/2021 06/0 12/2022 SAH (subarachnoid hemorrhage) 06/30/2021 11/08/2022 Acute left-sided low back pa in with left-sided sciatica 03/01/2021 04/08/2021 Left inguinal pain 07/31/2018 9 Left leg pain 07/31/2018 04/02/2019 Vasovagal syncope 02/06/2017 04/02/2019 documented as of this encounter (statuses as of 01/13/2023) [facility] History of Past illness Narrative* Problem Noted Date Diagnosed Date Resolved Date Lung nodule 07/18/2021 09/08/2021 Overview: On xray, needs follow up in August 2021 TBI (traumatic brain injury) 06/30/2021 11/08/2022 Nausea & vomiting 06/30/2021 07/06/2021 SDH (subdural hematoma) 06/30/2021 06/0 12/2022 SAH (subarachnoid hemorrhage) 06/30/2021 11/08/2022 Acute left-sided low back pa in with left-sided sciatica 03/01/2021 04/08/2021 Left inguinal pain 07/31/2018 9 Left leg pain 07/31/2018 04/02/2019 Vasovagal syncope 02/06/2017 04/02/2019 documented as of this encounter (statuses as of 02/13/2023) [facility] History of Past illness Narrative* Problem Noted Date Diagnosed Date Resolved Date Lung nodule 07/18/2021 09/08/2021 Overview: On xray, needs follow up in August 2021 TBI (traumatic brain injury) 06/30/2021 11/08/2022 Nausea & vomiting 06/30/2021 07/06/2021 SDH (subdural hematoma) 06/30/2021 06/0 12/2022 SAH (subarachnoid hemorrhage) 06/30/2021 11/08/2022 Acute left-sided low back pa in with left-sided sciatica 03/01/2021 04/08/2021 Left inguinal pain 07/31/2018 9 Left leg pain 07/31/2018 04/02/2019 Vasovagal syncope 02/06/2017 04/02/2019 documented as of this encounter (statuses as of 02/16/2023) [address] History of Past illness Narrative* Problem Noted Date Diagnosed Date Resolved Date Lung nodule 07/18/2021 09/08/2021 Overview: On xray, needs follow up in August 2021 TBI (traumatic brain injury) 06/30/2021 11/08/2022 Nausea & vomiting 06/30/2021 07/06/2021 SDH (subdural hematoma) 06/30/2021 06/0 12/2022 SAH (subarachnoid hemorrhage) 06/30/2021 11/08/2022 Acute left-sided low back pa in with left-sided sciatica 03/01/2021 04/08/2021 Left inguinal pain 07/31/2018 9 Left leg pain 07/31/2018 04/02/2019 Vasovagal syncope 02/06/2017 04/02/2019 documented as of this encounter (statuses as of 03/09/2023) [facility] History of Past illness Narrative* Problem Noted Date Diagnosed Date Resolved Date Lung nodule 07/18/2021 09/08/2021 Overview: On xray, needs follow up in August 2021 TBI (traumatic brain injury) 06/30/2021 11/08/2022 Nausea & vomiting 06/30/2021 07/06/2021 SDH (subdural hematoma) 06/30/2021 06/0 12/2022 SAH (subarachnoid hemorrhage) 06/30/2021 11/08/2022 Acute left-sided low back pa in with left-sided sciatica 03/01/2021 04/08/2021 Left inguinal pain 07/31/2018 9 Left leg pain 07/31/2018 04/02/2019 Vasovagal syncope 02/06/2017 04/02/2019 documented as of this encounter (statuses as of 04/12/2023) [facility] NoteHNO ID: [id number] Author: Norma Sharp PA-C Service: Neurosurgery Author Type: Physician Corpsman Type: Progress Notes Filed: 07/06/2021 8:50 AM Note Text: Neurosurgery Progress Note SERVICE DATE: 07/06/2021 SUBJECTIVE: naeon - h/a mildly improved currently. Dizziness persists. Has been tolerating diet but 'has little appetite.' OBJECTIVE: Vitals: Temp (24hrs), Av.7 ?C (98.1 ?F), Min:36.4 ?C (97.5 ?F), Max:37.2 ?C (99 ?F) BP 154/95 Pulse 63 Temp 36.6 ?C (97.9 ?F) (Oral) Resp 16 Ht 149.9 cm (4' 11 ) Wt 54.2 kg (119 lb 7.8 oz) SpO2 96% BMI 24.13 kg/m? O2 Therapy: Room Air IANDO: Date 07/05/21 07 - 07/06/21 0659 07/06/21 07 - 07/07/21 0659 Shift 8084-0738 8542-4524 9835-7618 24 Hour Total 8269-0531 5990-1434 6431-2527 24 Hour Total INTAKE Shift Total OUTPUT Urine 500 450 950 Void (ml) 200 200 Output ( External Collection Device 07/01/21 1800) 300 450 750 # of BMs Number of BMs 1 x 2 x 3 x Shift Total 500 450 950 Weight (kg) 52.1 52.1 54.2 54.2 54.2 54.2 54.2 54.2 MEDICATIONS Current Facility-Administered Medications Medication Dose Route Frequency - acetaminophen 325 mg-caffeine 40 mg-butalbital 50 mg 1 tablet (FIORICET) 1 tablet ORAL q 6 H PRN - ergocalciferol (vitamin D2) 50,000 Units cap(s) (DRISDOL) 50,000 Units ORAL 1/WK - enoxaparin 30 mg injection (LOVENOX) 30 mg SUBCUTANEOUS q 12 HR - amLODIPine 5 mg tab(s) (NORVASC) 5 mg ORAL DAILY - cloNIDine HCl 0.1 mg tab(s) (CATAPRES) 0.1 mg ORAL q 8 H PRN - meclizine 25 mg tab(s) (ANTIVERT) 25 mg ORAL TID PRN - oxyCODONE IR 2.5-5 mg tab(s) (ROXICODONE) 2.5-5 mg ORAL q 6 H PRN - acetaminophen 975 mg tab(s) (TYLENOL) 975 mg ORAL q 6 H PRN - NaCl 0.9% iv flush bag 20 mL INTRAVENOUS PRN - ondansetron (PF) 4 mg injection (ZOFRAN) 4 mg INTRAVENOUS q 6 H PRN - senna-docusate 8.6-50 mg 1 tablet (SENNA-S) 1 tablet ORAL BID - metoprolol succinate ER 50 mg tab(s) (TOPROL XL) 50 mg ORAL DAILY - icosapent ethyl 1 g cap(s) (VASCEPA) 1 g ORAL BID - sodium chloride 0.9 % (flush) 3-5 mL (BD POSIFLUSH) 3-5 mL INTRAVENOUS q 12 H - melatonin 3 mg tab(s) 3 mg ORAL/FEEDING TUBE DAILY (7 PM) - levETIRAcetam 500 mg tab(s) (KEPPRA) 500 mg ORAL BID Labs: Recent Labs 07/05/21 0544 NA 138 K 4.1 CHLOR 101 CO2 26 BUN 14 CREAT 0.62 GLUC 105* ANION 11 CA 9.6 WBC 7.35 HB 14.5 HCT 45.1 PLT 276 Exam: GENERAL: Awake and alert; NAD; cooperative; pleasant NEURO: Orientedx3; speech clear and fluent; msp grossly intact with exception of congenital lue deformity HEENT: Normocephalic; atraumatic; perrl/eomi; no facial droop LUNGS: Unlabored breathing ASSESSMENT AND PLAN: 80 year old female fall - rt frontal and occiptal tSAH, frontal contusion, left parietooccipital skull fx - neuro stable - h/a, dizziness control - Fioricet, meclizine added - keppra completed today - to be transferred to [facility] today - f/u with Dr. Zheng in 2 wks with repeated CTH - requested Parts of this note may have been copied from one of my previous notes and remain pertinent. The documentation has been reviewed and edited as necessary to support the clinical decision making for today's visit. SIGNATURE: Norma Sharp PA-C PATIENT NAME: Virginia Duckworth DATE: July 06, 2021 TIME: 8:44 AM [phone] NoteHNO ID: [id number] Author: Yosef Che PA-C Service: General Surgery Author Type: Physician Corpsman Type: Progress Notes Filed: 07/06/2021 8:55 AM Note Text: Trauma Surgery Progress Note SERVICE DATE: 07/06/2021 Trauma Service Pager: For questions or concerns Mon-Fri 6a-5p please page [phone]. After 5pm and on Weekends and Holidays, please page [phone] if in ICU or [phone] if on RNF. SUBJECTIVE: NAEON. Patient continues to endorse intermittent COREY and dizziness without N/V. Tolerating diet but appetite remains suppressed. Multiple BMs yesterday and requested discontinuation of bowel regimen. No new focal concerns. OBJECTIVE: Vitals: Temp (24hrs), Av.7 ?C (98.1 ?F), Min:36.4 ?C (97.5 ?F), Max:37.2 ?C (99 ?F) BP 154/95 Pulse 63 Temp 36.6 ?C (97.9 ?F) (Oral) Resp 16 Ht 149.9 cm (4' 11 ) Wt 54.2 kg (119 lb 7.8 oz) SpO2 96% BMI 24.13 kg/m? O2 Therapy: Room Air IANDO: Date 07/05/21 0700 - 07/06/21 0659 07/06/21 0700 - 07/07/21 0659 Shift 5010-0419 8294-3770 6604-6469 24 Hour Total 5947-1040 5625-5843 8901-5477 24 Hour Total INTAKE Shift Total OUTPUT Urine 500 450 950 Void (ml) 200 200 Output ( External Collection Device 07/01/21 1800) 300 450 750 # of BMs Number of BMs 1 x 2 x 3 x Shift Total 500 450 950 Weight (kg) 52.1 52.1 54.2 54.2 54.2 54.2 54.2 54.2 MEDICATIONS: Current Facility-Administered Medications Medication Dose Route Frequency - acetaminophen 325 mg-caffeine 40 mg-butalbital 50 mg 1 tablet (FIORICET) 1 tablet ORAL q 6 H PRN - ergocalciferol (vitamin D2) 50,000 Units cap(s) (DRISDOL) 50,000 Units ORAL 1/WK - enoxaparin 30 mg injection (LOVENOX) 30 mg SUBCUTANEOUS q 12 HR - amLODIPine 5 mg tab(s) (NORVASC) 5 mg ORAL DAILY - cloNIDine HCl 0.1 mg tab(s) (CATAPRES) 0.1 mg ORAL q 8 H PRN - meclizine 25 mg tab(s) (ANTIVERT) 25 mg ORAL TID PRN - oxyCODONE IR 2.5-5 mg tab(s) (ROXICODONE) 2.5-5 mg ORAL q 6 H PRN - acetaminophen 975 mg tab(s) (TYLENOL) 975 mg ORAL q 6 H PRN - NaCl 0.9% iv flush bag 20 mL INTRAVENOUS PRN - ondansetron (PF) 4 mg injection (ZOFRAN) 4 mg INTRAVENOUS q 6 H PRN - senna-docusate 8.6-50 mg 1 tablet (SENNA-S) 1 tablet ORAL BID - metoprolol succinate ER 50 mg tab(s) (TOPROL XL) 50 mg ORAL DAILY - icosapent ethyl 1 g cap(s) (VASCEPA) 1 g ORAL BID - sodium chloride 0.9 % (flush) 3-5 mL (BD POSIFLUSH) 3-5 mL INTRAVENOUS q 12 H - melatonin 3 mg tab(s) 3 mg ORAL/FEEDING TUBE DAILY (7 PM) - levETIRAcetam 500 mg tab(s) (KEPPRA) 500 mg ORAL BID Labs: Recent Labs 07/05/21 0544 NA 138 K 4.1 CHLOR 101 CO2 26 BUN 14 CREAT 0.62 GLUC 105* ANION 11 CA 9.6 WBC 7.35 HB 14.5 HCT 45.1 PLT 276 PHYSICAL EXAM: Genl: Appears age appropriate. No acute distress. Resting comfortably. Head/Face: Normocephalic. Atraumatic. Eyes: EOMI. Sclera not icteric, not injected Resp: Breathing is non-labored on RA. CVS: RRR as above; 2+ pulses at RA, DP, PT bilat. GI: Abdomen is soft, non-tender, not distended. Bowel sounds normoactive. No peritonitis. MSK: LUE congenital deformity. RUE atraumatic without edema. 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 RUE forearm and upper arm compartments soft, compressible and non-tender without redness or warmth. Skin: Warm and dry. Not jaundiced. Neuro: AANDOx3. Strength and sensation normal. DE DIOS. GCS15. Psych: Normal mood. Normal affect. Appropriate insight into current situation. ASSESSMENT AND PLAN: Active Hospital Problems Diagnosis Date Noted - Vitamin D deficiency 07/04/2021 - Fall 06/30/2021 - Trauma 06/30/2021 - TBI (traumatic brain injury) ([facility]) 06/30/2021 - Nausea AND vomiting 06/30/2021 - SDH (subdural hematoma) ([facility]) 06/30/2021 - Closed fracture of occipital bone with routine healing 06/30/2021 - SAH (subarachnoid hemorrhage) ([facility]) 06/30/2021 - CKD (chronic kidney disease) stage 3, GFR 30-59 ml/min ([facility]) 07/16/2018 Chronic - Mixed hyperlipidemia Chronic - Congenital limb anomaly Chronic Overview Note: Left upper extremity 80 year old female s/p mechanical GLF on 06/29/2021 ([facility]) Imaging performed: 1. 06/30/2021 - CT H/N, CXR, PXR, repeat CTH 2. 07/01/2021 - CTH 3. 07/02/2021 - CTH Traumatic Injuries: 1. Acute subarachnoid hemorrhage right frontal and occipital poles 2. Acute subarachnoid hemorrhage left frontal pole and left cerebellar convexity 3. Right inferior frontal cortical contusion. Left cerebellar parenchymal hypodensity may represent old infarct versus additional parenchymal contusion. 4. Nondisplaced left parietal and occipital bone fracture extending to the left foramen magnum. Operations/Procedures: 1. None Care Plan: 1. Acute ICH + parietal and occipital bone fractures 1. Neurosurgery following 2. Non-op management 3. Repeat CTH stable 07/02 4. Keppra BID x 7 days 5. OK for DVT PPX 6. PRN Antivert for dizziness 7. Melatonin QHS 8. 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 After 5pm and on Weekends and Holidays, please page [phone] if in ICU or [phone] if on RNF. SUBJECTIVE: NAEON. Patient reports headache and dizziness are unchanged. Encouraged to utilize PRN meclizine and Fioricet. Patient accepted @ [facility], will have bed available 07/06. OBJECTIVE: Vitals: Temp (24hrs), Av.2 ?C (98.9 ?F), Min:37 ?C (98.6 ?F), Max:37.5 ?C (99.5 ?F) BP 143/91 Pulse 70 Temp 37.1 ?C (98.8 ?F) (Oral) Resp 18 Ht 149.9 cm (4' 11 ) Wt 52.1 kg (114 lb 13.8 oz) SpO2 95% BMI 23.20 kg/m? O2 Therapy: Room Air IANDO: Date 07/04/21699 - 07/05/21 0607/05/21699 - 07/06/21 0659 Shift 6834-8549 2327-6728 2991-3056 24 Hour Total 0380-2334 3472-2132 2995-8618 24 Hour Total INTAKE Shift Total OUTPUT Urine 300 300 Urine Incontinence/Not Saved 1 x 1 x Urine Not Saved. 1 x 1 x 2 x Output ( External Collection Device 07/01/21 1800) 300 300 # of BMs Number of BMs 2 x 2 x 1 x 1 x Shift Total 300 300 Weight (kg) 54.3 54.3 52.1 52.1 52.1 52.1 52.1 52.1 MEDICATIONS: Current Facility-Administered Medications Medication Dose Route Frequency - acetaminophen 325 mg-caffeine 40 mg-butalbital 50 mg 1 tablet (FIORICET) 1 tablet ORAL q 6 H PRN - ergocalciferol (vitamin D2) 50,000 Units cap(s) (DRISDOL) 50,000 Units ORAL 1/WK - enoxaparin 30 mg injection (LOVENOX) 30 mg SUBCUTANEOUS q 12 HR - amLODIPine 5 mg tab(s) (NORVASC) 5 mg ORAL DAILY - cloNIDine HCl 0.1 mg tab(s) (CATAPRES) 0.1 mg ORAL q 8 H PRN - meclizine 25 mg tab(s) (ANTIVERT) 25 mg ORAL TID PRN - oxyCODONE IR 2.5-5 mg tab(s) (ROXICODONE) 2.5-5 mg ORAL q 6 H PRN - acetaminophen 975 mg tab(s) (TYLENOL) 975 mg ORAL q 6 H PRN - NaCl 0.9% iv flush bag 20 mL INTRAVENOUS PRN - ondansetron (PF) 4 mg injection (ZOFRAN) 4 mg INTRAVENOUS q 6 H PRN - senna-docusate 8.6-50 mg 1 tablet (SENNA-S) 1 tablet ORAL BID - metoprolol succinate ER 50 mg tab(s) (TOPROL XL) 50 mg ORAL DAILY - icosapent ethyl 1 g cap(s) (VASCEPA) 1 g ORAL BID - sodium chloride 0.9 % (flush) 3-5 mL (BD POSIFLUSH) 3-5 mL INTRAVENOUS q 12 H - melatonin 3 mg tab(s) 3 mg ORAL/FEEDING TUBE DAILY (7 PM) - levETIRAcetam 500 mg tab(s) (KEPPRA) 500 mg ORAL BID Labs: Recent Labs 07/05/21 0544 NA 138 K 4.1 CHLOR 101 CO2 26 BUN 14 CREAT 0.62 GLUC 105* ANION 11 CA 9.6 WBC 7.35 HB 14.5 HCT 45.1 PLT 276 PHYSICAL EXAM: Genl: Appears age appropriate. No acute distress. Resting comfortably. Head/Face: Normocephalic. Atraumatic. Eyes: EOMI. Sclera not icteric, not injected Neck: No mid-line masses. C-spine non-tender. Resp: Lung sounds are clear bilat. No wheezes. No rales. Breathing is non-labored on RA. CVS: RRR as above; 2+ pulses at RA, DP, PT bilat. GI: Abdomen is soft, non-tender, not distended. Bowel sounds normoactive. No peritonitis. MSK: LUE congenital deformity. RUE atraumatic without edema. 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 RUE forearm and upper arm compartments soft, compressible and non-tender without redness or warmth. Skin: Warm and dry. Not jaundiced. Neuro: AANDOx3. Strength and sensation normal. DE DIOS. GCS15. Psych: Normal mood. Normal affect. Appropriate insight into current situation. ASSESSMENT AND PLAN: Active Hospital Problems Diagnosis Date Noted - Vitamin D deficiency 07/04/2021 - Fall 06/30/2021 - Trauma 06/30/2021 - TBI (traumatic brain injury) ([facility]) 06/30/2021 - Nausea AND vomiting 06/30/2021 - SDH (subdural hematoma) ([facility]) 06/30/2021 - Closed fracture of occipital bone with routine healing 06/30/2021 - SAH (subarachnoid hemorrhage) ([facility]) 06/30/2021 - CKD (chronic kidney disease) stage 3, GFR 30-59 ml/min ([facility]) 07/16/2018 Chronic - Mixed hyperlipidemia Chronic - Congenital limb anomaly Chronic Overview Note: Left upper extremity 80 year old female s/p mechanical GLF on 06/29/2021 ([facility]) Imaging performed: 1. 06/30/2021 - CT H/N, CXR, PXR, repeat CTH 2. 07/01/2021 - CTH 3. 07/02/2021 - CTH Traumatic Injuries: 1. Acute subarachnoid hemorrhage right frontal and occipital poles 2. Acute subarachnoid hemorrhage left frontal pole and left cerebellar convexity 3. Right inferior frontal cortical contusion. Left cerebellar parenchymal hypodensity may represent old infarct versus additional parenchymal contusion. 4. Nondisplaced left parietal and occipital bone fracture extending to the left foramen magnum. Operations/Procedures: 1. None Care Plan: 1. Acute ICH + parietal and occipital bone fractures 1. Neurosurgery following 2. Non-op management 3. Repeat CTH stable 07/02 4. Keppra BID x (more content not included)...[facility] 07-05-2021 NoteHNO ID: [id number] Author: Rosie Lugo DO Service: Hospital Medicine Author Type: Physician Type: Progress Notes Filed: 07/05/2021 7:11 AM Note Text: DEPARTMENT OF HOSPITAL MEDICINE PROGRESS NOTE SERVICE DATE: 07/05/2021 SERVICE TIME: 7:10 AM Hospital Medicine/Primary Attending: Rosie Lugo DO NIGHT AND WEEKEND COVERAGE: After 7pm please page [phone] CHIEF COMPLAINT: Follow up on MMP SUBJECTIVE: Pt seen and examined. States that her headache is still there but better. Pt denies chest pain, shortness of breath, nausea, vomiting, or diarrhea. OBJECTIVE: PHYSICAL EXAM: BP 157/86 Pulse 69 Temp (Src) 99 (Oral) Resp 18 Ht 4' 11 (1.50m) Wt 114 lb 13.8 oz (52.1kg) SpO2 97% BMI 23.19 kg/(m2). O2 Therapy: Room Air General - AANDOx3, NAD, Calm CV - RRR S1 S2, No M/R/G RESP - CTA B/L No wheezes, ronchi, rales ABD - soft, NT, ND +BS EXT - congenital limb deformity NEURO - CN II-XII grossly intact, no focal deficits MEDICATIONS: Current Facility-Administered Medications Medication Dose Route Frequency - NaCl 0.9% iv flush bag 20 mL INTRAVENOUS PRN - ondansetron (PF) 4 mg injection (ZOFRAN) 4 mg INTRAVENOUS q 6 H PRN - senna-docusate 8.6-50 mg 1 tablet (SENNA-S) 1 tablet ORAL BID - metoprolol succinate ER 50 mg tab(s) (TOPROL XL) 50 mg ORAL DAILY - icosapent ethyl 1 g cap(s) (VASCEPA) 1 g ORAL BID - sodium chloride 0.9 % (flush) 3-5 mL (BD POSIFLUSH) 3-5 mL INTRAVENOUS q 12 H - melatonin 3 mg tab(s) 3 mg ORAL/FEEDING TUBE DAILY (7 PM) - levETIRAcetam 500 mg tab(s) (KEPPRA) 500 mg ORAL BID - oxyCODONE IR 2.5-5 mg tab(s) (ROXICODONE) 2.5-5 mg ORAL q 6 H PRN - acetaminophen 975 mg tab(s) (TYLENOL) 975 mg ORAL q 6 H PRN - meclizine 25 mg tab(s) (ANTIVERT) 25 mg ORAL TID PRN - enoxaparin 30 mg injection (LOVENOX) 30 mg SUBCUTANEOUS q 12 HR - amLODIPine 5 mg tab(s) (NORVASC) 5 mg ORAL DAILY - cloNIDine HCl 0.1 mg tab(s) (CATAPRES) 0.1 mg ORAL q 8 H PRN - ergocalciferol (vitamin D2) 50,000 Units cap(s) (DRISDOL) 50,000 Units ORAL 1/WK - acetaminophen 325 mg-caffeine 40 mg-butalbital 50 mg 1 tablet (FIORICET) 1 tablet ORAL q 6 H PRN DATA: Diagnostic tests reviewed for today's visit: CBC: Recent Labs 07/05/21 0544 WBC 7.35 RBC 5.05 HB 14.5 HCT 45.1 PLT 276 MCV 89.3 MCH 28.7 MPV 10.0 Coags: No results for input(s): PT, INR, APTT in the last 24 hours. BMP: Recent Labs 07/05/21 0544 NA 138 K 4.1 CHLOR 101 CO2 26 BUN 14 CREAT 0.62 GLUC 105* CMP: Recent Labs 07/05/21 0544 NA 138 K 4.1 CHLOR 101 CO2 26 BUN 14 CREAT 0.62 GLUC 105* CA 9.6 ANION 11 Cardiac Enzymes: No results for input(s): CK, MB, CKMB, TROPT in the last 24 hours. Liver Function, Amylase, Lipase: No results for input(s): TPROT, ALB, ALT, AST, ALKPHOS, TBILI, AMYLASE, LIPASE, LACTATE in the last 24 hours. MG/PHOS: No results for input(s): MG, P in the last 24 hours. Renal Panel: Recent Labs 07/05/21 0544 CREAT 0.62 BUN 14 GLUC 105* CA 9.6 CHLOR 101 K 4.1 CO2 26 NA 138 Heme: No results for input(s): RETICP, ABSRETIC, LD, LETTY, FE, TIBC, TRANSFERSAT in the last 24 hours. No results found for: UALBCR CrCl cannot be calculated (Unknown ideal weight.). Assessment/Plan 1. Acute intracranial hemorrhage with parietal and occipital bone fractures-management per trauma service as well as neurosurgery. ?Currently on seizure prophylaxis. 2. Hypertension-I do think a component of this is pain related. Overall BPs are better. Encouraged patient to take pain meds if hurting and available? Will sign off. Please page if needed ? Medication and Non-Pharmacologic VTE Prophylaxis/Anticoagulants Anticoagulant AND Antiplatelet Medications (From admission, onward) Start Dose Route Frequency Last Action Ordered Stop 07/03/21 2100 enoxaparin 30 mg injection (LOVENOX) (enoxaparin injection (LOVENOX)) 30 mg SUBCUTANEOUS EVERY 12 HOURS Given, 07/04 19407/03/21 1101 -- 06/30/21 1500 vte pharmacologic prophylaxis contraindicated (sc,ma) 06/30/21 1500 pneumatic compression stockings (sc,ma) 06/30/21 1500 activity - mobilize patient ([place]) Lines, Drains, and Airways Line Peripheral 06/30/21 1055 Right Antecubital 20 Gauge 4 days Peripheral 07/05/21 0552 Right Arm 22 Gauge <1 day Drain External Collection Device 07/01/21 1800 3 days VTE Prophylaxis: Lovenox 30mg Sub Q Daily Disposition: Acute Rehab Functional Status Prior to Admit: Medical Necessity for Continued Hospitalization Per primary Plan of care discussed with: Patient SIGNATURE: Rosie Lugo DO PATIENT NAME: Virginia Duckworth DATE: July 05, 2021 TIME: 7:10 AM PAGER/CONTACT #: Team color pager Disclaimer: Portions of this note may have been generated using [employer] voice recognition software. Reasonable efforts were made to correct any dictation errors that resulted due to the programming of this software but some may stil (more content not included)...[facility] 07-04-2021 NoteHNO ID: [id number] Author: Cinthya Brower APRN.CNP Service: General Surgery Author Type: Nurse Practitioner Type: Progress Notes Filed: 07/04/2021 8:45 AM Note Text: Trauma Surgery Progress Note SERVICE DATE: 07/04/2021 Trauma Service Pager: For questions or concerns Mon-Fri 6a-5p please page [phone]. After 5pm and on Weekends and Holidays, please page [phone] if in ICU or [phone] if on RNF. SUBJECTIVE: NAEON. Patient reports headache is somewhat improved from yesterday. Tolerating diet. Reports some dizziness/vertigo with movement - encouraged to ask for PRN meclizine. Requesting [facility], will discuss with health and social care teacher. OBJECTIVE: Vitals: Temp (24hrs), Av.1 ?C (98.7 ?F), Min:36.5 ?C (97.7 ?F), Max:37.5 ?C (99.5 ?F) BP 157/92 Pulse 86 Temp 36.5 ?C (97.7 ?F) Resp 20 Ht 149.9 cm (4' 11 ) Wt 54.3 kg (119 lb 11.4 oz) SpO2 96% BMI 24.18 kg/m? O2 Therapy: Room Air IANDO: Date 07/03/21 07 - 07/04/21 0659 07/04/21 0700 - 07/05/21 0659 Shift 3311-5953 3227-9590 7077-7893 24 Hour Total 6258-9074 9712-2604 5163-0442 24 Hour Total INTAKE PO 200 200 400 PO 200 200 400 Shift Total 200 200 400 OUTPUT Urine 700 700 Output ( External Collection Device 07/01/21 1800) 700 700 # of BMs Number of BMs 1 x 1 x Shift Total 700 700 Weight (kg) 54.3 54.3 54.3 54.3 54.3 54.3 54.3 54.3 MEDICATIONS: Current Facility-Administered Medications Medication Dose Route Frequency - enoxaparin 30 mg injection (LOVENOX) 30 mg SUBCUTANEOUS q 12 HR - amLODIPine 5 mg tab(s) (NORVASC) 5 mg ORAL DAILY - cloNIDine HCl 0.1 mg tab(s) (CATAPRES) 0.1 mg ORAL q 8 H PRN - meclizine 25 mg tab(s) (ANTIVERT) 25 mg ORAL TID PRN - cholecalciferol 1,000 Units tab(s) (VITAMIN D3) 1,000 Units ORAL DAILY - oxyCODONE IR 2.5-5 mg tab(s) (ROXICODONE) 2.5-5 mg ORAL q 6 H PRN - acetaminophen 975 mg tab(s) (TYLENOL) 975 mg ORAL q 6 H PRN - NaCl 0.9% iv flush bag 20 mL INTRAVENOUS PRN - ondansetron (PF) 4 mg injection (ZOFRAN) 4 mg INTRAVENOUS q 6 H PRN - senna-docusate 8.6-50 mg 1 tablet (SENNA-S) 1 tablet ORAL BID - metoprolol succinate ER 50 mg tab(s) (TOPROL XL) 50 mg ORAL DAILY - icosapent ethyl 1 g cap(s) (VASCEPA) 1 g ORAL BID - sodium chloride 0.9 % (flush) 3-5 mL (BD POSIFLUSH) 3-5 mL INTRAVENOUS q 12 H - melatonin 3 mg tab(s) 3 mg ORAL/FEEDING TUBE DAILY (7 PM) - levETIRAcetam 500 mg tab(s) (KEPPRA) 500 mg ORAL BID Labs: Recent Labs 07/02/21 0624 NA 142 K 4.0 CHLOR 108* CO2 22 BUN 12 CREAT 0.62 GLUC 60* ANION 12 CA 8.7 MG 1.8 WBC 8.14 HB 13.0 HCT 42.2 PLT 192 PHYSICAL EXAM: Genl: Appears age appropriate. No acute distress. Resting comfortably. Head/Face: Normocephalic. Atraumatic. Eyes: EOMI. Sclera not icteric, not injected Neck: No mid-line masses. C-spine non-tender. Resp: Lung sounds are clear bilat. No wheezes. No rales. Breathing is non-labored on RA. CVS: RRR as above; 2+ pulses at RA, DP, PT bilat. GI: Abdomen is soft, non-tender, not distended. Bowel sounds normoactive. No peritonitis. MSK: LUE congenital deformity. RUE atraumatic without edema. 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 RUE forearm and upper arm compartments soft, compressible and non-tender without redness or warmth. Skin: Warm and dry. Not jaundiced. Neuro: AANDOx3. Strength and sensation normal. DE DIOS. GCS15. Psych: Normal mood. Normal affect. Appropriate insight into current situation. ASSESSMENT AND PLAN: Active Hospital Problems Diagnosis Date Noted - Vitamin D deficiency 07/04/2021 - Fall 06/30/2021 - Trauma 06/30/2021 - TBI (traumatic brain injury) ([facility]) 06/30/2021 - Nausea AND vomiting 06/30/2021 - SDH (subdural hematoma) ([facility]) 06/30/2021 - Closed fracture of occipital bone with routine healing 06/30/2021 - SAH (subarachnoid hemorrhage) ([facility]) 06/30/2021 - CKD (chronic kidney disease) stage 3, GFR 30-59 ml/min ([facility]) 07/16/2018 Chronic - Mixed hyperlipidemia Chronic - Congenital limb anomaly Chronic Overview Note: Left upper extremity 80 year old female s/p mechanical GLF on 06/29/2021 ([facility]) Imaging performed: 1. 06/30/2021 - CT H/N, CXR, PXR, repeat CTH 2. 07/01/2021 - CTH 3. 07/02/2021 - CTH Traumatic Injuries: 1. Acute subarachnoid hemorrhage right frontal and occipital poles 2. Acute subarachnoid hemorrhage left frontal pole and left cerebellar convexity 3. Right inferior frontal cortical contusion. Left cerebellar parenchymal hypodensity may represent old infarct versus additional parenchymal contusion. 4. Nondisplaced left parietal and occipital bone fracture extending to the left foramen magnum. Operations/Procedures: 1. None Care Plan: 1. Acute ICH + parietal and occipital bone fractures 1. Neurosurgery following 2. Non-op management 3. Repeat CTH stable 07/02 4. Keppra BID x 7 days 5. OK for DVT PPX 6. PRN Antivert for dizziness 7. Melatonin QHS 8. 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 States that her headache is a little better. Dizzy with getting up. No chest pain or SOB. OBJECTIVE: PHYSICAL EXAM: BP 157/93 Pulse 77 Temp (Src) 99.3 (Oral) Resp 18 Ht 4' 11 (1.50m) Wt 119 lb 11.4 oz (54.3kg) SpO2 97% BMI 24.17 kg/(m2). O2 Therapy: Room Air General - AANDOx3, NAD, Calm CV - RRR S1 S2, No M/R/G RESP - CTA B/L No wheezes, ronchi, rales ABD - soft, NT, ND +BS EXT - Left limb abnormality NEURO - CN II-XII grossly intact, no focal deficits MEDICATIONS: Current Facility-Administered Medications Medication Dose Route Frequency - NaCl 0.9% iv flush bag 20 mL INTRAVENOUS PRN - ondansetron (PF) 4 mg injection (ZOFRAN) 4 mg INTRAVENOUS q 6 H PRN - senna-docusate 8.6-50 mg 1 tablet (SENNA-S) 1 tablet ORAL BID - metoprolol succinate ER 50 mg tab(s) (TOPROL XL) 50 mg ORAL DAILY - icosapent ethyl 1 g cap(s) (VASCEPA) 1 g ORAL BID - sodium chloride 0.9 % (flush) 3-5 mL (BD POSIFLUSH) 3-5 mL INTRAVENOUS q 12 H - melatonin 3 mg tab(s) 3 mg ORAL/FEEDING TUBE DAILY (7 PM) - levETIRAcetam 500 mg tab(s) (KEPPRA) 500 mg ORAL BID - cholecalciferol 1,000 Units tab(s) (VITAMIN D3) 1,000 Units ORAL DAILY - oxyCODONE IR 2.5-5 mg tab(s) (ROXICODONE) 2.5-5 mg ORAL q 6 H PRN - acetaminophen 975 mg tab(s) (TYLENOL) 975 mg ORAL q 6 H PRN - meclizine 25 mg tab(s) (ANTIVERT) 25 mg ORAL TID PRN - enoxaparin 30 mg injection (LOVENOX) 30 mg SUBCUTANEOUS q 12 HR - amLODIPine 5 mg tab(s) (NORVASC) 5 mg ORAL DAILY - cloNIDine HCl 0.1 mg tab(s) (CATAPRES) 0.1 mg ORAL q 8 H PRN DATA: Diagnostic tests reviewed for today's visit: CBC: No results for input(s): WBC, RBC, HB, HCT, PLT, MCV, MCH, MPV, RDW in the last 24 hours. Coags: No results for input(s): PT, INR, APTT in the last 24 hours. BMP: No results for input(s): NA, K, CHLOR, CO2, BUN, CREAT, GLUC in the last 24 hours. CMP: No results for input(s): NA, K, CHLOR, CO2, BUN, CREAT, GLUC, TPROT, CA, MG, ALBUMIN, TBILI, ALKPHOS, ALT, AST, ANION in the last 24 hours. Cardiac Enzymes: No results for input(s): CK, MB, CKMB, TROPT in the last 24 hours. Liver Function, Amylase, Lipase: No results for input(s): TPROT, ALB, ALT, AST, ALKPHOS, TBILI, AMYLASE, LIPASE, LACTATE in the last 24 hours. MG/PHOS: No results for input(s): MG, P in the last 24 hours. Renal Panel: No results for input(s): ALBUMIN, CREAT, BUN, GLUC, CA, P, CHLOR, K, CO2, NA in the last 24 hours. Heme: No results for input(s): RETICP, ABSRETIC, LD, LETTY, FE, TIBC, TRANSFERSAT in the last 24 hours. No results found for: UALBCR CrCl cannot be calculated (Unknown ideal weight.). Assessment/Plan 1. Acute intracranial hemorrhage with parietal and occipital bone fractures-management per trauma service as well as neurosurgery. Currently on seizure prophylaxis. 2. Hypertension-I do think a component of this is pain related. Overall BPs are better. Encouraged patient to take pain meds if hurting and available? Asking about Rehab in [place] Medication and Non-Pharmacologic VTE Prophylaxis/Anticoagulants Anticoagulant AND Antiplatelet Medications (From admission, onward) Start Dose Route Frequency Last Action Ordered Stop 07/03/21 2100 enoxaparin 30 mg injection (LOVENOX) (enoxaparin injection (LOVENOX)) 30 mg SUBCUTANEOUS EVERY 12 HOURS Given, 07/03 210207/03/21 1101 -- 06/30/21 1500 vte pharmacologic prophylaxis contraindicated (fl,oh) 06/30/21 1500 pneumatic compression stockings (sc,oh) 06/30/21 1500 activity - mobilize patient (sc,ma) Lines, Drains, and Airways Line Peripheral 06/30/21 1055 Right Antecubital 20 Gauge 3 days Drain External Collection Device 07/01/21 1800 2 days VTE Prophylaxis: As per primary team Disposition: Acute Rehab Functional Status Prior to Admit: Medical Necessity for Continued Hospitalization Per primary team Plan of care discussed with: Provider, RN, Patient SIGNATURE: Rosie Lugo DO PATIENT NAME: Virginia Duckworth DATE: July 04, 2021 TIME: 7:24 AM PAGER/CONTACT #: Team color pager Disclaimer: Portions of this note may have been generated using [employer] voice recognition software. Reasonable efforts were made to correct any dictation errors that resulted due to the programming of this software but some may still be present. Please note, the time of this note does not reflect the time I saw this patient today, but the time of this documentation.[facility] 07-03-2021 NoteHNO ID: [id number] Author: Trace Gaston PA-C Service: Neurosurgery Author Type: Physician Corpsman Type: Progress Notes Filed: 07/03/2021 10:26 AM Note Text: Neurosurgery Progress Note SERVICE DATE: 07/03/2021 SUBJECTIVE: SUSIE. Reports no change in headaches or her dizziness. Denies nausea or vomiting. Denies any pain, numbness, or tingling in extremities. OBJECTIVE: Vitals: Temp (24hrs), Av.2 ?C (99 ?F), Min:36.4 ?C (97.5 ?F), Max:37.6 ?C (99.7 ?F) BP 167/95 Pulse 95 Temp 37.5 ?C (99.5 ?F) (Oral) Resp 18 Ht 149.9 cm (4' 11 ) Wt 54.3 kg (119 lb 11.4 oz) SpO2 95% BMI 24.18 kg/m? O2 Therapy: Room Air IANDO: Date 07/02/21 0700 - 07/03/21 0659 07/03/21 07 - 07/04/21 0659 Shift 7003-6568 8884-3635 1719-6385 24 Hour Total 7638-1015 2435-1217 3373-1626 24 Hour Total INTAKE PO 560 560 PO 560 560 IV 383 383 Volume (mL) (NaCl 0.9% iv infusion) 383 383 Shift Total 943 943 OUTPUT Urine 500 200 700 Void (ml) 500 500 Output ( External Collection Device 07/01/21 1800) 200 200 Shift Total 500 200 700 Weight (kg) 53.5 53.5 54.3 54.3 54.3 54.3 54.3 54.3 MEDICATIONS: Current Facility-Administered Medications Medication Dose Route Frequency - NaCl 0.9% iv flush bag 20 mL INTRAVENOUS PRN - ondansetron (PF) 4 mg injection (ZOFRAN) 4 mg INTRAVENOUS q 6 H PRN - senna-docusate 8.6-50 mg 1 tablet (SENNA-S) 1 tablet ORAL BID - metoprolol succinate ER 50 mg tab(s) (TOPROL XL) 50 mg ORAL DAILY - icosapent ethyl 1 g cap(s) (VASCEPA) 1 g ORAL BID - sodium chloride 0.9 % (flush) 3-5 mL (BD POSIFLUSH) 3-5 mL INTRAVENOUS q 12 H - melatonin 3 mg tab(s) 3 mg ORAL/FEEDING TUBE DAILY (7 PM) - levETIRAcetam 500 mg tab(s) (KEPPRA) 500 mg ORAL BID - cholecalciferol 1,000 Units tab(s) (VITAMIN D3) 1,000 Units ORAL DAILY - oxyCODONE IR 2.5-5 mg tab(s) (ROXICODONE) 2.5-5 mg ORAL q 6 H PRN - acetaminophen 975 mg tab(s) (TYLENOL) 975 mg ORAL q 6 H PRN - meclizine 25 mg tab(s) (ANTIVERT) 25 mg ORAL TID PRN - hydrALAZINE 10 mg tab(s) (APRESOLINE) 10 mg ORAL q 6 H PRN Physical Exam Performed: General - Alert, cooperative, appropriate Resp - even, unlabored GI - abdomen soft, non-tender, non-distended HEENT - Normocephalic. Atraumatic. Neck/Back - No midline or paraspinal tenderness. No gross bony deformities. Neuro - A+O x3, PERRL, makes eye contact, speech clear, cranial nerves 2-12 grossly intact, DE DIOS, strength 5/5 RUE (left upper extremity deformity) and BLE Extremities- No edema, left upper extremity deformity, eccymosis throughout right upper extremity. Pulses- 2+ DP, 2+ radial Labs: CBC, Coags, BMP, Mg, Phos Recent Labs 07/02/21 0624 07/01/21 0433 06/30/21 1515 06/30/21 1241 06/30/21 1136 WBC 8.14 8.21 -- -- 11.95* HB 13.0 12.0 -- -- 13.6 HCT 42.2 37.9 -- -- 42.6 PLT 192 181 -- -- 234 INR -- -- -- 1.0 -- APTT -- -- -- 20.5* -- NA 142 142 -- 142 -- K 4.0 3.9 -- 4.2 -- CHLOR 108* 109* -- 107* -- CO2 22 25 -- 22 -- BUN 12 22* -- 25* -- CREAT 0.62 0.83 -- 1.09* -- GLUC 60* 80 -- 117* -- CA 8.7 8.7 -- 9.1 -- MG 1.8 2.0 1.9 -- -- Diagnostic tests reviewed for today's visit: Most recent labs and imaging results. ASSESSMENT AND PLAN: Active Hospital Problems Diagnosis Date Noted - Fall 06/30/2021 - Trauma 06/30/2021 - TBI (traumatic brain injury) ([facility]) 06/30/2021 - Nausea AND vomiting 06/30/2021 - SDH (subdural hematoma) ([facility]) 06/30/2021 - Closed fracture of occipital bone with routine healing 06/30/2021 - SAH (subarachnoid hemorrhage) ([facility]) 06/30/2021 - CKD (chronic kidney disease) stage 3, GFR 30-59 ml/min ([facility]) 07/16/2018 Chronic - Mixed hyperlipidemia Chronic - Congenital limb anomaly Chronic Overview Note: Left upper extremity 80 year old female right frontal, right temporal, right parietal, left frontal, and left cerebellar tSAH after fall, with left calvarial fracture -Neuro stable, as above -Imaging: CTH 07/02 stable -Pain control: Continue per primary -DVT PPX: Discussed with Dr. Zheng. Okay to start DVT chem PPX -Seizure PPX: Keppra -SBP <160 -HOB >30? -Neuro checks per protocol Medication and Non-Pharmacologic VTE Prophylaxis/Anticoagulants 06/30/21 1500 vte pharmacologic prophylaxis contraindicated (sc,oh) 06/30/21 1500 pneumatic compression stockings (sc,[place]) 06/30/21 1500 activity - mobilize patient ([place]) VTE Prophylaxis: VTE prophylaxis appropriate SIGNATURE: Trace Gaston PA-C PATIENT NAME: Virginia Duckworth DATE: July 03, 2021 TIME: 8:05 AM [phone] NoteHNO ID: [id number] Author: Yosef Che PA-C Service: General Surgery Author Type: Physician Corpsman Type: Progress Notes Filed: 07/03/2021 7:56 AM Note Text: Trauma Surgery Progress Note SERVICE DATE: 07/03/2021 Trauma Service Pager: For questions or concerns Mon-Fri 6a-5p please page [phone]. After 5pm and on Weekends and Holidays, please page [phone] if in ICU or [phone] if on RNF. SUBJECTIVE: NAEON. Patient endorses mild COREY this morning with dizziness but no visual changes. Denies nausea or vomiting. She notes right hand swelling compared to yesterday. No other focal concerns. Denies CP, SOB, abdominal pain, N/V, chills or sweats. OBJECTIVE: Vitals: Temp (24hrs), Av.2 ?C (99 ?F), Min:36.4 ?C (97.5 ?F), Max:37.6 ?C (99.7 ?F) BP 167/95 Pulse 95 Temp 37.5 ?C (99.5 ?F) (Oral) Resp 18 Ht 149.9 cm (4' 11 ) Wt 54.3 kg (119 lb 11.4 oz) SpO2 95% BMI 24.18 kg/m? O2 Therapy: Room Air IANDO: Date 07/02/21 0700 - 07/03/21 0659 07/03/21 0700 - 07/04/21 0659 Shift 2682-1053 0288-4970 8641-2793 24 Hour Total 5581-2812 2612-8371 1385-8334 24 Hour Total INTAKE PO 560 560 PO 560 560 IV 383 383 Volume (mL) (NaCl 0.9% iv infusion) 383 383 Shift Total 943 943 OUTPUT Urine 500 200 700 Void (ml) 500 500 Output ( External Collection Device 07/01/21 1800) 200 200 Shift Total 500 200 700 Weight (kg) 53.5 53.5 54.3 54.3 54.3 54.3 54.3 54.3 MEDICATIONS: Current Facility-Administered Medications Medication Dose Route Frequency - meclizine 25 mg tab(s) (ANTIVERT) 25 mg ORAL TID PRN - hydrALAZINE 10 mg tab(s) (APRESOLINE) 10 mg ORAL q 6 H PRN - cholecalciferol 1,000 Units tab(s) (VITAMIN D3) 1,000 Units ORAL DAILY - oxyCODONE IR 2.5-5 mg tab(s) (ROXICODONE) 2.5-5 mg ORAL q 6 H PRN - acetaminophen 975 mg tab(s) (TYLENOL) 975 mg ORAL q 6 H PRN - NaCl 0.9% iv flush bag 20 mL INTRAVENOUS PRN - ondansetron (PF) 4 mg injection (ZOFRAN) 4 mg INTRAVENOUS q 6 H PRN - senna-docusate 8.6-50 mg 1 tablet (SENNA-S) 1 tablet ORAL BID - metoprolol succinate ER 50 mg tab(s) (TOPROL XL) 50 mg ORAL DAILY - icosapent ethyl 1 g cap(s) (VASCEPA) 1 g ORAL BID - sodium chloride 0.9 % (flush) 3-5 mL (BD POSIFLUSH) 3-5 mL INTRAVENOUS q 12 H - melatonin 3 mg tab(s) 3 mg ORAL/FEEDING TUBE DAILY (7 PM) - levETIRAcetam 500 mg tab(s) (KEPPRA) 500 mg ORAL BID Labs: Recent Labs 07/02/21 0624 07/01/21 0433 06/30/21 1515 06/30/21 1241 NA 142 142 -- 142 K 4.0 3.9 -- 4.2 CHLOR 108* 109* -- 107* CO2 22 25 -- 22 BUN 12 22* -- 25* CREAT 0.62 0.83 -- 1.09* GLUC 60* 80 -- 117* ANION 12 8* -- 13 CA 8.7 8.7 -- 9.1 MG 1.8 2.0 < > -- ALB -- -- -- 3.7* ALKPHOS -- -- -- 67 TBILI -- -- -- 0.3 WBC 8.14 8.21 -- -- HB 13.0 12.0 -- -- HCT 42.2 37.9 -- -- PLT 192 181 -- -- INR -- -- -- 1.0 < > = values in this interval not displayed. PHYSICAL EXAM: Genl: Appears age appropriate. No acute distress. Resting comfortably. Head/Face: Normocephalic. Atraumatic. Eyes: EOMI. Sclera not icteric, not injected Neck: No mid-line masses. C-spine non-tender. Resp: Lung sounds are clear bilat. No wheezes. No rales. Breathing is non-labored on RA. CVS: RRR as above; 2+ pulses at RA, DP, PT bilat. GI: Abdomen is soft, non-tender, not distended. Bowel sounds normoactive. No peritonitis. MSK: LUE congenital deformity. RUE atraumatic without edema. 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 RUE forearm and upper arm compartments soft, compressible and non-tender without redness or warmth. Skin: Warm and dry. Not jaundiced. Neuro: AANDOx3. Strength and sensation normal. DE DIOS. GCS15. Psych: Normal mood. Normal affect. Appropriate insight into current situation. ASSESSMENT AND PLAN: Active Hospital Problems Diagnosis Date Noted - Fall 06/30/2021 - Trauma 06/30/2021 - TBI (traumatic brain injury) ([facility]) 06/30/2021 - Nausea AND vomiting 06/30/2021 - SDH (subdural hematoma) ([facility]) 06/30/2021 - Closed fracture of occipital bone with routine healing 06/30/2021 - SAH (subarachnoid hemorrhage) ([facility]) 06/30/2021 - CKD (chronic kidney disease) stage 3, GFR 30-59 ml/min ([facility]) 07/16/2018 Chronic - Mixed hyperlipidemia Chronic - Congenital limb anomaly Chronic Overview Note: Left upper extremity 80 year old female s/p mechanical GLF on 06/29/2021 ([place] transfer) Imaging performed: 1. 06/30/2021 - CT H/N, CXR, PXR, repeat CTH 2. 07/01/2021 - CTH 3. 07/02/2021 - CTH Traumatic Injuries: 1. Acute subarachnoid hemorrhage right frontal and occipital poles 2. Acute subarachnoid hemorrhage left frontal pole and left cerebellar convexity 3. Right inferior frontal cortical contusion. Left cerebellar parenchymal hypodensity may represent old infarct versus additional parenchymal contusion. 4. Nondisplaced left parietal and occipital bone fracture extending to the left foramen magnum. Operations/Procedures: 1. None Care Plan: 1. Acute I (more content not included)...[facility]01-29-2022 NoteHNO ID: [id number] Author: Salvador Beaver MD Service: General Surgery Author Type: Physician Type: Progress Notes Filed: 07/02/2021 10:26 AM Note Text: Trauma Surgery Progress Note SERVICE DATE: 07/02/2021 Trauma Service Pager: For questions or concerns Mon-Fri 6a-5p please page [phone]. After 5pm and on Weekends and Holidays, please page [phone] if in ICU or [phone] if on RNF. SUBJECTIVE: Only complaint this morning is a headache. Denies n/v, or any focal neurological deficit. OBJECTIVE: Vitals: Temp (24hrs), Av.9 ?C (98.5 ?F), Min:36.8 ?C (98.2 ?F), Max:37.1 ?C (98.8 ?F) BP 151/82 Pulse 80 Temp 36.8 ?C (98.2 ?F) (Temporal) Resp 12 Ht 149.9 cm (4' 11 ) Wt 53.5 kg (117 lb 15.1 oz) SpO2 96% BMI 23.82 kg/m? O2 Therapy: Nasal Cannula IANDO: Date 07/01/21699 - 07/02/2159 07/02/21699 - 07/03/21 0659 Shift 0584-9628 5509-3719 3335-2253 24 Hour Total 1256-9584 3622-0853 0237-1703 24 Hour Total INTAKE IV 905 607 2052 Volume (mL) (potassium phosphate 45 mmol in NaCl 0.9% 500 mL) 500 500 Volume (mL) (NaCl 0.9% iv infusion) 334 534 868 Shift Total 219 005 2249 OUTPUT Urine 300 300 600 Output ( External Collection Device 07/01/21 1800) 300 300 600 Shift Total 300 300 600 Weight (kg) 50.8 53.8 53.8 53.8 53.5 53.5 53.5 53.5 MEDICATIONS: Current Facility-Administered Medications Medication Dose Route Frequency - NaCl 0.9% iv infusion 75 mL/hr INTRAVENOUS CONTINUOUS - cholecalciferol 1,000 Units tab(s) (VITAMIN D3) 1,000 Units ORAL DAILY - oxyCODONE IR 2.5-5 mg tab(s) (ROXICODONE) 2.5-5 mg ORAL q 6 H PRN - acetaminophen 975 mg tab(s) (TYLENOL) 975 mg ORAL q 6 H PRN - NaCl 0.9% iv flush bag 20 mL INTRAVENOUS PRN - ondansetron (PF) 4 mg injection (ZOFRAN) 4 mg INTRAVENOUS q 6 H PRN - senna-docusate 8.6-50 mg 1 tablet (SENNA-S) 1 tablet ORAL BID - metoprolol succinate ER 50 mg tab(s) (TOPROL XL) 50 mg ORAL DAILY - icosapent ethyl 1 g cap(s) (VASCEPA) 1 g ORAL BID - potassium chloride ER 20-40 mEq tab(s) (K-DUR, KLOR-CON) 20-40 mEq ORAL/FEEDING TUBE PRN Or - potassium chloride iv piggyback 20 mEq/100 mL 20 mEq INTRAVENOUS PRN - magnesium sulfate 2 g in sterile water 50 ml 2 g INTRAVENOUS PRN - phosphorus 500 mg tab(s) (K PHOS NEUTRAL) 500 mg ORAL/FEEDING TUBE PRN(NO DISPENSE) - calcium gluconate 4 g in NaCl 0.9% 250 mL 4 g INTRAVENOUS PRN - sodium chloride 0.9 % (flush) 3-5 mL (BD POSIFLUSH) 3-5 mL INTRAVENOUS q 12 H - melatonin 3 mg tab(s) 3 mg ORAL/FEEDING TUBE DAILY (7 PM) - levETIRAcetam 500 mg tab(s) (KEPPRA) 500 mg ORAL BID Labs: Recent Labs 07/02/21 0624 07/01/21 0433 06/30/21 1515 06/30/21 1241 NA 142 142 -- 142 K 4.0 3.9 -- 4.2 CHLOR 108* 109* -- 107* CO2 22 25 -- 22 BUN 12 22* -- 25* CREAT 0.62 0.83 -- 1.09* GLUC 60* 80 -- 117* ANION 12 8* -- 13 CA 8.7 8.7 -- 9.1 MG 1.8 2.0 < > -- ALB -- -- -- 3.7* ALKPHOS -- -- -- 67 TBILI -- -- -- 0.3 WBC 8.14 8.21 -- -- HB 13.0 12.0 -- -- HCT 42.2 37.9 -- -- PLT 192 181 -- -- INR -- -- -- 1.0 < > = values in this interval not displayed. PHYSICAL EXAM: Genl: Appears age appropriate. No acute distress. Resting comfortably. Eyes: EOMI. Sclera not icteric, not injected. Resp: Good excursion. Saturating well on RA. CVS: RRR as above. GI: Abdomen is soft, non-tender, not distended. No peritonitis. MSK: Extremities without clubbing, cyanosis, edema. Skin: Warm and dry. Not jaundiced. Neuro: AANDOx3. Strength and sensation normal. GCS15. Psych: Normal mood. Normal affect. Appropriate insight into current situation. ASSESSMENT AND PLAN: Active Hospital Problems Diagnosis Date Noted - Fall 06/30/2021 - Trauma 06/30/2021 - TBI (traumatic brain injury) ([facility]) 06/30/2021 - Nausea AND vomiting 06/30/2021 - SDH (subdural hematoma) ([facility]) 06/30/2021 - Closed fracture of occipital bone with routine healing 06/30/2021 - SAH (subarachnoid hemorrhage) ([facility]) 06/30/2021 - CKD (chronic kidney disease) stage 3, GFR 30-59 ml/min ([facility]) 07/16/2018 Chronic - Mixed hyperlipidemia Chronic - Congenital limb anomaly Chronic Overview Note: Left upper extremity 80 year old female s/p mechanical fall on 06/29/2021 (1 day prior to arrival). Trauma transfer from [place] [facility]. ? Imaging performed: 1. CT H/N, cxr, pxr on 06/30/[address] Brain on 06/30/2021, 07/01/2021, and 07/02/2021 ? Traumatic Injuries: 1. Acute subarachnoid hemorrhage right frontal and occipital poles 2. Acute subarachnoid hemorrhage left frontal pole and left cerebellar convexity 3. Right inferior frontal cortical contusion. Left cerebellar parenchymal hypodensity may represent old infarct versus additional parenchymal contusion. 4. Nondisplaced left parietal and occipital bone fracture extending to the left foramen magnum. ? Operations/Procedures: 1. None ? Care Plan: 1. [facility] 2. Acute SAH/TBI: 1. Neurosurgery consult (more content not included)...[facility]01-29-2022 NoteHNO ID: [id number] Author: Trace Gaston PA-C Service: Neurosurgery Author Type: Physician Corpsman Type: Progress Notes Filed: 07/02/2021 8:51 AM Note Text: Neurosurgery Progress Note SERVICE DATE: 07/02/2021 SUBJECTIVE: NAEON. Patient continues to report anterior headache, but denies nausea, vomiting, or vision changes. Denies pain anywhere else OBJECTIVE: Vitals: Temp (24hrs), Av.9 ?C (98.5 ?F), Min:36.8 ?C (98.2 ?F), Max:37.1 ?C (98.8 ?F) BP 151/82 Pulse 80 Temp 36.8 ?C (98.2 ?F) (Temporal) Resp 12 Ht 149.9 cm (4' 11 ) Wt 53.8 kg (118 lb 9.7 oz) SpO2 96% BMI 23.96 kg/m? O2 Therapy: Nasal Cannula IANDO: Date 07/01/21699 - 07/02/21 0659 07/02/21699 - 07/03/21 0659 Shift 2027-0578 8862-3706 1624-4775 24 Hour Total 5451-8147 2304-7038 2388-7245 24 Hour Total INTAKE IV 056 504 4939 Volume (mL) (potassium phosphate 45 mmol in NaCl 0.9% 500 mL) 500 500 Volume (mL) (NaCl 0.9% iv infusion) 334 534 868 Shift Total 199 833 1354 OUTPUT Urine 300 300 600 Output ( External Collection Device 07/01/21 1800) 300 300 600 Shift Total 300 300 600 Weight (kg) 50.8 53.8 53.8 53.8 53.8 53.8 53.8 53.8 MEDICATIONS: Current Facility-Administered Medications Medication Dose Route Frequency - NaCl 0.9% iv flush bag 20 mL INTRAVENOUS PRN - ondansetron (PF) 4 mg injection (ZOFRAN) 4 mg INTRAVENOUS q 6 H PRN - senna-docusate 8.6-50 mg 1 tablet (SENNA-S) 1 tablet ORAL BID - metoprolol succinate ER 50 mg tab(s) (TOPROL XL) 50 mg ORAL DAILY - icosapent ethyl 1 g cap(s) (VASCEPA) 1 g ORAL BID - potassium chloride ER 20-40 mEq tab(s) (K-DUR, KLOR-CON) 20-40 mEq ORAL/FEEDING TUBE PRN Or - potassium chloride iv piggyback 20 mEq/100 mL 20 mEq INTRAVENOUS PRN - magnesium sulfate 2 g in sterile water 50 ml 2 g INTRAVENOUS PRN - phosphorus 500 mg tab(s) (K PHOS NEUTRAL) 500 mg ORAL/FEEDING TUBE PRN(NO DISPENSE) - calcium gluconate 4 g in NaCl 0.9% 250 mL 4 g INTRAVENOUS PRN - sodium chloride 0.9 % (flush) 3-5 mL (BD POSIFLUSH) 3-5 mL INTRAVENOUS q 12 H - melatonin 3 mg tab(s) 3 mg ORAL/FEEDING TUBE DAILY (7 PM) - levETIRAcetam 500 mg tab(s) (KEPPRA) 500 mg ORAL BID - NaCl 0.9% iv infusion 75 mL/hr INTRAVENOUS CONTINUOUS - cholecalciferol 1,000 Units tab(s) (VITAMIN D3) 1,000 Units ORAL DAILY - oxyCODONE IR 2.5-5 mg tab(s) (ROXICODONE) 2.5-5 mg ORAL q 6 H PRN - acetaminophen 975 mg tab(s) (TYLENOL) 975 mg ORAL q 6 H PRN Physical Exam Performed: General - Alert, cooperative, appropriate Resp - even, unlabored GI - abdomen soft, non-tender, non-distended HEENT - Normocephalic. Atraumatic. Neck/Back - No midline or paraspinal tenderness. No gross bony deformities. Neuro - A+O x3, PERRL, makes eye contact, speech clear, cranial nerves 2-12 grossly intact, DE DIOS, strength 5/5 RUE (left upper extremity deformity) and BLE Extremities- No edema, left upper extremity deformity, eccymosis throughout right upper extremity. Pulses- 2+ DP, 2+ radial Labs: CBC, Coags, BMP, Mg, Phos Recent Labs 07/02/21 0624 07/01/21 0433 06/30/21 1515 06/30/21 1241 06/30/21 1136 WBC 8.14 8.21 -- -- 11.95* HB 13.0 12.0 -- -- 13.6 HCT 42.2 37.9 -- -- 42.6 PLT 192 181 -- -- 234 INR -- -- -- 1.0 -- APTT -- -- -- 20.5* -- NA 142 142 -- 142 -- K 4.0 3.9 -- 4.2 -- CHLOR 108* 109* -- 107* -- CO2 22 25 -- 22 -- BUN 12 22* -- 25* -- CREAT 0.62 0.83 -- 1.09* -- GLUC 60* 80 -- 117* -- CA 8.7 8.7 -- 9.1 -- MG 1.8 2.0 1.9 -- -- CSF AND Dilantin Cardiac Enzymes ABGs Diagnostic tests reviewed for today's visit: Most recent labs and imaging results. 07/02/21 IMPRESSION: ? Stable appearance of subarachnoid hemorrhage bilaterally in the frontal regions, bilateral temporal regions, left cerebellar region as above. There is also an area of edema and contusion at the right orbital frontal region, similar to the prior examination. Small amount of intraventricular hemorrhage, unchanged. ? Left parieto-occipital fracture extending to the foramen magnum. ASSESSMENT AND PLAN: Active Hospital Problems Diagnosis Date Noted - Fall 06/30/2021 - Trauma 06/30/2021 - TBI (traumatic brain injury) ([facility]) 06/30/2021 - Nausea AND vomiting 06/30/2021 - SDH (subdural hematoma) ([facility]) 06/30/2021 - Closed fracture of occipital bone with routine healing 06/30/2021 - SAH (subarachnoid hemorrhage) ([facility]) 06/30/2021 - CKD (chronic kidney disease) stage 3, GFR 30-59 ml/min ([facility]) 07/16/2018 Chronic - Mixed hyperlipidemia Chronic - Congenital limb anomaly Chronic Overview Note: Left upper extremity 80 year old female right frontal, right temporal, right parietal, left frontal, and left cerebellar tSAH after fall, with left calvarial fracture -Neuro stable, as above -Imaging: CTH this am stable -Pain control: Continue per primary -DVT PPX: SCDs. Discussed with Dr. Zheng. Hold chem DVT PPX at this time. 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 Last discharge within 30 days: No Advance Directive: Current Advance Directive: None Center Maker Hand Attempted to Assist with AD Completion: Yes Action: Education Provided Health LiteracyHow often do you need to have someone help you when you read instructions, pamphlets, or other written material from your doctor or pharmacy? : 1 - Never How confident are you filling out medical forms by yourself?: 1 - Extremely If Patient scores > 3 on either question, the following interventions were put into place:: Use of plain language and active listening with Patient and family;Teach back methods employed to ensure comprehension;Patient did not score > 3 on either question.;Sit with Patient;Gave Patient the opportunity to ask questions Baseline Mental Status Functional Status: Independent Does Patient Currently Receive Any Community Services or Home Care?: None Equipment Prior to Admission: None Has the Patient Been in a Correction Facility in the Past 30 days?: No SOCIAL: Living Arrangements: Home Lives With: Alone Financial Resources: Retired Primary Contact: Extended Emergency Contact Information Primary Emergency Contact: Andrés Duckworth Mobile Relation: Son Secondary Emergency Contact: Cassie Solitario Mobile Relation: Daughter Supportive Patient Contact:: Yes Caregiver AssessmentCaregiver is ready, willing and able to meet the patient's needs as recommended by the inter-professional team:: No Does the patient have an acute stroke diagnosis, or has the patient had a stroke during this admission?: No Patient's transition needs and plan for meeting these needs: TBD Home care vs SNF pending PT/OT Eval Patient's perception of need for this admission: fall Medication Adherance I am convinced of the importance of my prescription medication: 0 - Agree Completely I worry that my prescription medication will do more harm than good to me : 0 - Disagree Completely I feel financially burdened by my [id number] expenses for my prescription medication:: 0 - Disagree Completely Risk Score: 0 Patient is categorized as: Low risk < 2 Are you interested in bedside delivery of your medications? No Is Patient Psychosocially Complex?: No ASSESSMENT AND PLAN: Medical Needs: Medical Needs: Two or more chronic diseases;Fall risk or frequent falls Psychosocial Needs: Psychosocial Needs: None FREEDOM OF CHOICE EXPLAINED: Panacea of Choice Given: No Reason Not Given: Unable to complete with this assessment - revisit POTENTIAL TRANSITION PLANS To Be Determined;Home Care;Correction Facility/Intermediate Care Facility Chart reviewed. The pateint is admitted due to fall ? Spoke with patient and her son at the bedside. Explained care management role. Functional: The patient lives in ranch house and has 3-4 steps to get inside of the house Transportation: the patient drives to appointments and is independent at home Equipment Prior to Admission: none Support: Andrés Duckworth (Son) [phone] Pharmacy: [facility] [place] [address] PCP: Tommy Mendoza MD The patient fell in her garage and was sent to [facility]. The patient has SDH (subdural hematoma) and SAH (subarachnoid hemorrhage). The patient was wanting to get better with goal to go home. The patient denies any concerns and reports she had outpatient therapy last fall. Awaiting PT/OT evaluation. Social work continue to follow for treatment plan and transitional planning. SIGNATURE: JOSHUA Polanco PATIENT NAME: Virginia Duckworth DATE: July 01, 2021 TIME: 5:12 PM PAGER/CONTACT #: [phone] NoteHNO ID: [id number] Author: Trace Gaston PA-C Service: Neurosurgery Author Type: Physician Corpsman Type: Progress Notes Filed: 07/01/2021 10:04 AM Note Text: Neurosurgery Progress Note SERVICE DATE: 07/01/2021 SUBJECTIVE: Patient continues to reports severe anterior and posterior headaches. She denies any nausea or vomiting, saying How could I when I haven't eaten. Denies any bowel or bladder issues. Denies any numbness or tingling. Wants to have HOB changed due to headaches. GCS 15. OBJECTIVE: Vitals: Temp (24hrs), Av.5 ?C (97.7 ?F), Min:36.5 ?C (97.7 ?F), Max:36.5 ?C (97.7 ?F) BP 136/80 Pulse 82 Temp 36.5 ?C (97.7 ?F) (Oral) Resp 14 Ht 149.9 cm (4' 11 ) Wt 50.8 kg (112 lb) SpO2 99% BMI 22.62 kg/m? O2 Therapy: Room Air IANDO: Date 06/30/21699 - 07/01/21 0607/01/21699 - 07/02/21 0659 Shift 9520-3033 6700-7200 3269-9984 24 Hour Total 9091-2099 5128-7359 0747-3397 24 Hour Total INTAKE IV 4136 130 1252 Volume (mL) (NaCl 0.9% 1,000 mL iv bolus) 1000 1000 Volume (mL) (NaCl 0.9% iv infusion) 100 100 Shift Total 8215 936 5242 OUTPUT Shift Total Weight (kg) 50.8 50.8 50.8 50.8 50.8 50.8 50.8 50.8 MEDICATIONS: Current Facility-Administered Medications Medication Dose Route Frequency - NaCl 0.9% iv flush bag 20 mL INTRAVENOUS PRN - ondansetron (PF) 4 mg injection (ZOFRAN) 4 mg INTRAVENOUS q 6 H PRN - senna-docusate 8.6-50 mg 1 tablet (SENNA-S) 1 tablet ORAL BID - metoprolol succinate ER 50 mg tab(s) (TOPROL XL) 50 mg ORAL DAILY - icosapent ethyl 1 g cap(s) (VASCEPA) 1 g ORAL BID - potassium chloride ER 20-40 mEq tab(s) (K-DUR, KLOR-CON) 20-40 mEq ORAL/FEEDING TUBE PRN Or - potassium chloride iv piggyback 20 mEq/100 mL 20 mEq INTRAVENOUS PRN - magnesium sulfate 2 g in sterile water 50 ml 2 g INTRAVENOUS PRN - phosphorus 500 mg tab(s) (K PHOS NEUTRAL) 500 mg ORAL/FEEDING TUBE PRN(NO DISPENSE) - calcium gluconate 4 g in NaCl 0.9% 250 mL 4 g INTRAVENOUS PRN - sodium chloride 0.9 % (flush) 3-5 mL (BD POSIFLUSH) 3-5 mL INTRAVENOUS q 12 H - melatonin 3 mg tab(s) 3 mg ORAL/FEEDING TUBE DAILY (7 PM) - levETIRAcetam 500 mg tab(s) (KEPPRA) 500 mg ORAL BID - acetaminophen 975 mg tab(s) (TYLENOL) 975 mg ORAL QID - oxyCODONE IR 2.5-5 mg tab(s) (ROXICODONE) 2.5-5 mg ORAL q 6 H PRN Physical Exam Performed: General - Alert, cooperative, appropriate Resp - even, unlabored GI - abdomen soft, non-tender, non-distended HEENT - Normocephalic. Atraumatic. Neck/Back - No midline or paraspinal tenderness. No gross bony deformities. Neuro - A+O x3, PERRL, makes eye contact, speech clear, cranial nerves 2-12 grossly intact, DE DIOS, strength 5/5 RUE (LUE congenital deformity) and BLE and equal Extremities- Grossly normal. Symmetrical. No edema, deformity, coloration changes. Pulses- 2+ DP, 2+ radial Labs: CBC, Coags, BMP, Mg, Phos Recent Labs 07/01/21 0433 06/30/21 1515 06/30/21 1241 06/30/21 1136 WBC 8.21 -- -- 11.95* HB 12.0 -- -- 13.6 HCT 37.9 -- -- 42.6 PLT 181 -- -- 234 INR -- -- 1.0 -- APTT -- -- 20.5* -- NA 142 -- 142 -- K 3.9 -- 4.2 -- CHLOR 109* -- 107* -- CO2 25 -- 22 -- BUN 22* -- 25* -- CREAT 0.83 -- 1.09* -- GLUC 80 -- 117* -- CA 8.7 -- 9.1 -- MG 2.0 1.9 -- -- Liver Function, Amylase, AND Lipase Recent Labs 06/30/21 1241 TPROT 6.1* ALB 3.7* ALKPHOS 67 TBILI 0.3 Cardiac Enzymes ABGs Diagnostic tests reviewed for today's visit: Most recent labs and imaging results. 07/01/21 CT Brain IMPRESSION: 1. Hemorrhagic contusion at the right subfrontal region appears more conspicuous on the current study. Modest increase in acute subarachnoid hemorrhage overlying the right frontal pole. ? 2. Acute subarachnoid blood overlying the right temporal pole, right parietal region, left frontal pole and left cerebellar hemisphere, unchanged. ? 3. Small volume of acute hemorrhage dependently in the occipital horn of both lateral ventricles, unchanged. ? 4. Nondepressed left parieto-occipital calvarial fracture extending to the left foramen magnum, unchanged. ASSESSMENT AND PLAN: Active Hospital Problems Diagnosis Date Noted - Fall 06/30/2021 - Trauma 06/30/2021 - TBI (traumatic brain injury) ([facility]) 06/30/2021 - Nausea AND vomiting 06/30/2021 - SDH (subdural hematoma) ([facility]) 06/30/2021 - Closed fracture of occipital bone with routine healing 06/30/2021 - SAH (subarachnoid hemorrhage) ([facility]) 06/30/2021 - CKD (chronic kidney disease) stage 3, GFR 30-59 ml/min ([facility]) 07/16/2018 Chronic - Mixed hyperlipidemia Chronic - Congenital limb anomaly Chronic Overview Note: Left upper extremity 80 year old female with right frontal, right temporal, right parietal, left frontal, and left cerebellar tSAH after fall, with left calvarial fracture. -Neuro exam unchanged -Imaging: CT Brain this am shows increase to right frontal tSAH -Pain control: Continue per primary -DVT (more content not included)...[facility]01-28-2022 Note HNO ID: [id number] Author: Salvador Beaver MD Service: General Surgery Author Type: Physician Type: Progress Notes Filed: 07/01/2021 10:38 AM Note Text: Trauma Surgery Progress Note SERVICE DATE: 07/01/2021 Trauma Service Pager: For questions or concerns Mon-Fri 6a-5p please page [phone]. After 5pm and on Weekends and Holidays, please page [phone] if in ICU or [phone] if on RNF. SUBJECTIVE: Patient had no complaints from overnight and was able to get some good sleep. She confirms that she still has a pretty significant headache, but has no other complaints. OBJECTIVE: Vitals: Temp (24hrs), Av.5 ?C (97.7 ?F), Min:36.5 ?C (97.7 ?F), Max:36.5 ?C (97.7 ?F) BP 136/80 Pulse 82 Temp 36.5 ?C (97.7 ?F) (Oral) Resp 14 Ht 149.9 cm (4' 11 ) Wt 50.8 kg (112 lb) SpO2 99% BMI 22.62 kg/m? O2 Therapy: Room Air IANDO: Date 06/30/21 07 - 07/01/21 0659 07/01/21 07 - 07/02/21 0659 Shift 9221-6261 3159-7863 9212-1753 24 Hour Total 2197-8148 2039-1611 4213-7206 24 Hour Total INTAKE IV 3380 152 2167 Volume (mL) (NaCl 0.9% 1,000 mL iv bolus) 1000 1000 Volume (mL) (NaCl 0.9% iv infusion) 100 100 Shift Total 0659 592 8618 OUTPUT Shift Total Weight (kg) 50.8 50.8 50.8 50.8 50.8 50.8 50.8 50.8 MEDICATIONS: Current Facility-Administered Medications Medication Dose Route Frequency - NaCl 0.9% iv flush bag 20 mL INTRAVENOUS PRN - ondansetron (PF) 4 mg injection (ZOFRAN) 4 mg INTRAVENOUS q 6 H PRN - senna-docusate 8.6-50 mg 1 tablet (SENNA-S) 1 tablet ORAL BID - metoprolol succinate ER 50 mg tab(s) (TOPROL XL) 50 mg ORAL DAILY - icosapent ethyl 1 g cap(s) (VASCEPA) 1 g ORAL BID - potassium chloride ER 20-40 mEq tab(s) (K-DUR, KLOR-CON) 20-40 mEq ORAL/FEEDING TUBE PRN Or - potassium chloride iv piggyback 20 mEq/100 mL 20 mEq INTRAVENOUS PRN - magnesium sulfate 2 g in sterile water 50 ml 2 g INTRAVENOUS PRN - phosphorus 500 mg tab(s) (K PHOS NEUTRAL) 500 mg ORAL/FEEDING TUBE PRN(NO DISPENSE) - calcium gluconate 4 g in NaCl 0.9% 250 mL 4 g INTRAVENOUS PRN - sodium chloride 0.9 % (flush) 3-5 mL (BD POSIFLUSH) 3-5 mL INTRAVENOUS q 12 H - melatonin 3 mg tab(s) 3 mg ORAL/FEEDING TUBE DAILY (7 PM) - levETIRAcetam 500 mg tab(s) (KEPPRA) 500 mg ORAL BID - acetaminophen 975 mg tab(s) (TYLENOL) 975 mg ORAL QID - oxyCODONE IR 2.5-5 mg tab(s) (ROXICODONE) 2.5-5 mg ORAL q 6 H PRN Labs: Recent Labs 07/01/21 0433 06/30/21 1515 06/30/21 1241 06/30/21 1136 NA 142 -- 142 -- K 3.9 -- 4.2 -- CHLOR 109* -- 107* -- CO2 25 -- 22 -- BUN 22* -- 25* -- CREAT 0.83 -- 1.09* -- GLUC 80 -- 117* -- ANION 8* -- 13 -- CA 8.7 -- 9.1 -- MG 2.0 1.9 -- -- ALB -- -- 3.7* -- ALKPHOS -- -- 67 -- TBILI -- -- 0.3 -- WBC 8.21 -- -- 11.95* HB 12.0 -- -- 13.6 HCT 37.9 -- -- 42.6 PLT 181 -- -- 234 INR -- -- 1.0 -- PHYSICAL EXAM: Genl: Appears age appropriate. No acute distress. Resting comfortably. Head/Face: TTP on posterior portion of head. No obvious crepitus. No obvious bleeding. Eyes: EOMI. Sclera not icteric, not injected Resp: Good excursion. Saturating well on RA. CVS: RRR as above; 2+ pulses at RA, DP, PT bilat. GI: Abdomen is soft, non-tender, not distended. No peritonitis. MSK: Extremities without clubbing, cyanosis, edema. Skin: Warm and dry. Not jaundiced. Neuro: AANDOx3. Strength and sensation normal. GCS15. Psych: Normal mood. Normal affect. Appropriate insight into current situation. ASSESSMENT AND PLAN: Active Hospital Problems Diagnosis Date Noted - Fall 06/30/2021 - Trauma 06/30/2021 - TBI (traumatic brain injury) ([facility]) 06/30/2021 - Nausea AND vomiting 06/30/2021 - SDH (subdural hematoma) ([facility]) 06/30/2021 - Closed fracture of occipital bone with routine healing 06/30/2021 - SAH (subarachnoid hemorrhage) ([facility]) 06/30/2021 - CKD (chronic kidney disease) stage 3, GFR 30-59 ml/min ([facility]) 07/16/2018 Chronic - Mixed hyperlipidemia Chronic - Congenital limb anomaly Chronic Overview Note: Left upper extremity 80 year old female s/p mechanical fall on 06/29/2021 (1 day prior to arrival). Trauma transfer from [place] [facility]. ? Imaging performed: 1. CT H/N, cxr, pxr on 06/30/[address] Brain on 06/30/2021 ? Traumatic Injuries: 1. Acute subarachnoid hemorrhage right frontal and occipital poles 2. Acute subarachnoid hemorrhage left frontal pole and left cerebellar convexity 3. Right inferior frontal cortical contusion. Left cerebellar parenchymal hypodensity may represent old infarct versus additional parenchymal contusion. 4. Nondisplaced left parietal and occipital bone fracture extending to the left foramen magnum. ? Operations/Procedures: 1. None ? Care Plan: 1. [facility] 2. Acute SAH/TBI: 1. Neurosurgery consulted 2. DDAVP given due to home Aspirin use 3. Patient is neurologically intact 4. Repeat CT brain this afternoon is stable 5. Plan for conservative no (more content not included)...[facility]01-27-2022 NoteHNO ID: [id number] Author: Etelvina Greer Service: Pharmacy Author Type: ? Type: Plan of Care Filed: 06/30/2021 3:26 PM Note Text: Attestation signed by James Boothe [facility] at 07/01/2021 1:15 PM I agree with the med hx obtained by the pharmd candidate. Med list updated per [facility], [facility], [facility] and patient interview. Nothing per [facility] since Apr 2020. Patient denied any other rx/otc/herbal products. PHARMACY MEDICATION REVIEW Patient Name: Virginia Duckworth : 1940 The following medications were updated within the [employer] medication list: Medications ADDED to [employer] medication list ? N/A Medications CHANGED on [employer] medication list ? N/A Medications REMOVED from [employer] medication list ? Clotrimazole-betamethasone cream per patient not taking. Per [facility] medication hasn't been filled since 04/27/2021 Additional comments: Patient is a reliable source to receive a medication history from. Patient had a list written out of medication that she is currently taking. -Per [facility] clotrimazole-betamethasone cream last filled 04/27/2021 The below information represents the best possible medication history: Yes Medication history completed by: student life coordinator: Etelvina Greer Source of history: Patient: Reliability of source: Appears reliable, clearly identified: Medication name, Medication dose, Medication route and Medication frequency. Pharmacies: [facility] and [facility] Medication nonadherence identified: No barriers noted Reconciliation completed: Yes Patient interested in Bedside Delivery Services or using OP Pharmacy at discharge? Unable to assess Preferred outpatient pharmacy: e- [facility] [place] [address] - [address] - [phone] [facility]- [facility] [address] [place] [phone] [address] [phone] [facility] Allergies: Bactrim [Sulfametho* GI Upset Comment:Patient states: Chest pain occurs Clinoril [Sulindac] GI Upset Cymbalta [Duloxetin* GI Upset Comment:Patient states: nausea Erythromycin Other: See Comments Comment:Hearing loss Influenza Virus Vac* Hives Influenza Virus Vac* Hives Lopid [Gemfibrozil] Other: See Comments Comment:Myalgias Naproxen Swelling Neurontin [Gabapent* GI Upset Niaspan [Niacin] Itching Comment:Patient states: extreme itching Penicillin Other: See Comments Comment:Patient states: face swelling Penicillin G Other: See Comments Comment:Numbness Jifzrzo-Btr-Fek Red* Myalgia Comment:Crestor, lipitor, zocor, pravastin, baycol Tessalon [Benzonata* Other: See Comments Comment:dizziness Tricor [Fenofibrate* Myalgia Vancomycin Itching Comment:Patient states: severe itching Zanaflex [Tizanidin* Unknown Zetia [Ezetimibe] Myalgia Prior to Admission Medications Prescriptions Last Dose Informant Patient Reported? Taking? aspirin, enteric coated (ASPIRIN, ENTERIC COATED) 81 mg EC tablet Yes Yes Sig: Take 81 mg by mouth once daily. icosapent ethyl (VASCEPA) 1 gram capsule No Yes Sig: Take 2 capsules twice daily by mouth metoprolol succinate ER (TOPROL XL) 50 mg 24 hr tablet No Yes Sig: Take 1 tablet by mouth once daily. Facility-Administered Medications: None Etelvina Greer 06/30/2021[facility]01-27-2022 NoteHNO ID: [id number] Author: Shahnaz Garcia (Fast Food Delivery Driver) Service: Pharmacy Author Type: Export Clerk Type: Plan of Care Filed: 06/30/2021 3:26 PM Note Text: PHARMACY MEDICATION REVIEW Patient Name: Virginia Duckworth : 1940 The following medications were updated within the [employer] medication list: Medications ADDED to [employer] medication list ? Medications CHANGED on [employer] medication list ? Medications REMOVED from [employer] medication list ? Additional comments: verified medication information with patient, pharmacy and chart review. Patient stated taking Aspirin, Vascepa and metoprolol succinate. Pharmacy confirms fill date current. The below information represents the best possible medication history: Yes Medication history completed by: Export Clerk: Shahnaz Garcia (Fast Food Delivery Driver) Source of history: Patient: Reliability of source: Appears reliable, clearly identified: Medication name, Medication dose, Medication route and Medication frequency, Pharmacy records: [facility] [phone] and [facility] [phone] and [facility] records Medication nonadherence identified: No barriers noted Reconciliation completed: No, pharmacist not yet reviewed Patient interested in Bedside Delivery Services or using OP Pharmacy at discharge? No Preferred outpatient pharmacy: e- [facility] [place] [address] - [address] [phone] e- [facility] [address] [place] [address] [address] [facility] [phone] [facility] Allergies: Bactrim [Sulfametho* GI Upset Comment:Patient states: Chest pain occurs Clinoril [Sulindac] GI Upset Cymbalta [Duloxetin* GI Upset Comment:Patient states: nausea Erythromycin Other: See Comments Comment:Hearing loss Influenza Virus Vac* Hives Influenza Virus Vac* Hives Lopid [Gemfibrozil] Other: See Comments Comment:Myalgias Naproxen Swelling Neurontin [Gabapent* GI Upset Niaspan [Niacin] Itching Penicillin Other: See Comments Comment:Patient states: face swelling Penicillin G Other: See Comments Comment:Numbness Yohgigv-Jsc-Bgn Red* Myalgia Comment:Crestor, lipitor, zocor, pravastin, baycol Tessalon [Benzonata* Other: See Comments Comment:dizziness Tricor [Fenofibrate* Myalgia Vancomycin Itching Comment:Patient states: severe itching Zanaflex [Tizanidin* Unknown Zetia [Ezetimibe] Myalgia Prior to Admission Medications Prescriptions Last Dose Informant Patient Reported? Taking? aspirin, enteric coated (ASPIRIN, ENTERIC COATED) 81 mg EC tablet Yes Yes Sig: Take 81 mg by mouth once daily. icosapent ethyl (VASCEPA) 1 gram capsule No Yes Sig: Take 2 capsules twice daily by mouth metoprolol succinate ER (TOPROL XL) 50 mg 24 hr tablet No Yes Sig: Take 1 tablet by mouth once daily. Facility-Administered Medications: None Shahnaz Radha (Fast Food Delivery Driver) [id number] [facility] Diagnosis Dermatitis Contact dermatitis and other eczema, due to unspecified cause [facility]* Diagnosis Bilateral carotid artery stenosis- Primary Occlusion and stenosis of carotid artery without mention of cerebral infarction Polycythemia Polycythemia vera SDH (subdural hematoma) (HCC) Subdural hemorrhage Mixed hyperlipidemia Hypertension, unspecified type Stage 3 chronic kidney disease, unspecified whether stage 3a or 3b CKD (HCC) Prediabetes Other abnormal glucose documented in this encounter [facility] note* Diagnosis Hypertension, unspecified type- Primary Mixed hyperlipidemia Encounter for immunization Need for other specified prophylactic vaccination against single bacterial disease Stage 3 chronic kidney disease, unspecified whether stage 3a or 3b CKD (HCC) Polycythemia Polycythemia vera Bilateral carotid artery stenosis Occlusion and stenosis of carotid artery without mention of cerebral infarction Prediabetes Other abnormal glucose Traumatic brain injury, with loss of consciousness of 30 minutes or less, initial encounter ([facility]) [facility]* Diagnosis Mixed hyperlipidemia documented in this encounter [facility] note* Diagnosis Mixed hyperlipidemia- Primary History of traumatic brain injury Personal history of traumatic brain injury History of subdural hematoma Hypertension, unspecified type Stage 3 chronic kidney disease, unspecified whether stage 3a or 3b CKD (HCC) Prediabetes Other abnormal glucose Vitamin D deficiency Unspecified vitamin D deficiency documented in this encounter [facility] note* Diagnosis Mixed hyperlipidemia- Primary Hypertension, unspecified type Stage 3 chronic kidney disease, unspecified whether stage 3a or 3b CKD (HCC) documented in this encounter [facility] for referral (narrative)* Outpatient Procedure (Routine) - Authorized Specialty Diagnoses / Procedures Referred By Contac t Referred To [facility] Diagnoses Bilateral carotid artery stenosis Procedures US CAROTID ARTERIES [facility] DUPLEX SCAN EXTRACRANIAL ART COMPL BI STUDY Tommy Mendoza MD [address] [place] [address] [facility] [place] [address] Referral ID Status Reason Start Date Expiration Date Visits Requested Visits Authorized [id number] Authorized Auto-Generat ed Referral 12/09/2021 12/09/2022 1 1 [facility] Summary Purpose Family History No Family History Records FoundNo Family History Records Found Advance Directives No Advanced Directives Records FoundDocuments on File Type Date Recorded 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 Advance Directive(s) 06/30/2021 10:31 AM Advance Directive(s) 06/09/2020 9:48 AM Latest Code Status on File Code Status Date Activated Date Inactivated Comments Full Code 06/30/2021 2:46 PM 07/06/2021 5:33 PM Full Code Order Discussed With: Patient Documents on File Type Date Recorded 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 Advance Directive(s) 06/30/2021 10:31 AM Advance Directive(s) 06/09/2020 9:48 AM Latest Code Status on File Code Status Date Activated Date Inactivated Comments Full Code 06/30/2021 2:46 PM 07/06/2021 5:33 PM Latest Code Status on File Code Status Date Activated Date Inactivated Comments Full Code 06/30/2021 2:46 PM 07/06/2021 5:33 PM Question Answer Comments Full Code Order Discussed With: Patient Health Concerns Problem Noted Date High Risk Chronic Disease Home Monitorin g Problem 10/17/2022 Problem Noted Date Diagnosed Date High Risk Chronic Disease Home Monitoring Proble m 10/17/2022 Problem Noted Date Diagnosed Date High Risk Chronic Disease Home Monitoring Proble m 10/17/2022 Problem Noted Date Diagnosed Date High Risk Chronic Disease Home Monitoring Proble m 10/17/2022 Additional Source Comments INFORMATION SOURCE (unrecogn ized section and content) DATE CREATED AUTHOR AUTHOR'S ORGANIZ ATION 05/19/2023 [facility] Source Comments (unrecognize d section and content) In the event this informatio n is protected by the Federal Confidentiality of Alcohol and Drug Abuse Patient Records regulations: The Federal rules restrict any use of the information to criminally investigate or prosecute any alcohol or drug abuse patient.[facility] the event this information is protected by the Federal Confidentiality of Alcohol and Drug Abuse Patient Records regulations: The Federal rules restrict any use of the information to criminally investigate or prosecute any alcohol or drug abuse patient.[facility] Hospital[facility] the event this information is protected by the Federal Confidentiality of Alcohol and Drug Abuse Patient Records regulations: The Federal rules restrict any use of the information to criminally investigate or prosecute any alcohol or drug abuse patient.[facility] Hospital[facility] the event this information is protected by the Federal Confidentiality of Alcohol and Drug Abuse Patient Records regulations: The Federal rules restrict any use of the information to criminally investigate or prosecute any alcohol or drug abuse patient.[facility] Hospital[facility] the event this information is protected by the Federal Confidentiality of Alcohol and Drug Abuse Patient Records regulations: The Federal rules restrict any use of the information to criminally investigate or prosecute any alcohol or drug abuse patient.[facility] Hospital[facility] the event this information is protected by the Federal Confidentiality of Alcohol and Drug Abuse Patient Records regulations: The Federal rules restrict any use of the information to criminally investigate or prosecute any alcohol or drug abuse patient.[facility] Hospital[facility] the event this information is protected by the Federal Confidentiality of Alcohol and Drug Abuse Patient Records regulations: The Federal rules restrict any use of the information to criminally investigate or prosecute any alcohol or drug abuse patient.[facility] Hospital[facility] the event this information is protected by the Federal Confidentiality of Alcohol and Drug Abuse Patient Records regulations: The Federal rules restrict any use of the information to criminally investigate or prosecute any alcohol or drug abuse patient.[facility] Hospital[facility] the event this information is protected by the Federal Confidentiality of Alcohol and Drug Abuse Patient Records regulations: The Federal rules restrict any use of the information to criminally investigate or prosecute any alcohol or drug abuse patient.[facility] Hospital[facility] the event this information is protected by the Federal Confidentiality of Alcohol and Drug Abuse Patient Records regulations: The Federal rules restrict any use of the information to criminally investigate or prosecute any alcohol or drug abuse patient.[facility] Hospital[facility] the event this information is protected by the Federal Confidentiality of Alcohol and Drug Abuse Patient Records regulations: The Federal rules restrict any use of the information to criminally investigate or prosecute any alcohol or drug abuse patient.[facility] Hospital[facility] the event this information is protected by the Federal Confidentiality of Alcohol and Drug Abuse Patient Records regulations: The Federal rules restrict any use of the information to criminally investigate or prosecute any alcohol or drug abuse patient.[facility] HospitalIn the event this information is protected by the Federal Confidentiality of Alcohol and Drug Abuse Patient Records regulations: The Federal rules restrict any use of the information to criminally investigate or prosecute any alcohol or drug abuse patient.[facility] HospitalIn the event this information is protected by the Federal Confidentiality of Alcohol and Drug Abuse Patient Records regulations: The Federal rules restrict any use of the information to criminally investigate or prosecute any alcohol or drug abuse patient.[facility] HospitalIn the event this information is protected by the Federal Confidentiality of Alcohol and Drug Abuse Patient Records regulations: The Federal rules restrict any use of the information to criminally investigate or prosecute any alcohol or drug abuse patient.[facility] HospitalIn the event this information is protected by the Federal Confidentiality of Alcohol and Drug Abuse Patient Records regulations: The Federal rules restrict any use of the information to criminally investigate or prosecute any alcohol or drug abuse patient.[facility] Reason for Visit (unrecogniz ed section and content) Reason Comments re-faxing physical therapy reassessment needs sign and faxed back Reason Comments Follow Up 3 months Reason Onset Date Comments Community Monitoring Outreach 04/20/2022 He althy at Home Reason Comments 6 Month Exam Reason Comments medication direction clarification Reason Onset Date Comments Community Monitoring Outreach 01/11/2023 Reason Onset Date Comments Community Monitoring Outreach 02/09/2023 Reason Comments Follow Up Reason Onset Date Comments Community Monitoring Outreach 03/07/2023 Reason Onset Date Comments Community Monitoring Outreach 04/09/2023 Care Teams (unrecognized sec tion and content) Finance Mgr Relationship Specialty Start Date End Date Tommy Mendoza MD [address], [place] [phone] PCP - General Family Practice 05/03/12 Kingsley Juarez, threshing machine operatorCrane Operator Family Practice 08/25/21 Finance Mgr Relationship Specialty Start Date End Date Tommy Mendoza MD [address] [place] [address] PCP - General Family Practice 05/03/12 Kingsley Juarez, threshing machine operatorCrane Operator Family Practice 08/25/21 Finance Mgr Relationship Specialty Start Date End Date Tommy Mendoza MD [address] [place], [place] [address] PCP - General Family Practice 05/03/12 Kingsley Juarez threshing machine operatorCrane Operator Family Practice 08/25/21 Finance Mgr Relationship Specialty Start Date End Date Tommy Mendoza MD [address] [facility] [place] [id number] PCP - General Family Medicine 05/03/12 Ann Wynn, threshing machine operatorCrane Operator Family Medicine 08/25/21 Finance Mgr Relationship Specialty Start Date End Date Tommy Mendoza MD [address], [place] [id number] PCP - General Family Medicine 05/03/12 Ann Wynn, threshing machine operatorCrane Operator Family Medicine 08/25/21 Finance Mgr Relationship Specialty Start Date End Date Tommy Mendoza MD [address] [facility] [address] PCP - General Family Medicine 05/03/12 Ann Wynn, threshing machine operatorCrane Operator Family Medicine 08/25/21 Finance Mgr Relationship Specialty Start Date End Date Tommy Mendoza MD [address] [facility] [place] [address] PCP - General Family Medicine 05/03/12 Ann Wynn, threshing machine operatorCrane Operator Family Medicine 08/25/21 Finance Mgr Relationship Specialty Start Date End Date Tommy Mendoza MD [address] [facility] [place] [address] PCP - General Family Medicine 05/03/12 Ann Wynn, threshing machine operatorCrane Operator Family Medicine 08/25/21 Finance Mgr Relationship Specialty Start Date End Date Tommy Mendoza MD [address] [facility] [place] [address] PCP - General Family Medicine 05/03/12 Ann Wynn, threshing machine operatorCrane Operator Family Medicine 08/25/21 Finance Mgr Relationship Specialty Start Date End Date Tommy Mendoza MD [address] [facility] [place] [address] PCP - General Family Medicine 05/03/12 Ann Wynn, threshing machine operatorCrane Operator Family Medicine 08/25/21 Finance Mgr Relationship Specialty Start Date End Date Tommy Mendoza MD [address] [facility] [place] [address] PCP - General Family Medicine 05/03/12 Ann Wynn, threshing machine operatorCrane Operator Family Medicine 08/25/21 Finance Mgr Relationship Specialty Start Date End Date Tommy Mendoza MD [address] [place] [address] PCP - General Family Medicine 05/03/12 Ann Wynn RN Crane Operator Family Medicine 08/25/21 FOR RECORDS PERTAINING TO PATIENTS WHO ARE OR HAVE BEEN ENROLLED IN A CHEMICAL DEPENDENCY/SUBSTANCEABUSE PROGRAM, SOME INFORMATION MAY BE OMITTED. This clinical summary was aggregated from multiple sources. Caution should be exercised in using it in the provision of clinical care. This summary normalizes information from multiple sources, and as a consequence, information in this document may materially change the coding, format and clinical context of patient data. In addition, data may be omitted in some cases. CLINICAL DECISIONS SHOULD BE BASED ON THE PRIMARY CLINICAL RECORDS. [facility] [employer] [facility]. provides no warranty or guarantee of the accuracy or completeness of information in this document.
[2023-06-17 18:32] LABS: Anion Gap 13 (5-15); BUN 20 mg/dL (7-18); BUN/Creat Ratio 17.1 RATIO (10-20); Calcium,Total 10.2 mg/dL (8.5-10.1); Chloride 109 mmol/L (98-107); Creatinine, Serum 1.17 mg/dL (0.55-1.02); EST Glomerular Filtration Rate 47 mL/min (>60); Est Glom Filt Rate - Afr Amer 57 mL/min (>60); Estimated Creatinine Clearance 26.63 ml/min; Glucose 199 mg/dL (74-106); Potassium 3.5 mmol/L (3.5-5.1); Sodium Level 145 mmol/L (136-145); Troponin-I HS 19 pg/mL (3.0-54.0)
[2023-06-17 18:47] LABS: D-Dimer Quantitative (DVT/PE) 4.65 FEU/ug/m (0.27-0.49)
--- NOTE | 2023-06-17 18:49 | ED.RN ---
d-dimer reported to dr celestin.
[2023-06-17] MEDS: Diphth,Pertuss(Acell),Tet Vac 0.5 ML Vial IM (18:51)
--- NOTE | 2023-06-17 19:03 | ED.RN ---
PT ACCEPTED @ [facility] ED [id number]
[2023-06-17 19:15] LABS: Bacteria 0 SEEN /hpf (None Seen); Mucous, Urine 0 SEEN /hpf (<or=2+); Red Blood Cells-Urine 0 SEEN /hpf (0-5); White Blood Cells 0 SEEN /hpf (0-5)
[2023-06-17 19:17] LABS: Color, Urine Yellow (Yellow); Glucose, Dipstick 100 mg/dl (Normal); Ketone-Dipstick 15 mg/dl (Negative); Leukocyte Esterase-Dipstick Negative /ul (Negative); Nitrite-Dipstick Negative (Negative); Occult Blood-Urine 25 /ul (Negative); Protein-Dipstick 15 mg/dl (Negative); Specific Gravity, Urine 1.025 (1.002-1.030); Urine Bilirubin Dipstick Negative (Negative); Urine Clarity Clear (Clear); Urine Urobilinogen Normal (Normal)
[2023-06-17 19:23] LABS: Amorphous Sediment 2+; Squamous Epithelial Cells - UA 0-5 SEEN /hpf (5-10)
== END 2023-06-17 19:58 | disposition short-term general hospital (02) ==
PROVIDERS: Physician Assistant; Emergency Provider Emergency Medicine; PCP Family Medicine; Visit Provider Emergency Medicine
DX: S06.9X0A Unspecified intracranial injury without loss of consciousness, initial encounter (principal); S01.01XA Laceration without foreign body of scalp, initial encounter; R55 Syncope and collapse; I10 Essential (primary) hypertension; Z79.82 Long term (current) use of aspirin; Z79.899 Other long term (current) drug therapy; Z86.718 Personal history of other venous thrombosis and embolism; Z87.891 Personal history of nicotine dependence; W19.XXXA Unspecified fall, initial encounter
CPT/HCPCS: 70450; 71045; 72125; 80048; 81001; 84484; 85025; 85379; 90715; 93005; 99285; A4216